=== PATIENT | female | born 2000 | race Caucasian/White ===

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

== ENCOUNTER 2021-03-17 16:30 | Outpatient (RCR) | payer OTHER, MEDICAID, SELFPAY ==
--- NOTE | 2020-11-03 11:58 | HP.OTREVAL ---
Dr. Wilian Marshall MD, It has been my pleasure to treat TOMI HOLLEY over the last 18 visits for Parsonage-Turners Syndrome. Please see the progress note below for an update on the occupational therapy plan of care! Subjective: pt states she continues to have difficulty with fine motor tasks such as grooming hair, earrings, manipulation of fasteners. pt states she is accommodating with eating but continues to have difficulty. pt states she has noticed more strength in her UB but her lack of motion limits her at this time. 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 left graphics software engineer 35#. pt demo with a increase in bilateral shoulder flex to WNL. left biceps/triceps ROM is WNL MMT 4/5. right biceps 130* pt does still compensate with some adduction but with increased time pt can flex right elbow ROM 130*. pt will demo with increase wrist extension and tenodesis with grasp of med. and large objects. pt unable to grasp small objects or perform in hand manipulation. pt has has a trace of thumb extension and adduction but no thumb abduction limiting pts FMS for ADLs and IADLs as grooming, dressing and meal prep. pt would benefit from continued skilled OT services 2-3x week for 12 weeks to gain increase in FMS and strength. Plan Frequency: 2-3x /Week Duration: 3 Months Plan: cont POC will use FES to see if we can elict digit flex. cont with thumb extension. and will work on full composite fist for increase ind with fine motor skills Goals - Goals Patient Goals: Regain Mobility, Regain Strength, Improve Fine Motor Skills, Use Hand/Wrist/Arm Normally Again, Be More Independent in ADLS Goal:: pt will demo a increase in bilateral graphics software engineer strength to 45# or greater to increase pts ind. with ADLs and IADLs by d/c. pt will demo a increase in lateral and tripod pinch to 8# or greater to increase pts ind. with grooming tasks by d/c. Goal:: pt will demo the ability to form bilateral composite sit to hold coins ind. for money manipulation by dc. pt will demo the ability to extend bilateral thumb to increase pts in with grasp of large objects by d/c. pt will demo the ability to manipulate 10 coins without dropping, complete 10 coin finger to palm translation and palm to finger translation ind. Goal:: pt will demo pinch strength to increase ind. with manipulating fasteners, zippers, buttons etc by d/c Anticipated Interventions Anticipated Interventions: A/AAROM/PROM, Strengthening, Sensory Retraining, Joint Protection/Energy Conservation, Ergonomic Education, Fine Motor Coord/Tobi, ADL Training, Education re Diagnosis Please do not hesitate to contact me at [phone] by phone or if you have questions or concerns regarding this new plan of care! Sincerely, Susana Ivory, OTR/L, CHT
--- NOTE | 2020-11-12 10:33 | HP.PTREVAL ---
Dr. Wilian Marshall MD, It has been my pleasure to treat TOMI HOLLEY over the last 93 visits for [place] Syndrome. Please see the progress note below for an update on the physical therapy plan of care! Subjective: Kind of better. Can finally bend R arm a little bit. Did a cart wheel the other day without falling on her face. Playing some gentle baseball and volleybal but unpredictable with throwing and hitting. Brushing teeth and getting dressed using L arm more, she is L handed, incorporates R arm with washing hair. Petting dogs with r UE. To neurologist December 25. No pain, sleeping well. 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 Doing alot with fingers at home whcih are the main delay. Can drive now also. Many improvements. Objective/Function: Full aROM B shoulders and scap an neck. R shoulder slightly weaker and slower. L elbow with full ROM and R elbow with full PROM and active flexion to 110 degrees, full extension and still low tone. Wrist movement and hand are taken care of in OT but are lagging behind proximal arm. strength L shoulder flexion 4, er 4, IR 4, bi4, triceps 4. R shoulder flexion 4-, abd 4-, er 4-, IR 4, biceps 3- to 3, tricep 3+. Excellent improvement on strength in R UE adn becoming more functional for patient with driving, working and head stands. Her goal is to get into criminal justice and needsmore strength to do this for ful function of both proximal UE. Appropriate to continue PT per POC with fair prognosis Plan Plan: 2x week x 4 weeks. continue B bi, tri, shoulder strength and functional progression, focus WB, R biceps and triceps. OT is continuing to work on distal UE. Work toward I gym program and patient to join after the next month. 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 Goal 4:: Move R biceps against gravity Goal Time Frame: 6-8 Weeks Goal Progress: Goal Met Goal 5:: 16 or less quick dash Goal Time Frame: 4-6 Weeks Goal 6:: I approp gym ex to continue progress and willingness to be compliant Goal Time Frame: 4-6 Weeks Goal Progress: NEW GOAL Anticipated Interventions Patient/Client Instruction: Educate patient on: Condition, Plan of Care For the Purpose of:: To improve muscle performance and motor function Therapeutic Exercise to Include: Strength training For the Purpose of:: To improve muscle performance and motor function, To improve ability of physical actions for home/community/work/leisure Please do not hesitate to contact me at [phone] by phone or if you have questions or concerns regarding this new plan of care! Sincerely, Beto Anderson, DPT, OCS, CSCS
--- NOTE | 2021-01-07 10:10 | HP.OTREVAL ---
Dr. Wilian Marshall MD, It has been my pleasure to treat TOMI HOLLEY over the last 12 visits for [place] Syndrome. Please see the progress note below for an update on the occupational therapy plan of care! Subjective: pt arrives to therapy- states left UE ROM has returned to her POLF- just struggling with strength and. right UE biceps has finally returned and some digit extension- still limited with thumb mobility limiting a functional grasp Objective/Function: left UE demonstrating with full ROM of shoulder, elbow/ forearm and digits- opposition ind. to base of LF. right UE shoulder ROM. right biceps 135 left 140. right forearm supination 50*. left forearm supination 90*. right wrist 45/60. left WNL. right thumb no abduction. right hand no opposition. right customer field representative strength 40#. left customer field representative strength 45#. right lateral pinch unable. left lateral pinch 2#. right tripod pinch unable. left tripod pinch 4#. pt has made gains with gross motor control of BUE- but continue to be limited with fine motor control and limited pinch strength for activities of daily living- ie unable to turn a carreno to start her car or unlock her door, open jar lids, unbutton or button, can not tie shoes laces or pants- pt does not have ability to write or performing grooming or participate in sports. Plan Frequency: 1-2x /Week Duration: 2 Months Plan: pt demonstrated need to continue skilled OT services 2x week for 8 weeks to continue to gain fine motor control, bilateral hand and pinch strength. Goals - Goals Patient Goals: Regain Mobility, Regain Strength, Improve Fine Motor Skills, Use Hand/Wrist/Arm Normally Again, Be More Independent in ADLS Goal:: pt will demo a increase in bilateral customer field representative strength to 45# or greater to increase pts ind. with ADLs and IADLs by d/c. pt will demo a increase in lateral and tripod pinch to 8# or greater to increase pts ind. with grooming tasks by d/c. Goal:: pt will demo the ability to form bilateral composite sit to hold coins ind. for money manipulation by dc pt unable to manipulate coins. pt will demo the ability to extend bilateral thumb to increase pts in with grasp of large objects by d/c. pt will demo the ability to manipulate 10 coins without dropping, complete 10 coin finger to palm translation and palm to finger translation ind. Goal:: pt will demo pinch strength to 8# both lateral and tripod to increase ind. with manipulating fasteners, zippers, buttons etc by d/c. right continues to be limited at no ability- left lateral pinch is at 2# and tripod is at 4#. Anticipated Interventions Anticipated Interventions: A/AAROM/PROM, Strengthening, Sensory Retraining, Joint Protection/Energy Conservation, Ergonomic Education, Fine Motor Coord/Tobi, ADL Training, Education re Diagnosis Please do not hesitate to contact me at [phone] by phone or if you have questions or concerns regarding this new plan of care! Sincerely, Susana Ivory, OTR/L, CHT
--- NOTE | 2021-06-10 11:43 | HP.OTDCNRP_ITS ---
TOMI HOLLEY was seen in my office for initial evaluation on . The following Plan of Care was established for this patient: Initial Frequency: 1-2x /Week Initial Duration: 2 Months Plan: Cont POC Anticipated Interventions: A/AAROM/PROM, Strengthening, Sensory Retraining, J oint Protection/Energy Conservation, Ergonomic Education, Fine Motor Coord/Tobi, ADL Training, Education re Diagnosis This patient was last seen in our office 03/17/21. Pertinent comments regarding their Occupational therapy will appear below: pt was last seen in OT on 03/17/21- pt was making good gains with her recovery- no further apts are scheduled and due to time lapse in services pt d/c. At this point I will be discontinuing this patient from occupational therapy. I would be happy to see this patient again in the future if found appropriate by the physician. Thank you! Susana Ivory, OTR/L, CHT
== END 2021-03-17 19:00 | disposition home or self-care (01) ==
LOC: OT 16:30
PROVIDERS: PCP Pediatrics; Referring Provider Pediatrics; Visit Provider Pediatrics
DX: G54.5 Neuralgic amyotrophy (principal)
CPT/HCPCS: 97110; 97164; 97168; 97530

== ENCOUNTER 2025-05-13 19:30 | Outpatient (CLI) | payer MEDICAID, SELFPAY ==
[2025-05-13 19:48] VITALS: BMI 24.4
[2025-05-13 19:53] VITALS: BP 122/69; PULSE 95; PULSE 98; RESP 14; TEMP 36.4; O2SAT 97
--- NOTE | 2025-05-13 22:05 | OB.TRI.NOTE ---
HPI - General General Date of Service: 05/13/25 HPI Narrative TOMI HOLLEY, is a 24 F who presents with cramping after intercourse, Maternal Data Information CRYSTAL Calculator Estimated Delivery Date Method Current WG Current Estimate 06/27/25 Manual 33w 4d PFSH PFSH Home Medications ?Medication ?Instructions ?Recorded ?Last Taken ?Type vit no.95-ferrous 1 tab PO DAILY 05/13/25 Unknown History fumarate 28 mg-folic acid 800 mcg tablet () Allergy/AdvReac Type Severity Reaction Status Date / Time No Known Allergies Allergy Verified 05/13/25 20:23 Social History (System 05/06/20 @ 12:18 by Babs Chacon) Smoking Status: Never smoker NST FHR Rate Baby A Baseline: 130 Variability:: Moderate Accelerations:: 15 x 15 Decelerations:: Variable Uterine Activity:: quiet Assessment & Plan (1) Threatened premature labor: QUALIFIERS: Trimester: third trimester Qualified Code(s): O47.03 - False labor before 37 completed weeks of gestation, third trimester PLAN: Plan Reactive NST
== END 2025-05-13 20:26 | disposition home or self-care (01) ==
LOC: WPOUT 19:45 → WP 19:45
PROVIDERS: Visit Provider Obstetrics & Gynecology
DX: O47.03 False labor before 37 completed weeks of gestation, third trimester (principal); Z3A.33 33 weeks gestation of pregnancy
CPT/HCPCS: 59025; 59050; 99221; G0378

== ENCOUNTER 2025-05-21 14:30 | Outpatient (CLI) | payer MEDICAID, SELFPAY ==
[2025-05-21 14:45] VITALS: BP 101/51; PULSE 116; RESP 16; TEMP 36.8; O2SAT 97
--- OUTSIDE RECORDS SUMMARY | 2025-05-21 14:46 | XMS RPT_ITS | CCD ---
Author Organization [facility] Care Team Providers Care Database Management Specialist Name Role Phone JORJE CABRERA Unavailable Unavailable REFERRED, SELF Unavailable Unavailable ELAN HENRY Unavailable Unavailable No, Physician Primary Care Provider Unavailabl e No, Physician Primary Care Provider Unavailabl e EYAL RAMIREZ Admitting Unavailable NO, PHYSICIAN Primary Care Unavailable EYAL RAMIREZ Attending Unavailable NO, PHYSICIAN Primary Care Unavailable NO, PHYSICIAN Primary Care Unavailable EYAL RAMIREZ Consulting Unavailable COMPA VANESSA Admitting Unavailable SHANE CANTU Attending UnavailLata Santamaria MD Primary Care Provi monika Lata Mcnulty MD Primary Care Provi monika Lata Mcnulty MD Primary Care Provi monika Lata Mcnulty MD Primary Care Provider Lata Mcnulty MD Primary Care Provider [place]log[place] CERTIFIED RECREATIONAL THERAPIST.Maritza ALY Unavailable Dr. Dario Dwyer DO Emergency Provider Dr. Deandre Mcnulty MD Primary Care Provider [place] CERTIFIED RECREATIONAL THERAPIST.Nuvia ALY Unavailable LATA MCNULTY Primary Care Unava ilable EVI TREVIZO Attending UnavailDeandre Santamaria Primary Care Unavailable Dario Dwyer Attending Unavailable DASIA TAYLOR Attending Unavailable KENIA DE JESUS Referring Unavailable HAURY, MARÍA Referring Unavailable DE JESUSKENIA Attending Unavailable HAURY, MARÍA Referring Unavailable HAURY, MARÍA Referring Unavailable HAURY, MARÍA Attending Unavailable SELF Referring Unavailable LATA MCNULTY Primary Care Unavailab MARÍA Kitchen Referring Unavailable NAHOMY GUTIERREZ Attending Unavailable MARÍA FREEMAN Referring Unavailable MARÍA FREEMAN Attending Unavailable KENIA DE JESUS Referring Unavailable KENIA DE JESUS Referring Unavailable LATA MCNULTY Primary Care Unava GINI Isaac Attending UnavailLATA Cintron Primary Care Unava TRUDY Mike Attending Unavailable Allergies Allergy Classification Reported Allergen(s) Allergy Type Date of Onset Reaction(s) Facility (13 sources) Ondansetron; Translations: [ONDANSETRON] Drug Allergy 12-05-2024 [facility] Medications Current Medications Medication Drug Class(es) Dates Sig (Normalized) Sig (Original) aspirin 81 mg delayed release oral tablet (8 sources) Platelet Aggregation Inhibitor, Nonsteroidal Anti-inflammatory Drug Start: 12-05-2024 take 1 tablet by mouth once daily aspirin, enteric coated (ECOTRIN LOW STRENGTH) 81 mg EC tablet Indications: Encounter for supervision of high risk in first trimester, antepartum (HCC) , 10 weeks gestation of (HCC) Take 1 tablet by mouth once daily. 90 tablet 3 12/05/2024 Active Docusate (1 source) docusate sodium (COLACE PO) Take by mouth as needed. Active doxycycline monohydrate 100 mg oral capsule (3 sources) Tetracycline-class Drug Start: 02-02-2023 End: 02-09-2023 take 1 capsule by mouth twice daily doxycycline monohydrate (MONODOX) 100 mg capsule Take 1 capsule by mouth twice daily for 7 days. 14 capsule 0 02/02/2023 02/09/2023 Active Comment on above: Take 1 capsule by [facility] twice daily for 7 days. doxylamine succinate 10 mg / pyridoxine hydrochloride 10 mg delayed release oral tablet (1 source) Start: 10-28-2024 Doxylamine-Pyrido xine (Vit B6) (Diclegis) 10-10 mg tablet,delayed release (DR/EC) Active 1 {tbl} PO DAILY October 28, 2024 12:00am fluconazole 150 mg oral tablet (5 sources) Azole Antifungal Start: 05-18-2024 End: 05-18-2024 fluconazole (DIFLUCAN) 150 mg tablet Take 1 tablet by mouth one time only for 1 dose. Repeat in 3 days as needed. 2 tablet 05/18/2024 05/18/2024 Active Start: 03-08-2023 End: 03-09-2023 take 1 tablet by mouth once fluconazole (DIFLUCAN) 150 mg tablet Take 1 tablet by mouth one time only for 1 dose. 1 tablet 0 03/09/2023 03/09/2023 Active Start: 02-03-2023 End: 02-04-2023 take 1 tablet by mouth once daily fluconazole (DIFLUCAN) 150 mg tablet Take 1 tablet by mouth once daily for 1 day. 1 tablet 0 02/03/2023 02/04/2023 Active Comment on above: Take 1 tablet by regina th once daily for 1 day. Take 1 tablet by regina th one time only for 1 dose. Repeat in 3 days as needed. Take 1 tablet by regina th one time only for 1 dose. gabapentin 100 mg oral capsule (20 sources) Anti-epileptic Agent Start: 10-28-2024 take 1 capsule by mouth every eight hours as needed for pain Gabapentin 100 mg capsule Active 100 mg PO Q8H as needed for pain October 28, 2024 12:00am Start: 03-17-2022 End: 11-18-2022 take 1 capsule by mouth three times daily as needed for pain gabapentin (NEURONTIN) 100 MG capsule Take 1 (one) capsule (100 mg total) by mouth 3 (three) times a day as needed (pain) . 90 capsule 5 11/18/2022 Active Start: 03-30-2020 End: 05-20-2022 take 0.5 tablet by mouth twice daily gabapentin (NEURONTIN) 600 MG tablet Take 0.5 (one-half) tablet (300 mg total) by mouth 2 (two) times a day . 45 tablet 3 06/24/2020 05/20/2022 Discontinued (Patient's Request) Start: 02-21-2020 End: 03-22-2020 take 0.5 tablet by mouth twice daily, then take 1 tablet by mouth twice daily gabapentin (NEURONTIN) 600 MG tablet Take 0.5 (one-half) tablet (300 mg total) by mouth 2 (two) times a day Take 1 tablet by mouth 2 times daily patient reported . 30 tablet 0 02/21/2020 03/22/2020 Active Start: 02-20-2020 End: 12-05-2024 take 1 capsule by mouth twice daily gabapentin (NEURONTIN) 300 mg capsule Indications: Parsonage-Kirby syndrome Take 1 capsule by mouth twice daily for 90 days. 02/20/2020 12/05/2024 Discontinued Start: 11-27-2019 take 1 tablet by regina twice daily gabapentin (NEURONTIN) 600 MG tablet Take 300 mg by mouth 3 (three) times a day Take 1 tablet by mouth 2 times daily patient reported . 0 11/27/2019 Active Start: 11-27-2019 take 1 tablet by regina th three times daily gabapentin (NEURONTIN) 600 MG tablet Take 600 mg by mouth 3 (three) times a day Take 1 tablet by mouth 3 times daily . 0 11/27/2019 Active Comment on above: Take 1 capsule by mo [facility] twice daily for 90 days. indomethacin 50 mg oral capsule (2 sources) Nonsteroidal Anti-inflammatory Drug Start: 11-02-19 End: 11-11-19 take 1 capsule by mouth three times daily at mealtime indomethacin (INDOCIN) 50 MG capsule Take 1 (one) capsule (50 mg total) by mouth 3 (three) times a day with meals for 9 days . 27 capsule 0 11/02/2019 11/11/2019 Active Start: 11-01-2019 End: 11-02-2019 indomethacin (INDOCIN) capsu le 50 mg metroNIDAZOLE 500 mg oral tablet (4 sources) Nitroimidazole Antimicrobial Start: 05-18-2024 End: 05-25-2024 take 1 tablet by mouth twice daily metroNIDAZOLE (FLAGYL) 500 mg tablet Take 1 tablet by mouth two times a day for 7 days. 14 tablet 05/18/2024 05/25/2024 Active Start: 02-03-2023 End: 02-10-2023 take 1 tablet by mouth twice daily metroNIDAZOLE (FLAGYL) 500 mg tablet Take 1 tablet by mouth twice daily for 7 days. 14 tablet 0 02/03/2023 02/10/2023 Active Comment on above: Take 1 tablet by regina twice daily for 7 days. predniSONE 10 mg oral tablet (15 sources) Start: 12-03-2019 End: 01-02-2020 take 0.5 tablet by mouth once daily at breakfast predniSONE (DELTASONE) 10 MG tablet Indications: Parsonage-Kirby syndrome , Brachial plexitis Take 0.5 (one-half) tablet (5 mg total) by mouth daily with breakfast . 15 tablet 0 12/03/2019 01/02/2020 Active Start: 11-18-2019 End: 12-05-2024 predniSONE (DELTASONE) 10 mg tablet Start 6 tabs by mouth once daily on days #1-5; Then DECREASE daily dose by 1 tab every 3 days until off. . 11/18/2019 12/05/2024 Discontinued Start: 11-01-2019 predniSONE (DE LTASONE) 10 MG tablet Indications: Parsonage- Kirby syndrome , Brachial plexitis 60 mg x 1 day, 50 mg x 1 day, 40 mg x 1 day, 30 mg x 1 day, 20 mg x 1 day, 10 mg x 1 day and stop . 21 tablet 0 11/01/2019 Active Comment on above: Start 6 tabs by mout h once daily on days #1-5; Then DECREASE daily dose by 1 tab every 3 days until off. . vit 75/iron/folic/om3 (DAILY ORAL) (8 sources) vit 75/iron/folic/om3 (DAILY ORAL) Take by mouth. Active Completed/Discontinued Medications Medication Drug Class(es) Dates Sig (Normalized) Sig (Original) acetaminophen 325 mg oral tablet (20 sources) Start: 10-31-2019 End: 11-02-2019 take 1 tablet by mouth every four hours as needed 650 mg, Oral, Every 4 hours PRN, mild pain, fever 100.4 F or greater, headaches, Starting [facility] 10/31/19 at 1807 End: 12-05-2024 take 1 tablet by mouth every six hours as needed acetaminophen (TYLENOL EXTRA STRENGTH) 500 mg tablet Take 500 mg by mouth every 6 hours as needed. takes 1.5 tabs every 6 hrs 12/05/2024 Discontinued End: 05-20-2022 take 1 tablet by mouth three times daily acetaminophen (TYLENOL) 500 MG tablet Take 500 mg by mouth 3 (three) times a day . 0 05/20/2022 Discontinued (Patient's Request) Comment on above: Take 500 mg by mouth every 6 hours as needed. takes 1.5 tabs every 6 hrs acetaminophen 325 mg / HYDROcodone bitartrate 5 mg oral tablet (1 source) Opioid Agonist Start: End: take 1 tablet by mouth every four hours as needed 1 tablet, Oral, Every 4 hours PRN, moderate to severe pain, Starting [facility] 10/31/19 at 1807 albuterol 0.833 mg/ml / ipratropium bromide 0.167 mg/ml inhalant solution (1 source) Anticholinergic, beta2-Adrenergic Agonist Start: End: take 3 mL by inhalation every two hours as needed 3 mL, Inhalation, Every 2 hour PRN (RT), wheezing, shortness of breath, Starting [facility] 10/31/19 at 1807 amitriptyline hydrochloride 10 mg oral tablet (20 sources) Tricyclic Antidepressant Start: End: take 1 tablet by mouth once daily at bedtime amitriptyline (ELAVIL) 10 mg tablet Indications: Parsonage-Kirby syndrome Take 1 tablet by mouth daily at bedtime. 30 tablet 02/20/2020 12/05/2024 Discontinued Start: 11-27-2019 End: 12-27-2019 take 1 tablet by mouth once daily at bedtime amitriptyline (ELAVIL) 10 MG tablet Take 10 mg by mouth every night at bedtime . 0 11/27/2019 12/27/2019 Active Comment on above: Take 1 tablet by regina daily at bedtime. brompheniramine maleate 0.4 mg/ml / dextromethorphan hydrobromide 2 mg/ml / pseudoephedrine hydrochloride 6 mg/ml oral solution (7 sources) alpha-Adrenergic Agonist, Uncompetitive Y-tmxlyc-A-aspartate Receptor Antagonist, Sigma-1 Agonist Start: End: take 10 mL by mouth every six hours as needed Brompheniramine-Pseu doeph-DM (BROMFED DM) 2-30-10 mg/5 mL syrup Take 10 mL by mouth four times a day as needed. 200 mL 03/07/2023 12/05/2024 Discontinued Comment on above: Take 10 mL by mouth four times a day as needed. cefTRIAXone 500 mg injection (2 sources) Cephalosporin Antibacterial Start: End: cefTRIAXone 500 mg intramuscular injection (ROCEPHIN) Start: 02-04-2023 End: 02-04-2023 inject 500 mg by intramuscular injection once cefTRIAXone (ROCEPHIN) 500 mg intramuscular injection Indications: Gonorrhea Inject 500 mg intramuscularly one time only for 1 dose. 1 Each 0 02/04/2023 02/04/2023 Discontinued Comment on above: Inject 500 mg intram uscularly one time only for 1 dose. methylPREDNISolone sod suc(PF) (SOLU-medrol) 250 mg in sodium chloride 0.9 % (NS) 50 mL IVPB (1 source) Start : 10-31 End: 10-31 methylPREDNISolone sod suc(PF) (SOLU-medrol) 250 mg in sodium chloride 0.9 % (NS) 50 mL IVPB naloxone (NARCAN) injection 0.1 mg (1 source) Start : 10-30 End: 11-01 naloxone (NARCAN) injection 0.1 mg omeprazole 40 mg delayed release oral capsule (12 sources) Proton Pump Inhibitor Start : 11-18 End: 05-20 take 1 capsule by mouth once daily omeprazole (PRILOSEC) 40 MG capsule Take 40 mg by mouth daily . 0 11/19/2019 05/20/2022 Discontinued (Patient's Request) ondansetron (ZOFRAN-ODT) disintegrating tablet 4 mg (1 source) Start : 10-30 End: 11-01 take 1 tablet by mouth every six hours as needed ondansetron (ZOFRAN-ODT) disintegrating tablet 4 mg pregabalin 25 mg oral capsule (2 sources) Start : 05-20 End: 11-18 take 1 capsule by mouth twice daily pregabalin (LYRICA) 25 MG capsule Indications: Brachial plexitis , Parsonage-Kirby syndrome Take 1 (one) capsule (25 mg total) by mouth 2 (two) times a day (Days supply per fill: 30) . 60 capsule 3 05/20/2022 11/18/2022 Discontinued (Alternate therapy) 1000 ml sodium chloride 9 mg/ml injection (1 source) Start : 10-30 End: 11-01 take 100 mL intravenous route every hour 100 mL/hr, Intravenous, Continuous, Starting [facility] 10/31/19 at 1810 sodium chloride (PF) (NS) 0.9 % contrast line flush 10 mL (1 source) Start : 10-30 End: 11-01 sodium chloride (PF) (NS) 0.9 % contrast line flush 10 mL Problems Active Problems Problem Classification Problem Date Documented Date Episodic/Chronic Administrative/social admission (1 source) Special examination status; Translations: [Encounter for examination for participation in sport] 12-20-2018 Episodic Anxiety disorders (1 source) Anxiety disorder, unspecified; Translations: [Anxiety during (HCC)] Onset: 01-13-2025 Chronic Genitourinary symptoms and ill-defined conditions (1 source) Dysuria; Translations: [Dysuria] 05-17-2024 Episodic Immunizations and screening for infectious disease (6 sources) Patient encounter status; Translations: [Encounter for screening for infections with a predominantly sexual mode of transmission] Onset: 12-05-2024 02-02-2023 Episodic Other complications of (15 sources) High risk ; Translations: [Supervision of high risk , unspecified, first trimester] Onset: 12-05-2024 12-05-2024 Episodic Other complications of (11 sources) Other mental disorders complicating , unspecified trimester; Translations: [Mental disorders of mother, antepartum condition or complication] Onset: 12-05-2024 12-05-2024 Episodic Other complications of (9 sources) Diseases of the digestive system complicating , first trimester; Translations: [Other current conditions classifiable elsewhere of mother, antepartum condition or complication] Onset: 12-05-2024 12-05-2024 Episodic Other complications of (9 sources) Vomiting of , unspecified; Translations: [Unspecified vomiting of , unspecified as to episode of care or not applicable] Onset: 12-05-2024 12-05-2024 Episodic Other complications of (8 sources) ultrasound scan abnormal; Translations: [Abnormal ultrasonic finding on screening of mother] Onset: 12-30-2024 12-30-2024 Episodic Other complications of (5 sources) RhD negative; Translations: [Other specified related conditions, first trimester] Onset: 12-20-2024 12-20-2024 Episodic Other complications of (1 source) Supervision of high risk , unspecified, first trimester; Translations: [Encounter for supervision of high risk in first trimester, antepartum (HCC)] Onset: 01-13-2025 Episodic Other complications of (1 source) Abnormal ultrasonic finding on screening of mother; Translations: [Abnormal ultrasound] Onset: 01-13-2025 Episodic Other congenital anomalies (12 sources) Cleft palate; Translations: [Cleft palate, unspecified] Onset: 12-05-2024 12-05-2024 Chronic Other congenital anomalies (1 source) Cleft palate, unspecified; Translations: [Cleft palate (HCC)] Onset: 12-05-2024 Chronic Other female genital disorders (2 sources) Vaginal discharge; Translations: [Other specified noninflammatory disorders of vagina] 03-07-2023 Episodic Other injuries and conditions due to external causes (1 source) Injury of brachial plexus; Translations: [Brachial plexus injury, initial encounter] Episodic Other lower respiratory disease (1 source) Cough; Translations: [Acute cough] 03-07-2023 Episodic Other nervous system disorders (20 sources) Neuralgic amyotrophy; 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 11-01-2019 Chronic Other nervous system disorders (4 sources) Neuralgic amyotrophy; 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-2025 Chronic Other nervous system disorders (10 sources) Brachial neuritis; Translations: [Brachial plexus disorders] Onset: 12-03-2019 Chronic Other nervous system disorders (1 source) Bilateral carpal tunnel syndrome; Translations: [Carpal tunnel syndrome, bilateral] Other screening for suspected conditions (not mental disorders or infectious disease) (3 sources) ultrasound scan abnormal; Translations: [Abnormal findings on diagnostic imaging of other specified body structures] Onset: 12-19-2024 12-31-2024 Chronic Other screening for suspected conditions (not mental disorders or infectious disease) (2 sources) Cancer cervix screening status; Translations: [Encounter for screening for malignant neoplasm of cervix] Onset: 12-05-2024 12-05-2024 Episodic Other skin disorders (1 source) Finding of lesion; Translations: [Localized swelling, mass and lump, unspecified] 03-07-2023 Episodic Other upper respiratory infections (2 sources) Acute upper respiratory infection; Translations: [Acute upper respiratory infection, unspecified] 03-07-2023 Episodic Residual codes; unclassified (3 sources) Gestation period, 10 weeks; Translations: [10 weeks gestation of ] 12-05-2024 Episodic Residual codes; unclassified (10 sources) Nicotine-filled electronic cigarette user; Translations: [Tobacco use] Onset: 12-05-2024 12-05-2024 Episodic Residual codes; unclassified (9 sources) History of headache; Translations: [Personal history of other specified conditions] Onset: 12-05-2024 12-05-2024 Episodic Residual codes; unclassified (9 sources) Family history of sickle cell anemia; Translations: [Family history of diseases of the blood and blood-forming organs and certain disorders involving the immune mechanism] Onset: 12-05-2024 12-05-2024 Episodic Residual codes; unclassified (6 sources) Gestation period, 12 weeks; Translations: [12 weeks gestation of ] 12-19-2024 Episodic Residual codes; unclassified (5 sources) Carrier of cystic fibrosis gene mutation; Translations: [Cystic fibrosis carrier] Onset: 01-01-2025 01-01-2025 Episodic Residual codes; unclassified (1 source) Gestation period, 16 weeks; Translations: [16 weeks gestation of ] 01-13-2025 Episodic Residual codes; unclassified (1 source) 20 weeks gestation of ; Translations: [20 weeks gestation of (HCC)] Onset: 02-07-2025 Episodic Residual codes; unclassified (1 source) Cystic fibrosis carrier; Translations: [Cystic fibrosis carrier] Onset: 01-01-2025 Episodic Residual codes; unclassified (1 source) Tobacco use; Translations: [Engages in nicotine containing substance vaping] Onset: 12-05-2024 Episodic Residual codes; unclassified (1 source) 16 weeks gestation of ; Translations: [16 weeks gestation of (HCC)] Onset: 01-13-2025 Episodic Residual codes; unclassified (1 source) 12 weeks gestation of ; Translations: [12 weeks gestation of (HCC)] Onset: 12-27-2024 Episodic Residual codes; unclassified (1 source) 10 weeks gestation of ; Translations: [10 weeks gestation of (HCC)] Onset: 12-19-2024 Episodic Sexually transmitted infections (not HIV or hepatitis) (1 source) Gonorrhea; Translations: [Gonococcal infection, unspecified] 02-04-2023 Episodic Unclassified (8 sources) [facility] - COMMON Onset: 12-05-2024 12-05-2024 Unclassified (8 sources) Education - [place] Onset: 12-05-2024 12-05-2024 Unclassified (1 source) Other specified diseases and conditions complicating ; Translations: [Other specified diseases and conditions complicating ] Onset: 02-05-2025 Past or Other Problems Problem Classification Problem Date Documented Da te Episodic/Chronic Malaise and fatigue (19 sources) Asthenia; Translations: [Weakness] Onset: 10-31-2019 10-31-2019 Episodic Spondylosis; intervertebral disc disorders; other back problems (15 sources) Brachial neuritis; Translations: [Backache] Onset: 12-03-2019 12-03-2019 Episodic Urinary tract infections (2 sources) Cystitis, unspecified with hematuria; Translations: [Cystitis, unspecified with hematuria] Onset: 09-02-2024 Episodic Results Test Name Value Interpretation Reference Range Facility [facility] ---- SIA HOLLEY ([id number]) 2 F Date Time Provider Department 02/10/25 NURSE RADIOLOGIST CHIEF OF BREAST IMAGING [facility] [facility] During your visit today, we recorded the following information about you: Dayana Chow RN 02/10/2025 11:12 AM Signed 2nd risk assessment form submitted 02/10/25 Dayana Chow RN Allergies As of Date: 02/10/2025 Noted Allergy Reaction ZOFRAN (ONDANSETRON) 12/05/2024 4 - Hives Date Reviewed: 02/07/2025 Reviewed by: Nahomy Gutierrez MD - Fully Assessed Reason for Visit: PRAF [4193] Prescriptions as of 02/10/2025 - docusate sodium (COLACE PO) Take by mouth as needed. - aspirin, enteric coated (ECOTRIN LOW STRENGTH) 81 mg EC tablet Take 1 tablet by mouth once daily. - vit 75/iron/folic/om3 (DAILY ORAL) Take by mouth. 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] Encounter for supervision of high risk pregnanc*12/05/2024 Cleft palate (HCC) [Q35.9] 12/05/2024 Anxiety during (HCC) [O99.340, F41.9] 12/05/2024 Engages in nicotine containing substance vaping*12/05/2024 Constipation during in first trimeste*12/05/2024 Nausea and vomiting during (HCC) [O21*12/05/2024 History of headache [Z87.898] 12/05/2024 Family history of sickle cell anemia (Hgb SS) i*12/05/2024 Rh negative status in martin in fi*12/20/2024 Abnormal ultrasound [O28.3] 12/30/2024 02/07/2025 Cystic fibrosis carrier [Z14.1] 01/01/2025 Encounter Status:Closed by DAYANA CHOW on 02/10/25 Normal [facility] Examination level ultrasound on 01-14-2025 Indication Early anatomic survey, 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 Maternal cleft palate Impression REMOTE READ The patient is referred for an early anatomic survey because of identified risk factors. - Single, live, intrauterine . - biometry is consistent with the established gestational age. - No malformations were visualized on an early anatomic assessment, although some anatomical structures were suboptimally seen as detailed below. The nasal bone is visualized. - The amniotic fluid volume is normal amount. - The placenta is anterior, fundal. - Not all structural malformations can be detected by ultrasound examination. Recommendations - A detailed exam at 20 weeks for increased risk. - Additional follow up as clinically indicated. Maternal Assessment Height 168 cm Height (ft) 5 ft Height (in) 6 in Physical Exam Initial weight (lb) 105 lb Initial BMI 16.95 kg/m Method Transabdominal ultrasound examination Martin . Number of fetuses: 1 Dating LMP on: 09/20/2024 GA by LMP 16 w + 3 d CRYSTAL by LMP: 06/27/2025 GA by prior assessment 16 w + 3 d CRYSTAL by prior assessment: 06/27/2025 Ultrasound examination on: 01/13/2025 GA by U/S based upon: AC, BPD, Femur, HC GA by U/S 16 w + 4 d CRYSTAL by U/S: 06/26/2025 Assigned: based on stated CRYSTAL, selected on 12/19/2024 Assigned GA 16 w + 3 d Assigned CRYSTAL: 06/27/2025 General Evaluation Cardiac activity present. FHR 155 bpm. movements: present. Presentation: breech Placenta: Placental site: anterior, fundal Umbilical cord: Cord vessels: 3 vessel cord. Insertion site: normal insertion Amniotic fluid: Amount of AF: normal amount Biometry Standard BPD 34.4 mm 16w 4d 57% Hadlock OFD 45.0 mm 15w 5d 36% Nicolaides HC 127.2 mm 16w 1d 40% Lisa Cerebellum tr 16.4 mm 16w 5d 49% Hill Nuchal fold 1.3 mm AC 110.5 mm 16w 6d 67% Hadlock Femur 21.9 mm 16w 4d 60% Lisa Humerus 21.8 mm 16w 4d 64% Lisa EFW 163 g 16w 3d 54% Hadlock EFW (lb) 0 lb EFW (oz) 6 oz EFW by: Hadlock (HC-AC-FL) Extended Acquisition Lead 4.5 mm CM 4.3 mm 60% Nicolaides Head / Face / Neck Nasal bone: present Extremities / Bony Struc FL / HC 0.17 67% Hadlock Other Structures FHR 155 bpm Anatomy Cranium: normal Lateral ventricles: normal Choroid plexus: normal Midline falx: normal Cerebellum: normal Cisterna magna: normal Lips: normal Profile: normal Face Nasal bone: present Maxilla: normal Mandible: normal 4-chamber view: suboptimally visualized RVOT view: normal LVOT view: normal 3-vessel view: suboptimally visualized [id number] view: normal Heart / Thorax Diaphragm: normal Cord insertion: normal Stomach: normal Kidneys: normal Bladder: normal Cervical spine: normal Thoracic spine: normal Lumbar spine: normal Sacral spine: normal Arms: normal Legs: normal Rt upper arm: normal Rt forearm: normal Rt hand: normal Lt upper arm: normal Lt forearm: normal Lt hand: normal Rt upper leg: normal Rt lower leg: normal Rt foot: normal Lt upper leg: normal Lt lower leg: normal Lt foot: normal sex: male sex: normal Wants to know sex: yes Maternal Structures Uterus / Cervix Uterus: Visualized Approach: Transabdominal Cervical length 35.0 mm Ovaries / Tubes / Adnexa Rt ovary: Visualized Lt ovary: Visualized Performed By: Sia Silva RDMS Read By: Cassandra Garcia M.D. MATERNAL MEDICINE [facility] Examination level ultrasound on 01-13-2025 Radiology Study observation (narrative) [facility] Jorge 01-01-2025 BATSHEVA Telephone (OBGYWM) ---- SIA HOLLEY ([id number]) 2 F Date Time Provider Department 01/01/25 MARÍA FREEMAN During your visit today, we recorded the following information about you: Tavon Hernandez RN 01/01/2025 8:47 AM Signed Left message for patient to return phone call. -- Please notify patient: Carrier screening is + for cystic fibrosis. Next steps would be to test FOB. If they would like him tested, would need name, date of , and permission to access his chart. María Freeman APRN.Marleen Garcia RN 01/01/2025 12:26 PM Signed Pt called back-states they decline to have FOB tested at this time. Advised Pt that if they change their mind to call office. AUTUMN Betts Jennifer, RN 01/01/2025 12:49 PM Signed Patient called back to ask if blood work is the only way to check because FOB can not handle needles. Advised that yes, it's blood work. Nahomy Lang RN Allergies As of Date: 01/01/2025 Noted Allergy Reaction ZOFRAN (ONDANSETRON) 12/05/2024 4 - Hives Date Reviewed: 12/19/2024 Reviewed by: Gavi Victor MA - Fully Assessed Reason for Visit: Results [95] Prescriptions as of 01/07/2025 - aspirin, enteric coated (ECOTRIN LOW STRENGTH) 81 mg EC tablet Take 1 tablet by mouth once daily. - vit 75/iron/folic/om3 (DAILY ORAL) Take by mouth. 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] 12/05/2024 Anxiety during (HCC) [O99.340, F41.9] 12/05/2024 Engages in nicotine containing substance vaping*12/05/2024 Constipation during in first trimeste*12/05/2024 Nausea and vomiting during (HCC) [O21*12/05/2024 History of headache [Z87.898] 12/05/2024 Family history of sickle cell anemia (Hgb SS) i*12/05/2024 Rh negative status in martin in fi*12/20/2024 Abnormal ultrasound [O28.3] 12/30/2024 Cystic fibrosis carrier [Z14.1] 01/01/2025 Encounter Status:Closed by TAVON HERNANDEZ on 01/07/25 Normal [facility] Chr 21 trisomy Cytogenetics Ql (Bld/Tiss)on 12-26-2024 Cell-free DNA./Cell-free DNA.total Dosage of chromosome-specific cfDNA (cfDNA) [Molar fraction] 13% [facility] Chr 13+18+21+X+Y aneuploidy Dosage of chromosome-specific cfDNA Ql (cfDNA) Negative [facility] Chr 21 trisomy Dosage of chromosome-specific cfDNA Ql (cfDNA) Negative [facility] Chr X and Y aneuploidy risk Sequencing Ql (cfDNA) [Interp] Not detected [facility] Citation Ant (Reference lab test) Comment [facility] Comment on above: 1. doron Nolan. Celeste Med. 2012;14(3):296-305. 2. Gabino ARTHUR et al. Prenat Diag. 2013;33(6):591-597. 3. Tung Corrales et al. Clin Chem. 2015 Apr;61(4):608-616. 4. Boris HAGAN et al. Celeste Med. 2011;13(11):913-920. 5. ACOG/SMFM Practice Bulletin No. 226, Feb 2020. Gestational age Estimated from conception date Martin [facility] GESTATIONALAGE>=9W Yes [facility] comment Ant (Report) Comment [facility] Comment on above: The MaterniT(R) 21 P MALIK laboratory-developed test (LDT) analyzes circulating cell-free DNA from a maternal blood sample. This test is used for screening purposes and not diagnostic. Clinical correlation is recommended. Validation data on twin pregnancies is limited and the ability of this test to detect aneuploidy in higher multiple gestations has not yet been validated. director mobile name Nom (Provider) Comment [facility] Comment on above: This specimen showed an expected representation of chromosome 21, 18 and 13 material. Clinical correlation is suggested. Nilo Griffith MD , PhD, Director, [facility] Limitations of the Test Comment [facility] Comment on above: While the results of these tests are highly reliable, discordant results, including inaccurate sex prediction, may occur due to placental, maternal, or mosaicism or neoplasm; vanishing twin; prior maternal organ transplant; or other causes. These tests are screening tests and not diagnostic; they do not replace the accuracy and precision of diagnosis with CVS or amniocentesis. A patient with a positive test result should be referred for genetic counseling and offered invasive diagnosis for confirmation of test results.[5] The results of this testing, including the benefits and limitations, should be discussed with a qualified healthcare provider. management decisions, including termination of the , should not be based on the results of these tests alone. The healthcare provider is responsible for the use of this information in the management of their patient. Sex chromosomal aneuploidies are not reportable for known multiple gestations. A negative result does not ensure an unaffected nor does it exclude the possibility of other chromosomal abnormalities or defects which are not a part of these tests. An uninformative result may be reported, the causes of which may include, but are not limited to, insufficient sequencing coverage, noise or artifacts in the region, amplification or sequencing bias, or insufficient fraction. These tests are not intended to identify pregnancies at risk for neural tube defects or ventral wall defects. Testing for whole chromosome abnormalities (including sex chromosomes) and for subchromosomal abnormalities could lead to the potential discovery of both and maternal genomic abnormalities that could have major, minor, or no, clinical significance. Evaluating the significance of a positive or a non-reportable result may involve both invasive testing and additional studies on the mother. Such investigations may lead to a diagnosis of maternal chromosomal or subchromosomal abnormalities, which on occasion may be associated with benign or malignant maternal neoplasms. These tests may not accurately identify triploidy, balanced rearrangements, or the precise location of subchromosomal duplications or deletions; these may be detected by diagnosis with CVS or amniocentesis. The ability to report results may be impacted by maternal BMI, maternal weight, maternal systemic lupus erythematosus (SLE) and/or by certain pharmaceutical agents such as low molecular weight heparin (for example: Lovenox(R), Xaparin(R), Clexane(R) and Fragmin(R)). Monosomy X risk Dosage of chromosome-specific cfDNA Ql (Plasma cell-free+WBC DNA) [Interp] Not detected [facility] NEGATIVE PREDICTIVE VALUE Note [facility] Comment on above: The Negative Predict jeremy Value (NPV) for trisomy 21, 18, and 13 is greater than 99%. The NPV for SCA and ESS cannot be calculated as SCA and ESS are only reported when an abnormality is detected. PERFORMANCE CHARACTERISTICS Note [facility] Comment on above: ! Sex ! Accuracy: 99.4% ! ! ! ! Region (associated syndrome) ! Est. Sens# ! Est. Spec ! ! ! ! Trisomy 21 (Down Syndrome) ! 99.1% ! 99.9% ! ! ! ! Trisomy 18 (Odom Syndrome) ! >99.9% ! 99.6% ! ! ! ! Trisomy 13 ([place] Syndrome) ! 91.7% ! 99.7% ! ! ! ! Sex Chromosome Aneuploidies## ! 96.2% ! 99.7% ! ! ! * As reported in ISCA database nstd37 [https://www.ncbi.nlm.nih.gov/dbvar/studies/nstd37/ ] # Estimated Sensitivity. Sensitivity estimated across the observed size distribution of each syndrome [per ISCA database nstd37] and across the range of fractions observed in routine clinical NIPT. Actual sensitivity can also be influenced by other factors such as the size of the event, total sequence counts, amplification bias, or sequence bias. ## Martin gestation only. Positive Predictive Value N/A [facility] Reference Lab Test Method Comment [facility] Comment on above: Circulating cell-crow e DNA was purified from the plasma component of maternal blood. The extracted DNA was then converted into a genomic DNA library for aneuploidy analysis of chromosomes 21, 18, and 13 via next generation sequencing.[1] Optional findings based on the test order include sex chromosome aneuploidy (SCA)[2], and enhanced sequencing series (ESS)[3], which will only be reported on as an additional finding when an abnormality is detected. SCA testing includes information on X and Y representation, while ESS testing includes deletions in selected regions (22q, 15q, 11q, 8q, 5p, 4p, 1p) and trisomy of chromosomes 16 and 22. Service comment (Unsp spec) [Interp] Comment [facility] Comment on above: [employer] is a subsidiary of [employer], using the brand [employer]. This test was developed and its performance characteristics determined by [employer]. It has not been cleared or approved by the Food and Drug Administration. This laboratory is certified under the Clinical Laboratory Improvement Amendments (CLIA) as qualified to perform high complexity clinical laboratory testing and accredited by the [employer] (CAP). If there is future clinical need for adding MaterniT GENOME testing, this specimen will be available until term. [facility] samples will not be retained beyond 60 days. [facility] patients will have to send a new sample for re-sequencing ([facility] Test Code: [id number]). Sex Dosage of chromosome-specific cfDNA Nom (cfDNA) Comment [facility] Comment on above: Consistent with Male Test performance information Ant (Unsp spec) Comment [facility] Comment on above: The performance sheyla acteristics of the MaterniT(R) 21 PLUS laboratory-developed test (LDT) have been determined in a clinical validation study with women at increased risk for chromosomal aneuploidy.[1-4] Trisomy 13 risk Dosage of chromosome-specific cfDNA Ql (cfDNA) [Interp] Negative [facility] Trisomy 18 risk Dosage of chromosome-specific cfDNA Ql (Plasma cell-free+WBC DNA) [Interp] Negative [facility] Performed at: - [facility] [address], [place] [id number] Life Enrichment Manager: Nilo Bishop, Phone: [phone] [facility] CBC W Auto Differential pane l (Bld)on 12-19-2024 Basophils (Bld) [#/Vol] 0.03 10*3/uL Normal <0.11 [facility] Comment on above: Order Comment: Speci men Type: BLOOD SPECIMEN Ordering Facility: [facility] Address: [address] [place] [address] Performed By: #### T SPN #### [facility] CLIA [id number] [address] [place] [address] [place] Basophils/100 WBC (Bld) 0.4 % Normal [facility] Comment on above: Order Comment: Speci men Type: BLOOD SPECIMEN Ordering Facility: [facility] Address: [address] [place] [address] Performed By: #### T SPN #### [facility] CLIA [id number] [address] [place] [address] [place] Differential cell count method Nom (Bld) Auto Normal [facility] Comment on above: Order Comment: Speci men Type: BLOOD SPECIMEN Ordering Facility: [facility] Address: [address] [place] [address] Performed By: #### T SPN #### [facility] CLIA [id number] [address] [place] [address] [place] Eosinophils (Bld) [#/Vol] 0.07 10*3/uL Normal <0.46 [facility] Comment on above: Order Comment: Speci men Type: BLOOD SPECIMEN Ordering Facility: [facility] Address: [address] [place] [address] Performed By: #### T SPN #### [facility] CLIA [id number] [address] [place] [address] [place] Eosinophils/100 WBC (Bld) 1.0 % Normal [facility] Comment on above: Order Comment: Speci men Type: BLOOD SPECIMEN Ordering Facility: [facility] Address: [address] [place] [address] Performed By: #### T SPN #### [facility] CLIA [id number] [address] [place] [address] [place] Erythrocyte distribution width (RBC) [Ratio] 13.0 % Normal 11.5-15.0 [facility] Comment on above: Order Comment: Speci men Type: BLOOD SPECIMEN Ordering Facility: [facility] Address: [address] [place] [address] Performed By: #### T SPN #### [facility] CLIA [id number] [address] [place] [address] [place] Hematocrit (Bld) [Volume fraction] 33.1 % Low 36.0-46.0 [facility] Comment on above: Order Comment: Speci men Type: BLOOD SPECIMEN Ordering Facility: [facility] Address: [address] [place] [address] Performed By: #### T SPN #### [facility] CLIA [id number] [address] [place] [address] [place] Hemoglobin (Bld) [Mass/Vol] 11.9 g/dL Normal 11.5-15.5 [facility] Comment on above: Order Comment: Speci men Type: BLOOD SPECIMEN Ordering Facility: [facility] Address: [address] [place] [address] Performed By: #### T SPN #### [facility] CLIA [id number] [address] [place] [address] [place] Immature granulocytes (Bld) [#/Vol] 0.05 10*3/uL Normal <0.10 [facility] Comment on above: Order Comment: Speci men Type: BLOOD SPECIMEN Ordering Facility: [facility] Address: [address] [place] [address] Performed By: #### T SPN #### [facility] CLIA [id number] [address] [place] [address] [place] Immature granulocytes/100 WBC (Bld) 0.7 % Normal [facility] Comment on above: Order Comment: Speci men Type: BLOOD SPECIMEN Ordering Facility: [facility] Address: [address] [place] [address] Performed By: #### T SPN #### [facility] CLIA [id number] [address] [place] [address] [place] Lymphocytes (Bld) [#/Vol] 1.47 10*3/uL Normal 1.00-4.00 [facility] Comment on above: Order Comment: Speci men Type: BLOOD SPECIMEN Ordering Facility: [facility] Address: [address] [place] [address] Performed By: #### T SPN #### [facility] CLIA [id number] [address] [place] [address] [place] Lymphocytes/100 WBC (Bld) 20.1 % Normal [facility] Comment on above: Order Comment: Speci men Type: BLOOD SPECIMEN Ordering Facility: [facility] Address: [address] [place] [address] Performed By: #### T SPN #### [facility] CLIA [id number] [address] [place] [address] [place] MCH (RBC) [Entitic mass] 31.5 pg Normal 26.0-34.0 [facility] Comment on above: Order Comment: Speci men Type: BLOOD SPECIMEN Ordering Facility: [facility] Address: [address] [place] [address] Performed By: #### T SPN #### [facility] CLIA [id number] [address] [place] [address] [place] MCHC (RBC) [Mass/Vol] 36.0 g/dL Normal 30.5-36.0 [facility] Comment on above: Order Comment: Speci men Type: BLOOD SPECIMEN Ordering Facility: [facility] Address: [address] [place] [address] Performed By: #### T SPN #### [facility] CLIA [id number] [address] [place] [address] [place] MCV (RBC) [Entitic vol] 87.6 fL Normal 80.0-100.0 [facility] Comment on above: Order Comment: Speci men Type: BLOOD SPECIMEN Ordering Facility: [facility] Address: [address] [place] [address] Performed By: #### T SPN #### [facility] CLIA [id number] [address] [place] [address] [place] Monocytes (Bld) [#/Vol] 0.48 10*3/uL Normal <0.87 [facility] Comment on above: Order Comment: Speci men Type: BLOOD SPECIMEN Ordering Facility: [facility] Address: [address] [place] [address] Performed By: #### T SPN #### [facility] CLIA [id number] [address] [place] [address] [place] Monocytes/100 WBC (Bld) 6.5 % Normal [facility] Comment on above: Order Comment: Speci men Type: BLOOD SPECIMEN Ordering Facility: [facility] Address: [address] [place] [address] Performed By: #### T SPN #### [facility] CLIA [id number] [address] [place] [address] [place] Neutrophils (Bld) [#/Vol] 5.23 10*3/uL Normal 1.45-7.50 [facility] Comment on above: Order Comment: Speci men Type: BLOOD SPECIMEN Ordering Facility: [facility] Address: [address] [place] [address] Performed By: #### T SPN #### [facility] CLIA [id number] [address] [place] [address] [place] Neutrophils/100 WBC (Bld) 71.3 % Normal [facility] Comment on above: Order Comment: Speci men Type: BLOOD SPECIMEN Ordering Facility: [facility] Address: [address] [place] [address] Performed By: #### T SPN #### [facility] CLIA [id number] [address] [place] [address] [place] Nucleated RBC (Bld) [#/Vol] 10*3/uL Normal <0.01 [facility] Comment on above: Order Comment: Speci men Type: BLOOD SPECIMEN Ordering Facility: [facility] Address: [address] [place] [address] Performed By: #### T SPN #### [facility] CLIA [id number] [address] [place] [address] [place] Nucleated RBC/100 WBC (Bld) [Ratio] 0.0 /100 WBC Normal [facility] Comment on above: Order Comment: Speci men Type: BLOOD SPECIMEN Ordering Facility: [facility] Address: [address] [place] [address] Performed By: #### T SPN #### [facility] CLIA [id number] [address] [place] [address] [place] Platelet mean volume (Bld) [Entitic vol] 10.6 fL Normal 9.0-12.7 [facility] Comment on above: Order Comment: Speci men Type: BLOOD SPECIMEN Ordering Facility: [facility] Address: [address] [place] [address] Performed By: #### T SPN #### [facility] CLIA [id number] [address] [place] [address] [place] Platelets (Bld) [#/Vol] 175 10*3/uL Normal 150-400 [facility] Comment on above: Order Comment: Speci men Type: BLOOD SPECIMEN Ordering Facility: [facility] Address: [address] [place] [address] Performed By: #### T SPN #### [facility] CLIA [id number] [address] [place] [address] [place] RBC (Bld) [#/Vol] 3.78 10*6/uL Low 3.90-5.20 [facility] Comment on above: Order Comment: Speci men Type: BLOOD SPECIMEN Ordering Facility: [facility] Address: [address] [place] [address] Performed By: #### T SPN #### [facility] CLIA [id number] [address] [place] [address] [place] WBC (Bld) [#/Vol] 7.33 10*3/uL Normal 3.70-11.00 [facility] Comment on above: Order Comment: Speci men Type: BLOOD SPECIMEN Ordering Facility: [facility] Address: [address] [place] [address] Performed By: #### T SPN #### [facility] CLIA [id number] [address] [place] [address] OF [facility] Examination level ultrasound on 12-19-2024 Indication First trimester anatomic survey Impression The patient is referred for a first trimester anatomy scan including nuchal translucency measurement as clinically indicated. - Single, live, intrauterine . - [place] rump length measurement is consistent with the established gestational age. - A qualitative screen of the nuchal translucency and other anatomic structures was unremarkable on an incomplete first trimester anatomic assessment. The nasal bone is difficult to visualize. - Not all structural malformations can be detected by ultrasound examination. Maternal Structures: Right Ovary: Size 48 mm x 23 mm x 24 mm Recommendations Recommend NIPT and early anatomic survey around 16 weeks Maternal Assessment Height 168 cm Height (ft) 5 ft Height (in) 6 in Physical Exam Initial weight (lb) 105 lb Initial BMI 16.95 kg/m Maternal assessment other: 1 Para 0 REMOTE READ Method Transabdominal ultrasound examination Martin . Number of fetuses: 1 Dating LMP on: 09/20/2024 GA by LMP 12 w + 6 d CRYSTAL by LMP: 06/27/2025 GA by prior assessment 12 w + 6 d CRYSTAL by prior assessment: 06/27/2025 Ultrasound examination on: 12/19/2024 GA by U/S based upon: CRL GA by U/S 13 w + 1 d CRYSTAL by U/S: 06/25/2025 Assigned: based on stated CRYSTAL, selected on 12/19/2024 Assigned GA 12 w + 6 d Assigned CRYSTAL: 06/27/2025 General Evaluation Cardiac activity present Placenta: posterior Cord vessels: 3 vessel cord Amniotic fluid: normal amount Biometry Standard FHR 156 bpm CRL 68.3 mm 13w 1d 60% [place] First Trimester Anatomy Calvarium: normal Falx cerebri: normal Choroid plexus: normal Profile: normal Nasal bone: suboptimal Retronasal triangle: normal Maxilla: normal Mandible: normal Nuchal translucency: Unremarkable Situs: normal Cardiac position: normal Cardiac axis: normal 4-chamber view: suboptimal 4-chamber view with color: suboptimal 9-[id number] view: suboptimal Abdominal cord insertion: normal Stomach: normal Kidneys: normal Bladder: normal Color doppler of perivesical umbilical arteries: normal Vertebral alignment: normal Arms: normal Hands: normal Legs: normal Feet: normal Maternal Structures Uterus / Cervix Uterus: Visualized Uterus length 153 mm Uterus width 104 mm Uterus height 92 mm Uterus Vol 766.1 cm Ovaries / Tubes / Adnexa Rt ovary: Visualized Rt ovary D1 48 mm Rt ovary D2 23 mm Rt ovary D3 24 mm Rt ovary Vol 13.3 cm Lt ovary: Not visualized Performed By: Maida Julian RDMS, RVT Read By: Rosa Phan M.D. MATERNAL MEDICINE [facility] Radiology Study observation (narrative) [facility] HBV surface Ag Ser Qlon 11-21 HBV surface Ag Ql (S) Negative Normal Negative [facility] Comment on above: Order Comment: Speci men Type: BLOOD SPECIMEN Ordering Facility: [facility] Address: [address] [place] [address] Performed By: #### T SPN #### [facility] CLIA [id number] [address] [place] [address] [place] HCV Ab Ser Qlon 12-19-2024 HCV Ab Ql (S) Negative Normal Negative [facility] Comment on above: Order Comment: Speci men Type: BLOOD SPECIMENOrdering Facility: [facility] Address: [address] [place] [address] Result Comment: The result suggests no evidence of infection with Hepatitis C virus. Should recent infection be suspected, repeat testing may be considered 4-6 weeks after this draw. Performed By: #### 1 [id number] ####[facility] LAB[facility]IA [id number] [place] [address] [place] HGB ELECTROPHORESIS FOR EVAL (LAB ORDER)on 12-19-2024 Hemoglobin A (Bld) [Mass fraction] 97.4 % Normal 96.2-98.0 [facility] Comment on above: Order Comment: Speci men Type: BLOOD SPECIMENOrdering Facility: [facility] Address: [address] [place] [address] Performed By: #### L [id number], HGBELEV ####[facility] LABCLIA [id number] [place] [address] [place] Hemoglobin A2 (Bld) [Mass fraction] 2.6 % Normal 2.0-3.1 [facility] Comment on above: Order Comment: Speci men Type: BLOOD SPECIMENOrdering Facility: [facility] Address: [address] [place] [address] Performed By: #### L [id number], HGBELEV ####[facility] [facility] LABCLIA [id number] [place] [address] [place] Hemoglobin Unsp Elph (Bld) [Mass fraction] No abnormal hemoglobin identified. Normal No abnormal hemoglobin identified. [facility] Comment on above: Order Comment: Speci men Type: BLOOD SPECIMENOrdering Facility: [facility] Address: [address] [place] [address] Performed By: #### L [id number], HGBELEV ####[place] LABCLIA [id number] [place] [id number] [place] HGB EVALUATION CASCADE INTER Donald 12-19-2024 Hemoglobin pattern (Bld) [Interp] Reviewed by Serjio Green MD Normal [facility] Comment on above: Order Comment: Speci men Type: BLOOD SPECIMEN [facility] Facility[facility] Address: [address] [place] [address] Performed By: #### T SPN #### [facility] CLIA [id number] [address] [place] [address] [place] INTERPRETATION (HGB EVAL) Normal [facility] Comment on above: Order Comment: Speci men Type: BLOOD SPECIMEN [facility] Address: [address] [place] [address] Result Comment: Hemo globins were analyzed by capillary electrophoresis and CBC red cell parameters were reviewed. No abnormal hemoglobin is identified. There is a normal hemoglobin capillary electrophoresis pattern. Performed By: #### T SPN #### [facility] CLIA [id number] [address] [place] [address] [place] HIV 1+2 Ab IA Qlon 5 HIV 1 and 2 Ab IA.rapid Nom (S/P/Bld) Normal [facility] Comment on above: Order Comment: Speci men Type: BLOOD SPECIMEN [facility] Address: [address] [place] [address] Result Comment: Test not indicated. Performed By: #### T SPN #### [facility] CLIA [id number] [address] [place] [address] [place] HIV 1+2 Ab+HIV1 p24 Ag IA Ql Non-Reactive Normal Nonreactive [facility] Comment on above: Order Comment: Speci men Type: BLOOD SPECIMEN [facility]ing Facility: [facility] Address: [address] [place] [address] Performed By: #### T SPN #### [facility] CLIA [id number] [address] [place] [address] [place] HIV immunoassay testing algorithm interpretation (S/P/Bld) [Interp] Normal [facility] Comment on above: Order Comment: Speci men Type: BLOOD SPECIMEN [facility] Address: [address] [place] [address] Result Comment: No e vidence of HIV-1 or HIV-2 infection. Should recent infection be suspected, repeat testing may be considered 2-3 weeks after this draw. [place] Rev. Code 3701.243(E): This information has been disclosed to you from confidential records protected from disclosure by state law. You shall make no further disclosure of this information without the specific, written, and informed release of the individual to whom it pertains or as otherwise permitted by state law. A general authorization for the release of medical or other information is not sufficient for the purpose of the release of HIV test results or diagnoses. Performed By: #### T SPN #### CC [facility] BLOOD BANK CLIA [id number] [address] [place] [address] [place] HbA1c (Bld)on 12-19-2024 Average glucose Estimated from glycated hemoglobin (Bld) [Mass/Vol] 88 mg/dL Normal [facility] Comment on above: Order Comment: Speci men Type: BLOOD SPECIMENOrdering Facility: [facility] Address: [address] [place] [address] Result Comment: eAG: (Estimated average glucose) is a calculated value from HgbA1c and is plastic products sales representative of the average blood glucose level in the last 2-3 month period. Performed By: #### 5 5454-3 ####[place] LABCLIA [id number] [place] [address] [place] HbA1c (Bld) [Mass fraction] 4.7 % Normal 4.3-5.6 [facility] Comment on above: Order Comment: Speci men Type: BLOOD SPECIMENOrdering Facility: [facility] Address: [address] [place] [address] Result Comment: Amer ican Diabetes Association guidelines indicate that patients with HgbA1c in the range 5.7-6.4% are at increased risk for development of diabetes, and intervention by lifestyle modification may be beneficial. HgbA1c greater or equal to 6.5% is considered diagnostic of diabetes. Performed By: #### 5 5454-3 ####[facility] LABCLIA [id number] [facility] [place] [address] [place] [id number] PLUSon 12-19-2024 Cell-free DNA./Cell-free DNA.total Dosage of chromosome-specific cfDNA (cfDNA) [Molar fraction] 13% Normal [facility] Comment on above: Order Comment: Speci men Type: BLOOD SPECIMENOrdering Facility: [facility] Address: [address] [place] [address] Performed By: #### M AT21 ####[facility] LABCLIA [id number] [place] [address] Chr 13+18+21+X+Y aneuploidy Dosage of chromosome-specific cfDNA Ql (cfDNA) Negative Normal [facility] Comment on above: Order Comment: Speci men Type: BLOOD SPECIMENOrdering Facility: [facility] Address: [address] [place] [address] Performed By: #### M AT21 ####[facility] LABCLIA [id number] [place] [address] Chr 21 trisomy Dosage of chromosome-specific cfDNA Ql (cfDNA) Negative Normal [facility] Comment on above: Order Comment: Speci men Type: BLOOD SPECIMENOrdering Facility: [facility] Address: [address] [place] [address] Performed By: #### M AT21 ####[facility] LABCLIA [id number] [place] [address] Chr X and Y aneuploidy risk Sequencing Ql (cfDNA) [Interp] Not detected Normal [facility] Comment on above: Order Comment: Speci men Type: BLOOD SPECIMENOrdering Facility: [facility] Address: [address] [place] [address] Result Comment: Not Detected Not Detected Performed By: #### M AT21 ####[facility] LABCLIA [id number] [place] [address] Citation Ant (Reference lab test) Comment Normal [facility] Comment on above: Order Comment: Speci men Type: BLOOD SPECIMENOrdering Facility: [facility] Address: [address] [place] [address] Result Comment: 1. P elvie HAGAN, et al. Celeste Med. 2012;14(3):296-305. 2. Gabino ARTHUR et al. Prenat Diag. 2013;33(6):591-597. 3. Tung Corrales, et al. Clin Chem. 2015 Apr;61(4):608-616. 4. Boris HAGAN, et al. Celeste Med. 2011;13(11):913-920. 5. ACOG/SMFM Practice Bulletin No. 226, Feb 2020. Performed By: #### M AT21 ####[facility] LABCLIA [id number] [place] [address] Gestational age Estimated from conception date Martin Normal [facility] Comment on above: Order Comment: Speci men Type: BLOOD SPECIMENOrdering Facility: [facility] Address: [address] [place] [address] Performed By: #### M AT21 ####[facility] LABCLIA [id number] [place] [address] GESTATIONALAGE AGE > OR = 9W Yes Normal [facility] Comment on above: Order Comment: Abbie montgomery Type: BLOOD SPECIMENOrdering Facility: [facility] Address: [address] [place] [address] Performed By: #### M AT21 ####[facility] LABCLIA [id number] [place] [address] Laboratory comment Ant (Report) Comment Normal [facility] Comment on above: Order Comment: Speci ulises Type: BLOOD SPECIMENOrdering Facility: [facility] Address: [address] [place] [address] Result Comment: The MaterniT(R) 21 PLUS laboratory-developed test (LDT) analyzes circulating cell-free DNA from a maternal blood sample. This test is used for screening purposes and not diagnostic. Clinical correlation is recommended. Validation data on twin pregnancies is limited and the ability of this test to detect aneuploidy in higher multiple gestations has not yet been validated. Performed By: #### M AT21 ####[facility] LABCLIA [id number] [place] [address] director mobile name Nom (Provider) Comment Normal [facility] Comment on above: Order Comment: Speci men Type: BLOOD SPECIMENOrdering Facility: [facility] Address: [address] [place] [address] Result Comment: This specimen showed an expected representation of chromosome 21, 18 and 13 material. Clinical correlation is suggested. Comment Nilo Griffith MD, PhD, Director, [facility] Performed By: #### M AT21 ####[facility] LABCLIA [id number] [place] [address] LIMITATIONS OF THE TEST Comment Normal [facility] Comment on above: Order Comment: Speci men Type: BLOOD SPECIMENOrdering Facility: [facility] Address: [address] [place] [address] Result Comment: Whadam e the results of these tests are highly reliable, discordant results, including inaccurate sex prediction, may occur due to placental, maternal, or mosaicism or neoplasm; vanishing twin; prior maternal organ transplant; or other causes. These tests are screening tests and not diagnostic; they do not replace the accuracy and precision of diagnosis with CVS or amniocentesis. A patient with a positive test result should be referred for genetic counseling and offered invasive diagnosis for confirmation of test results.[5] The results of this testing, including the benefits and limitations, should be discussed with a qualified healthcare provider. management decisions, including termination of the , should not be based on the results of these tests alone. The healthcare provider is responsible for the use of this information in the management of their patient. Sex chromosomal aneuploidies are not reportable for known multiple gestations. A negative result does not ensure an unaffected nor does it exclude the possibility of other chromosomal abnormalities or defects which are not a part of these tests. An uninformative result may be reported, the causes of which may include, but are not limited to, insufficient sequencing coverage, noise or artifacts in the region, amplification or sequencing bias, or insufficient fraction. These tests are not intended to identify pregnancies at risk for neural tube defects or ventral wall defects. Testing for whole chromosome abnormalities (including sex chromosomes) and for subchromosomal abnormalities could lead to the potential discovery of both and maternal genomic abnormalities that could have major, minor, or no, clinical significance. Evaluating the significance of a positive or a non-reportable result may involve both invasive testing and additional studies on the mother. Such investigations may lead to a diagnosis of maternal chromosomal or subchromosomal abnormalities, which on occasion may be associated with benign or malignant maternal neoplasms. These tests may not accurately identify triploidy, balanced rearrangements, or the precise location of subchromosomal duplications or deletions; these may be detected by diagnosis with CVS or amniocentesis. The ability to report results may be impacted by maternal BMI, maternal weight, maternal systemic lupus erythematosus (SLE) and/or by certain pharmaceutical agents such as low molecular weight heparin (for example: Lovenox(R), Xaparin(R), Clexane(R) and Fragmin(R)). Performed By: #### M AT21 ####Standard TreasuryIA [id number] [place] [address] Monosomy X risk Dosage of chromosome-specific cfDNA Ql (Plasma cell-free+WBC DNA) [Interp] Not detected Normal [facility] Comment on above: Order Comment: Speci men Type: BLOOD SPECIMENOrdering Facility: [facility] Address: [address] [place] [address] Performed By: #### M AT21 ####[facility] LABCLIA [id number] [place] [address] NEGATIVE PREDICTIVE VALUE Note Normal [facility] Comment on above: Order Comment: Speci men Type: BLOOD SPECIMENOrdering Facility: [facility] Address: [address] [place] [address] Result Comment: The Negative Predictive Value (NPV) for trisomy 21, 18, and 13 is greater than 99%. The NPV for SCA and ESS cannot be calculated as SCA and ESS are only reported when an abnormality is detected. Performed By: #### M AT21 ####[facility] LABCLIA [id number] [place] [address] PERFORMANCE CHARACTERISTICS Note Normal [facility] Comment on above: Order Comment: Speci men Type: BLOOD SPECIMENOrdering Facility: [facility] Address: [address], [place] [address] Result Comment: ! Sex ! Accuracy: 99.4% ! ! ! ! Region (associated syndrome) ! Est. Sens# ! Est. Spec ! ! ! ! Trisomy 21 (Down Syndrome) ! 99.1% ! 99.9% ! ! ! ! Trisomy 18 (Odom Syndrome) ! >99.9% ! 99.6% ! ! ! ! Trisomy 13 (Patau Syndrome) ! 91.7% ! 99.7% ! ! ! ! Sex Chromosome Aneuploidies## ! 96.2% ! 99.7% ! ! ! * As reported in ISCA database nstd37 [https://www.ncbi.nlm.nih.gov/dbvar/studies/nstd37/ ] # Estimated Sensitivity. Sensitivity estimated across the observed size distribution of each syndrome [per ISCA database nstd37] and across the range of fractions observed in routine clinical NIPT. Actual sensitivity can also be influenced by other factors such as the size of the event, total sequence counts, amplification bias, or sequence bias. ## Martin gestation only. Performed By: #### M AT21 ####Standard TreasuryIA [id number] [place] [address] POSITIVE PREDICTIVE VALUE N/A Normal [facility] Comment on above: Order Comment: Speci men Type: BLOOD SPECIMENOrdering Facility: [facility] Address: [address] [place] [address] Performed By: #### M AT21 ####[facility] LABCLIA [id number] [place] [address] Reference Lab Test Method Comment Normal [facility] Comment on above: Order Comment: Abbie montgomery Type: BLOOD SPECIMENOrdering Facility: [facility] Address: [address] [place] [address] Result Comment: Circ ulating cell-free DNA was purified from the plasma component of maternal blood. The extracted DNA was then converted into a genomic DNA library for aneuploidy analysis of chromosomes 21, 18, and 13 via next generation sequencing.[1] Optional findings based on the test order include sex chromosome aneuploidy (SCA)[2], and enhanced sequencing series (ESS)[3], which will only be reported on as an additional finding when an abnormality is detected. SCA testing includes information on X and Y representation, while ESS testing includes deletions in selected regions (22q, 15q, 11q, 8q, 5p, 4p, 1p) and trisomy of chromosomes 16 and 22. Performed By: #### M AT21 ####[facility] LABglobalscholar.comIA [id number] [place] [address] Service comment (Unsp spec) [Interp] Comment Normal [facility] Comment on above: Order Comment: Speci men Type: BLOOD SPECIMENOrdering Facility: [facility] Address: [address] [place] [address] Result Comment: [employer] is a subsidiary of [employer], using the brand [employer]. This test was developed and its performance characteristics determined by [employer]. It has not been cleared or approved by the Food and Drug Administration. This laboratory is certified under the Clinical Laboratory Improvement Amendments (CLIA) as qualified to perform high complexity clinical laboratory testing and accredited by the [employer] (CAP). If there is future clinical need for adding MaterniT GENOME testing, this specimen will be available until term. [facility] samples will not be retained beyond 60 days. [facility] patients will have to send a new sample for re-sequencing ([facility] Test Code: [id number]). Performed By: #### M AT21 ####Standard TreasuryIA [id number] [place] [address] Sex Dosage of chromosome-specific cfDNA Nom (cfDNA) Comment Normal [facility] Comment on above: Order Comment: Speci men Type: BLOOD SPECIMENOrdering Facility: [facility] Address: [address] [place] [address] Result Comment: Cons istent with Male Performed By: #### M AT21 ####[facility] LABCLIA [id number] [place] [address] Test performance information Ant (Unsp spec) Comment Normal [facility] Comment on above: Order Comment: Speci men Type: BLOOD SPECIMENOrdering Facility: [facility] Address: [address] [place] [address] Result Comment: The performance characteristics of the MaterniT(R) 21 PLUS laboratory-developed test (LDT) have been determined in a clinical validation study with women at increased risk for chromosomal aneuploidy.[1-4] Performed By: #### M AT21 ####[facility] LABCLIA [id number] [place] [address] Trisomy 13 risk Dosage of chromosome-specific cfDNA Ql (cfDNA) [Interp] Negative Normal [facility] Comment on above: Order Comment: Speci men Type: BLOOD SPECIMENOrdering Facility: [facility] Address: [address] [place] [address] Performed By: #### M AT21 ####[facility] LABCLIA [id number] [place] [address] Trisomy 18 risk Dosage of chromosome-specific cfDNA Ql (Plasma cell-free+WBC DNA) [Interp] Negative Normal [facility] Comment on above: Order Comment: Speci men Type: BLOOD SPECIMENOrdering Facility: [facility] Address: [address] [place] [address] Performed By: #### M AT21 ####[facility] LABCLIA [id number] [place] [address] RBC PARAMETERS FOR HB IDon 0 12-19-2024 Erythrocyte distribution width (RBC) [Ratio] 12.9 % Normal 11.5-15.0 [facility] Comment on above: Order Comment: Speci men Type: BLOOD SPECIMENOrdering Facility: [facility] Address: [address] [place] [address] Performed By: #### L [id number] ####[facility] LABCLIA [id number] [place] [address] [place] Hematocrit (Bld) [Volume fraction] 35.0 % Low 36.0-46.0 [facility] Comment on above: Order Comment: Speci men Type: BLOOD SPECIMENOrdering Facility: [facility] Address: [address] [place] [address] Performed By: #### L [id number] ####[facility] LABCLIA [id number] [place] [address] [place] Hemoglobin (Bld) [Mass/Vol] 12.3 g/dL Normal 11.5-15.5 [facility] Comment on above: Order Comment: Speci men Type: BLOOD SPECIMENOrdering Facility: [facility] Address: [address] [place] [address] Performed By: #### L [id number] ####[facility] LABIA [id number] [address] [place] MCH (RBC) [Entitic mass] 31.4 pg Normal 26.0-34.0 [facility] Comment on above: Order Comment: Speci men Type: BLOOD SPECIMENOrdering Facility: [facility] Address: [address] [place] [address] Performed By: #### L [id number] ####[facility] LABIA [id number] [place] [address] [place] MCHC (RBC) [Mass/Vol] 35.1 g/dL Normal 30.5-36.0 [facility] Comment on above: Order Comment: Speci men Type: BLOOD SPECIMENOrdering Facility: [facility] Address: [address] [place] [address] Performed By: #### L [id number] ####[facility] LABIA [id number] [place] [address] [place] MCV (RBC) [Entitic vol] 89.3 fL Normal 80.0-100.0 [facility] Comment on above: Order Comment: Speci men Type: BLOOD SPECIMENOrdering Facility: [facility] Address: [address] [place] [address] Performed By: #### L [id number] ####[facility] LABIA [id number] [place] [address] [place] RBC (Bld) [#/Vol] 3.92 10*6/uL Normal 3.90-5.20 [facility] Comment on above: Order Comment: Speci men Type: BLOOD SPECIMENOrdering Facility: [facility] Address: [address] [place] [address] Performed By: #### L [id number] ####[facility] LABIA [id number] [place] [address] [place] RUBELLA IGG ANTIBODYon 12-19 RUBELLA IGG AB, QUAL Positive Normal Positive [facility] Comment on above: Order Comment: Abbie montgomery Type: BLOOD SPECIMEN [facility] Address: [address] [place] [address] Result Comment: The result suggests recent or past exposure to Rubella virus or history of Rubella vaccination. Positive result may also be seen due to presence of passively-transferred antibodies. Please correlate with patient's history. Performed By: #### T SPN #### [facility]IN BLOOD BANK CLIA [id number] [address] [place] [address] [place] Reagin and Treponema pallidu m IgG and IgM [Interp]on 12-19-2024 T. pallidum IgG+IgM IA Ql (S) Non-Reactive Normal Nonreactive [facility] Comment on above: Order Comment: Speci ulises Type: BLOOD SPECIMEN [facility] Address: [address] [place] [address] Performed By: #### T SPN #### [facility]LO[facility] B[facility] CLIA [id number] [address] [place] [address] [place] Reagin+T pallidum IgG+IgM Se rPl-Impon 12-19-2024 Reagin and Treponema pallidum IgG and IgM [Interp] Cannot exclude recent Treponemal infection if specimen collected within 7-10 days after appearance of suspect lesions or 2-3 weeks after an exposure. Clinical correlation is required. Normal [facility] Comment on above: Order Comment: Marleeni ulises Type: BLOOD SPECIMEN [facility] Address: [address] [place] [address] Performed By: #### T SPN #### [facility] CLIA [id number] [address] [place] [address] [place] TYPE + SCREEN PRENATALon ABO O Normal [facility] Comment on above: Order Comment: Speci men Type: BLOOD SPECIMEN [facility] Address: [address] [place] [address] Performed By: #### T SPN #### [facility] CLIA [id number] [address] [place] [address] OF [place]QU[place] Rh Nom (Bld) Negative Normal [facility] Comment on above: Order Comment: Speci men Type: BLOOD SPECIMEN [facility] Address: [address] [place] [address] Performed By: #### T SPN #### [facility] CLIA [id number] [address] [place] [address] OF [place] TYPE AND SCREEN EXPIRATION 12/22/2024 23:59 Normal [facility] Comment on above: Order Comment: Speci men Type: BLOOD SPECIMEN [facility] Address: [address] [place] [address] Performed By: #### T SPN #### [facility] CLIA [id number] [address] [place] [address] OF [place]QU[place] CNPNon 12-06-2024 CNPN Telephone ([id number]) ---- SIA HOLLEY ([id number]) 2 F Date Time Provider Department 12/06/24 NAHOMY BURRELL [id number] During your visit today, we recorded the following information about you: Nahomy Burrell RN 12/06/2024 10:40 AM Signed 1st risk assessment form submitted 12/06/2024. Nahomy Burrell RN Allergies As of Date: 12/06/2024 Noted Allergy Reaction ZOFRAN (ONDANSETRON) 12/05/2024 4 - Hives Date Reviewed: 12/05/2024 Reviewed by: María Freeman APRN.RETIREMENT PLAN COUNSELOR - Fully Assessed Reason for Visit: [employer] - Other [3602] Cmt: PRAF Prescriptions as of 12/06/2024 - aspirin, enteric coated (ECOTRIN LOW STRENGTH) 81 mg EC tablet Take 1 tablet by mouth once daily. - vit 75/iron/folic/om3 (DAILY ORAL) Take by mouth. 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] 12/05/2024 Anxiety during (HCC) [O99.340, F41.9] 12/05/2024 Engages in nicotine containing substance vaping*12/05/2024 Constipation during in first trimeste*12/05/2024 Nausea and vomiting during (HCC) [O21*12/05/2024 History of headache [Z87.898] 12/05/2024 Family history of sickle cell anemia (Hgb SS) i*12/05/2024 Encounter Status:Closed by NAHOMY BURRELL on 12/06/24 Normal [facility] Bacteria Ur Culton Bacteria identified Cx Nom (U) CULTURE, URINE: No growth (<1,000 CFU/ml) Normal [facility] Comment on above: Performed By: #### T SPN #### [facility] CLIA [id number] [address] [place], [place] [address] [place] [address] [place] C. trachomatis+N. gonorrhoea e DNA KEMI+probe Ql (Unsp spec)on 12-05-2024 C. trachomatis rRNA KEMI+probe Ql (Unsp spec) Not detected Normal Not detected [facility] Comment on above: Order Comment: Speci men Type: SWABOrdering Facility: [facility] Address: [address] [place] [address] Performed By: #### T RVAMP, 17290-1 ####[facility] LABCLIA [id number] [facility] [id number] [address] [place] N. gonorrhoeae rRNA KEMI+probe Ql (Unsp spec) Not detected Normal Not detected [facility] Comment on above: Order Comment: Speci men Type: SWABOrdering Facility: [facility] Address: [address] [place] [address] Performed By: #### T RVAMP, 77013-5 ####[facility] LABCLIA [id number] [address] [place] PAP TESTon 12-05-2024 ADEQUACY Normal [facility] Comment on above: Order Comment: Speci men Type: FLUID SPECIMEN [facility] Address: [address] [place] [address] Result Comment: Sati sfactory for interpretation. Transformation zone present Performed By: #### L [id number] #### [facility] CLIA [id number] [address] [place] [address], [address] [place] [address] LAB CLIA [id number] [address] [place] [address] [place] CASE REPORT Normal [facility] Comment on above: Order Comment: Speci men Type: FLUID SPECIMEN [facility] Address: [address] [place] [address] Result Comment: Gyne cologic Cytology Report Case: [id number] Authorizing Provider: María Freeman APRN.RETIREMENT PLAN COUNSELOR Collected: 12/05/2024 02:54 PM Ordering Location: OB/Gynecology Received: 12/05/2024 04:37 PM First Screen: Carol, Lisa, CT, ASCP Specimen: Pap Test, ThinPrep, Cervix Performed By: #### L [id number] #### [facility] CLIA [id number] [address] [place] [address] 3, [address] [place] [address] [place] [facility] CLIA [id number] [address] [place] [address] [place] CLINICAL HISTORY, CYTOLOGY, GORE SEAMER Routine Exam Normal [facility] Comment on above: Order Comment: Speci men Type: FLUID SPECIMEN [facility] Address: [address] [place] [address] Result Comment: Preg nant (Indicate Weeks) Performed By: #### L [id number] #### [facility] CLIA [id number] [address] [place] [address] 3, [address] [place] [address] [place] [facility] CLIA [id number] [address] [place], [place] [address] [place] CYTOLOGY PAP OTHER INTERPRETATION Predominance of coccobacilli consistent with shift in vaginal raymond. Normal [facility] Comment on above: Order Comment: Speci men Type: FLUID SPECIMEN [facility] Address: [address] [place] [address] Performed By: #### L [id number] #### [facility] CLIA [id number] [address] [place] [address] 3, [address] [place] [address] [place] [facility] CLIA [id number] [address] [place], [place] [address] [place] FINAL PERFORMING LAB Normal [facility] Comment on above: Order Comment: Speci men Type: FLUID SPECIMEN [facility] Address: [address] [place] [address] Result Comment: Tech nical component, director of flight operations screening performed at: [facility], [address] [place] [address], [facility] [place] 3, 4th Floor, [place] [address] CLIA: [id number] Diagnostic interpretation performed at: [facility], [address] [place] [address], [address], [address]th Floor, [place] [id number] CLIA# [id number] Set Up Person: Wilfrid Kebede MD Performed By: #### L [id number] #### [facility] CLIA [id number] [address] [place] [address] 3, [address] [place] [id number] [place] [facility] CLIA [id number] [address] [place] [address] [place] INTERPRETATION, CYTOLOGY, GORE SEAMER Normal [facility] Comment on above: Order Comment: Speci men Type: FLUID SPECIMEN [facility] Address: [address] [place] [address] Result Comment: Nega tive for intraepithelial lesion or malignancy. at 1041 EDT Performed By: #### L [id number] #### [facility] CLIA [id number] [address] [place] [address], [address] [place] [address] [place] [facility] CLIA [id number] [address] [place], [place] [address] [place] LMP 09/20/2024 Normal [facility] Comment on above: Order Comment: Speci men Type: FLUID SPECIMEN [facility] Address: [address] [place] [address] Performed By: #### L [id number] #### [facility] CLIA [id number] [address] [place] [address], [address] [place] [address] [place] [facility] CLIA [id number] [address] [place] [address] [place] PAP DISCLAIMER COMMENT The Pap Smear is a screening test for cervical cancer. False negative results occur with all screening tests, emphasizing the need for rescreening at recommended intervals, and clinical correlation. Normal [facility] Comment on above: Order Comment: Speci men Type: FLUID SPECIMEN [facility] Address: [address] [place] [address] Performed By: #### L [id number] #### [facility] CLIA [id number] [address] [place] [address], [address] [place], [place] [address] [place] [facility] CLIA [id number] [address] [place] [address] [place] PAP ELECTRONIC SCALE SUBASSEMBLER COMMENT This specimen has been analyzed by the FDA-approved Sophia Search System, which uses digital imaging and an enhanced artificial intelligence image analysis algorithm to identify ulloa of interest on the microscopic slide, to assist the professor of languages and pathologist in evaluating cells on ThinPrep Pap tests. Following analysis, ulloa of interest on the microscopic slide selected by the algorithm are reviewed by a professor of languages. If a sample requires hierarchical review, the pathologist will review the same ulloa of interest selected by the algorithm prior to final interpretation. Normal [facility] Comment on above: Order Comment: Speci men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 By: Dario Dwyer on 10-28-2024 Urobilinogen Ql (U) Normal mg/dl Normal [facility] White blood cell (WBC) count Ordered By: Dario Dwyer on 10-28-2024 WBC (Bld) [#/Vol] 7.0 10*3/uL 4.4-11.0 [facility] White blood cell countOrdere d By: Dario Dwyer on 10-28-2024 White blood cell count 0-5 SEEN /hpf 0-5 [facility] hCG Titer Quant., Serumon HCG QUANT. 7196 mIU/mL High <9 non-preg [facility] Comment on above: Result Comment: Gest ational Age 0.2-1 Week: 5-50 mIU/mL 1-2 Weeks: 50-500 mIU/mL 2-3 Weeks: 100-5000 mIU/mL 3-4 Weeks: 500-10,000 mIU/mL 4-5 Weeks:1000-50,000 mIU/mL 5-6 Weeks: 10,000-100,000 mIU/mL 6-8 Weeks: 15,000-200,000 mIU/mL 2-3 Months:10,000-100,000 mIU/mL Performed By: #### L 700.8000 #### [facility] [address] [place], [place], [address] ED Prov Noteon 09-02-2024 ED Prov Note ED PROVIDER NOTE [facility] EMERGENCY [facility] NAME: Sia Holley AGE: 24 y.o. : 2000 VISIT DATE: 09/02/2024 CSN: [id number] PCP: Ltaa Mcnulty MD Chief Complaint Patient presents with Urinary Tract Infection Patient presents for dysuria she has had symptoms approximately a day no fevers flank pain nausea emesis. Past Medical History: Diagnosis Date Psychiatric disorder ANXIETY Past Surgical History: Procedure Laterality Date CLEFT PALATE REPAIR History reviewed. No pertinent family history. Social History [1] Previous Medications Medication Sig gabapentin (NEURONTIN) 100 MG capsule Take 1 (one) capsule (100 mg total) by mouth 3 (three) times a day as needed (pain) . Allergies[2] Review of Systems All other systems reviewed and are negative. Patient Vitals for the past 24 hrs: BP Temp Pulse Resp SpO2 Weight 09/02/24 2224 122/85 98.4 degrees F (36.9 degrees C) 90 16 98 % 47.6 kg (105 lb) Physical Exam Vitals and nursing note reviewed. Constitutional: Appearance: Normal appearance. HENT: Head: Normocephalic and atraumatic. Right Ear: External ear normal. Left Ear: External ear normal. Nose: Nose normal. Mouth/Throat: Mouth: Mucous membranes are moist. Pharynx: Oropharynx is clear. Eyes: Extraocular Movements: Extraocular movements intact. Conjunctiva/sclera: Conjunctivae normal. Pupils: Pupils are equal, round, and reactive to light. Cardiovascular: Rate and Rhythm: Normal rate and regular rhythm. Musculoskeletal: General: Normal range of motion. Cervical back: Normal range of motion and neck supple. Pulmonary: Effort: Pulmonary effort is normal. Breath sounds: Normal breath sounds. Abdominal: General: Abdomen is flat. Bowel sounds are normal. Palpations: Abdomen is soft. Neurological: General: No focal deficit present. Mental Status: She is alert and oriented to person, place, and time. Mental status is at baseline. Psychiatric: Mood and Affect: Mood normal. Thought Content: Thought content normal. Laboratory & Radiographic Imaging (if done): Results for orders placed or performed during the hospital encounter of 09/02/24 POC Urinalysis Dipstick, Auto Result Value Ref Range Spec Grav, UA 1.010 1.005 - 1.025 pH, UA 5.0 5.0 - 7.0 Protein, UA >=300 (A) Negative mg/dL Glucose, UA 250 (A) Negative mg/dL Ketones, UA 15 (A) Negative mg/dL Bilirubin, UA Moderate (A) Negative Urobilinogen, UA >=8.0 (A) <2.0 mg/dL Blood, UA Moderate (A) Negative Nitrite, UA Positive (A) Negative Leukocyte Esterase, UA Large (A) Negative No orders to display Procedures Medical Decision Making Patient presents with dysuria likely secondary to UTI she otherwise well-appearing, no acute distress. No flank pain fevers nausea or emesis suspect systemic symptoms of urolithiasis, she did have some blood likely secondary to hemorrhagic cystitis, will place on antibiotics and follow-up closely with PCP The patient has been informed that they may have pre-hypertension or hypertension based on a blood pressure reading in the Emergency Department. I recommend that the patient call the primary care provider listed on their discharge instructions or a physician of their choice as soon as possible to arrange follow-up in the next 4 weeks for further evaluation of possible pre-hypertension or hypertension. . Clinical Impression: No diagnosis found. ED Disposition None Follow-up Information Follow-up information has not been specified. Contact information for after-discharge care Follow-up information has not been specified. [1] Social History Socioeconomic History Marital status: Single Tobacco Use Smoking status: Never Smokeless tobacco: Never Vaping Use Vaping status: Never Used Substance and Sexual Activity Alcohol use: Never Drug use: Never [2] No Known Allergies Evi Trevizo MD 09/02/24 2245 AUTHENTICATED BY EVI TREVIZO, ON 09/02/2024 22:44:35 Normal [facility] POC URINALYSIS DIPSTICK,AUTO - RALSon 09-02-2024 POC BILIRUBIN, URINE Moderate Abnormal Negative [facility] POC BLOOD, URINE Moderate Abnormal Negative [facility] POC GLUCOSE, URINE 250 mg/dL Abnormal Negative [facility] POC KETONES, URINE 15 mg/dL Abnormal Negative [facility] POC LEUKOCYTE ESTERASE, URINE Large Abnormal Negative [facility] POC NITRITE, URINE Positive Abnormal Negative [facility] POC PH, URINE 5.0 Normal 5.0-7.0 [facility] POC PROTEIN, URINE >=300 Abnormal Negative [facility] POC SPECIFIC GRAVITY 1.010 Normal 1.005-1.025 [facility] POC UROBILINOGEN >=8.0 Abnormal < 2.0 [facility] CNPNon 05-18-2024 [facility] Telephone ([facility]) ---- DMITRY SIA HOLLEY ([id number]) 2 F Date Time Provider Department 05/18/24 MAYA JOHNSON [facility] During your visit today, we recorded the following information about you: Maya Johnson, YOAV 05/18/2024 8:05 AM Signed Please let patient know she tested positive for yeast and BV. I have sent 2 medications to her pharmacy for this-[facility]. Do not drink alcohol while taking metronidazole. Avoid sexual intercourse until medications are complete and symptoms improved. Gonorrhea, chlamydia and trichomonas testing were all negative. Demetris Casillas RN 05/18/2024 11:39 AM Signed Called pt and notified of all test results, of 2 prescriptions sent to pharmacy and of providers instructions. Pt verbalizes understanding. Allergies As of Date: 05/18/2024 (No Known Allergies) Date Reviewed: 05/17/2024 Reviewed by: Lisa Pena MA - Fully Assessed Reason for Visit: Results [95] Order(s):fluconazol e (DIFLUCAN) 150 mg tabletTake 1 tablet by mouth one time only for 1 dose. Repeat in 3 days as needed.Disp: 2 tabletRfl: 0 metroNIDAZOLE (FLAGYL) 500 mg tabletTake 1 tablet by mouth two times a day for 7 days.Disp: 14 tabletRfl: 0 Prescriptions as of 05/18/2024 - fluconazole (DIFLUCAN) 150 mg tablet Take 1 tablet by mouth one time only for 1 dose. Repeat in 3 days as needed. - metroNIDAZOLE (FLAGYL) 500 mg tablet Take 1 tablet by mouth two times a day for 7 days. - Brompheniramine-Pse udoeph-DM (BROMFED DM) 2-30-10 mg/5 mL syrup Take 10 mL by mouth four times a day as needed. - amitriptyline (ELAVIL) 10 mg tablet Take 1 tablet by mouth daily at bedtime. - gabapentin (NEURONTIN) 300 mg capsule Take 1 capsule by mouth twice daily for 90 days. - acetaminophen (TYLENOL EXTRA STRENGTH) 500 mg tablet Take 500 mg by mouth every 6 hours as needed. takes 1.5 tabs every 6 hrs - predniSONE (DELTASONE) 10 mg tablet Start 6 tabs by mouth once daily on days #1-5; Then DECREASE daily dose by 1 tab every 3 days until off. . 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 Repeat in 3 days as needed. METRONIDAZOLE 500 MG TABLET 14 t* 0 05/18/2024 05/25/2024 Route: ORAL Sig: Take 1 tablet by mouth two times a day for 7 days. Encounter Status:Closed by DEMETRIS CASILLAS on 05/18/24 [facility] Telephone ([facility]) ---- SIA HOLLEY ([id number]) 2 F Date Time Provider Department 05/18/24 MAYA JOHNSON [facility] During your visit today, we recorded the following information about you: Maya Johnson PA 05/18/2024 1:25 PM Signed Please let patient know urine culture is negative for UTI. Take antibiotics for yeast and BV as prescribed Yari Salamanca LPN 05/19/2024 4:04 PM Signed Patient given results and verbalized understanding of instructions given. Yari Salamanca LPN Allergies As of Date: 05/18/2024 (No Known Allergies) Date Reviewed: 05/17/2024 Reviewed by: Lisa Pena MA - Fully Assessed Reason for Visit: Results [95] Prescriptions as of 05/19/2024 - metroNIDAZOLE (FLAGYL) 500 mg tablet Take 1 tablet by mouth two times a day for 7 days. - Brompheniramine-Pse udoeph-DM (BROMFED DM) 2-30-10 mg/5 mL syrup Take 10 mL by mouth four times a day as needed. - amitriptyline (ELAVIL) 10 mg tablet Take 1 tablet by mouth daily at bedtime. - gabapentin (NEURONTIN) 300 mg capsule Take 1 capsule by mouth twice daily for 90 days. - acetaminophen (TYLENOL EXTRA STRENGTH) 500 mg tablet Take 500 mg by mouth every 6 hours as needed. takes 1.5 tabs every 6 hrs - predniSONE (DELTASONE) 10 mg tablet Start 6 tabs by mouth once daily on days #1-5; Then DECREASE daily dose by 1 tab every 3 days until off. . 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] Encounter Status:Closed by YARI SALAMANCA on 05/19/24 Normal [facility] BACTERIAL VAGINOSIS NAATon 1 07-18-2023 Lactobacillus crispatus+gasseri+esquivel ii + Gardnerella vaginalis + Atopobium vaginae rRNA KEMI+probe Ql (Vag fld) Detected Abnormal Not detected [facility] Comment on above: Order Comment: Speci men Type: SWABOrdering Facility: [facility] Address: [address] [place] [address] Performed By: #### 3 6902-5, BVAMP ####[facility] LABCLIA [id number] [place] [address] [place] Bacteria Ur Culton 4 Bacteria identified Cx Nom (U) ORGANISM ID: 1 10,000 -<50,000 CFU/ml Mixed microbiota No further workup. Mixed microbiota can be due to???urine???contam ination with skin bacteria at time of collection or presence of a long-term urinary catheter. If a new culture is needed, please consider re-education of the patient on proper midstream co llection technique or straight catheterization for???urine???colle ction. Normal [facility] Comment on above: Performed By: #### T SPN #### CC [facility] BLOOD BANK [facility] [id number] [address] [place] [address] [place] C. trachomatis+N. gonorrhoea e DNA KEMI+probe Ql (Unsp spec)on 05-17-2024 C. trachomatis rRNA KEMI+probe Ql (Unsp spec) Not detected Normal Not detected [facility] Comment on above: Order Comment: Speci men Type: SWABOrdering Facility: [facility] Address: [address] [place] [address] Performed By: #### 3 6902-5, BVAMP ####[facility] LABIA [id number] [place] [address] [place] N. gonorrhoeae rRNA KEMI+probe Ql (Unsp spec) Not detected Normal Not detected [facility] Comment on above: Order Comment: Speci men Type: SWABOrdering Facility: [facility] Address: [address] [place] [address] Performed By: #### 3 6902-5, BVAMP ####[facility] LABIA [id number] [place] [address] [place] MISAEL/TRICHOMONAS NAATon 1 07-18-2023 C. glabrata RNA KEMI+probe Ql (Vag fld) Not detected Normal Not detected [facility] Comment on above: Order Comment: Speci men Type: SWABOrdering Facility: [facility] Address: [address] [place] [address] Performed By: #### C VTV ####[facility] LABIA [id number] [place] [address] [place] Misael sp DNA KEMI+probe Ql (Vag fld) Detected Abnormal Not detected [facility] Comment on above: Order Comment: Speci men Type: SWABOrdering Facility: [facility] Address: [address] [place] [address] Result Comment: The Misael species group target includes C. albicans, C. tropicalis, C. parapsilosis, and C. dubliniensis. Performed By: #### C VTV ####[facility] LABIA [id number] [place] T. vaginalis DNA KEMI+probe Ql (Unsp spec) Not detected Normal Not detected [facility] Comment on above: Order Comment: Speci men Type: SWABOrdering Facility: [facility] Address: [address] [place] [address] Performed By: #### C VTV ####[facility] LABCLIA [id number] [place] [address] [place] CNCOon 05-17-2024 CNCO Letter Text Normal [facility] CNOVon 05-17-2024 CNOV Office Visit (UCWSTR) ---- SIA HOLLEY ([id number]) 2 F Date Time Provider Department 05/17/24 2:00 PM MAYA [facility]OH[facility]ON [facility] During your visit today, we recorded the following information about you: Temperature Pulse Respiration Blood pressure 98.4 degrees 97/minute 20/minute 118/68 Weight 49.2 kg Maya Johnson PA 05/17/2024 2:29 PM Signed This note was created using [employer]. Subjective Siavalery Holley is a 23 year old female. HPI 23-year-old female presents for vaginal discharge for a few days. Patient states she had white vaginal discharge a few days ago. She states it was itching at that time as well. She took an Azo yeast pill and it seems slightly better. Patient states last night she had intercourse and she has had vaginal burning since. She states that she is still having a little bit of white vaginal discharge. She has vaginal burning and burning with urination. She denies any pelvic pain, back pain, hematuria, vomiting or fevers. She has intercourse with her boyfriend, no known exposure to STD. Denies any concern for . LMP was about 2-3 weeks ago. 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 MEDICATIONS gabapentin (NEURONTIN) 300 mg capsule Take 1 capsule by mouth twice daily for 90 days. Brompheniramine-Pse udoeph-DM (BROMFED DM) 2-30-10 mg/5 mL syrup Take 10 mL by mouth four times a day as needed. (Patient not taking: Reported on 05/17/2024) amitriptyline (ELAVIL) 10 mg tablet Take 1 tablet by mouth daily at bedtime. (Patient not taking: Reported on 02/02/2023) acetaminophen (TYLENOL EXTRA STRENGTH) 500 mg tablet Take 500 mg by mouth every 6 hours as needed. takes 1.5 tabs every 6 hrs (Patient not taking: Reported on 03/07/2023) predniSONE (DELTASONE) 10 mg tablet Start 6 tabs by mouth once daily on days #1-5; Then DECREASE daily dose by 1 tab every 3 days until off. . (Patient not taking: Reported on 02/02/2023) FAMILY HISTORY Problem Relation Age of Onset None Mother None Father Heart disease Maternal Grandfather Hypertension Maternal Grandfather Diabetes Paternal Grandfather Dementia Paternal Grandfather Breast Cancer Maternal Aunt Social History Tobacco Use Smoking status: Never Smokeless tobacco: Never Tobacco comments: pt has vaped in the past Vaping Use Vaping status: Former Substance Use Topics Alcohol use: Never Drug use: Never Review of Systems Constitutional: Negative for chills and fever. HENT: Negative for congestion, ear pain and sore throat. Respiratory: Negative for cough and shortness of breath. Cardiovascular: Negative for chest pain. Gastrointestinal: Negative for abdominal pain, diarrhea and vomiting. Genitourinary: Positive for dysuria, vaginal discharge and vaginal pain (burning). Negative for hematuria. Objective BP 118/68 Pulse 97 Temp 36.9 ?C (98.4 ?F) Resp 20 Wt 49.2 kg (108 lb 7.5 oz) SpO2 98% Physical Exam Vitals and nursing note reviewed. Exam conducted with a yard operator present. Constitutional: General: She is not in acute distress. Appearance: Normal appearance. She is not toxic-appearing. HENT: Nose: Nose normal. Mouth/Throat: Mouth: Mucous membranes are moist. Eyes: Conjunctiva/sclera: Conjunctivae normal. Cardiovascular: Rate and Rhythm: Normal rate and regular rhythm. Pulmonary: Effort: Pulmonary effort is normal. Breath sounds: Normal breath sounds. Abdominal: General: Abdomen is flat. Palpations: Abdomen is soft. Tenderness: There is no abdominal tenderness. There is no right CVA tenderness, left CVA tenderness, guarding or rebound. Genitourinary: Labia: Right: No rash. Left: No rash. Vagina: Vaginal discharge present. Cervix: Discharge and erythema present. No cervical motion tenderness. Comments: Mild cervical erythema noted. White vaginal discharge and white discharge from cervix. No CMT. Patient has external vaginal erythema noted as well. No rash or lesions present. Skin: General: Skin is warm and dry. Neurological: Mental Status: She is alert. Assessment and Plan ASSESSMENT/PLAN: 1. Vaginal discharge - ICD9: 623.5, ICD10: N89.8 (primary diagnosis) - UA DIP, URINE (POC) - URINE CULTURE - GONORRHEA/CHLAMYDIA NAAT - MISAEL/TRICHOMONAS NAAT - BACTERIAL VAGINOSIS NAAT -Please treat based on results. No concern for . 2. Dysuria - ICD9: 788.1, ICD10: R30.0 acute - UA positive for bravo esterase and proteinuria - Send urine for culture - Patient education for prevention given - UA DIP, URINE (POC) - URINE CULTURE -No treatment for UTI given. Diagnosis and treatment plan were discussed and qu (more content not included)... Normal [facility] UA DIP, URINE (POC)on 2023 BILIRUBIN UA (POCT) Small Abnormal Negative [facility] CLARITY UA (POCT) Cloudy [facility] COLOR UA (POCT) Dark yellow [facility] GLUCOSE UA (POCT) Negative Negative mg/dL [facility] Hemoglobin Ql (U) Negative Negative [facility] Interpretation and review of laboratory results Abnormal [facility] KETONE UA (POCT) Negative Negative mg/dL [facility] LEUKOCYTES UA (POCT) Trace Abnormal Negative [facility] NITRITE UA (POCT) Negative [facility] PH UA (POCT) 6.0 4.5 - 8.0 [facility] Protein Ql (U) 100 mg/dL Abnormal Negative [facility] SPECIFIC GRAVITY UA (POCT) 1.025 1.005 - 1.030 [facility] UROBILINOGEN UA (POCT) 0.2 Normal E.U./d L [facility] Location:[address], [place], [place], [id number] [place] [address] POINT OF CARE [facility] STREP A MOLECULAR (POC)on Procedural Control Valid [facility] Strep A (POCT) Negative Negative [facility] UA DIP, URINE (POC)on 2022 BILIRUBIN UA (POCT) Negative Negative [facility] CLARITY UA (POCT) Clear [facility] COLOR UA (POCT) Yellow [facility] GLUCOSE UA (POCT) Negative Negative mg/dL [facility] Hemoglobin Ql (U) Negative Negative [facility] KETONE UA (POCT) Negative Negative mg/dL [facility] LEUKOCYTES UA (POCT) Trace Abnormal Negative [facility] NITRITE UA (POCT) Negative Negative [facility] PH UA (POCT) 7.0 4.5 - 8.0 [facility] Protein Ql (U) Negative Negative mg/dL [facility] SPECIFIC GRAVITY UA (POCT) 1.015 1.005 - 1.030 [facility] UROBILINOGEN UA (POCT) 0.2 E.U./dL Normal E.U./ dL [facility] XR CHEST 2V FRONTAL/LATon [facility] XR Chest PA and Lateralon IMPRESSION: No acute radiographic abnormality. Women'S Studies Professor: PSCB Transcribe Date/Time: Mar 07 2023 4:42P Dictated by : MEETA DAWSON DO This examination was interpreted and the report reviewed and electronically signed by: MEETA DAWSON DO on Mar 07 2023 4:44PM [facility] DIVISION OF RADIOLOGY * * *Final Report* * * DATE OF EXAM: Mar 07 2023 4:40PM WOX [id number] - XR CHEST 2V FRONTAL/LAT / PROCEDURE REASON: Acute cough * * * * Physician Interpretation * * * * EXAMINATION: CHEST RADIOGRAPH (2 VIEW FRONTAL & LATERAL) PATIENT/TECHNOLOGIS T PROVIDED HISTORY: Cough and shortness of breath x 2 days CLINICAL HISTORY: 22 years old Female with Acute cough MQ: XC2_6 EXAM DATE/TIME: 03/07/2023 4:40 PM COMPARISON: No relevant prior studies available. RESULT: Lines, tubes, and devices: None. Lungs and pleura: No consolidation. No pleural effusion or pneumothorax. Calcified granuloma LEFT lower lobe and calcified LEFT hilar nodes sequela of remote granulomatous disease. Cardiomediastinal silhouette: Normal heart size. Bones and soft tissues: Unremarkable. DIVISION OF RADIOLOGY Provider, [facility] [place] - 03/07/2023 * * *Final Report* * * DATE OF EXAM: Mar 07 2023 4:40PM WOX 5291 - XR CHEST 2V FRONTAL/LAT / PROCEDURE REASON: Acute cough * * * * Physician Interpretation * * * * EXAMINATION: CHEST RADIOGRAPH (2 VIEW FRONTAL & LATERAL) PATIENT/TECHNOLOGIS T PROVIDED HISTORY: Cough and shortness of breath x 2 days CLINICAL HISTORY: 22 years old Female with Acute cough MQ: XC2_6 EXAM DATE/TIME: 03/07/2023 4:40 PM COMPARISON: No relevant prior studies available. RESULT: Lines, tubes, and devices: None. Lungs and pleura: No consolidation. No pleural effusion or pneumothorax. Calcified granuloma LEFT lower lobe and calcified LEFT hilar nodes sequela of remote granulomatous disease. Cardiomediastinal silhouette: Normal heart size. Bones and soft tissues: Unremarkable. IMPRESSION IMPRESSION: No acute radiographic abnormality. Women'S Studies Professor: PSCB Transcribe Date/Time: Mar 07 2023 4:42P Dictated by : MEETA DAWSON DO This examination was interpreted and the report reviewed and electronically signed by: MEETA DAWSON DO on Mar 07 2023 4:44PM EST [facility] Radiology Study observation (narrative) Camila Ewing XR Chest PA and LateralOrder ed By: Ccf Provider on 03-07-2023 [facility] OT D/C of Non Returning Pton 06-10-2021 OT D/C of Non Returning Pt [facility] Occupational [facility] [address] [place] [address] / REHABILITATION SERVICES DISCHARGE SUMMARY MR#: [id number] Acct: [id number] Name: SIA HOLLEY Rep #: [id number] : 2000 20 From: Susana GRULLON/ILIANA Pham Referring Dr.: Dr. Wilian Marshall MD Status: REG RCR Eval Date: Discharge Date: SIA HOLLEY was seen in my office for initial evaluation on . The following Plan of Care was established for this patient: Initial Frequency: 1-2x /Week Initial Duration: 2 Months Plan: Cont POC Anticipated Interventions: A/AAROM/PROM, Strengthening, Sensory Retraining, Joint Protection/Energy Conservation, Ergonomic Education, Fine Motor Coord/Tobi, ADL Training, Education re Diagnosis This patient was last seen in our office 03/17/21. Pertinent comments regarding their Occupational therapy will appear below: pt was last seen in OT on 03/17/21- pt was making good gains with her recovery- no further apts are scheduled and due to time lapse in services pt d/c. At this point I will be discontinuing this patient from occupational therapy. I would be happy to see this patient again in the future if found appropriate by the physician. Thank you! ALTHEA Riley CHT 06/10/21 1143 CC: Dr. Wilian Marshall MD MK Signed Normal [facility] Re-Evalution OTon 01-07-2021 Re-Evalution OT [facility] [address] [place] [address] / REEVALUATION / MEDICARE RECERTIFICATION OCCUPATIONAL THERAPY MR#: [id number] Acct: [id number] Name: SIA HOLLEY Rep #: [id number] : 2000 20 From: Susana [place] CHT Referring Dr.: Dr. Wilian Marshall MD Status: REG RCR Insurance: [facility] [id number] Eval Date: [facility] Dr. Wilian Marshall MD, It has been my pleasure to treat SIA HOLLEY over the last 12 visits for Parsonage- Turners Syndrome. Please see the progress note below for an update on the occupational therapy plan of care! Subjective: pt arrives to therapy- states left UE ROM has returned to her POLF- just struggling with strength and. right UE biceps has finally returned and some digit extension- still limited with thumb mobility limiting a functional grasp Objective/Function: left UE demonstrating with full ROM of shoulder, elbow/ forearm and digits- opposition ind. to base of LF. right UE shoulder ROM. right biceps 135 left 140. right forearm supination 50*. left forearm supination 90*. right wrist 45/60. left WNL. right thumb no abduction. right hand no opposition. right costume maker strength 40#. left costume maker strength 45#. right lateral pinch unable. left lateral pinch 2#. right tripod pinch unable. left tripod pinch 4#. pt has made gains with gross motor control of BUE- but continue to be limited with fine motor control and limited pinch strength for activities of daily living- ie unable to turn a carreno to start her car or unlock her door, open jar lids, unbutton or button, can not tie shoes laces or pants- pt does not have ability to write or performing grooming or participate in sports. Plan Frequency: 1-2x /Week Duration: 2 Months Plan: pt demonstrated need to continue skilled OT services 2x week for 8 weeks to continue to gain fine motor control, bilateral hand and pinch strength. Goals - Goals Patient Goals: Regain Mobility, Regain Strength, Improve Fine Motor Skills, Use Hand/Wrist/Arm Normally Again, Be More Independent in ADLS Goal:: pt will demo a increase in bilateral costume maker strength to 45# or greater to increase pts ind. with ADLs and IADLs by d/c. pt will demo a increase in lateral and tripod pinch to 8# or greater to increase pts ind. with grooming tasks by d/c. Goal:: pt will demo the ability to form bilateral composite sit to hold coins ind. for money manipulation by dc pt unable to manipulate coins. pt will demo the ability to extend bilateral thumb to increase pts in with grasp of large objects by d/c. pt will demo the ability to manipulate 10 coins without dropping, complete 10 coin finger to palm translation and palm to finger translation ind. Goal:: pt will demo pinch strength to 8# both lateral and tripod to increase ind. with manipulating fasteners, zippers, buttons etc by d/c. right continues to be limited at no ability- left lateral pinch is at 2# and tripod is at 4#. Anticipated Interventions Anticipated Interventions: A/AAROM/PROM, Strengthening, Sensory Retraining, Joint Protection/Energy Conservation, Ergonomic Education, Fine Motor Coord/Tobi, ADL Training, Education re Diagnosis Please do not hesitate to contact me at [phone] by phone or if you have questions or concerns regarding this new plan of care! Sincerely, Susana Ivory, OTR/L, CHT 01/07/21 1011 CC: Dr. Wilian Marshall MD MK Signed For Medicare only, by signing this I certify the plan of care. _ Physicians Signature Date Normal [facility] Re-Evaluation - PT (1)on Re-Evaluation - PT (1) [facility] [address] [place] [address]. [address] [place] [address] / REEVALUATION / MEDICARE RECERTIFICATION PHYSICAL THERAPY MR#: [id number] Acct: [id number] Name: SIA HOLLEY Rep #: [id number] : 2000 20 From: Beto Anderson DPT, OCS, CSCS Referring Dr.: Dr. Wilian Marshall MD Status:REG RCR Insurance: [facility] [id number] [facility] [address]. 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 Please see the progress note below for an update on the physical therapy plan of care! Subjective: Kind of better. Can finally bend R arm a little bit. Did a cart wheel the other day without falling on her face. Playing some gentle baseball and volleybal but unpredictable with throwing and hitting. Brushing teeth and getting dressed using L arm more, she is L handed, incorporates R arm with washing hair. Petting dogs with r UE. To neurologist December 25. No pain, sleeping well. 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 Doing alot with fingers at home whcih are the main delay. Can drive now also. Many improvements. Objective/Function: Full aROM B shoulders and scap an neck. R shoulder slightly weaker and slower. L elbow with full ROM and R elbow with full PROM and active flexion to 110 degrees, full extension and still low tone. Wrist movement and hand are taken care of in OT but are lagging behind proximal arm. strength L shoulder flexion 4, er 4, IR 4, bi4, triceps 4. R shoulder flexion 4-, abd 4-, er 4-, IR 4, biceps 3- to 3, tricep 3+. Excellent improvement on strength in R UE adn becoming more functional for patient with driving, working and head stands. Her goal is to get into criminal justice and needsmore strength to do this for ful function of both proximal UE. Appropriate to continue PT per POC with fair prognosis Plan Plan: 2x week x 4 weeks. continue B bi, tri, shoulder strength and functional progression, focus WB, R biceps and triceps. OT is continuing to work on distal UE. Work toward I gym program and patient to join after the next month. 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 Goal 4:: Move R biceps against gravity Goal Time Frame: 6-8 Weeks Goal Progress: Goal Met Goal 5:: 16 or less quick dash Goal Time Frame: 4-6 Weeks Goal 6:: I approp gym ex to continue progress and willingness to be compliant Goal Time Frame: 4-6 Weeks Goal Progress: NEW GOAL Anticipated Interventions Patient/Client Instruction: Educate patient on: Condition, Plan of Care For the Purpose of:: To improve muscle performance and motor function Therapeutic Exercise to Include: Strength training For the Purpose of:: To improve muscle performance and motor function, To improve ability of physical actions for home/community/work /leisure Please do not hesitate to contact me at [phone] by phone or if you have questions or concerns regarding this new plan of care! Sincerely, STEPH RiddleT, OCS, CSCS 11/12/20 1033 CC: Dr. Wilian Marshall MD EBG Signed For Medicare only, by signing this I certify the plan of care. _ Physicians Signature Date Normal [facility] Re-Evalution OTon 11-03-2020 Re-Evalution OT [facility] [address] [place] [address] / REEVALUATION / MEDICARE RECERTIFICATION OCCUPATIONAL THERAPY MR#: [id number] Acct: [id number] Name: SIA HOLLEY Rep #: [id number] : 2000 20 From: Susana GRULLON/Ankit, CHT Referring Dr.: Dr. Wilian Marshall MD Status: REG RCR Insurance: [facility] [id number] Eval Date: [facility] Dr. Wilian Marshall MD, It has been my pleasure to treat SIA HOLLEY over the last 18 visits for Parsonage- Turners Syndrome. Please see the progress note below for an update on the occupational therapy plan of care! Subjective: pt states she continues to have difficulty with fine motor tasks such as grooming hair, earrings, manipulation of fasteners. pt states she is accommodating with eating but continues to have difficulty. pt states she has noticed more strength in her UB but her lack of motion limits her at this time. Objective/Function: right costume maker 35#. left costume maker 35#. pt demo with a increase in bilateral shoulder flex to WNL. left biceps/triceps ROM is WNL MMT 4/5. right biceps 130* pt does still compensate with some adduction but with increased time pt can flex right elbow ROM 130*. pt will demo with increase wrist extension and tenodesis with grasp of med. and large objects. pt unable to grasp small objects or perform in hand manipulation. pt has has a trace of thumb extension and adduction but no thumb abduction limiting pts FMS for ADLs and IADLs as grooming, dressing and meal prep. pt would benefit from continued skilled OT services 2-3x week for 12 weeks to gain increase in FMS and strength. Plan Frequency: 2-3x /Week Duration: 3 Months Plan: cont POC will use FES to see if we can elict digit flex. cont with thumb extension. and will work on full composite fist for increase ind with fine motor skills Goals - Goals Patient Goals: Regain Mobility, Regain Strength, Improve Fine Motor Skills, Use Hand/Wrist/Arm Normally Again, Be More Independent in ADLS Goal:: pt will demo a increase in bilateral costume maker strength to 45# or greater to increase pts ind. with ADLs and IADLs by d/c. pt will demo a increase in lateral and tripod pinch to 8# or greater to increase pts ind. with grooming tasks by d/c. Goal:: pt will demo the ability to form bilateral composite sit to hold coins ind. for money manipulation by dc. pt will demo the ability to extend bilateral thumb to increase pts in with grasp of large objects by d/c. pt will demo the ability to manipulate 10 coins without dropping, complete 10 coin finger to palm translation and palm to finger translation ind. Goal:: pt will demo pinch strength to increase ind. with manipulating fasteners, zippers, buttons etc by d/c Anticipated Interventions Anticipated Interventions: A/AAROM/PROM, Strengthening, Sensory Retraining, Joint Protection/Energy Conservation, Ergonomic Education, Fine Motor Coord/Tobi, ADL Training, Education re Diagnosis Please do not hesitate to contact me at [phone] by phone or if you have questions or concerns regarding this new plan of care! Sincerely, Susana Ivory, OTR/L, CHT 11/03/20 1159 CC: Dr. Wilian Marshall MD MK Signed For Medicare only, by signing this I certify the plan of care. _ Physicians Signature Date Normal [facility] Re-Evaluation - PT (1)on Re-Evaluation - PT (1) [facility] [address] [place] [address] / REEVALUATION / MEDICARE RECERTIFICATION PHYSICAL THERAPY MR#: [id number] Acct: [id number] Name: SIA HOLLEY Rep #: [id number] : 2000 20 From: Beto Anderson DPT, OCS, CSCS Referring : Status:REG RCR Insurance: [facility] [id number] [facility] EYAL RAMIREZ, It has been my pleasure to treat SIA HOLLEY over the last 71 visits for Parsonage Truner syndrome. Please see the progress note below for an update on the physical therapy plan of care! Subjective: Going the right way. 24# lifting is happening now. Still unable to fish due to poor hand movement and bicep still weak. sleep is fine. No pain. 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 Overall improvement is SLOW but happening. Grandma as seen huge improvements in last monthwspecially in PT. Back to Neuro in December. Objective/Function: Pt has Good AROM L UE and strength at 4- flex and abd, 3+ elbow flexion 4- tricep extension. AROM sup and pro 3/5 and diminished hand function and strength but can squeeze, cannot elevate thumb. R UE AROM shoulder WFL adn strength 3, tricep 3/5 and can resist gravity gently. R elbow bicep 2 as she cannot move it against gravity but can move it gravity eliminated. Hand and wrist function poor on R. Good PROM throughout UE. Scap aROM is full and posture is improved including sitting without UE support adn WB on R UE lean without hyperextension elbow. Overall improving SLOWLY but measurably. appropriate to continue PT for strength and function and fair prognosis for continued slow improvement. Plan Plan: 2x/week for 4-6 week for cotninued postural and UE strength. Please give Digital [employer] rehab brochure next session and work driving motor control into her therapy. Goals Goal 1:: Maintain improving function and full PROM UE and AROM shoulders painfree at rest. Goal Time Frame: 6-8 Weeks Goal Progress: Goal Met,a pprop Goal 2:: 4/5 strength shoulders in all uniplanar directions and 3/5 elbow extension strength Goal Time Frame: 4-6 Weeks Goal Progress: Progressing, approp. Goal 3:: Sit without EU support 5 minutes with good postrue Goal Time Frame: 6-8 Weeks Goal Progress: Goal Met Goal 4:: Sit and function with R UE WB without hyperextending R elbow. 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 with confidence adn function Goal Time Frame: 6-8 Weeks Goal Progress: NEW GOAL Goal 6:: Move R bicep against gravity Goal Time Frame: 6-8 Weeks Goal Progress: NEW GOAL Anticipated Interventions Patient/Client Instruction: Educate patient on: Condition For the Purpose of:: To increase tolerance to activity/condition/ position Therapeutic Exercise to Include: Strength training, Passive ROM, Active ROM For the Purpose of:: To increase ROM, To improve muscle performance and motor function, To increase tolerance to activity/condition/ position Please do not hesitate to contact me at [phone] by phone or if you have questions or concerns regarding this new plan of care! Sincerely, Beto Anderson, DPT, OCS, CSCS 08/11/20 1035 CC: Dr. Wilian aMrshall MD; EYAL RAMIREZ EBG Signed For Medicare only, by signing this I certify the plan of care. _ Physicians Signature Date Normal [facility] Re-Evalution OTon 08-11-2020 Re-Evalution OT [facility] Occupational Therapy [facility] [address] [place] [address] / REEVALUATION / MEDICARE RECERTIFICATION OCCUPATIONAL THERAPY MR#: [id number] Acct: [id number] Name: SIA HOLLEY Rep #: [id number] : 2000 20 From: Susana GRULLON/Ankit, CHT Referring : Status: REG R Insurance: [facility] [id number] Eval Date: [facility] EYAL RAMIREZ, It has been my pleasure to treat SIA HOLLEY over the last 15 visits for . Please see the progress note below for an update on the occupational therapy plan of care! Subjective: pt arrives has PT following- states work is going OK. no new movement- states she has had her right arm was asleep and itchy- Objective/Function: pt demo with increase left shoulder ROM to WNL- weak MMT of shoulder at 4-/5 and with tricpes/biceps- pt left forearm sup/pron limited with 3/5 poor wrist extensors but more consistan motion - noted initiation of left digit ext but still no thumb ext at this time. Right UE shoulder ROM is WNL- pt mmt with right is weak 3+/5 no right biceps noted pt has compensation of horizonatal shoulder adduction- pts elbow demo with a hyper extension with reach and right drop wrist. no thumb ext or digit ext at this time- pt demo need to cont. with skilled OT services to increase strneght, ensure pt is weaing Benik braces to limit extensor tendon lag while nerves are healing. pt is making gains with left UE and would cont. to benefit from skilled OT services to cont with strengthening to both UE and PROM to bilateral digits to prevent joint contractures. Plan Frequency: 2-3x /Week Duration: 2 Months Plan: will change pt to 60 min to work on UB and FMS Anticipated Interventions Please do not hesitate to contact me at [phone] by phone or if you have questions or concerns regarding this new plan of care! Sincerely, YADI Riley/L, CHT 08/11/20 1040 CC: Dr. Wilian Marshall MD; EYAL RAMIREZ MK Signed For Medicare only, by signing this I certify the plan of care. _ Physicians Signature Date Normal [facility] Re-Evalution OTon 08-03-2020 Re-Evalution OT [facility] Occupational Therapy [facility] [address] [place] [address] / REEVALUATION / MEDICARE RECERTIFICATION OCCUPATIONAL THERAPY MR#: [id number] Acct: [id number] Name: SIA HOLLEY Rep #: [id number] : 2000 20 From: Susana GRULLON/L, CHT Referring : OUT OF TOWN DOCTOR Status: REG R CR Insurance: [facility] [id number] Eval Date: [facility] EYAL RAMIREZ, It has been my pleasure to treat SIA HOLLEY over the last 12 visits for . Please see the progress note below for an update on the occupational therapy plan of care! Subjective: pt arrives to session prior to PT. states she feels she has made new gains with her mobility in the last two weeks- Objective/Function: pt demo with increase left shoulder ROM to WNL- weak MMT of shoulder at 4-/5 and with tricpes/biceps- pt left forearm sup/pron limited with 3/5 poor wrist extensors but more consistan motion - noted initiation of left digit ext but still no thumb ext at this time. Right UE shoulder ROM is WNL- pt mmt with right is weak 3+/5 no right biceps noted pt has compensation of horizonatal shoulder adduction- pts elbow demo with a hyper extension with reach and right drop wrist. no thumb ext or digit ext at this time- pt demo need to cont. with skilled OT services to increase strneght, ensure pt is weaing Benik braces to limit extensor tendon lag while nerves are healing. pt is making gains with left UE and would cont. to benefit from skilled OT services to cont with strengthening to both UE and PROM to bilateral digits to prevent joint contractures. Plan Plan: reeval next session Anticipated Interventions Please do not hesitate to contact me at [phone] by phone or if you have questions or concerns regarding this new plan of care! Sincerely, Susana Ivory, OTR/L, CHT 08/05/20 0825 CC: Dr. Wilian Marshall MD; EYAL RAMIREZ MK Signed For Medicare only, by signing this I certify the plan of care. _ Physicians Signature Date Normal [facility] ANGIOTENSIN CONVERTING ENZYM E, BLOODon 11-02-2019 Angiotension Converting Enzyme 27 U/L 16 - [facility] Comment on above: Test Performed by: [facility] [place] [address] Life Enrichment Manager: Stephen Tay M.D. Ph.D.; CLIA# [id number] RHEUMATOID FACTORon 11-02-19 Interpretation and review of laboratory results Normal [facility] Rheumatoid factor Qn [IU]/mL [facility] Basic Metabolic Panelon 10-20 Anion gap [Moles/Vol] 10 mmol/L 10 - 20 mmol/L [facility] Calcium [Mass/Vol] 8.7 mg/dL 8.4 - 10. 2 mg/dL [facility] Chloride [Moles/Vol] 110 mmol/L High 98 - 10 8 mmol/L [facility] Creatinine [Mass/Vol] 0.70 mg/dL 0.50 - 1.00 [facility] GFR/1.73 sq M predicted among non-blacks MDRD (S/P/Bld) [Vol rate/Area] The eGFR should be used for monitoring renal function only and not for medication dosing. [facility] GFR/1.73 sq M.predicted CKD-EPI (S/P/Bld) [Vol rate/Area] 127 >=60 mL/min/1.73 m2 [facility] Glucose [Mass/Vol] 80 mg/dL 65 - 99 mg/dL [facility] HCO3 [Moles/Vol] 24 mmol/L 21 - 32 mmol/L [facility] Interpretation and review of laboratory results Abnormal [facility] Potassium [Moles/Vol] 3.9 mmol/L 3.5 - 5.1 mmol/L [facility] Sodium [Moles/Vol] 140 mmol/L 135 - 145 mmol/L [facility] Urea nitrogen [Mass/Vol] 15 mg/dL 8 - 25 mg/d L [facility] Urea nitrogen/Creatinine [Mass ratio] 21.4 mg/mg High [facility] CBC WITH AUTO DIFFERENTIALon 11-01-2019 Basophils (Bld) [#/Vol] 0.03 10*3/uL [facility] Basophils/100 WBC (Bld) 0.5 % [facility] Eosinophils (Bld) [#/Vol] 0.12 10*3/uL [facility] Eosinophils/100 WBC (Bld) 1.8 % [facility] Erythrocyte distribution width (RBC) [Entitic vol] 12.9 % 11.6 - 14.8 % [facility] Hematocrit (Bld) [Volume fraction] 33.1 % Low 36 - 46 % [facility] Hemoglobin (Bld) [Mass/Vol] 11.1 g/dL Low 12 - 16 g/dL [facility] Immature granulocytes (Bld) [#/Vol] 0.03 10*3/uL [facility] Immature granulocytes/100 WBC (Bld) 0.50 % [facility] Comment on above: The IG parameter is the percentage of metamyelocytes, myelocytes and promyelocytes. An immature granulocyte count (IG) of 1% or more suggests the possibility of infection, an IG count of 3% is very likely related to an infection. Interpretation and review of laboratory results Abnormal [facility] Lymphocytes (Bld) [#/Vol] 2.47 10*3/uL [facility] Lymphocytes/100 WBC (Bld) 37.6 % [facility] MCH (RBC) [Entitic mass] 30.2 pg 25 - 35 pg [facility] MCHC (RBC) [Mass/Vol] 33.5 g/dL 31 - 37 g/dL [facility] MCV (RBC) [Entitic vol] 89.9 fL 78 - 102 fL [facility] Monocytes (Bld) [#/Vol] 0.53 10*3/uL [facility] Monocytes/100 WBC (Bld) 8.1 % [facility] Neut[facility] (Bld[facility] [#/Vol] 3.39 10*3/uL [facility] Neutrophils/100 WBC (Bld) 51.5 % [facility] Nucleated RBC (Bld) [#/Vol] 0.00 10*3/uL [facility] Nucleated RBC/100 WBC (Bld) [Ratio] 0.0 % [facility] Platelet mean volume (Bld) [Entitic vol] 11.4 fL 9.4 - 12.4 fL [facility] Platelets (Bld) [#/Vol] 197 10*3/uL [facility] RBC (Bld) [#/Vol] 3.68 10*6/uL Low [facility] WBC (Bld) [#/Vol] 6.57 10*3/uL [facility] CPKon 11-01-2019 CK [Catalytic activity/Vol] 32 U/L Low 40 - 170 U/L [facility] Interpretation and review of laboratory results Abnormal [facility] CRP, Inflammationon 11-01-19 20 CRP [Mass/Vol] mg/L <=10.0 mg/L [facility] HEPATITIS PANEL, ACUTEon HAV IgM Ql (S) Negative Negative [facility] HBV core IgM Ql (S) Negative Negative [facility] HBV surface Ag Ql (S) Negative Negative [facility] HCV Ab Ql (S) Negative Negative [facility] Interpretation and review of laboratory results Normal [facility] Test performed using [employer] JASON immunoassay system [facility] Hepatic Function Panelon Albumin [Mass/Vol] 4.0 g/dL 3.2 - 4.5 g/dL [facility] ALP [Catalytic activity/Vol] 78 U/L 40 - 140 U/L [facility] ALT [Catalytic activity/Vol] 17 U/L 14 - 65 U/L [facility] AST [Catalytic activity/Vol] 11 U/L 0 - 45 U/L [facility] Bilirubin [Mass/Vol] 0.6 mg/dL 0 - 1.3 mg/dL [facility] Bilirubin.conjugated [Mass/Vol] 0.1 mg/dL 0 - 0.4 mg/dL [facility] Protein [Mass/Vol] 7.2 g/dL 6 - 8 g/dL [facility] LYME DISEASE ANTIBODY, BLOOD on 11-01-2019 B. burgdorferi Ab Ql (S) Negative Negative [facility] Interpretation and review of laboratory results Normal [facility] Assay performed using [employer] CLIA methodology. [facility] Magnesiumon 11-01-2019 Interpretation and review of laboratory results Normal [facility] Magnesium [Mass/Vol] 2.0 mg/dL 1.6 - 2 .4 mg/dL [facility] Otheron 11-01-2019 Interpretation and review of laboratory results Normal [facility] - 11/01/2019 7:56 AM EDT EXAMINATION: MR BRACHIAL PLEXUS RIGHT WITH AND WITHOUT CONTRAST; MR BRACHIAL PLEXUS LEFT WITH AND WITHOUT CONTRAST HISTORY: ORDERING SYSTEM PROVIDED HISTORY: Bilateral arm weakness and paresthesia per request of Dr.M RAMIREZ, TECHNOLOGIST PROVIDED HISTORY: Injury/Trauma Reason for exam: patient fell couple weeks ago, finger numbess, pain in bilateral shoulder blades, arm weakness, Encounter Type: Initial Mechanism of injury: . ORDERING SYSTEM PROVIDED DIAGNOSIS CODES: S14.3XXA Brachial plexus injury, initial encounter COMPARISON: MRI cervical spine 10/31/2019. TECHNIQUE: Multiplanar, multisequence MRI of the right brachial plexus and left brachial plexus was performed with and without IV contrast utilizing 10 mL of Dotarem. This included large vjsfh-sr-rhog coronal T1, coronal STIR, with small ihtcr-ki-epyu sagittal imaging on both sides including T1 and T2, and axial T2 imaging with postcontrast large hvjzg-xs-vwvf coronal T1 and small ffami-yn-rmrn sagittal T1 imaging. CONTRAST: GADOTERATE MEGLUMINE 0.5 MMOL/ML (376.9 MG/ML) INTRAVENOUS SOLUTION - 10 mL, FINDINGS: There is symmetric appearance of the bilateral brachial plexus. No asymmetric enhancement or mass is identified. Subtle convex right curvature of the cervical spine. As seen, there is no abnormal T2 hyperintense signal or suspicious spinal cord enhancement identified. There is asymmetric edema in the left supraspinatus and infraspinatus muscles. No fatty atrophy of the rotator cuff is seen. No mass lesion in the suprascapular notch region. Right rotator cuff muscles appear preserved. IMPRESSION: 1. Normal MR appearance of the bilateral brachial plexus. No asymmetric mass or suspicious enhancement identified. 2. No abnormal spinal cord enhancement is identified. 3. Of note, there is asymmetric edema in the left supraspinatus and infraspinatus muscles. Differential includes delayed onset muscle soreness, low-grade muscle strains, or early denervation change. EMG could be considered for further characterization. MPH/kls Workstation ID: [id number] [facility] EXAMINATION: MR BRACHIAL PLEXUS RIGHT WITH AND WITHOUT CONTRAST; MR BRACHIAL PLEXUS LEFT WITH AND WITHOUT CONTRAST HISTORY: ORDERING SYSTEM PROVIDED HISTORY: Bilateral arm weakness and paresthesia per request of Dr.M RAMIREZ, TECHNOLOGIST PROVIDED HISTORY: Injury/Trauma Reason for exam: patient fell couple weeks ago, finger numbess, pain in bilateral shoulder blades, arm weakness, Encounter Type: Initial Mechanism of injury: . ORDERING SYSTEM PROVIDED DIAGNOSIS CODES: S14.3XXA Brachial plexus injury, initial encounter COMPARISON: MRI cervical spine 10/31/2019. TECHNIQUE: Multiplanar, multisequence MRI of the right brachial plexus and left brachial plexus was performed with and without IV contrast utilizing 10 mL of Dotarem. This included large xtsly-we-mkmr coronal T1, coronal STIR, with small tkalh-gk-ekmm sagittal imaging on both sides including T1 and T2, and axial T2 imaging with postcontrast large hougb-hi-pmqg coronal T1 and small rqmiu-av-vkuu sagittal T1 imaging. CONTRAST: GADOTERATE MEGLUMINE 0.5 MMOL/ML (376.9 MG/ML) INTRAVENOUS SOLUTION - 10 mL, FINDINGS: There is symmetric appearance of the bilateral brachial plexus. No asymmetric enhancement or mass is identified. Subtle convex right curvature of the cervical spine. As seen, there is no abnormal T2 hyperintense signal or suspicious spinal cord enhancement identified. There is asymmetric edema in the left supraspinatus and infraspinatus muscles. No fatty atrophy of the rotator cuff is seen. No mass lesion in the suprascapular notch region. Right rotator cuff muscles appear preserved. [facility] 1. Normal MR appearance of the bilateral brachial plexus. No asymmetric mass or suspicious enhancement identified. 2. No abnormal spinal cord enhancement is identified. 3. Of note, there is asymmetric edema in the left supraspinatus and infraspinatus muscles. Differential includes delayed onset muscle soreness, low-grade muscle strains, or early denervation change. EMG could be considered for further characterization. MPH/kls Workstation ID: [id number] [facility] RPRon 11-01-2019 Interpretation and review of laboratory results Normal [facility] Reagin Ab RPR Ql (S) Non-Reactive Non-Reactive [facility] TSH with Reflex Free T4on TSH Qn 1.18 m[IU]/L [facility] Vitamin B12on 11-01-2019 Cobalamin (Vitamin B12) [Mass/Vol] 538 pg/mL 193 - 986 pg/mL [facility] Interpretation and review of laboratory results Normal [facility] CBC WITH AUTO DIFFERENTIALon 10-31-2019 Basophils (Bld) [#/Vol] 0.03 10*3/uL [facility] Basophils/100 WBC (Bld) 0.5 % [facility] Eosinophils (Bld) [#/Vol] 0.09 10*3/uL [facility] Eosinophils/100 WBC (Bld) 1.5 % [facility] Erythrocyte distribution width (RBC) [Entitic vol] 12.7 % 11.6 - 14.8 % [facility] Hematocrit (Bld) [Volume fraction] 34.6 % Low 36 - 46 % [facility] Hemoglobin (Bld) [Mass/Vol] 11.8 g/dL Low 12 - 16 g/dL [facility] Immature granulocytes (Bld) [#/Vol] 0.01 10*3/uL [facility] Immature granulocytes/100 WBC (Bld) 0.20 % [facility] Comment on above: The IG parameter is the percentage of metamyelocytes, myelocytes and promyelocytes. An immature granulocyte count (IG) of 1% or more suggests the possibility of infection, an IG count of 3% is very likely related to an infection. Interpretation and review of laboratory results Abnormal [facility] Lymphocytes (Bld) [#/Vol] 1.89 10*3/uL [facility] Lymphocytes/100 WBC (Bld) 30.7 % [facility] MCH (RBC) [Entitic mass] 29.2 pg 25 - 35 pg [facility] MCHC (RBC) [Mass/Vol] 34.1 g/dL 31 - 37 g/dL [facility] MCV (RBC) [Entitic vol] 85.6 fL 78 - 102 fL [facility] Monocytes (Bld) [#/Vol] 0.45 10*3/uL [facility] Monocytes/100 WBC (Bld) 7.3 % [facility] Neutrophils (Bld) [#/Vol] 3.69 10*3/uL [facility] Neutrophils/100 WBC (Bld) 59.8 % [facility] Nucleated RBC (Bld) [#/Vol] 0.00 10*3/uL [facility] Nucleated RBC/100 WBC (Bld) [Ratio] 0.0 % [facility] Platelet mean volume (Bld) [Entitic vol] 11.1 fL 9.4 - 12.4 fL [facility] Platelets (Bld) [#/Vol] 232 10*3/uL [facility] RBC (Bld) [#/Vol] 4.04 10*6/uL Low [facility] ealt WBC (Bld) [#/Vol] 6.16 10*3/uL [facility] eah COVID-19, Molecularon 2019 Interpretation and review of laboratory results Normal [facility] SARS-CoV-2 Not Detected Not Detected [facility] Comment on above: This test was perfor med under the FDA's Emergency Use Authorization (EUA). Testing was performed using the [place] ID NOW COVID-19 assay on the ID NOW platform. This test has not been approved for use in asymptomatic patients and its performance in this patient population has not been evaluated. Negative results do not rule out the presence of SARS-CoV-2/COVID-19. Fact sheets for the EUA can be found at the following links: For Healthcare Providers: https://www.fda.gov/media/115013/download For Patients: https://www.fda.gov/media/465154/download CRP, Inflammationon 10-31-19 20 CRP [Mass/Vol] mg/L <=10.0 mg/L [facility] WITHOUT CO NTRASTon 10-31-2019 CT CERVICAL SPINE WITHOUT CONTRAST EXAMINATION: CT CERVICAL SPINE WITHOUT CONTRAST HISTORY: ORDERING SYSTEM PROVIDED HISTORY: Neck pain status post a fall a month ago, TECHNOLOGIST PROVIDED HISTORY: Injury/Trauma Reason for exam: pt fell off a 2 foot ladder 2 weeks ago, PT STATES FOR THE LAST WEEK HER FINGERS HAVE BEEN NUMB AND SHE CAN NOT STRAIGHTEN OUT HER ARMS Encounter Type: Initial Mechanism of injury: fall ORDERING SYSTEM PROVIDED DIAGNOSIS CODES: COMPARISON: None. TECHNIQUE: CT cervical spine without IV contrast. Coronal and sagittal reformations were performed. Dose reduction techniques were achieved by using automated exposure control and/or adjustment of mA and/or kV according to patient size and/or use of iterative reconstruction technique. FINDINGS: There is mild reversal of cervical spine curvature which is likely related to patient positioning. The alignment is normal. No subluxation. The odontoid process is intact. Posterior elements are intact. No acute cervical spine fracture. No degenerative changes. No spinal stenosis. No paraspinal soft tissue swelling. IMPRESSION: Normal CT of the cervical spine. No fracture or subluxation. DMShoprocket/JellyCloude Workstation ID: [id number] Dictated by: AIXA HOLLINS on MonOct 31, 2019 3:28:33 PM EDT Transcribed by: TORRES CAMACHO on MonOct 31, 2019 3:42:51 PM EDT Finalized by: AIXA HOLLINS on MonOct 31, 2019 4:32:04 PM EDT Normal [facility] Comment on above: Order Comment: Injur y/Trauma or Illness?:Injury/Trauma How long have you had these symptoms (acute/chronic)?:Acute Reason for exam?:pt fell off a 2 foot ladder 2 weeks ago, PT STATES FOR THE LAST WEEK HER FINGERS HAVE BEEN NUMB AND SHE CAN NOT STRAIGHTEN OUT HER ARMS Type of Exam?:Initial Mechanism of injury?:fall Normal CT of the cervical spine. No fracture or subluxation. DMG/tde Workstation ID: [id number] [facility] EXAMINATION: CT CERVICAL SPINE WITHOUT CONTRAST HISTORY: ORDERING SYSTEM PROVIDED HISTORY: Neck pain status post a fall a month ago, TECHNOLOGIST PROVIDED HISTORY: Injury/Trauma Reason for exam: pt fell off a 2 foot ladder 2 weeks ago, PT STATES FOR THE LAST WEEK HER FINGERS HAVE BEEN NUMB AND SHE CAN NOT STRAIGHTEN OUT HER ARMS Encounter Type: Initial Mechanism of injury: fall ORDERING SYSTEM PROVIDED DIAGNOSIS CODES: COMPARISON: None. TECHNIQUE: CT cervical spine without IV contrast. Coronal and sagittal reformations were performed. Dose reduction techniques were achieved by using automated exposure control and/or adjustment of mA and/or kV according to patient size and/or use of iterative reconstruction technique. FINDINGS: There is mild reversal of cervical spine curvature which is likely related to patient positioning. The alignment is normal. No subluxation. The odontoid process is intact. Posterior elements are intact. No acute cervical spine fracture. No degenerative changes. No spinal stenosis. No paraspinal soft tissue swelling. [facility] Interface, Rad In Piyush Fernández - 10/31/2019 4:34 PM EDT EXAMINATION: CT CERVICAL SPINE WITHOUT CONTRAST HISTORY: ORDERING SYSTEM PROVIDED HISTORY: Neck pain status post a fall a month ago, TECHNOLOGIST PROVIDED HISTORY: Injury/Trauma Reason for exam: pt fell off a 2 foot ladder 2 weeks ago, PT STATES FOR THE LAST WEEK HER FINGERS HAVE BEEN NUMB AND SHE CAN NOT STRAIGHTEN OUT HER ARMS Encounter Type: Initial Mechanism of injury: fall ORDERING SYSTEM PROVIDED DIAGNOSIS CODES: COMPARISON: None. TECHNIQUE: CT cervical spine without IV contrast. Coronal and sagittal reformations were performed. Dose reduction techniques were achieved by using automated exposure control and/or adjustment of mA and/or kV according to patient size and/or use of iterative reconstruction technique. FINDINGS: There is mild reversal of cervical spine curvature which is likely related to patient positioning. The alignment is normal. No subluxation. The odontoid process is intact. Posterior elements are intact. No acute cervical spine fracture. No degenerative changes. No spinal stenosis. No paraspinal soft tissue swelling. IMPRESSION: Normal CT of the cervical spine. No fracture or subluxation. DMShoprocket/tde Workstation ID: [id number] [facility] CT HEAD OR BRAIN WITHOUT CON TRASTon 10-31-[address] of the head. No acute intracranial findings. No hemorrhage or mass. DMG/nhung Workstation ID: [id number] [facility] EXAMINATION: CT HEAD OR BRAIN WITHOUT CONTRAST HISTORY: ORDERING SYSTEM PROVIDED HISTORY: worsening weakness after fall, TECHNOLOGIST PROVIDED HISTORY: Injury/Trauma Reason for exam: pt fell off a 2 foot ladder 2 weeks ago, PT STATES FOR THE LAST WEEK HER FINGERS HAVE BEEN NUMB AND SHE CAN NOT STRAIGHTEN OUT HER ARMS Encounter Type: Initial Mechanism of injury: fall ORDERING SYSTEM PROVIDED DIAGNOSIS CODES: COMPARISON: None. TECHNIQUE: CT examination of the head without IV contrast. Dose reduction techniques were achieved by using automated exposure control and/or adjustment of mA and/or kV according to patient size and/or use of iterative reconstruction technique. FINDINGS: Paranasal sinuses are clear. Mastoid air cells are clear. Skull base is intact. No skull lesions. Nasopharynx is normal. Meter/Relay Technician spaces are normal. Orbital contents are normal. Ventricles are normal in size. No hydrocephalus. No mass effect. No shift of midline. No extraaxial fluid collections. No acute hemorrhage. No masses. Jordan matter and white matter differentiation is intact. [facility] Interface, Rad In Piyush Fernándezq - 10/31/2019 4:34 PM EDT EXAMINATION: CT HEAD OR BRAIN WITHOUT CONTRAST HISTORY: ORDERING SYSTEM PROVIDED HISTORY: worsening weakness after fall, TECHNOLOGIST PROVIDED HISTORY: Injury/Trauma Reason for exam: pt fell off a 2 foot ladder 2 weeks ago, PT STATES FOR THE LAST WEEK HER FINGERS HAVE BEEN NUMB AND SHE CAN NOT STRAIGHTEN OUT HER ARMS Encounter Type: Initial Mechanism of injury: fall ORDERING SYSTEM PROVIDED DIAGNOSIS CODES: COMPARISON: None. TECHNIQUE: CT examination of the head without IV contrast. Dose reduction techniques were achieved by using automated exposure control and/or adjustment of mA and/or kV according to patient size and/or use of iterative reconstruction technique. FINDINGS: Paranasal sinuses are clear. Mastoid air cells are clear. Skull base is intact. No skull lesions. Nasopharynx is normal. Meter/Relay Technician spaces are normal. Orbital contents are normal. Ventricles are normal in size. No hydrocephalus. No mass effect. No shift of midline. No extraaxial fluid collections. No acute hemorrhage. No masses. Jordan matter and white matter differentiation is intact. IMPRESSION: Normal CT of the head. No acute intracranial findings. No hemorrhage or mass. DMG/nhung Workstation ID: [id number] [facility] CT HEAD OR BRAIN WITHOUT CONTRAST EXAMINATION: CT HEAD OR BRAIN WITHOUT CONTRAST HISTORY: ORDERING SYSTEM PROVIDED HISTORY: worsening weakness after fall, TECHNOLOGIST PROVIDED HISTORY: Injury/Trauma Reason for exam: pt fell off a 2 foot ladder 2 weeks ago, PT STATES FOR THE LAST WEEK HER FINGERS HAVE BEEN NUMB AND SHE CAN NOT STRAIGHTEN OUT HER ARMS Encounter Type: Initial Mechanism of injury: fall ORDERING SYSTEM PROVIDED DIAGNOSIS CODES: COMPARISON: None. TECHNIQUE: CT examination of the head without IV contrast. Dose reduction techniques were achieved by using automated exposure control and/or adjustment of mA and/or kV according to patient size and/or use of iterative reconstruction technique. FINDINGS: Paranasal sinuses are clear. Mastoid air cells are clear. Skull base is intact. No skull lesions. Nasopharynx is normal. Meter/Relay Technician spaces are normal. Orbital contents are normal. Ventricles are normal in size. No hydrocephalus. No mass effect. No shift of midline. No extraaxial fluid collections. No acute hemorrhage. No masses. Jordan matter and white matter differentiation is intact. IMPRESSION: Normal CT of the head. No acute intracranial findings. No hemorrhage or mass. CHERYLE/nhung Workstation ID: [id number] Dictated by: AIXA HOLLINS on MonOct 31, 2019 3:26:52 PM EDT Transcribed by: MARITZA SCHULZ on MonOct 31, 2019 3:40:42 PM EDT Finalized by: AIXA HOLLINS on MonOct 31, 2019 4:32:09 PM EDT [facility] Comment on above: Order Comment: Injur y/Trauma or Illness?:Injury/Trauma How long have you had these symptoms (acute/chronic)?:Acute Reason for exam?:pt fell off a 2 foot ladder 2 weeks ago, PT STATES FOR THE LAST WEEK HER FINGERS HAVE BEEN NUMB AND SHE CAN NOT STRAIGHTEN OUT HER ARMS Type of Exam?:Initial Mechanism of injury?:fall Comprehensive Metabolic Pane humera 10-31-2019 Albumin [Mass/Vol] 4.3 g/dL 3.2 - 4.5 g/dL [facility] ALP [Catalytic activity/Vol] 83 U/L 40 - 140 U/L [facility] ALT [Catalytic activity/Vol] 18 U/L 14 - 65 U/L [facility] Anion gap [Moles/Vol] 11 mmol/L 10 - 20 mmol/L [facility] AST [Catalytic activity/Vol] 13 U/L 0 - 45 U/L [facility] Bilirubin [Mass/Vol] 0.6 mg/dL 0 - 1.3 mg/dL [facility] Calcium [Mass/Vol] 9.1 mg/dL 8.4 - 10. 2 mg/dL [facility] Chloride [Moles/Vol] 109 mmol/L High 98 - 10 8 mmol/L [facility] Creatinine [Mass/Vol] 0.64 mg/dL 0.50 - 1.00 [facility] GFR/1.73 sq M predicted among non-blacks MDRD (S/P/Bld) [Vol rate/Area] The eGFR should be used for monitoring renal function only and not for medication dosing. [facility] GFR/1.73 sq M.predicted CKD-EPI (S/P/Bld) [Vol rate/Area] 131 >=60 mL/min/1.73 m2 [facility] Glucose [Mass/Vol] 86 mg/dL 65 - 99 mg/dL [facility] HCO3 [Moles/Vol] 24 mmol/L 21 - 32 mmol/L [facility] Interpretation and review of laboratory results Abnormal [facility] Potassium [Moles/Vol] 4.1 mmol/L 3.5 - 5.1 mmol/L [facility] Protein [Mass/Vol] 7.4 g/dL 6 - 8 g/dL [facility] Sodium [Moles/Vol] 140 mmol/L 135 - 145 mmol/L [facility] Urea nitrogen [Mass/Vol] 14 mg/dL 8 - 25 mg/d L [facility] Urea nitrogen/Creatinine [Mass ratio] 21.9 mg/mg High [facility] HCG (QUALITATIVE)on 10-31-19 20 Beta HCG ( test) Ql Negative Negative [facility] Negative: The result is less than or equal to 5 mIU/mL of HCG. [facility] MR BRACHIAL PLEXUS LEFT WITH AND WITHOUT CONTRASTon 10-31-2019 MR BRACHIAL PLEXUS LEFT WITH AND WITHOUT CONTRAST EXAMINATION: MR BRACHIAL PLEXUS RIGHT WITH AND WITHOUT CONTRAST; MR BRACHIAL PLEXUS LEFT WITH AND WITHOUT CONTRAST HISTORY: ORDERING SYSTEM PROVIDED HISTORY: Bilateral arm weakness and paresthesia per request of Dr.M RAMIREZ, TECHNOLOGIST PROVIDED HISTORY: Injury/Trauma Reason for exam: patient fell couple weeks ago, finger numbess, pain in bilateral shoulder blades, arm weakness, Encounter Type: Initial Mechanism of injury: . ORDERING SYSTEM PROVIDED DIAGNOSIS CODES: S14.3XXA Brachial plexus injury, initial encounter COMPARISON: MRI cervical spine 10/31/2019. TECHNIQUE: Multiplanar, multisequence MRI of the right brachial plexus and left brachial plexus was performed with and without IV contrast utilizing 10 mL of Dotarem. This included large cwoua-zu-dtbh coronal T1, coronal STIR, with small qvmbj-da-aktc sagittal imaging on both sides including T1 and T2, and axial T2 imaging with postcontrast large penvo-rw-zvqq coronal T1 and small qycmk-gu-kclk sagittal T1 imaging. CONTRAST: GADOTERATE MEGLUMINE 0.5 MMOL/ML (376.9 MG/ML) INTRAVENOUS SOLUTION - 10 mL, FINDINGS: There is symmetric appearance of the bilateral brachial plexus. No asymmetric enhancement or mass is identified. Subtle convex right curvature of the cervical spine. As seen, there is no abnormal T2 hyperintense signal or suspicious spinal cord enhancement identified. There is asymmetric edema in the left supraspinatus and infraspinatus muscles. No fatty atrophy of the rotator cuff is seen. No mass lesion in the suprascapular notch region. Right rotator cuff muscles appear preserved. IMPRESSION: 1. Normal MR appearance of the bilateral brachial plexus. No asymmetric mass or suspicious enhancement identified. 2. No abnormal spinal cord enhancement is identified. 3. Of note, there is asymmetric edema in the left supraspinatus and infraspinatus muscles. Differential includes delayed onset muscle soreness, low-grade muscle strains, or early denervation change. EMG could be considered for further characterization. MPH/kls Workstation ID: [id number] Dictated by: RAKAN WOOTEN on MonNov 01, 2019 7:09:15 AM EDT Transcribed by: YU TSE on MonNov 01, 2019 7:15:37 AM EDT Finalized by: RAKAN WOOTEN on MonNov 01, 2019 7:32:24 AM EDT [facility] Comment on above: Order Comment: Injur y/Trauma or Illness?:Illness/Other How long have you had these symptoms (acute/chronic)?:Acute Reason for exam?:patient fell couple weeks ago, finger numbess, pain in bilateral shoulder blades, arm weakness, Type of Exam?:Initial Additional signs and symptoms?:. MR BRACHIAL PLEXUS RIGHT WIT H AND WITHOUT CONTRASTon 10-31-2019 MR BRACHIAL PLEXUS RIGHT WITH AND WITHOUT CONTRAST EXAMINATION: MR BRACHIAL PLEXUS RIGHT WITH AND WITHOUT CONTRAST; MR BRACHIAL PLEXUS LEFT WITH AND WITHOUT CONTRAST HISTORY: ORDERING SYSTEM PROVIDED HISTORY: Bilateral arm weakness and paresthesia per request of Dr.M RAMIREZ, TECHNOLOGIST PROVIDED HISTORY: Injury/Trauma Reason for exam: patient fell couple weeks ago, finger numbess, pain in bilateral shoulder blades, arm weakness, Encounter Type: Initial Mechanism of injury: . ORDERING SYSTEM PROVIDED DIAGNOSIS CODES: S14.3XXA Brachial plexus injury, initial encounter COMPARISON: MRI cervical spine 10/31/2019. TECHNIQUE: Multiplanar, multisequence MRI of the right brachial plexus and left brachial plexus was performed with and without IV contrast utilizing 10 mL of Dotarem. This included large veetx-nu-xvsu coronal T1, coronal STIR, with small echgw-dt-zyln sagittal imaging on both sides including T1 and T2, and axial T2 imaging with postcontrast large pitfu-da-thrz coronal T1 and small rdeyo-vy-jheg sagittal T1 imaging. CONTRAST: GADOTERATE MEGLUMINE 0.5 MMOL/ML (376.9 MG/ML) INTRAVENOUS SOLUTION - 10 mL, FINDINGS: There is symmetric appearance of the bilateral brachial plexus. No asymmetric enhancement or mass is identified. Subtle convex right curvature of the cervical spine. As seen, there is no abnormal T2 hyperintense signal or suspicious spinal cord enhancement identified. There is asymmetric edema in the left supraspinatus and infraspinatus muscles. No fatty atrophy of the rotator cuff is seen. No mass lesion in the suprascapular notch region. Right rotator cuff muscles appear preserved. IMPRESSION: 1. Normal MR appearance of the bilateral brachial plexus. No asymmetric mass or suspicious enhancement identified. 2. No abnormal spinal cord enhancement is identified. 3. Of note, there is asymmetric edema in the left supraspinatus and infraspinatus muscles. Differential includes delayed onset muscle soreness, low-grade muscle strains, or early denervation change. EMG could be considered for further characterization. MPH/kls Workstation ID: [id number] Dictated by: RAKAN WOOTEN on MonNov 01, 2019 7:09:15 AM EDT Transcribed by: UY TSE on MonNov 01, 2019 7:15:37 AM EDT Finalized by: RAKAN WOOTEN on MonNov 01, 2019 7:32:24 AM EDT [facility] Comment on above: Order Comment: Injur y/Trauma or Illness?:Injury/Trauma How long have you had these symptoms (acute/chronic)?:Chronic Reason for exam?:patient fell couple weeks ago, finger numbess, pain in bilateral shoulder blades, arm weakness, Type of Exam?:Initial Mechanism of injury?:. MR CERVICAL SPINE WITHOUT CO NTRASTon 10-31-2019 EXAMINATION: MR CERVICAL SPINE WITHOUT CONTRAST HISTORY: ORDERING SYSTEM PROVIDED HISTORY: Aggressive bilateral arm weakness, TECHNOLOGIST PROVIDED HISTORY: Injury/Trauma Reason for exam: patient fell couple weeks ago, finger numbess, pain in bilateral shoulder blades, arm weakness, Encounter Type: Initial Mechanism of injury: left shoulder blade hurts worse than right, arm soreness ORDERING SYSTEM PROVIDED DIAGNOSIS CODES: S14.3XXA Brachial plexus injury, initial encounter COMPARISON: CT cervical spine 10/31/2019. TECHNIQUE: Multiplanar, multisequence MRI images of the cervical spine were obtained without contrast including the following: Sagittal T2, sagittal T1, sagittal STIR, axial T2 space and axial 2D medic images of the cervical spine. CONTRAST: GADOTERATE MEGLUMINE 0.5 MMOL/ML (376.9 MG/ML) INTRAVENOUS SOLUTION - 10 mL, FINDINGS: The cervical vertebral body heights are normal. There is subtle reversal of the normal cervical lordosis at C4-5. There is no significant spondylolisthesis. The cervical spine bone marrow signal intensity is normal, without suspicious marrow-replacing lesion or acute fracture. The cervical spinal cord signal intensity appears normal. Subtle T2 hyperintensity at the level of the dens centrally within the cord is likely due to mild prominence of the central canal of the cervical spinal cord. The individual intervertebral disc space levels are as follows: C2-3: There is no significant posterior disc abnormality, spinal canal, or neuroforaminal stenosis. C3-4: There is no significant posterior disc abnormality, spinal canal, or neuroforaminal stenosis. C4-5: There is no significant posterior disc abnormality, spinal canal, or neuroforaminal stenosis. C5-6: There is right uncovertebral joint hypertrophy. There is mild right and no significant left neural foraminal stenosis. There is no significant spinal canal stenosis. C6-7: There is no significant posterior disc abnormality, spinal canal, or neuroforaminal stenosis. C7-T1: There is no significant posterior disc abnormality, spinal canal, or neuroforaminal stenosis. The partially visualized neck soft tissues are unremarkable. [facility], Rad In [facility] - 10/31/2019 10:55 PM EDT EXAMINATION: MR CERVICAL SPINE WITHOUT CONTRAST HISTORY: ORDERING SYSTEM PROVIDED HISTORY: Aggressive bilateral arm weakness, TECHNOLOGIST PROVIDED HISTORY: Injury/Trauma Reason for exam: patient fell couple weeks ago, finger numbess, pain in bilateral shoulder blades, arm weakness, Encounter Type: Initial Mechanism of injury: left shoulder blade hurts worse than right, arm soreness ORDERING SYSTEM PROVIDED DIAGNOSIS CODES: S14.3XXA Brachial plexus injury, initial encounter COMPARISON: CT cervical spine 10/31/2019. TECHNIQUE: Multiplanar, multisequence MRI images of the cervical spine were obtained without contrast including the following: Sagittal T2, sagittal T1, sagittal STIR, axial T2 space and axial 2D medic images of the cervical spine. CONTRAST: GADOTERATE MEGLUMINE 0.5 MMOL/ML (376.9 MG/ML) INTRAVENOUS SOLUTION - 10 mL, FINDINGS: The cervical vertebral body heights are normal. There is subtle reversal of the normal cervical lordosis at C4-5. There is no significant spondylolisthesis. The cervical spine bone marrow signal intensity is normal, without suspicious marrow-replacing lesion or acute fracture. The cervical spinal cord signal intensity appears normal. Subtle T2 hyperintensity at the level of the dens centrally within the cord is likely due to mild prominence of the central canal of the cervical spinal cord. The individual intervertebral disc space levels are as follows: C2-3: There is no significant posterior disc abnormality, spinal canal, or neuroforaminal stenosis. C3-4: There is no significant posterior disc abnormality, spinal canal, or neuroforaminal stenosis. C4-5: There is no significant posterior disc abnormality, spinal canal, or neuroforaminal stenosis. C5-6: There is right uncovertebral joint hypertrophy. There is mild right and no significant left neural foraminal stenosis. There is no significant spinal canal stenosis. C6-7: There is no significant posterior disc abnormality, spinal canal, or neuroforaminal stenosis. C7-T1: There is no significant posterior disc abnormality, spinal canal, or neuroforaminal stenosis. The partially visualized neck soft tissues are unremarkable. IMPRESSION: 1. At C5-6 there is right uncovertebral joint hypertrophy with mild right neural foraminal stenosis with otherwise no significant spinal canal or neural foraminal stenosis in the cervical spine. [employer] Workstation ID: [id number] [facility] 1. At C5-6 there is right uncovertebral joint hypertrophy with mild right neural foraminal stenosis with otherwise no significant spinal canal or neural foraminal stenosis in the cervical spine. [employer] Workstation ID: [id number] [facility] MR CERVICAL SPINE WITHOUT CONTRAST EXAMINATION: MR CERVICAL SPINE WITHOUT CONTRAST HISTORY: ORDERING SYSTEM PROVIDED HISTORY: Aggressive bilateral arm weakness, TECHNOLOGIST PROVIDED HISTORY: Injury/Trauma Reason for exam: patient fell couple weeks ago, finger numbess, pain in bilateral shoulder blades, arm weakness, Encounter Type: Initial Mechanism of injury: left shoulder blade hurts worse than right, arm soreness ORDERING SYSTEM PROVIDED DIAGNOSIS CODES: S14.3XXA Brachial plexus injury, initial encounter COMPARISON: CT cervical spine 10/31/2019. TECHNIQUE: Multiplanar, multisequence MRI images of the cervical spine were obtained without contrast including the following: Sagittal T2, sagittal T1, sagittal STIR, axial T2 space and axial 2D medic images of the cervical spine. CONTRAST: GADOTERATE MEGLUMINE 0.5 MMOL/ML (376.9 MG/ML) INTRAVENOUS SOLUTION - 10 mL, FINDINGS: The cervical vertebral body heights are normal. There is subtle reversal of the normal cervical lordosis at C4-5. There is no significant spondylolisthesis. The cervical spine bone marrow signal intensity is normal, without suspicious marrow-replacing lesion or acute fracture. The cervical spinal cord signal intensity appears normal. Subtle T2 hyperintensity at the level of the dens centrally within the cord is likely due to mild prominence of the central canal of the cervical spinal cord. The individual intervertebral disc space levels are as follows: C2-3: There is no significant posterior disc abnormality, spinal canal, or neuroforaminal stenosis. C3-4: There is no significant posterior disc abnormality, spinal canal, or neuroforaminal stenosis. C4-5: There is no significant posterior disc abnormality, spinal canal, or neuroforaminal stenosis. C5-6: There is right uncovertebral joint hypertrophy. There is mild right and no significant left neural foraminal stenosis. There is no significant spinal canal stenosis. C6-7: There is no significant posterior disc abnormality, spinal canal, or neuroforaminal stenosis. C7-T1: There is no significant posterior disc abnormality, spinal canal, or neuroforaminal stenosis. The partially visualized neck soft tissues are unremarkable. IMPRESSION: 1. At C5-6 there is right uncovertebral joint hypertrophy with mild right neural foraminal stenosis with otherwise no significant spinal canal or neural foraminal stenosis in the cervical spine. CORDELIA/s Workstation ID: [id number] Dictated by: CARLOS HERNÁNDEZ on MonOct 31, 2019 8:53:54 PM EDT Transcribed by: MICAELA RODRÍGUEZ IN [employer] on MonOct 31, 2019 8:58:46 PM EDT Finalized by: CARLOS HERNÁNDEZ on MonOct 31, 2019 10:53:14 PM EDT [facility] Comment on above: Order Comment: Injur y/Trauma or Illness?:Injury/Trauma How long have you had these symptoms (acute/chronic)?:Chronic Reason for exam?:patient fell couple weeks ago, finger numbess, pain in bilateral shoulder blades, arm weakness, Type of Exam?:Initial Mechanism of injury?:left shoulder blade hurts worse than right, arm soreness Otheron 10-31-2019 Interpretation and review of laboratory results Normal [facility] Sedimentation Rateon 020 ESR (Bld) [Velocity] 8 mm/h [facility] Interpretation and review of laboratory results Normal [facility] URINALYSISon 10-31-2019 Bacteria Auto Ql (U) Rare Abnormal None Seen /hpf [facility] Bilirubin Ql (U) Negative Negative [facility] th Clarity Refractometry automated (U) Hazy Abnormal Clear [facility] Color (U) Yellow Colorless, Yellow [facility] Epithelial cells.squamous Auto (Urine sed) [#/Area] 14 High [facility] Glucose Auto test strip (U) [Mass/Vol] Negative Negative mg/dL [facility] Hemoglobin Auto test strip Ql (U) Negative Negative [facility] Interpretation and review of laboratory results Abnormal [facility] Ketones (U) [Mass/Vol] Negative Negative mg/d L [facility] Leukocyte esterase Auto test strip Ql (U) Small Abnormal Negative [facility] Mucus Auto (Urine sed) [#/Area] Few Abnormal None Seen, Rare /lpf [facility] Nitrite Auto test strip Ql (U) Negative Negative [facility] pH (U) 5.0 [pH] [facility] Protein (U) [Mass/Vol] Negative Negative mg/d L [facility] RBC Auto (Urine sed) [#/Area] 1 [facility] Specific gravity (U) [Rel density] 1.024 [facility] Urobilinogen (U) [Mass/Vol] <2.0 <2.0 mg/dL [facility] WBC Auto (Urine sed) [#/Area] 4 [facility] Microscopic examination is performed on all urinalysis samples and only positive findings are reported. The test for blood on the chemical analytic portion of urinalysis may also be positive due to hemoglobinuria and myoglobinuria and if red blood cells are present they are quantified by microscopic examination. 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 female. Her chiefcomplaint(s) include: Breast Pain (right breast pain and swelling)Assessment 1. Breast painPlanMadelyn was seen today for breast pain.Diagnoses and all orders for this visit:Breast pain- US Breast; FutureParent to call and schedule US at [facility]. Discussed possibility of pain being fromchanges in fibrous breast tissues. Recommended limiting caffeine and chinesefood. Can apply warm compress and take ibuprofen as directed for pain.SubjectiveHPI Comments: Sharp pain to breasts bilaterally a few times a day. Regularmenses. Started menses at age 14. Last had menses 2 weeks ago. Pain notassociated with menses. No nipple discharge. Patient reports feeling hard allover. 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 No family hx of breast pain.She is accompanied by her mother.Breast PainThe onset has been acute. (A few weeks. Worse within the last week). Thesesymptoms occur on bilateral breasts (right breasts hurts worse than the left).Characterized by: breast pain and increased size. The course is unchanging.The patient's symptoms include: breast pain and changes in size. The patient isnoted to be negative for back pain, fever and swollen glands.She is negative for the following pertinent medical history abscesses, breastmass, breast cancer and skin infection.There have been no previous treatments. Patient displays fair compliance withtreatment.[facility] Review of SystemsObjectiveVit als: 10/04/17 1015Temp: 36.4 C (97.6 F)TempSrc: TemporalWeight: 54.8 kgThere is no height or weight on file to calculate BMI.Physical ExamConstitutional: She appears well. No distress.HENT:Head: Atraumatic.Cardiova scular: Normal rate and regular rhythm.No murmur heard.Pulmonary/[address] st: Breath sounds normal. There is normal air entry. No stridor. Norespiratory distress. Air movement is not decreased. She has no wheezes. She hasno rhonchi. She has no rales. Exhibits tenderness. Exhibits no deformity and noretraction. Right breast exhibits no mass. Left breast exhibits no mass. Breastsare symmetrical. There is no breast swelling. There is no breast bleeding.No lumps felt to breasts bilaterally. Fibrous tissue felt to breastsbilaterally. No nipple discharge. Tenderness to entire breasts bilaterally.Neurolo gical: She is alert. Normal [facility] Vital Signs Date Time Vital Sign Value Performing Clinician Facility 03-21-2025 13:15-0400 Diastolic blood pressure 62 mm[Hg] Trudy Jaquez MD Work Phone: [facility] 03-21-2025 13:15-0400 Heart rate 95 /min Trudy Jaquez MD Work Phone: [facility] 03-21-2025 13:15-0400 SaO2% (BldA) [Mass fraction] 98 % Trudy Jaquez MD Work Phone: [facility] 03-21-2025 13:15-0400 Systolic blood pressure 100 mm[Hg] Trudy Jaquez MD Work Phone: [facility] 01-31-2025 11:15-0400 Diastolic blood pressure 70 mm[Hg] Gini Saenz RETIREMENT PLAN COUNSELOR Work Phone: [facility] 01-31-2025 11:15-0400 Heart rate 86 /min Gini Saenz RETIREMENT PLAN COUNSELOR Work Phone: [facility] 01-31-2025 11:15-0400 SaO2% (BldA) [Mass fraction] 98 % Gini Saenz RETIREMENT PLAN COUNSELOR Work Phone: [facility] 01-31-2025 11:15-0400 Systolic blood pressure 109 mm[Hg] Gini Saenz RETIREMENT PLAN COUNSELOR Work Phone: [facility] 01-13-2025 14:23-0400 Body mass index (BMI) [Ratio] 19.52 kg/m2 María Freeman APRN.RETIREMENT PLAN COUNSELOR Work Phone: [facility] 01-13-2025 14:23-0400 Body weight 54.43 kg María Freeman CERTIFIED RECREATIONAL THERAPIST.RETIREMENT PLAN COUNSELOR Work Phone: [facility] 01-13-2025 14:23-0400 Diastolic blood pressure 60 mm[Hg] María Haury CERTIFIED RECREATIONAL THERAPIST.RETIREMENT PLAN COUNSELOR Work Phone: [facility] 01-13-2025 14:23-0400 Systolic blood pressure 110 mm[Hg] María Haury CERTIFIED RECREATIONAL THERAPIST.RETIREMENT PLAN COUNSELOR Work Phone: [facility] 12-19-2024 13:25-0400 Body mass index (BMI) [Ratio] 19.13 kg/m2 Kenia De Jesus CERTIFIED RECREATIONAL THERAPIST.CNM Work Phone: [facility] 12-19-2024 13:25-0400 Body weight 53.34 kg Kenia De Jesus CERTIFIED RECREATIONAL THERAPIST.CNM Work Phone: [facility] 12-19-2024 13:25-0400 Diastolic blood pressure 62 mm[Hg] Kenia De Jesus CERTIFIED RECREATIONAL THERAPIST.CNM Work Phone: [facility] 12-19-2024 13:25-0400 Systolic blood pressure 100 mm[Hg] Kenia De Jesus CERTIFIED RECREATIONAL THERAPIST.CNM Work Phone: [facility] 12-05-2024 14:14-0400 Body height 167 cm María Hajosé miguel CERTIFIED RECREATIONAL THERAPIST.RETIREMENT PLAN COUNSELOR Work Phone: [facility] 12-05-2024 14:14-0400 Body mass index (BMI) [Ratio] 18.22 kg/m2 María Haury CERTIFIED RECREATIONAL THERAPIST.RETIREMENT PLAN COUNSELOR Work Phone: [facility] 12-05-2024 14:14-0400 Body weight 50.8 kg María Haury CERTIFIED RECREATIONAL THERAPIST.RETIREMENT PLAN COUNSELOR Work Phone: [facility] 12-05-2024 14:14-0400 Diastolic blood pressure 62 mm[Hg] María Haury CERTIFIED RECREATIONAL THERAPIST.RETIREMENT PLAN COUNSELOR Work Phone: [facility] 12-05-2024 14:14-0400 Systolic blood pressure 116 mm[Hg] María Haury CERTIFIED RECREATIONAL THERAPIST.RETIREMENT PLAN COUNSELOR Work Phone: [facility] 10-28-2024 17:55-0400 Body temperature 97.8 [degF] Dr. Dario Dwyer DO Work Phone: [facility] 10-28-2024 17:55-0400 Diastolic blood pressure 75 mm[Hg] Dr. Dario Dwyer DO Work Phone: [facility] 10-28-2024 17:55-0400 Heart rate 67 /min Dr. Dario Dwyer DO Work Phone: [facility] 10-28-2024 17:55-0400 Respiratory rate 14 /min Dr. Dario Dwyer DO Work Phone: [facility] 10-28-2024 17:55-0400 SaO2% (BldA) [Mass fraction] 100 % Dr. Dario Dwyer DO Work Phone: [facility] 10-28-2024 17:55-0400 Systolic blood pressure 118 mm[Hg] Dr. Dario Dwyer DO Work Phone: [facility] 10-28-2024 13:05-0400 Body height 162.[address] Dario Dwyer DO Work Phone: [facility] 10-28-2024 13:05-0400 Body mass index (BMI) [Ratio] 19.1 kg/m2 Dr. Dario Dwyer DO Work Phone: [facility] 10-28-2024 13:05-0400 Body weight 50.[address] Dario Dwyer DO Work Phone: [facility] 05-17-2024 14:13-0500 Body temperature 98.4 [degF] Krislyn Aberegg PA Work Phone: [facility] 05-17-2024 14:13-0500 Body weight 49.2 kg Krislyn Aberegg PA Work Phone: [facility] 05-17-2024 14:13-0500 Diastolic blood pressure 68 mm[Hg] Krislyn Aberegg PA Work Phone: [facility] 05-17-2024 14:13-0500 Heart rate 97 /min Krislyn Aberegg PA Work Phone: [facility] 05-17-2024 14:13-0500 Respiratory rate 20 /min Krislyn Aberegg PA Work Phone: [facility] 05-17-2024 14:13-0500 SaO2% (BldA) [Mass fraction] 98 % Krislyn Aberegg PA Work Phone: [facility] 05-17-2024 14:13-0500 Systolic blood pressure 118 mm[Hg] Maya Caballeroeregg PA Work Phone: [facility] 03-07-2023 15:30-0400 Body temperature 98.1 [degF] Vielka Athy PA-C Work Phone: [facility] 03-07-2023 15:30-0400 Body weight 49.9 kg Vielka Athy PA-C Work Phone: [facility] 03-07-2023 15:30-0400 Diastolic blood pressure 78 mm[Hg] Vielka Athy PA-C Work Phone: [facility] 03-07-2023 15:30-0400 Heart rate 120 /min Vielka Athy PA-C Work Phone: [facility] 03-07-2023 15:30-0400 Respiratory rate 18 /min Vielka Athy PA-C Work Phone: [facility] 03-07-2023 15:30-0400 SaO2% (BldA) [Mass fraction] 95 % Vielka Athy PA-C Work Phone: [facility] 03-07-2023 15:30-0400 Systolic blood pressure 122 mm[Hg] Vielka Athy PA-C Work Phone: [facility] 02-02-2023 19:26-0400 Body temperature 98.49 [degF] Kenia Almanza CERTIFIED RECREATIONAL THERAPIST.RETIREMENT PLAN COUNSELOR Work Phone: [facility] 02-02-2023 19:26-0400 Body weight 48.9 kg Kenia Almanza CERTIFIED RECREATIONAL THERAPIST.RETIREMENT PLAN COUNSELOR Work Phone: [facility] 02-02-2023 19:26-0400 Diastolic blood pressure 60 mm[Hg] Kenia Almanza CERTIFIED RECREATIONAL THERAPIST.RETIREMENT PLAN COUNSELOR Work Phone: [facility] 02-02-2023 19:26-0400 Heart rate 86 /min Kenia Almanza CERTIFIED RECREATIONAL THERAPIST.RETIREMENT PLAN COUNSELOR Work Phone: [facility] 02-02-2023 19:26-0400 Respiratory rate 16 /min Kenia Almanza CERTIFIED RECREATIONAL THERAPIST.RETIREMENT PLAN COUNSELOR Work Phone: [facility] 02-02-2023 19:26-0400 SaO2% (BldA) [Mass fraction] 98 % Kenia Almanza CERTIFIED RECREATIONAL THERAPIST.RETIREMENT PLAN COUNSELOR Work Phone: [facility] 02-02-2023 19:26-0400 Systolic blood pressure 102 mm[Hg] Kenia Almanza CERTIFIED RECREATIONAL THERAPIST.RETIREMENT PLAN COUNSELOR Work Phone: [facility] 11-18-2022 09:01-0400 Diastolic blood pressure 76 mm[Hg] Wilfrid Bonilla MD Work Phone: [facility] 11-18-2022 09:01-0400 Heart rate 83 /min Wilfrid Bonilla MD Work Phone: [facility] 11-18-2022 09:01-0400 Respiratory rate 16 /min Wilfrid Bonilla MD Work Phone: [facility] 11-18-2022 09:01-0400 SaO2% (BldA) [Mass fraction] 99 % Wilfrid Bonilla MD Work Phone: [facility] 11-18-2022 09:01-0400 Systolic blood pressure 111 mm[Hg] Wilfrid Bonilla MD Work Phone: [facility] 05-20-2022 07:48-0500 Body height 162.6 cm Wilfrid Bonilla MD Work Phone: [facility] 05-20-2022 07:48-0500 Body mass index (BMI) [Ratio] 17.34 kg/m2 Wilfrid Bonilla MD Work Phone: [facility] 05-20-2022 07:48-0500 Body weight 45.81 kg Wilfrid Bonilla MD Work Phone: [facility] 05-20-2022 07:48-0500 Diastolic blood pressure 73 mm[Hg] Wilfrid Bonilla MD Work Phone: [facility] 05-20-2022 07:48-0500 Heart rate 82 /min Wilfrid Bonilla MD Work Phone: [facility] 05-20-2022 07:48-0500 Respiratory rate 16 /min Wilfrid Bonilla MD Work Phone: [facility] 05-20-2022 07:48-0500 SaO2% (BldA) [Mass fraction] 98 % Wilfrid Bonilla MD Work Phone: [facility] 05-20-2022 07:48-0500 Systolic blood pressure 108 mm[Hg] Wilfrid Bonilla MD Work Phone: [facility] 10-27-2021 15:18-0400 Body height 162.6 cm Eyal Ramirez MD Work Phone: [facility] 10-27-2021 15:18-0400 Body mass index (BMI) [Ratio] 17.51 kg/m2 Eyal Ramirez MD Work Phone: [facility] 10-27-2021 15:18-0400 Body weight 46.27 kg Eyal Ramirez MD Work Phone: [facility] 10-27-2021 15:18-0400 Diastolic blood pressure 69 mm[Hg] Eyal Ramirez MD Work Phone: [facility] 10-27-2021 15:18-0400 Heart rate 89 /min Eyal Ramirez MD Work Phone: [facility] 10-27-2021 15:18-0400 Respiratory rate 16 /min Eyal Ramirez MD Work Phone: [facility] 10-27-2021 15:18-0400 SaO2% (BldA) [Mass fraction] 99 % Eyal Ramirez MD Work Phone: [facility] 10-27-2021 15:18-0400 Systolic blood pressure 108 mm[Hg] Eyal Ramirez MD Work Phone: [facility] 12-25-2020 09:01-0400 Body height 162.6 cm Eyal Ramirez MD Work Phone: [facility] 12-25-2020 09:01-0400 Body mass index (BMI) [Ratio] 18.02 kg/m2 Eyal Ramirez MD Work Phone: [facility] 12-25-2020 09:01-0400 Body weight 47.63 kg Eyal Ramirez MD Work Phone: [facility] 12-25-2020 09:01-0400 Diastolic blood pressure 69 mm[Hg] Eyal Ramirez MD Work Phone: [facility] 12-25-2020 09:01-0400 Heart rate 81 /min Eyal Ramirez MD Work Phone: [facility] 12-25-2020 09:01-0400 Respiratory rate 16 /min Eyal Ramirez MD Work Phone: [facility] 12-25-2020 09:01-0400 SaO2% (BldA) [Mass fraction] 100 % Eyal Ramirez MD Work Phone: [facility] 12-25-2020 09:01-0400 Systolic blood pressure 103 mm[Hg] Eyal Ramirez MD Work Phone: [facility] 05-27-2020 10:09-0500 BMI (Body Mass Index) 17.81 kg/m2 Eyal Ramirez [facility] 05-27-2020 10:09-0500 Body weight 48.53 kg Eyal Ramirez [facility] 05-27-2020 10:09-0500 BP Diastolic 58 mm[Hg] Eyal Ramirez [facility] 05-27-2020 10:09-0500 BP Systolic 88 mm[Hg] Eyal Ramirez [facility] 05-27-2020 10:09-0500 Height 165.1 cm Eyal Ramirez [facility] 05-27-2020 10:09-0500 Pulse (Heart Rate) 81 /min Eyal Ramirez [facility] 05-27-2020 10:09-0500 Pulse Oximetry 99 % Eyal Ramirez [facility] 05-27-2020 10:09-0500 Respiratory Rate 16 /min Eyal Ramirez [facility] 02-03-2020 15:15-0400 BP Diastolic 61 mm[Hg] Eyal Ramirez [facility] 02-03-2020 15:15-0400 BP Systolic 94 mm[Hg] Eyal Ramirez [facility] 02-03-2020 15:15-0400 Pulse (Heart Rate) 86 /min Eyal Ramirez [facility] 02-03-2020 15:15-0400 Pulse Oximetry 98 % Eyal Ramirez [facility] 02-03-2020 15:15-0400 Respiratory Rate 16 /min Eyal Ramirez [facility] 12-03-2019 13:46-0400 BMI (Body Mass Index) 18.37 kg/m2 Eyal Ramirez [facility] 12-03-2019 13:46-0400 Body weight 48.53 kg Eyal Ramirez [facility] 12-03-2019 13:46-0400 BP Diastolic 65 mm[Hg] Eyal Munir [facility] 12-03-2019 13:46-0400 BP Systolic 95 mm[Hg] Eyal Ramirez [facility] 12-03-2019 13:46-0400 Height 162.6 cm Eyalkam Ramirez [facility] 12-03-2019 13:46-0400 Pulse (Heart Rate) 97 /min Eyal Ramirez [facility] 12-03-2019 13:46-0400 Pulse Oximetry 98 % Eyal Ramirez [facility] 12-03-2019 13:46-0400 Respiratory Rate 16 /min Eyal Munir [facility] 11-02-2019 11:00-0400 Respiratory Rate 14 /[facility] 06:57-0400 Body Temperature 97.39 [degF] Gualberto Revill [facility] 11-02-2019 06:57-0400 BP Diastolic 74 mm[Hg] Gualberto Revill [facility] 11-02-2019 06:57-0400 BP Systolic 127 mm[Hg] Gualberto Revill [facility] 11-02-2019 06:57-0400 Pulse (Heart Rate) 81 /min Gualberto Revill [facility] 11-02-2019 06:57-0400 Pulse Oximetry 95 % Gualberto Revill [facility] 10-31-2019 13:24-0400 BMI (Body Mass Index) 19.74 kg/m2 Gualberto Revill [facility] 10-31-2019 13:24-0400 Body weight 52.16 kg Gualberto Revill [facility] 10-31-2019 13:24-0400 Height 162.6 cm [facility] Encounters Encounter Date Encounter Type Care Provider Facility Start: 03-21-2025 End: 03-21-[address] [facility] Start: 03-21-2025 End: 03-21-2025 Office outpatient visit 40 minutes Trudy Jaquez MD Work Phone: [facility] Comment on above: Parsonage-Kirby syn drome (Primary Dx) Start: 02-07-2025 End: 02-07-2025 ambulatory MARÍAVICKI PEARCEJOSÉ MIGUEL Facility:[facility] Start: 01-31-2025 End: 01-31-2025 ambulatory [facility] Ambulatory Start: 01-31-2025 End: 01-31-2025 Office outpatient visit 25 minutes Gini Saenz CNP Work Phone: [facility] Comment on above: Parsonage-Kirby syn drome (Primary Dx) Start: 01-13-2025 End: 01-13-2025 ambulatory MARÍA CASSIDYURY Facility:[facility] Start: 01-13-2025 End: 01-13-2025 Patient encounter procedure María Freeman APRN.CNP Work Phone: OB/Gynecology Comment on above: Encounter for superv ision of high risk in first trimester, antepartum (HCC) (Primary Dx); 16 weeks gestation of (HCC); Abnormal ultrasound; Parsonage-Kirby syndrome; Cleft palate (HCC); Cystic fibrosis carrier; Engages in nicotine containing substance vaping; Anxiety during (HCC) Cleft palate (HCC) ( Primary Dx); Encounter for supervision of high risk in first trimester, antepartum (HCC); 12 weeks gestation of (HCC); Abnormal ultrasound; Parsonage-Kirby syndrome Start: 01-01-2025 End: 01-07-2025 Telephone encounter María Freeman APRN.CNP Work Phone: OB/Gynecology Comment on above: Results Start: 12-27-2024 End: 12-27-2024 Telemedicine consultation with patient Dasia Taylor [facility] Work Phone: [facility] Start: 12-27-2024 End: 12-27-2024 ambulatory Dasia Taylor [facility] Work Phone: [facility] Comment on above: 12 weeks gestation o f (HCC); Parsonage-Kirby syndrome Start: 12-19-2024 End: 12-19-2024 ambulatory MARÍA FREEMAN Facility:[facility] Start: 12-19-2024 End: 12-19-2024 Patient encounter procedure Kenia De Jesus APRN.CNM Work Phone: OB/Gynecology Comment on above: Encounter for superv ision of high risk in first trimester, antepartum (HCC) (Primary Dx); 12 weeks gestation of (HCC); Abnormal ultrasound; Parsonage-Kiryb syndrome; Cleft palate (HCC) Start: 12-19-2024 End: 12-19-2024 ambulatory MARÍA FREEMAN Facility:[facility] Start: 12-19-2024 End: 12-19-2024 Patient encounter procedure Whi [employer] 1 [employer] [facility] Comment on above: Encounter for josé dean screening for malformation using ultrasound (HCC) (Primary Dx); 12 weeks gestation of (HCC) Start: 12-06-2024 End: 12-06-2024 Telephone encounter Nahomy Burrell RN [facility]aternal [facility] Comment on above: [employer] ([employer]) Start: 12-05-2024 End: 12-05-2024 [facility] MARÍA FREEMAN Facility:[facility] Start: 12-05-2024 End: 12-05-2024 Patient encounter procedure María Freeman APRN.RETIREMENT PLAN COUNSELOR Work Phone: OB/Gynecology Comment on above: Encounter for superv ision of high risk in first trimester, antepartum (HCC) (Primary Dx); 10 weeks gestation of (HCC); Screen for STD (sexually transmitted disease); Screening for cervical cancer; Parsonage-Kirby syndrome; Cleft palate (HCC); Anxiety during (HCC); Engages in nicotine containing substance vaping; Constipation during in first trimester (HCC); Nausea and vomiting during (HCC); History of headache; Family history of sickle cell anemia (Hgb SS) in father Start: 10-28-2024 End: 10-28-2024 Emergency department patient visit Dr. Dario Dwyer DO Work Phone: -Emergency Department Work Phone: Start: 09-02-2024 End: 09-02-2024 Emergency department patient visit LATA MCNULTY [facility] Start: 05-18-2024 End: 05-19-2024 Telephone encounter Maya CASON Work Phone: [facility] Comment on above: Results Start: 05-17-2024 End: 05-17-2024 ambulatory LATA MCNULTY Facility:[facility] Start: 05-17-2024 End: 05-17-2024 Patient encounter procedure Maya CASON Work Phone: [facility] Comment on above: Vaginal discharge (P rimary Dx); Dysuria Start: 03-09-2023 Telephone encounter Naomi Stubbs APRN.RETIREMENT PLAN COUNSELOR Work Phone: [facility] Comment on above: Results Start: 03-08-2023 Telephone encounter Vielka matthews PA-C Work Phone: [facility] Comment on above: Results Start: 03-07-2023 End: 03-07-2023 Subsequent hospital visit by physician [facility] Work Phone: Radiology Comment on above: Acute cough [R05.1] Start: 03-07-2023 End: 03-07-2023 Patient encounter procedure Vielka Du PA-C Work Phone: [facility] Comment on above: Sore throat (Primary Dx); Screening for STD (sexually transmitted disease); Vaginal discharge; Acute URI; Calcified nodule Start: 02-04-2023 Orders Only Fiordaliza Can APRN.RETIREMENT PLAN COUNSELOR Work Phone: [facility] Comment on above: Gonorrhea (Primary D x) Start: 02-03-2023 Telephone encounter Radames Gomez MD Work Phone: [facility] Comment on above: Results (BV+, Candid a+, gonorrhea+) Start: 02-02-2023 End: 02-02-2023 Patient encounter procedure Kenia Almanza CERTIFIED RECREATIONAL THERAPIST.RETIREMENT PLAN COUNSELOR Work Phone: [facility] Comment on above: Encounter for screen ing examination for sexually transmitted disease (Primary Dx); Exposure to chlamydia Start: 11-18-2022 End: 11-18-2022 Office outpatient visit 40 minutes Wilfrid Bonilla MD Work Phone: [facility] Comment on above: Parsonage-Kirby syn drome (Primary Dx); Brachial plexitis Start: 05-20-2022 End: 05-20-2022 Office outpatient visit 40 minutes Wilfrid Bonilla MD Work Phone: [facility] Comment on above: Brachial plexitis (P rimary Dx); Parsonage-Kirby syndrome Start: 10-27-2021 End: 10-27-2021 Office outpatient visit 15 minutes Eyal Ramirez MD Work Phone: [facility] Comment on above: Parsonage-Kirby syn drome (Primary Dx); Brachial plexitis Start: 12-25-2020 End: 12-25-2020 Office outpatient visit 40 minutes Eyal Ramirez MD Work Phone: [facility] Comment on above: Parsonage-Kirby syn drome (Primary Dx); Brachial plexitis Start: 07-23-2020 End: 07-23-2020 Refill Eyal Ramirez Work Phone: [facility] Start: 06-24-2020 End: 06-24-2020 Refill Alee Chavez [facility] Start: 06-22-2020 End: 06-22-2020 Refill Eyal Ramirez Work Phone: [facility] Start: 06-18-2020 End: 06-18-2020 Orders Only Cassandra Resendez [facility] Comment on above: Parsonage-Kirby syn drome (Primary Dx); Hereditary neuralgic amyotrophy Start: 05-27-2020 End: 05-27-2020 Office outpatient visit 40 minutes Eyal Ramirez Work Phone: [facility] Comment on above: Parsonage-Kirby syn drome (Primary Dx); Hereditary neuralgic amyotrophy Start: 03-17-2020 End: 03-21-2020 Patient encounter procedure EYALKAM RAMIREZ [facility] Start: 03-04-2020 End: 03-04-2020 Patient encounter procedure Trudy Arriola Jaquez Work Phone: [facility] Comment on above: Parsonage-Kirby syn drome; Brachial plexitis Start: 02-14-2020 End: 02-14-2020 Documentation procedure Eyal Ramirez Work Phone: [facility] Start: 02-03-2020 End: 02-03-2020 Office outpatient visit 40 minutes Eyal Ramirez Work Phone: [facility] Comment on above: Parsonage-Kirby syn drome (Primary Dx); Brachial plexitis; Hereditary neuralgic amyotrophy Start: 12-03-2019 End: 12-03-2019 Office outpatient visit 40 minutes Eyal Ramirez Work Phone: [facility] Comment on above: Parsonage-Kirby syn drome (Primary Dx); Brachial plexitis Start: 11-14-2019 End: 11-14-2019 Patient encounter procedure Suniltommy Arriola Leonid Work Phone: [facility] Comment on above: Back pain, unspecifi ed back location, unspecified back pain laterality, unspecified chronicity (Primary Dx) Start: 11-12-2019 End: 11-12-2019 Patient encounter procedure Trudy Jaquez Work Phone: [facility] Comment on above: Carpal tunnel syndro me, bilateral (Primary Dx); Parsonage-Kirby syndrome; Brachial plexitis Start: 10-31-2019 End: 11-02-2019 Patient encounter procedure PHYSICIAN [facility] Start: 10-31-2019 End: 11-02-2019 Emergency department patient visit Gualberto Morris Work Phone: [facility] Comment on above: Brachial plexus inju ry, initial encounter (Primary Dx); Parsonage-Kirby syndrome; Brachial plexitis Start: 10-04-2017 End: 10-04-2017 Ambulatory JORJE CABRERA [facility] Procedures Date Procedure Procedure Detail Performing Clinician Start: 01-31-2025 Follow-up visit Follow-up KRISSY MCNULTY Start: 01-13-2025 Us preg uterus after 1st trimest 05/22 gestation Kenia Neal CHARLESCNM Work Phone: Start: 12-19-2024 Antibody screen DASIA SHORT Comment on above: Order Comment: Speci men Type: BLOOD SPECIMEN Ordering Facility: [facility] Address: [address] [place] [address] Performed By: #### T SPN #### [facility] CLIA [id number] [address] [place] [address] [place] [address] [place] Start: 12-19-2024 Us preg uterus after 1st trimest 05/22 gestation María Freeman APRN.RETIREMENT PLAN COUNSELOR Work Phone: Start: 12-05-2024 Us uterus l imited fetuses María Pete RODARTE.RETIREMENT PLAN COUNSELOR Work Phone: Start: 12-05-2024 Microscopic observat ion [Identifier] in Cervix by Cyto stain Gini Saenz RETIREMENT PLAN COUNSELOR Work Phone: Start: 10-28-[address] ic ultrasonography Dr. Dario Dwyer DO Work Phone: Start: 10-28-2024 Urnls dip stick/tabl et reagent auto microscopy Dr. Dario Dwyer DO Work Phone: Start: 10-28-[address] Dario Dwyer DO Work Phone: Start: 05-17-2024 Urnls dip stick/tabl et rgnt auto w/o microscopy Maya CASON Work Phone: Start: 03-07-2023 Radiologic exam ches t 2 views Vielka Du PA-C Work Phone: Start: 03-07-2023 Urnls dip stick/tabl et rgnt auto w/o microscopy Vielka Oliver [employer] Work Phone: Start: 03-07-2023 STREP A MOLECULAR (POC) Vielka Fieldscassie [employer] Work Phone: Start: 11-01-2019 C reactive protein [Mass/volume] in Serum or Plasma Eyal Ramirez Work Phone: Start: 11-01-2019 Cobalamin (Vitamin B 12) [Mass/volume] in Serum or Plasma Eyal Ramirez Work Phone: Start: 11-01-2019 Creatine kinase [Enz ymatic activity/volume] in Serum or Plasma Eyal Ramirez Work Phone: Start: 11-01-2019 Hepatic function 200 0 panel - Serum or Plasma Eyal Ramirez Work Phone: Start: 11-01-2019 Hepatitis panel measurement Eyalkam Ramirez Work Phone: Start: 11-01-2019 Measurement of Borre wesley burgdorferi antibody Eyal Ramirez Work Phone: Start: 11-01-2019 Rapid plasma reagin test Eyal Ramirez Work Phone: Start: 11-01-2019 Rheumatoid factor, quantitative Eyal Ramirez Work Phone: Start: 11-01-2019 Serum angiotensin-converting enzyme measurement Eyal Ramirez Work Phone: Start: 11-01-2019 Thyrotropin [Units/v olume] in Serum or Plasma by Detection limit <= 0.005 mIU/L Eyal Ramirez Work Phone: Start: 11-01-2019 Basic metabolic 2000 panel - Serum or Plasma [email or web address] Work Phone: Start: 11-01-2019 Complete blood count with white cell differential, automated [employer] Work Phone: Start: 11-01-2019 Complete blood count with white cell differential, manual [employer] Work Phone: Start: 11-01-2019 Magnesium [Mass/volu me] in Serum or Plasma [employer] Work Phone: Start: 10-31-2019 End: 10-31-2019 Mri upper extrem other than jt w/o & w/contras Nuvia Bauman Work Phone: Start: 10-31-2019 MRI of cervical spin e without contrast Nuvia Bauman Work Phone: Start: 10-31-2019 COVID-19, MOLECULAR [employer] Smooth Bauman Work Phone: Start: 10-31-2019 Urinalysis Nuvia Bauman Work Phone: Start: 10-31-2019 C reactive protein [Mass/volume] in Serum or Plasma Nuvia Bauman Work Phone: Start: 10-31-2019 Choriogonadotropin.b eta subunit ( test) [Presence] in Serum or Plasma Nuvia Bauman Work Phone: Start: 10-31-2019 Complete blood count with white cell differential, automated Nuvia Bauman Work Phone: Start: 10-31-2019 Complete blood count with white cell differential, manual Nuvia Bauman Work Phone: Start: 10-31-2019 Comprehensive metabo lic 2000 panel - Serum or Plasma Nuvia Bauman Work Phone: Start: 10-31-2019 Erythrocyte sediment ation rate by Westergren method Nuvia Bauman Work Phone: Start: 10-31-2019 CT of head without contrast Nuvia Bauman Work Phone: Start: 10-31-2019 CT cervical spine wi thout contrast Nuvia Bauman Work Phone: Plan of Treatment Date Care Activity Detail Author Start: 07-26-2051 Administration of herpes zoster vaccine Zoster Vaccines (1 of 2) [facility] Start: 12-06-2027 Screening for malignant neoplasm of cervix [facility] Start: 12-05-2025 GC (Gonorrhea) Screening (18-24) GC (Gonorrhea) Screening (18-24) [facility] Start: 12-05-2025 Screening for Chlamydia trachomatis [facility] Start: 05-17-2025 GC (Gonorrhea) Screening (18-24) GC (Gonorrhea) Screening (18-24) [facility] Start: 05-17-2025 Screening for Chlamydia trachomatis Chlamydia Screening (18-) [facility] Start: 05-02-2025 Respiratory Syncytial Virus Immunization: Risk, 60-74 Risk, or 75+ (1 - Risk 1-dose series) Respiratory Syncytial Virus Immunization: Risk, 60-74 Risk, or 75+ (1 - Risk 1-dose series) [facility] Start: 05-02-2025 RSV Vaccine (1 - Risk 1-dose series) RSV Vaccine (1 - Risk 1-dose series) [facility] [facility] Start: 05-02-2025 RSV Vaccines (1 - Risk 1-dose series) RSV Vaccines (1 - Risk 1-dose series) [facility] Start: 03-21-2025 End: 03-21-2025 Patient encounter procedure 03/21/2025 1:00 PM EDT Office Visit [facility] [address] [facility] [facility] Office Building, 2nd [place] [address] Trudy Jaquez MD [address] [place] [id number] [facility] Start: 02-07-2025 End: 02-07-2025 Patient encounter procedure [facility] Comment on above: Anatomy Anatomy/OB Start: 01-20-2025 COVID-19 Vaccine ( season) COVID-19 Vaccine () [facility] Start: 01-20-2025 Influenza vaccination Influenza Vaccine (#1) [facility] Start: 01-13-2025 End: 01-13-2025 Patient encounter procedure Maternal Medicine Comment on above: Early anatomy Early anatomy/OB Start: 01-10-2025 End: 01-10-2025 Patient encounter procedure Maternal Medicine Comment on above: Early anatomy Early anatomy/OB Start: 12-27-2024 End: 12-27-2024 ambulatory 12/27/2024 1:00 PM EDT [facility] [address] [place] [address] Dasia Taylor, [facility] [address] [place] [address] Cleft palate situations and testing for others [facility] Comment on above: Cleft palate situations and testing for others Start: 12-19-2024 End: 12-19-2024 Patient encounter procedure 12/19/2024 1:10 PM EDT Routine Office Visit OB/Gynecology [address] [place], [place] [address] Mary Beth Lundberg MD [address] [place] [address] Nuchal/OB OB/Gynecology Comment on above: Nuchal/OB Start: 12-19-2024 End: 12-19-2024 Patient encounter procedure 12/19/2024 10:30 AM EDT Routine Office Visit Maternal Medicine [address] [place] [address] [facility] Comment on above: [facility]al Start: 12-05-2024 End: 03-06-2025 ANEMIA REFLEX PANEL ANEMIA REFLEX PANEL Lab Routine Encounter for supervision of high risk in first trimester, antepartum (HCC) 10 weeks gestation of (HCC) Expected: 12/05/2024, Expires: 03/06/2025 [facility] Work Phone: Comment on above: Expected: 12/05/2024, Expires: Start: 12-05-2024 End: 03-06-2025 Hemoglobin A1c in Blood HEMOGLOBIN A1C Lab Routine Encounter for supervision of high risk in first trimester, antepartum (HCC) 10 weeks gestation of (HCC) Expected: 12/05/2024, Expires: 03/06/2025 [facility] Comment on above: Expected: 12/05/2024, Expires: Start: 12-05-2024 End: 03-06-2025 HEMOGLOBIN EVALUATION CASCADE HEMOGLOBIN EVALUATION CASCADE Lab Routine Encounter for supervision of high risk in first trimester, antepartum (HCC) 10 weeks gestation of (HCC) Expected: 12/05/2024, Expires: 03/06/2025 [facility] Comment on above: Expected: 12/05/2024, Expires: Start: 12-05-2024 End: 03-06-2025 Hepatitis B virus surface Ag [Presence] in Serum HEPATITIS B SURFACE ANTIGEN Lab Routine Encounter for supervision of high risk in first trimester, antepartum (HCC) 10 weeks gestation of (HCC) Expected: 12/05/2024, Expires: 03/06/2025 [facility] Comment on above: Expected: 12/05/2024, Expires: Start: 12-05-2024 End: 03-06-2025 Hepatitis C virus Ab [Presence] in Serum HEPATITIS C ANTIBODY IA WITH CONFIRMATION Lab Routine Encounter for supervision of high risk in first trimester, antepartum (HCC) 10 weeks gestation of (HCC) Expected: 12/05/2024, Expires: 03/06/2025 [facility] Comment on above: Expected: 12/05/2024, Expires: Start: 12-05-2024 End: 03-06-2025 HIV 1+2 Ab [Presence] in Serum or Plasma by Immunoassay HIV 1/2 COMBO WITH REFLEX TO DIFFERENTIATION Lab Routine Encounter for supervision of high risk in first trimester, antepartum (HCC) 10 weeks gestation of (HCC) Expected: 12/05/2024, Expires: 03/06/2025 [facility] Comment on above: Expected: 12/05/2024, Expires: Start: 12-05-2024 End: 03-06-2025 MYRIAD FORESIGHT CARRIER SCREEN MYRIAD FORESIGHT CARRIER SCREEN Lab Routine Encounter for supervision of high risk in first trimester, antepartum (HCC) 10 weeks gestation of (HCC) Expected: 12/05/2024, Expires: 03/06/2025 [facility] Comment on above: Expected: 12/05/2024, Expires: Start: 12-05-2024 End: 12-05-2025 OBSTETRIC ULTRASOUND WHI OBSTETRIC ULTRASOUND WHI Anc Imaging Routine Encounter for supervision of high risk in first trimester, antepartum (HCC) 10 weeks gestation of (HCC) Expected: 12/05/2024, Expires: 12/05/2025 [facility] Comment on above: Expected: 12/05/2024, Expires: Start: 12-05-2024 End: 03-06-2025 RUBELLA IGG ANTIBODY RUBELLA IGG ANTIBODY Lab Routine Encounter for supervision of high risk in first trimester, antepartum (HCC) 10 weeks gestation of (HCC) Expected: 12/05/2024, Expires: 03/06/2025 [facility] Comment on above: Expected: 12/05/2024, Expires: Start: 12-05-2024 End: 03-06-2025 SYPHILIS TREPONEMAL W/REFLEX SYPHILIS TREPONEMAL W/REFLEX Lab Routine Encounter for supervision of high risk in first trimester, antepartum (HCC) 10 weeks gestation of (HCC) Expected: 12/05/2024, Expires: 03/06/2025 [facility] Comment on above: Expected: 12/05/2024, Expires: Start: 12-05-2024 End: 03-06-2025 TYPE + SCREEN TYPE + SCREEN Blood Bank Routine Encounter for supervision of high risk in first trimester, antepartum (HCC) 10 weeks gestation of (HCC) Expected: 12/05/2024, Expires: 03/06/2025 [facility] Comment on above: Expected: 12/05/2024, Expires: Start: 10-28-2024 [facility] Start: 03-07-2024 Chlamydia Screening (18-24) Chlamydia Screening (18-24) [facility] Start: 03-07-2024 GC (Gonorrhea) Screening (18-24) GC (Gonorrhea) Screening (18-24) [facility] Start: 03-07-2024 Screening for Chlamydia trachomatis Chlamydia Screening (18-24) [facility] Start: 02-03-2024 Chlamydia Screening (18-24) Chlamydia Screening (18-24) [facility] Start: 02-03-2024 GC (Gonorrhea) Screening (18-24) GC (Gonorrhea) Screening (18-24) [facility] Start: 02-01-2024 Tetanus vaccination Tetanus: Every 10yrs [facility] Start: 02-01-2024 Urine microalbumin profile DTaP,Tdap,Td Vaccine (7 - Td or Tdap) [facility] Start: 02-01-2024 Vaccination for diphtheria, pertussis, and tetanus Tetanus/Diphtheria/Pertu ssis (7 - Td or Tdap) [facility] Start: 01-21-2024 Covid-19 Vaccine ( season) Covid-19 Vaccine ( season) [facility] Start: 01-21-2024 Covid-19 Vaccine () Covid-19 Vaccine () [facility] Start: 01-21-2024 Influenza vaccination [facility] Start: 05-19-2023 End: 05-19-2023 Patient encounter procedure 05/19/2023 9:30 AM EST Office Visit [facility] [address] [facility] [facility] Office Building, 2nd [place] [address] Wilfrid Bonilla MD [address] [place] [id number] [facility] Start: 03-07-2023 End: 06-06-2023 Bacteria identified in Urine by Culture [facility] Work Phone: Comment on above: Expected: 03/07/2023, Expires: Start: 01-20-2023 Influenza vaccination [facility] Start: 11-18-2022 End: 11-18-2022 Patient encounter procedure 11/18/2022 Office Visit Neurology Wilfrid Bonilla MD [address] [place] [address] [facility] Start: 2022 Pap Testing Pap Testing [facility] Start: 2022 Screening for malignant neoplasm of cervix Cervical Cancer Screening [facility] Start: 05-22-2022 Depression Assessment Depression Assessment [facility] Start: 01-20-2022 Influenza vaccination [facility] Start: 01-20-2021 Influenza vaccination Sequential Influenza Vaccine (#1) [facility] Start: 05-27-2020 End: 05-27-2020 Office Visit 05/27/2020 Office Visit Neurology Eyal Ramirez MD [address] [facility] [address] [place] [address] [phone] [facility] Start: 03-04-2020 End: 03-04-2020 Procedure visit 03/04/2020 Procedure visit Neurology Trudy Jaquez MD [address] [facility] [address] [place] [address] [phone] [facility] Start: 02-03-2020 End: 02-03-2020 Office Visit 02/03/2020 Office Visit Neurology Eyal Ramirez MD [address] [facility] [address] [place] [address] [phone] [facility] Start: 02-03-2020 End: 02-03-2021 Electromyography EMG: Neurology Routine Parsonage-Kirby syndrome Brachial plexitis Expected: 02/03/2020, Expires: 02/03/2021 [facility] Comment on above: Expected: 02/03/2020, Expires: Start: 01-21-2020 Influenza vaccination given [facility] Start: 01-07-2020 End: 01-07-2020 Office Visit 01/07/2020 Office Visit Neurology Eyal Ramirez MD [address] [facility] [address] [place] [address] [phone] [facility] Start: 11-14-2019 End: 11-14-2019 Procedure visit 11/14/2019 Procedure visit Neurology Trudy Jaquez MD [address] [facility] [place] [address] [phone] [facility] Start: 07-26-2019 Anxiety Screening Anxiety Screening [facility] Start: 07-26-2019 Chlamydia Screening (18-24) Chlamydia Screening (18-24) [facility] Start: 07-26-2019 Depression Screening Depression Screening [facility] Start: 07-26-2019 GC (Gonorrhea) Screening (18-24) GC (Gonorrhea) Screening (18-24) [facility] Start: 07-26-2019 Hepatitis C Screening Hepatitis C Screening [facility] Start: 07-26-2019 Hepatitis C screening Hepatitis C Screening [facility] Start: 07-26-2019 HIV Screening HIV Screening [facility] Start: 07-26-2019 HIV screening HIV Screening [facility] Start: 2017 COVID-19 Vaccine (1 of 2) COVID-19 Vaccine (1 of 2) [facility] Start: 2017 Meningococcal B Vaccine (1 of 2 - Standard) Meningococcal B Vaccine (1 of 2 - Standard) [facility] Start: 2017 Meningococcal B Vaccine: Consider Based On Risk (1 of 2 - Patient Seeks Protection) Meningococcal B Vaccine: Consider Based On Risk (1 of 2 - Patient Seeks Protection) [facility] Start: 2016 HIV screening HIV Screening [facility] Start: 07-26-2015 Peds To Adult Transition Annual Assessment Peds To Adult Transition Annual Assessment [facility] Start: 2013 Adolescent depression screening assessment Depression Screening (PHQ9) [facility] Start: 2013 COVID-19 Vaccine (1) COVID-19 Vaccine (1) [facility] Start: 2013 Depression screening using PHQ-9 (Patient Health Questionnaire 9) score [facility] Start: 2013 Peds To Adult Transition Initial Discussion Peds To Adult Transition Initial Discussion [facility] Start: 2006 COVID-19 Vaccine (#1) COVID-19 Vaccine (#1) [facility] Start: 2004 History and physical examination, annual for health maintenance Wellness Visit [facility] Start: 01-25-2002 COVID-19 Vaccine (#1) COVID-19 Vaccine (#1) [facility] Start: 2001 Screening for Chlamydia trachomatis Chlamydia Screening [facility] Start: 2001 Screening for malignant neoplasm of cervix Pap Smear [facility] Bacteria identified in Urine by Culture URINE CULTURE Microbiology Routine Vaginal discharge Dysuria Ordered: 05/17/2024 [facility] Work Phone: Comment on above: Ordered: 05/17/2024 Bacteria identified in Urine by Culture BACTERIAL CULTURE, URINE Microbiology Routine Encounter for supervision of high risk in first trimester, antepartum (HCC) 10 weeks gestation of (HCC) 12/05/2024 2:54 PM EDT [facility] BACTERIAL VAGINOSIS NAAT BACTERI AL VAGINOSIS NAAT Lab Routine Encounter for screening examination for sexually transmitted disease 02/02/2023 7:35 PM EDT [facility] Work Phone: BACTERIAL VAGINOSIS NAAT BACTERI AL VAGINOSIS NAAT Lab Routine Screening for STD (sexually transmitted disease) Vaginal discharge 03/07/2023 4:49 PM EDT [facility] Work Phone: BACTERIAL VAGINOSIS NAAT BACTERI AL VAGINOSIS NAAT Lab Routine Vaginal discharge Ordered: 05/17/2024 [facility] Comment on above: Ordered: 05/17/2024 MISAEL/TRICHOMONAS NAAT MISAEL /TRICHOMONAS NAAT Lab Routine Encounter for screening examination for sexually transmitted disease 02/02/2023 7:35 PM EDT [facility] Work Phone: MISAEL/TRICHOMONAS NAAT MISAEL /TRICHOMONAS NAAT Lab Routine Screening for STD (sexually transmitted disease) Vaginal discharge 03/07/2023 4:49 PM T [facility] Work Phone: MISAEL/TRICHOMONAS NAAT MISAEL /TRICHOMONAS NAAT Lab Routine Vaginal discharge Ordered: 05/17/2024 [facility] Comment on above: Ordered: 05/17/2024 Celiac disease screen Celiac Ser ology [place] Panel Lab Routine 11/01/2019 12:57 PM EDT [facility] Chlamydia trachomatis+Neisseria gonorrhoeae DNA [Presence] in Unspecified specimen by KEMI with probe detection GONORRHEA/CHLAMYDIA NAAT Lab Routine Encounter for screening examination for sexually transmitted disease 02/02/2023 7:35 PM T [facility] Work Phone: Chlamydia trachomatis+Neisseria gonorrhoeae DNA [Presence] in Unspecified specimen by KEMI with probe detection GONORRHEA/CHLAMYDIA NAAT Lab Routine Screening for STD (sexually transmitted disease) Vaginal discharge 03/07/2023 4:49 PM T [facility] Work Phone: Chlamydia trachomatis+Neisseria gonorrhoeae DNA [Presence] in Unspecified specimen by KEMI with probe detection GONORRHEA/CHLAMYDIA NAAT Lab Routine Vaginal discharge Ordered: 05/17/2024 [facility] Comment on above: Ordered: 05/17/2024 Chlamydia trachomatis+Neisseria gonorrhoeae DNA [Presence] in Unspecified specimen by KEMI with probe detection GONORRHEA/CHLAMYDIA NAAT Lab Routine Encounter for supervision of high risk in first trimester, antepartum (HCC) 10 weeks gestation of (HCC) Screen for STD (sexually transmitted disease) 12/05/2024 2:54 PM EDT [facility] Extractable nuclear antigen antibody screening test RICARDO Screen (SSA/B,SM,IT SERVICE DELIVERY MANAGER,SCL70,JO1) Lab Routine 11/01/2019 12:57 PM EDT [facility] Ganglioside Monosial ic Antibody Panel Ganglioside Monosialic Antibody Panel Lab Routine 11/01/2019 12:57 PM EDT [facility] End: 02-02-2021 Miscellaneous Lab Test Miscellaneous Lab Test Lab Routine Parsonage-Kirby syndrome Hereditary neuralgic amyotrophy 1 Occurrences starting 02/03/2020 until 02/02/2021 [facility] Comment on above: 1 Occurrences starting 02/03/2020 until 02/02/2021 Nuclear Ab IF (S) [Titer] CHRISTINE La b Routine 11/01/2019 12:57 PM EDT [facility] End: 12-03-2025 OBSTETRIC ULTRASOUND WHI OBSTETRIC ULTRASOUND WHI Anc Imaging Routine Encounter for supervision of high risk in first trimester, antepartum (HCC) 12 weeks gestation of (HCC) Abnormal ultrasound Parsonage-Kirby syndrome Once per month for 3 Occurrences starting 12/19/2024 until 12/03/2025 [facility] Work Phone: Comment on above: Once per month for 3 Occurrences startin g 12/19/2024 until 12/03/2025 PAP TEST PAP TEST Lab Neyda gomez Encounter for supervision of high risk in first trimester, antepartum (HCC) 10 weeks gestation of (HCC) Screening for cervical cancer 12/05/2024 2:54 PM EDT [facility] Patient Education 1st Trimester [facility] Work Phone: Patient referral [facility] Work Phone: Serum IgG IF anti-neutrophil cytoplasmic antibody measurement Anti-Neutrophilic Cytoplasmic Antibody Lab Routine 11/01/2019 12:57 PM EDT [facility] Serum protein electrophoresis Protein Electrophoresis, Blood Lab Routine 11/01/2019 12:57 PM EDT [facility] Thyroxine Binding Globulin Thyroxine Binding Globulin Lab Routine 11/01/2019 12:58 PM EDT [facility] TRICHOMONAS VAGINALI S NAAT TRICHOMONAS VAGINALIS NAAT Lab Routine Encounter for supervision of high risk in first trimester, antepartum (HCC) 10 weeks gestation of (HCC) Screen for STD (sexually transmitted disease) 12/05/2024 2:54 PM EDT [facility] West Nile Antibodies , IgG and IgM, Blood West Nile Antibodies, IgG and IgM, Blood Lab Routine 11/01/2019 12:57 PM EDT [facility] Immunizations Immunization Date Immunization Notes Care Provider Felicita anand 02-20-2020 influenza, injectabl e, quadrivalent, contains preservative Kenia Almanza CERTIFIED RECREATIONAL THERAPIST.RETIREMENT PLAN COUNSELOR Work Phone: [facility] 02-20-2020 influenza virus vacc ine, unspecified formulation Kenia Almanza CERTIFIED RECREATIONAL THERAPIST.RETIREMENT PLAN COUNSELOR Work Phone: [facility] 04-30-2018 influenza, injectabl e, quadrivalent, contains preservative Kenia Almanza CERTIFIED RECREATIONAL THERAPIST.RETIREMENT PLAN COUNSELOR Work Phone: [facility] 12-05-2014 human papilloma viru s vaccine, bivalent Kenia Almanza CERTIFIED RECREATIONAL THERAPIST.RETIREMENT PLAN COUNSELOR Work Phone: [facility] Work Phone: 12-05-2014 human papilloma viru s vaccine, quadrivalent Kenia Almanza CERTIFIED RECREATIONAL THERAPIST.RETIREMENT PLAN COUNSELOR Work Phone: [facility] 07-21-2014 human papilloma viru s vaccine, quadrivalent Kenia Almanza CERTIFIED RECREATIONAL THERAPIST.RETIREMENT PLAN COUNSELOR Work Phone: [facility] 01-31-2014 human papilloma viru s vaccine, quadrivalent Kenia Almanza CERTIFIED RECREATIONAL THERAPIST.RETIREMENT PLAN COUNSELOR Work Phone: [facility] 01-31-2014 meningococcal polysaccharide (groups A, C, Y and W-135) diphtheria toxoid conjugate vaccine (MCV4P) Kenia Almanza CERTIFIED RECREATIONAL THERAPIST.RETIREMENT PLAN COUNSELOR Work Phone: [facility] Work Phone: 01-31-2014 tetanus toxoid, redu ayse diphtheria toxoid, and acellular pertussis vaccine, adsorbed Kenia Almanza CERTIFIED RECREATIONAL THERAPIST.[facility] Work Phone: [facility] Work Phone: 04-05-2006 diphtheria, tetanus toxoids and acellular pertussis vaccine Kenia Almanza CERTIFIED RECREATIONAL THERAPIST.[facility] Work Phone: [facility] Work Phone: 04-05-2006 diphtheria, tetanus toxoids and acellular pertussis vaccine, unspecified formulation Kenia Almanza CERTIFIED RECREATIONAL THERAPIST.[facility] Work Phone: [facility] 04-05-2006 influenza virus vacc ine, unspecified formulation Kenia Almanza CERTIFIED RECREATIONAL THERAPIST.[facility] Work Phone: [facility] Work Phone: 04-05-2006 measles, mumps and rubella virus vaccine Kenia Almanza CERTIFIED RECREATIONAL THERAPIST.[facility] Work Phone: [facility] Work Phone: 04-05-2006 poliovirus vaccine, inactivated Kenia Almanza CERTIFIED RECREATIONAL THERAPIST.[facility] Work Phone: [facility] Work Phone: 04-05-2006 varicella virus vaccine Andreia ica Almanza CERTIFIED RECREATIONAL THERAPIST.[facility] Work Phone: [facility] Work Phone: 12-11-2002 diphtheria, tetanus toxoids and acellular pertussis vaccine Kenia Almanza CERTIFIED RECREATIONAL THERAPIST.[facility] Work Phone: [facility] Work Phone: 12-11-2002 diphtheria, tetanus toxoids and acellular pertussis vaccine, unspecified formulation Kenia Almanza CERTIFIED RECREATIONAL THERAPIST.[facility] Work Phone: [facility] 12-11-2002 haemophilus influenz ae type b vaccine, HbOC conjugate Kenia Almanza CERTIFIED RECREATIONAL THERAPIST.[facility] Work Phone: [facility] Work Phone: 12-11-2002 haemophilus influenz ae type b vaccine, PRP-T conjugate Kenia Cami CERTIFIED RECREATIONAL THERAPIST.[facility] Work Phone: [facility] 12-11-2002 pneumococcal conjuga te vaccine, 13 valent Kenia Almanza CERTIFIED RECREATIONAL THERAPIST.RETIREMENT PLAN COUNSELOR Work Phone: [facility] 12-11-2002 pneumococcal conjuga te vaccine, 7 valent Kenia Almanza CERTIFIED RECREATIONAL THERAPIST.[facility] Work Phone: [facility] Work Phone: 08-30-2002 measles, mumps and rubella virus vaccine Kenia Almanza CERTIFIED RECREATIONAL THERAPIST.[facility] Work Phone: [facility] Work Phone: 08-30-2002 varicella virus vaccine Andreia ica Almanza CERTIFIED RECREATIONAL THERAPIST.[facility] Work Phone: [facility] Work Phone: 02-18-2002 diphtheria, tetanus toxoids and acellular pertussis vaccine Kenia Cami CERTIFIED RECREATIONAL THERAPIST.[facility] Work Phone: [facility] Work Phone: 02-18-2002 diphtheria, tetanus toxoids and acellular pertussis vaccine, unspecified formulation Keniadavid Almanza CERTIFIED RECREATIONAL THERAPIST.[facility] Work Phone: [facility] 02-18-2002 haemophilus influenz ae type b vaccine, HbOC conjugate Keniadavid Almanza CERTIFIED RECREATIONAL THERAPIST.[facility] Work Phone: [facility] Work Phone: 02-18-2002 haemophilus influenz ae type b vaccine, PRP-T conjugate Kenia Cami CERTIFIED RECREATIONAL THERAPIST.RETIREMENT PLAN COUNSELOR Work Phone: [facility] 02-18-2002 hepatitis B vaccine, pediatric or pediatric/adolescent dosage Kenia Cami CERTIFIED RECREATIONAL THERAPIST.[facility] Work Phone: [facility] Work Phone: 02-18-2002 poliovirus vaccine, inactivated Keniadavid Almanza CERTIFIED RECREATIONAL THERAPIST.[facility] Work Phone: [facility] Work Phone: 2001 diphtheria, tetanus toxoids and acellular pertussis vaccine Kenia Almanza CERTIFIED RECREATIONAL THERAPIST.[facility] Work Phone: [facility] Work Phone: 2001 diphtheria, tetanus toxoids and acellular pertussis vaccine, unspecified formulation Kenia Almanza CERTIFIED RECREATIONAL THERAPIST.[facility] Work Phone: [facility] 2001 haemophilus influenz ae type b vaccine, HbOC conjugate Kenia Almanza CERTIFIED RECREATIONAL THERAPIST.[facility] Work Phone: [facility] Work Phone: 2001 haemophilus influenz ae type b vaccine, PRP-T conjugate Kenia Almanza CERTIFIED RECREATIONAL THERAPIST.[facility] Work Phone: [facility] 2001 pneumococcal conjuga te vaccine, 13 valent Kenia Almanza CERTIFIED RECREATIONAL THERAPIST.[facility] Work Phone: [facility] 2001 pneumococcal conjuga te vaccine, 7 valent Kenia Almanza CERTIFIED RECREATIONAL THERAPIST.[facility] Work Phone: [facility] Work Phone: 2001 poliovirus vaccine, inactivated Kenia Almanza CERTIFIED RECREATIONAL THERAPIST.[facility] Work Phone: [facility] Work Phone: 2001 diphtheria, tetanus toxoids and acellular pertussis vaccine Kenia Almanza CERTIFIED RECREATIONAL THERAPIST.[facility] Work Phone: [facility] Work Phone: 2001 diphtheria, tetanus toxoids and acellular pertussis vaccine, unspecified formulation Kenia Almanza CERTIFIED RECREATIONAL THERAPIST.RETIREMENT PLAN COUNSELOR Work Phone: [facility] 2001 haemophilus influenz ae type b conjugate and Hepatitis B vaccine Kenia Almanza CERTIFIED RECREATIONAL THERAPIST.[facility] Work Phone: [facility] Work Phone: 2001 pneumococcal conjuga te vaccine, 13 valent Kenia Almanza CERTIFIED RECREATIONAL THERAPIST.[facility] Work Phone: [facility] 2001 pneumococcal conjuga te vaccine, 7 valent Kenia Almanza CERTIFIED RECREATIONAL THERAPIST.RETIREMENT PLAN COUNSELOR Work Phone: [facility] Work Phone: 2001 poliovirus vaccine, inactivated Keniadavid Almanza CERTIFIED RECREATIONAL THERAPIST.RETIREMENT PLAN COUNSELOR Work Phone: [facility] Work Phone: 2001 hepatitis B vaccine, pediatric or pediatric/adolescent dosage Kenia Almanza CERTIFIED RECREATIONAL THERAPIST.RETIREMENT PLAN COUNSELOR Work Phone: [facility] Work Phone: Payers Date Payer Category Payer Medicaid (Managed Care) [facility] [id number] 2024 Self-pay [address] [facility] HMO/DAVIS CE PLUS/PAT/PAT PLUS [id number] 2019-Present [id number] 2019 Unknown [id number] [address] [facility] HMO/DAVIS CE PLUS/PAT/PAT PLUS [id number] 2019-Present [phone] [address] [place] [address] [id number] 2019 Medicaid xxxxxxxxx [id number] 2019 Medicaid [facility] MANAGED [facility] MEDICAID COMMUNITY PLAN [id number] 2019-Present [id number] 2019 Medicaid [id number] 2019 Private Health Insurance [id number] 2019 Medicaid [id number] 2018 Private Health Insurance [facility] CHOICE PLUS [id number] 2018-Present [phone] [address] [place] [address] HMO [id number] 2001 Unknown [id number] 2001 Unknown [id number] 2001 Unknown [id number] 2001 Unknown [id number] 2001 Unknown [id number] Unknown [id number] Social History Date Type Detail Facility Start: 10-31-2019 End: 11-18-2022 Tobacco smoking status NHIS Never smoker [facility] Start: 10-31-2019 End: 01-31-2025 Alcohol intake Lifetime non-drinker (finding) [facility] Start: 10-31-2019 End: 05-27-2020 History SDOH Alcohol Frequency 1 [facility] Start: 2001 Sex Assigned At Not on file [facility] Start: 10-17-2021 End: 05-17-2022 Exposure to SARS-CoV-2 (event) Not sure [facility] Start: 02-03-2020 End: 11-18-2022 Tobacco use and exposure Never used [facility] Start: 10-31-2019 End: 01-31-2025 Cigarette pack-years [facility] Start: 05-27-2020 End: 01-31-2025 Alcohol Use Disorder Identification Test - Consumption [AUDIT-C] [facility] How often to you hav e a drink containing alcohol? Never [facility] Start: 04-22-2012 Average Number of Drinks Not on file [facility] Start: 02-02-2023 Tobacco Comment pt has vaped in the past [facility] Start: 10-28-2024 Tobacco smoking status NHIS Smokes tobacco daily (finding) [facility] Start: 2000 Sex Assigned At Female [facility] Start: 10-04-2024 [facility] Goals Date Patient Goal Desired Activity /State Personal health goal Functional Status Date Assessment Result Facility 07-22-2014 Are you deaf, or do you have serious difficulty hearing No 07/22/2014 2:48 PM Cassandra Kate MA No [facility] 07-22-2014 Are you blind, or do you have serious difficulty seeing, even when wearing glasses No 07/22/2014 2:48 PM Cassandra Kate MA No [facility] 07-22-2014 Do you have serious difficulty walking or climbing stairs No 07/22/2014 2:48 PM Cassandra Kate MA No [facility] 07-22-2014 Do you have difficul ty dressing or bathing No 07/22/2014 2:48 PM Cassandra Kate MA No [facility] Mental Status Date Assessment Result Facility 07-22-2014 Because of a physica l, mental, or emotional condition, do you have serious difficulty concentrating, remembering, or making decisions No 07/22/2014 2:48 PM Cassandra Kate MA No [facility] Clinical Notes 12-25-2020 to 03-21-2025 Patient InstructionsTanTrudy MD - 03/21/2025 1:00 PM EDTAssessment & Plan Note - Gini Saenz CNP - 02/21/2025 8:52 AM Gini Perdue CNP - 01/31/2025 11:22 AM EDT Note Date & Type Note Facility 03-21-2025 Instructions Trudy Jaquez MD - 03/21/2025 1:44 PM EDT Continue vitamins. Closely monitor for any relapse. Avoid gabapentin and acetaminophen if possible. Will see her for follow-up visit as needed. documented in this encounter [facility] 03-21-2025 History of Present illness Narrative Neurology Inpatient Notes [facility] [place] [phone] (phone)/[phone] (fax) Patient: Sia Holley Date of : 2000 Primary Care Provider: Lata Mcnulty MD Assessment/Plan: Patient with history of bilateral idiopathic brachial plexopathy again October 2019 awake after straddle injury/vaginal laceration. She mention to family members had brachial plexopathy during their labor. There has been report of brachial plexopathy flare up triggered by childbirth or immediately after. Unclear if natural vaginal delivery or section made any difference causing flareups. Gabapentin has been discontinued when she found out she was . Closely monitor for any relapse of brachial plexopathy. Continue muscle strengthening exercises. Continue vitamins. Folic acid 1 mg daily. I will see her for follow-up visit as needed. Labs/Imaging/Ancillary test: Syphilis was nonreactive. Hepatitis B was negative. Hepatitis C was negative. HIV was nonreactive. Hemoglobin A1c is 4.7. Brachial plexus MRI 03/01/2020: 1. Normal MR appearance of the bilateral brachial plexus. No asymmetric mass or suspicious enhancement identified. 2. No abnormal spinal cord enhancement is identified. 3. Of note, there is asymmetric edema in the left supraspinatus and infraspinatus muscles. Differential includes delayed onset muscle soreness, low-grade muscle strains, or early denervation change. Cervical MRI October 31, 2019: 1. At C5-6 there is right uncovertebral joint hypertrophy with mild right neural foraminal stenosis with otherwise no significant spinal canal or neural foraminal stenosis in the cervical spine. Impression: History of bilateral idiopathic brachial plexopathy History of cleft palate repair Anxiety disorder Suggestion: Continue vitamins. Closely monitor for any relapse. Avoid gabapentin and acetaminophen if possible. Will see her for follow-up visit as needed. I have personally reviewed/visualized the patient's images, as documented above. I have personally reviewed the patient's labs, procedure and ancillary testing as listed above. Impression, plan and suggestions was discussed with the patient/family/caregivers. Questions and concerns were discussed and addressed. This note was created in part using a speech-recognition software. Timed code: 47 minutes I personally spent the above time on this encounter today which includes time preparation to see the patient (reviewing previous history, notes, exam, test, procedure, and medications); Obtaining history from the patient/family/caregivers; performing face to face evaluation and examination; ordering medications, tests, or procedures; referring and communicating with other healthcare professionals; update, counseling and education of the patient/family/caregiver; independently interpreting results (Tests, labs, imaging) and communicating results to the patient/family/caregiver; coordination of care; documenting clinical information in the electronic and other health records. Subjective (CC/HPI): Patient is a 24-year-old female who came for neurological evaluation. 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 Patient developed bilateral upper extremity pain and weakness a week after saddle injury back in October 2019. She needed to have the stitches for vaginal laceration. Symptoms accompanied by tingling and paresthesias. Patient was diagnosed to have bilateral brachial plexopathy. Rheumatoid factor, CHRISTINE, RICARDO and inflammatory markers were negative. She was given high-dose IV steroid therapy with slow taper. She underwent pain management and has been on gabapentin and amitriptyline. Her symptoms eventually improve over time with residual muscle atrophy but no functional limitations. Her amitriptyline was discontinued and she intermittently takes gabapentin which was discontinued when she found out she was . SEPT9 gene mutation was negative. Currently she is second trimester . She stopped gabapentin when she found out she was . She has not used Tylenol and currently takes vitamins. She denies any recurrent attacks of brachial plexitis. Past medical history include: Anxiety Social history: No alcohol or tobacco. Family history: Positive for cleft palate ROS: All systems reviewed and negative except pertinent positives and negatives documented in the HPI and below. Objective: BP 100/62 Pulse 95 LMP 08/21/2024 SpO2 98% Patient awake and alert. Patient is oriented. Attention and comprehension were intact. Behavior is appropriate. Follows simple commands. Speech is fluent and spontaneous. Language is intact. Pupils are 4 mm equally reactive to light. No ptosis, nystagmus, or gaze deviation. Extraocular muscles intact. Face is symmetrical. Hearing is grossly intact. Gross strength is intact with normal muscle tone and bulk. No muscle fasciculations. Sensory is intact to primary modalities. No tremors or abnormal movements. documented in this encounter [facility] 03-21-2025 Note Neurology Inpatient Notes [facility] [place] [phone] (phone)/[phone] (fax) Patient: Sia Holley Date of : 2000 Primary Care Provider: Lata Mcnulty MD Assessment/Plan: Patient with history of bilateral idiopathic brachial plexopathy again October 2019 awake after straddle injury/vaginal laceration. She mention to family members had brachial plexopathy during their labor. There has been report of brachial plexopathy flare up triggered by childbirth or immediately after. Unclear if natural vaginal delivery or section made any difference causing flareups. Gabapentin has been discontinued when she found out she was . Closely monitor for any relapse of brachial plexopathy. Continue muscle strengthening exercises. Continue vitamins. Folic acid 1 mg daily. I will see her for follow-up visit as needed. Labs/Imaging/Ancillary test: Syphilis was nonreactive. Hepatitis B was negative. Hepatitis C was negative. HIV was nonreactive. Hemoglobin A1c is 4.7. Brachial plexus MRI 03/01/2020: 1. Normal MR appearance of the bilateral brachial plexus. No asymmetric mass or suspicious enhancement identified. 2. No abnormal spinal cord enhancement is identified. 3. Of note, there is asymmetric edema in the left supraspinatus and infraspinatus muscles. Differential includes delayed onset muscle soreness, low-grade muscle strains, or early denervation change. Cervical MRI October 31, 2019: 1. At C5-6 there is right uncovertebral joint hypertrophy with mild right neural foraminal stenosis with otherwise no significant spinal canal or neural foraminal stenosis in the cervical spine. Impression: History of bilateral idiopathic brachial plexopathy History of cleft palate repair Anxiety disorder Suggestion: Continue vitamins. Closely monitor for any relapse. Avoid gabapentin and acetaminophen if possible. Will see her for follow-up visit as needed. I have personally reviewed/visualized the patient's images, as documented above. I have personally reviewed the patient's labs, procedure and ancillary testing as listed above. Impression, plan and suggestions was discussed with the patient/family/caregivers. Questions and concerns were discussed and addressed. This note was created in part using a speech-recognition software. Timed code: 47 minutes I personally spent the above time on this encounter today which includes time preparation to see the patient (reviewing previous history, notes, exam, test, procedure, and medications); Obtaining history from the patient/family/caregivers; performing face to face evaluation and examination; ordering medications, tests, or procedures; referring and communicating with other healthcare professionals; update, counseling and education of the patient/family/caregiver; independently interpreting results (Tests, labs, imaging) and communicating results to the patient/family/caregiver; coordination of care; documenting clinical information in the electronic and other health records. Subjective (CC/HPI): Patient is a 24-year-old female who came for neurological evaluation. 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 Patient developed bilateral upper extremity pain and weakness a week after saddle injury back in October 2019. She needed to have the stitches for vaginal laceration. Symptoms accompanied by tingling and paresthesias. Patient was diagnosed to have bilateral brachial plexopathy. Rheumatoid factor, CHRISTINE, RICARDO and inflammatory markers were negative. She was given high-dose IV steroid therapy with slow taper. She underwent pain management and has been on gabapentin and amitriptyline. Her symptoms eventually improve over time with residual muscle atrophy but no functional limitations. Her amitriptyline was discontinued and she intermittently takes gabapentin which was discontinued when she found out she was . SEPT9 gene mutation was negative. Currently she is second trimester . She stopped gabapentin when she found out she was . She has not used Tylenol and currently takes vitamins. She denies any recurrent attacks of brachial plexitis. Past medical history include: Anxiety Social history: No alcohol or tobacco. Family history: Positive for cleft palate ROS: All systems reviewed and negative except pertinent positives and negatives documented in the HPI and below. Objective: BP 100/62 Pulse 95 LMP 08/21/2024 SpO2 98% Patient awake and alert. Patient is oriented. Attention and comprehension were intact. Behavior is appropriate. Follows simple commands. Speech is fluent and spontaneous. Language is intact. Pupils are 4 mm equally reactive to light. No ptosis, nystagmus, or gaze deviation. Extraocular muscles in (more content not included)... [facility] 02-21-2025 Evaluation + Plan note Associated Problem(s): Parsonage-Kirby syndrome During she can use Tylenol as needed. When not she can use gabapentin as needed. Discussed questions regarding and delivery with collaborating physician, Dr. Hernandez. Childbirth can create a stressor for symptom flare up. There have not been a lot of studies to show whether delivery via natural vs is more stressful. It may be in her best interest to pursue a route if there is concern for increased stress with natural delivery that could result in symptom flare up. [facility] 02-21-2025 Miscellaneous Notes Associated Problem(s): Parsonage-Kirby syndrome During she can use Tylenol as needed. When not she can use gabapentin as needed. Discussed questions regarding and delivery with collaborating physician, Dr. Hernandez. Childbirth can create a stressor for symptom flare up. There have not been a lot of studies to show whether delivery via natural vs is more stressful. It may be in her best interest to pursue a route if there is concern for increased stress with natural delivery that could result in symptom flare up. documented in this encounter [facility] 01-31-2025 Note Patient ID: Sia Holley is a 24 y.o. female. Assessment/Plan: Problem List Diagnosed Parsonage-Kirby syndrome - Primary During she can use Tylenol as needed. When not she can use gabapentin as needed. Discussed questions regarding and delivery with collaborating physician, Dr. Hernandez. Childbirth can create a stressor for symptom flare up. There have not been a lot of studies to show whether delivery via natural vs is more stressful. It may be in her best interest to pursue a route if there is concern for increased stress with natural delivery that could result in symptom flare up. Follow-up plan will be with one of our physicians prior to her delivery in June. We will call to schedule. Time statement: A total of 35 minutes were spent on this encounter, which includes the time reviewing the patient's diagnostic tests, seeing the patient, speaking with nursing staff, and documenting in the record. Gini Saenz, MSN, RETIREMENT PLAN COUNSELOR [facility] Neurology Subjective HPI Sia Holley is a 24 year old female here for follow-up on her Parsonage-Kirby syndrome. She previously followed up with Dr. Bonilla and prior to that Dr. Ramirez before his departure from [facility]. She comes to her appointment today with significant other and ambulates to the exam room without assistive device. She is currently 19 weeks and wanted to discuss deliver plans and if planned section would be the safest option for her. Due date is 06/27/2025. She follows with PATIENT ADMITTING REPRESENTATIVE in [place]. She is also asking about options if she has another flare up and if she can take the gabapentin. She normally only needs to take the gabapentin during the winter time because the cold is a common trigger for her pain. She denies any fall or injuries. No worsening or new symptoms since her last follow-up with our office 11/18/[address] Bonilla. Update from her previous office visit with Dr. Bonilla 11/18/2022: She reported symptoms were stable at that time. They attempted to switch to Lyrica but it did not really help and caused symptoms so she was changed back to gabapentin PRN. For history purposes I have copy and pasted portions of her initial HPI when she saw Dr. Ramirez 10/27/2021: To recap she was initially seen on 10/31/2019 in the inpatient consult service with bilateral upper extremity weakness that progressed over a week after sustaining a fall from a stool in saddle position (she had sustained a laceration in her vaginal during that fall). Since the fall, she had pain over her shoulders along the deltoid and upper arm, gradually progressing weakness of proximal upper limbs, with extension into the hands associated with tingling paresthesias. By the time she was seen in the neurology consult service she had flaccid paresis of both hands. The exam pattern localized mostly to C5-C8 roots and I had raised the concern for bilateral brachial plexopathy. No features of neuropathies, mononeuritis multiplex, cervical cord abnormalities, or autoimmunesyndrome such as GBS were noted at the time. Autoimmune and inflammatory markers were all negative. We treated her with high-dose IV steroids (methylprednisolone) followed by a prolonged oral taper as outpatient. She underwent intense inpatient and outpatient physical therapy as well. Outpatient nerve conduction study in October 2019 showed only axonal pattern of both sensory and motor fibers in median nerve territory with ulnar and radial studies showing normal responses. Needle EMG showed right APB fibrillations and positive sharp waves with absent MUAPs. Follow-up EMG in February 2020 interestingly showed reinnervation features of both limbs, left better than right. EMG also showed decreased insertional activities with fibrillation and positive sharp waves. Subsequent family history obtained from patient's grandmother suggests that patient's maternal grandfather had a similar illness after surgery and was thought to have painful right upper extremity weakness that lasted several months. 2 of paternal grandfathers sisters also had a similar illness which was episodic. One of their sons and 3 of their grandchildren had episodic painful plexopathy like weakness of upper extremities that happened in their 30s. Another family member had a similar episode during childbirth as well. 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 This entity called hereditary neuralgic amyotrophy (hereditary brachial plexus neuropathy-HBPN was tested and she did not have any mutations of note. None of the family members were evaluated or tested. At her last follow-up with me in December 2020 things have been improving steadily. She continued physical therapy at home twice a week and has been pushing herself pearce (more content not included)... [facility] 01-31-2025 History of Present illness Narrative Patient ID: Sia Holley is a 24 y.o. female. Assessment/Plan: Problem List Diagnosed Parsonage-Kirby syndrome - Primary During she can use Tylenol as needed. When not she can use gabapentin as needed. Discussed questions regarding and delivery with collaborating physician, Dr. Hernandez. Childbirth can create a stressor for symptom flare up. There have not been a lot of studies to show whether delivery via natural vs is more stressful. It may be in her best interest to pursue a route if there is concern for increased stress with natural delivery that could result in symptom flare up. Follow-up plan will be with one of our physicians prior to her delivery in June. We will call to schedule. Time statement: A total of 35 minutes were spent on this encounter, which includes the time reviewing the patient's diagnostic tests, seeing the patient, speaking with nursing staff, and documenting in the record. Gini Saenz, MSN, RETIREMENT PLAN COUNSELOR [facility] Neurology Subjective HPI Sia Holley is a 24 year old female here for follow-up on her Parsonage-Kirby syndrome. She previously followed up with Dr. Bonilla and prior to that Dr. Ramirez before his departure from [facility]. She comes to her appointment today with significant other and ambulates to the exam room without assistive device. She is currently 19 weeks and wanted to discuss deliver plans and if planned section would be the safest option for her. Due date is 06/27/2025. She follows with PATIENT ADMITTING REPRESENTATIVE in [place]. She is also asking about options if she has another flare up and if she can take the gabapentin. She normally only needs to take the gabapentin during the winter time because the cold is a common trigger for her pain. She denies any fall or injuries. No worsening or new symptoms since her last follow-up with our office 11/18/[address] Bonilla. Update from her previous office visit with Dr. Bonilla 11/18/2022: She reported symptoms were stable at that time. They attempted to switch to Lyrica but it did not really help and caused symptoms so she was changed back to gabapentin PRN. For history purposes I have copy and pasted portions of her initial HPI when she saw Dr. Ramirez 10/27/2021: To recap she was initially seen on 10/31/2019 in the inpatient consult service with bilateral upper extremity weakness that progressed over a week after sustaining a fall from a stool in saddle position (she had sustained a laceration in her vaginal during that fall). Since the fall, she had pain over her shoulders along the deltoid and upper arm, gradually progressing weakness of proximal upper limbs, with extension into the hands associated with tingling paresthesias. By the time she was seen in the neurology consult service she had flaccid paresis of both hands. The exam pattern localized mostly to C5-C8 roots and I had raised the concern for bilateral brachial plexopathy. No features of neuropathies, mononeuritis multiplex, cervical cord abnormalities, or autoimmune syndrome such as GBS were noted at the time. Autoimmune and inflammatory markers were all negative. We treated her with high-dose IV steroids (methylprednisolone) followed by a prolonged oral taper as outpatient. She underwent intense inpatient and outpatient physical therapy as well. Outpatient nerve conduction study in October 2019 showed only axonal pattern of both sensory and motor fibers in median nerve territory with ulnar and radial studies showing normal responses. Needle EMG showed right APB fibrillations and positive sharp waves with absent MUAPs. Follow-up EMG in February 2020 interestingly showed reinnervation features of both limbs, left better than right. EMG also showed decreased insertional activities with fibrillation and positive sharp waves. Subsequent family history obtained from patient's grandmother suggests that patient's maternal grandfather had a similar illness after surgery and was thought to have painful right upper extremity weakness that lasted several months. 2 of paternal grandfathers sisters also had a similar illness which was episodic. One of their sons and 3 of their grandchildren had episodic painful plexopathy like weakness of upper extremities that happened in their 30s. Another family member had a similar episode during childbirth as well. 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 This entity called hereditary neuralgic amyotrophy (hereditary brachial plexus neuropathy-HBPN was tested and she did not have any mutations of note. None of the family members were evaluated or tested. At her last follow-up with me in December 2020 things have been improving steadily. She continued physical therapy at home twice a week and has been pushing herself hard to get better. Gabapentin has been weaned down. Amitriptyline has been helping her with nighttime symptoms of paresthesias and dysesthesias. She was advised to follow-up in a year. Update: 10/27/2021 -Doing remarkably well with her hand costume maker and upper limb strength now. Right appears to be still weaker than the left (she is truly left-handed, but is acquired ambidextrous). 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 -Feels that the work is also pushing her to do better with her upper limb weakness Exam today shows improvement in muscle mass in the deltoids bilaterally, and triceps bilaterally as well. Right biceps is still mildly atrophied compared to the left side. Forearm muscles seems to be more defined now, and wrist movements show good wrist flexion and extension although right side is still weaker than the left side with wrist flexion. Handgrip is still weaker on the right side, abduction of the thumbs weaker on the right side as well. DTRs: 0 bilaterally in the upper extremities. Sensory exam: Patchy diminished cold sensation and touch sensation throughout the C5-C8 distribution. However this is much improved from her last exam a year ago. Review of patients current medication list along with allergies, past medical history, surgical history, family history, and social history was reviewed and updated as appropriate. Review of Systems Objective BP 109/70 Pulse 86 LMP 08/21/2024 SpO2 98% Neurological Exam Mental Status Awake, alert and oriented to person, place and time. Oriented to person, place, time and situation. Oriented to person, place, and time. Speech is normal. Language is fluent with no aphasia. Cranial Nerves CN II: Visual acuity is normal. Visual ulloa full to confrontation. CN III, IV, : Extraocular movements intact bilaterally. Normal lids and orbits bilaterally. Pupils equal round and reactive to light bilaterally. CN V: Facial sensation is normal. CN VII: Full and symmetric facial movement. CN VIII: Hearing is normal. CN IX, X: Palate elevates symmetrically. Normal gag reflex. CN XI: Shoulder shrug strength is normal. CN XII: Tongue midline without atrophy or fasciculations. Motor Strength is 5/5 in all four extremities except as noted. Weakness with thumb on right hand and with arm extension 4+/5. LUE 5/5 and BLE 5/5. Sensory Sensation is intact to light touch, pinprick, vibration and proprioception in all four extremities. Reflexes Right Left Biceps 0 1+ Triceps 2+ 2+ Patellar 2+ 2+ Gait Normal casual, toe, heel and tandem gait. Normal gait. Steady gait. Ambulates without assistive device. . Physical Exam Vitals and nursing note reviewed. Constitutional: Appearance: She is well-developed. Comments: Patient is very pleasant and cooperative for exam. She is well groomed and dressed appropriate for season. HENT: Head: Normocephalic and atraumatic. Eyes: General: Lids are normal. Extraocular Movements: Extraocular movements intact. Pupils: Pupils are equal, round, and reactive to light. Cardiovascular: Rate and Rhythm: Normal rate and regular rhythm. Heart sounds: No murmur heard. Pulmonary: Effort: Pulmonary effort is normal. No respiratory distress. Breath sounds: Normal breath sounds. No wheezing. Abdominal: General: Bowel sounds are normal. There is no distension. Palpations: Abdomen is soft. Musculoskeletal: General: Normal range of motion. Cervical back: Normal range of motion and neck supple. Skin: General: Skin is warm and dry. Findings: No rash. Neurological: Mental Status: She is oriented to person, place, and time. Coordination: Ulkyoj-Hnhq-Qsoodk Test normal. Gait: Gait is intact. Deep Tendon Reflexes: Reflex Scores: Tricep reflexes are 2+ on the right side and 2+ on the left side. Bicep reflexes are 0 on the right side and 1+ on the left side. Patellar reflexes are 2+ on the right side and 2+ on the left side. Psychiatric: Speech: Speech normal. Behavior: Behavior normal. Thought Content: Thought content normal. Judgment: Judgment normal. documented in this encounter [facility] 01-13-2025 Progress note Formatting of t his note might be different from the original. EH - S: Sia is a 24 year old female who presents at 16w3d for a routine visit. Denies headache, visual changes, chest pain, shortness of breath, vaginal bleeding, leakage of fluid, or dysuria. Feeling well, no complaints. O: See flow sheet Gen: No apparent distress Abd: Gravid, nontender ASSESSMENT/PLAN: 1. Encounter for supervision of high risk in first trimester, antepartum (HCC) - ICD9: V23.9, ICD10: O09.91 (primary diagnosis) - Continue PNV, undecided on LDA 2. 16 weeks gestation of (HCC) - ICD9: V22.2, ICD10: Z3A.16 - Early anatomy today, report pending - Full anatomy next visit 3. 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 Cleft palate (HCC) - ICD9: 749.00, ICD10: Q35.9 - Patient and mother both with cleft palate - Had genetics consult 12/27 6. Cystic fibrosis carrier - ICD9: V83.81, ICD10: Z14.1 - Declined carrier screening for FOB - Had genetics consult 12/27 7. Engages in nicotine containing substance vaping - ICD9: 305.1, ICD10: Z72.0 - Trying to decrease 8. Anxiety during (HCC) - ICD9: 648.43, 300.00, ICD10: O99.340, F41.9 - Reports mood stable PTL precautions reviewed. RTO in 4 weeks or sooner as needed. María Freeman APRN.RETIREMENT PLAN COUNSELOR [facility] 01-13-2025 Miscellaneous Notes EH - S: Sia is a 24 year old female who presents at 16w3d for a routine visit. Denies headache, visual changes, chest pain, shortness of breath, vaginal bleeding, leakage of fluid, or dysuria. Feeling well, no complaints. O: See flow sheet Gen: No apparent distress Abd: Gravid, nontender ASSESSMENT/PLAN: 1. Encounter for supervision of high risk in first trimester, antepartum (HCC) - ICD9: V23.9, ICD10: O09.91 (primary diagnosis) - Continue PNV, undecided on LDA 2. 16 weeks gestation of (HCC) - ICD9: V22.2, ICD10: Z3A.16 - Early anatomy today, report pending - Full anatomy next visit 3. 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 Cleft palate (HCC) - ICD9: 749.00, ICD10: Q35.9 - Patient and mother both with cleft palate - Had genetics consult 12/27 6. Cystic fibrosis carrier - ICD9: V83.81, ICD10: Z14.1 - Declined carrier screening for FOB - Had genetics consult 12/27 7. Engages in nicotine containing substance vaping - ICD9: 305.1, ICD10: Z72.0 - Trying to decrease 8. Anxiety during (HCC) - ICD9: 648.43, 300.00, ICD10: O99.340, F41.9 - Reports mood stable PTL precautions reviewed. RTO in 4 weeks or sooner as needed. María Freeman APRN.RETIREMENT PLAN COUNSELOR documented in this encounter [facility] 01-13-2025 Instructions Shala Portillo MA - 01/13/2025 2:20 PM EDT SEQUENTIAL SCREENINGS The [facility] offers sequential screenings for women who are interested in screenings for chromosomal abnormalities and certain defects during a . The sequential screen combines ultrasound and blood tests to determine the risk of chromosomal abnormalities, including Down's Syndrome (Trisomy 21) and Trisomy 18, as well as open neural tube defects including spina bifida. Ultrasound examination is performed between 11 weeks and 13 weeks gestational age. Blood tests are drawn after the ultrasound and again later in the between 15 and 21 weeks gestational age. Please let your physician know if you are interested in this testing. It will require an appointment with our upstream biomanufacturing technician. This is not an ultrasound performed by a physician in our office during a routine visit. SIGNS AND SYMPTOMS OF LABOR 1. Contractions every 10 minutes or more often 2. Clear, pink, or brownish fluid (water) leaking from vagina 3. Feeling that baby is pushing down, pressure 4. Low, dull backache 5. Cramps that feel like a period 6. Cramps with or without diarrhea If you notice any of the above symptoms, contact our office at [phone] and ask to speak with a nurse. After hours, you can call doctors registry at [phone] OR call [facility] at [phone] and ask to have the doctor regulatory submissions specialist paged. If you consider this an emergency, dial [phone]- or go to your nearest emergency department. NEED HELP? Are you dealing with a violent or abusive relationship? Are you a victim of rape or sexual assult? Call [facility] ([place]) 24 hour Crisis Hotline: 529.120.8320 or 387-806-6211. MANUAL Your Guide to a Healthy manual is now on-line. Visit [email or web address] ncyGuide to download your free copy documented in this encounter [facility] 01-01-2025 Telephone encounter Note Patient called back to ask if blood work is the only way to check because FOB can not handle needles. Advised that yes, it's blood work. Nahomy Lang, RN [facility] 01-01-2025 Miscellaneous Notes Patient called back to ask if blood work is the only way to check because FOB can not handle needles. Advised that yes, it's blood work. Nahomy Lang RN Pt called back-states they decline to have FOB tested at this time. Advised Pt that if they change their mind to call office. Marleen Moore, AUTUMN Left message for patient to return phone call. Please notify patient: Carrier screening is + for cystic fibrosis. Next steps would be to test FOB. If they would like him tested, would need name, date of , and permission to access his chart. María Freeman APRN.RETIREMENT PLAN COUNSELOR documented in this encounter [facility] 01-01-2025 Telephone encounter Note Pt called back-states they decline to have FOB tested at this time. Advised Pt that if they change their mind to call office. Marleen Moore RN [facility] 01-01-2025 Telephone encounter Note Left message for patient to return phone call. Please notify patient: Carrier screening is + for cystic fibrosis. Next steps would be to test FOB. If they would like him tested, would need name, date of , and permission to access his chart. María Freeman APRN.RETIREMENT PLAN COUNSELOR [facility] 12-30-2024 Progress note Formatting of t his note might be different from the original. MARCIN-S: Sia Holley is a 24 year old female who presents at with 12w6d with CRYSTAL:06/27/2025, by Last Menstrual Period for a routine visit. Denies headache, visual changes, chest pain, shortness of breath, vaginal bleeding, leakage of fluid, or dysuria. Feeling well, no complaints. O: See flow sheet Gen: No apparent distress Abd:nontender ASSESSMENT/PLAN: 1. Encounter for supervision of high risk in first trimester, antepartum -Continue PNV -Start ASA 2. 12 weeks gestation of -PN labs today 3. Abnormal ultrasound - Possible cleft palate seen on US today. Referral to medical genetics and also follow up US at 16 wk. NIPT today. - [id number] PLUS - CONSULT TO MEDICAL GENETICS - - OBSTETRIC ULTRASOUND WHI -Offered to speak with MFM but declines at this time. Will call office if she desires further conversation. 4. Parsonage-Kirby syndrome - CONSULT TO MEDICAL GENETICS - 5. Cleft palate (HCC) - ICD9: 749.00, ICD10: Q35.9 -Mother and patient with history of cleft palate. PTL precautions reviewed and when to call RTO in 4 weeks Kenia De Jesus APRN.CNM [facility] 12-30-2024 Miscellaneous Notes MARCIN-S: Sia Holley is a 24 year old female who presents at with 12w6d with CRYSTAL:06/27/2025, by Last Menstrual Period for a routine visit. Denies headache, visual changes, chest pain, shortness of breath, vaginal bleeding, leakage of fluid, or dysuria. Feeling well, no complaints. O: See flow sheet Gen: No apparent distress Abd:nontender ASSESSMENT/PLAN: 1. Encounter for supervision of high risk in first trimester, antepartum -Continue PNV -Start ASA 2. 12 weeks gestation of -PN labs today 3. Abnormal ultrasound - Possible cleft palate seen on US today. Referral to medical genetics and also follow up US at 16 wk. NIPT today. - [id number] PLUS - CONSULT TO MEDICAL GENETICS - - OBSTETRIC ULTRASOUND WHI -Offered to speak with MFM but declines at this time. Will call office if she desires further conversation. 4. Parsonage-Kirby syndrome - CONSULT TO MEDICAL GENETICS - 5. Cleft palate (HCC) - ICD9: 749.00, ICD10: Q35.9 -Mother and patient with history of cleft palate. PTL precautions reviewed and when to call RTO in 4 weeks Kenia De Jesus APRN.CNM documented in this encounter [facility] 12-27-2024 History of Present illness Narrative Images from the original note were not included. REPRODUCTIVE GENETIC COUNSELING INITIAL VISIT Sia Holley : 2000 Above identifiers confirmed by Dasia Taylor MS, [facility] Consultation requested by: Kenia De Jesus APRN.CNM Date of clinic visit: December 27, 2024 Pet Adoption Counselor offered/present: No - Beninese per EMR Sia Holley is a 24 year old female referred by Kenia De Jesus APRN.CNM for genetic counseling to discuss her history of cleft palate and Parsonage-Kirby syndrome. She was accompanied to the visit today by her partner, Mr. Singh Fernandez. Ms. Dmitry Holley is seen via a virtual Distance Health visit today via [employer] platform per patient choice. The visit is conducted synchronously in real-time. The patient and her partner are in attendance. I have communicated my name and active licensure. The patient's identity and physical location were verified at the time of this visit. Either the patient or their legal plastic products sales representative has been informed of the risks and benefits of -- and alternatives to -- treatment through a remote evaluation and consents to proceed with the evaluation remotely. PRESENTING PROBLEM: Ms. Sia Holley is a 24 year old female whose personal history is significant for cleft palate and Parsonage-Kirby syndrome, for which she presents to genetics to discuss further. REPRODUCTIVE HISTORY: Currently : Yes / 14w0d (by LMP) LMP: 09/20/2024 CRYSTAL: 06/27/2025 Uncertain of plans for delivery history: 1. Current Infertility as a couple: No. Infertility with other partners: Not Applicable. Patient's infertility work-up: Not Applicable. Partner's infertility work-up: Not Applicable. Infertility therapies: Not Applicable. Parental Screens: KUBOO Fundamental (14 condition) Panel: pending Chromosomal analysis: Patient: No Partner: No Products of conception: Not Applicable exposures: - vitamins or other folate supplementation: Yes - Prescription medicines: No - OTC medicines, herbal medicines, other supplements: Yes, tylenol as needed - Tobacco, alcohol, or illicit drugs: Yes, vapes with nicotine - Maternal infections or fevers: No - Other known/suspected human teratogens: Yes, nicotine Aneuploidy screening: Pending [id number]: drawn 12/19/24 Ultrasounds: - POC scan 12/05/24 at 10w6d gestation by LMP (performed by María Freeman CNP): 10w3d by scan. - 1st trimester anatomy performed 12/19/[address] Rosa Phan; NT and other anatomic structure reported as unremarkable CVS: Not Applicable Amniocentesis: No complications: - Maternal diabetes, hypertension, seizures, other illness: No - Vaginal bleeding, labor, other complications: No - Decreased movement: Not Applicable SIGNIFICANT PAST MEDICAL/SURGICAL HISTORIES: Sia: PAST MEDICAL HISTORY Diagnosis Date Anxiety disorder affecting , antepartum (HCC) anxiety Cleft palate, unspecified (HCC) Parsonage-Kirby syndrome Dr. Ramirez PAST SURGICAL HISTORY Procedure Laterality Date ANES INTRAORAL W/BIOPSY REPAIR CLEFT PALATE Andrewae Rebecca: (age 32 ) ADHD Sickle cell trait FAMILY HISTORY: A 3-generation pedigree was obtained for the patient and her partner and will be scanned into patient's EMR. Of note: - Genetic and/or Inherited Disease: Yes - Ms. 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 No genetic testing records were available at the time of this visit. Ms. Dmitry Holley reported her maternal sister has Parsonage-Kirby syndrome, as does her maternal half brother but he does not have any of the phenotypic features. - Mr. Fernandez is believed to have sickle cell trait. - Common Disorders: None - Defects: Yes - Ms.Wohlford Holley and her mom were both born with cleft palate. - Seizures: Yes - Mr. Fernandez's mother (, late 30s) had a history that included lead poisoning, kidney disease, and seizures. - Mr. Fernandez's maternal half sister has a history of seizures. - Recurrent Loss/Infertility: None - MR/DD/Autism: Yes - Mr. Fernandez's maternal half sister (described above) has a son (age 2) who has a history of autism. - : None - Other: None - Patient's ethnicity: - Partner's ethnicity: /-Palauan - Patient and/or partner did not report -Palauan, , Mediterranean, Ashkenazi Religious and/or [place]ican-Afghan/Cajun ancestries unless noted above. - Patient and partner are not consanguineous Other questions were asked to assess for a family history of [place] syndrome and/or 22q11.2 deletion syndrome. Ms. Dmitry Holley reported no family history of any congenital heart defects, disorders of the immune system, developmental delay, delayed growth/short stature, learning disability, speech therapy services, hearing loss, physical features including low set ears, wide set eyes, pectus deformity, or psychiatric conditions. The remainder of the known family history is negative for infertility, recurrent loss, stillbirth, unexplained , defects, malformation syndromes, chromosomal abnormalities, metabolic disorders, developmental delay, intellectual disability, known or suspected genetic diseases, and consanguinity except as noted above and on the formal pedigree. GENETIC COUNSELING/DISCUSSION: Ms. Sia Holley is a 24 year old female whose personal history is significant for cleft palate and Parsonage-Kirby syndrome, for which she presents to genetics to discuss further. Cleft Palate Ms. Dmitry Holley and I discussed that cleft palate occurs in approximately 1 and 3,000-6,000 births. Cleft palate can be an isolated finding or part of a multiple malformation syndrome. While most cases are isolated, over 300 genetic syndromes have been described with cleft lip and/or cleft palate. It is estimated that chromosomal abnormalities may be found in approximately 4% of isolated cleft lip and palate and up to 63% when associated anomalies are present. While cleft palate can be seen in multiple genetic syndromes, most cases of isolated cleft palate show multifactorial inheritance making recurrence risk counseling difficult. In addition, environmental exposures during such as maternal alcohol and smoking use as well as certain medications have also been associated with increased risk for cleft lip and cleft palate. Ms. Dmitry Holley's mother also has a history of a cleft palate. It is known that having one child with cleft palate can increase the chances of having another baby with cleft palate regardless of severity. Parsonage-Kirby syndrome/Hereditary neuralgic amyotrophy (HNA) The hereditary form of Parsonage-Kirby syndrome, also called hereditary neuralgic amyotrophy (HNA), is an autosomal dominant condition most commonly caused by pathogenic variants in the SEPT9 gene. It is characterized by recurrent episodes of severe shoulder and/or arm pain followed by weakness, muscle wasting, and sensory changes, primarily affecting the brachial plexus nerves. Symptoms often begin in childhood or early adulthood. The episodes may be spontaneous, or they may be triggered by stress such as strenuous exercise, childbirth, surgery, exposure to cold, infections, immunization, or emotional disturbance. While the frequency of the episodes tends to decrease with age, affected individuals are often left with residual problems, such as chronic pain and impaired movement, that accumulate over time. Ms. Dmitry Holley has been under the care of neurology for over 5 years. Individuals with HNA may also have characteristic facial or skeletal features (such as cleft palate), although these are not always present. It is possible that Ms. Dmitry Holley's history of cleft palate is due to hereditary neuralgic amyotrophy, however this cannot be confirmed at this time. No genetic testing records were available at the time of this visit. Ms. Dmitry Holley and I discussed that penetrance is high but variable, and severity can range widely, even within families. Because hereditary neuralgic amyotrophy follows an autosomal dominant inheritance pattern, Ms. Dmitry Holley and I discussed that there is a 50% chance that each of her pregnancies inherit her copy of the SEPT9 gene that has a pathogenic variant. Reviewed that having a pathogenic variant in the SEPT9 gene does NOT guarantee someone will have signs or symptoms of the hereditary neuralgic amyotrophy. Based on Family History: The diagnosis of Autism Spectrum Disorder is primarily based on clinical observation however underlying genetic causes have been identified with increased frequency over the last few years. Research has suggested a familial component to autism and autism has been associated with multiple genetic syndromes. Approximately 30-40% of cases have an underlying genetic cause such as fragile X syndrome. Recommendations are currently in place for children born with autism to have a genetic evaluation with consideration of genetic testing (ALIGNING INSPECTOR, fragile X syndrome). Mr. Fernandez was encouraged to speak with his relatives to determine if any genetic testing for his maternal half sister's son was previously performed. If a specific genetic diagnosis has been made, this can assist with providing recurrence risk information. In the absence of a genetic diagnosis, recurrence risk is difficult to estimate. Shared the benefits of genetic evaluation and the availability of these services at [facility]. If a referral to medical genetics is desired, it can be placed by his lard tub washer. Based on the reported history of seizures in Mr. Fernandez's mother and maternal half sister, we discussed that there can be a genetic etiology for a history of seizures. Reviewed that if Mr. Fernandez's sister has any interest in education or the possibility of genetic testing, that neurogenetics are available at the [facility]. If a specific genetic diagnosis has been made, this can assist with providing recurrence risk information. In the absence of a genetic diagnosis, recurrence risk is difficult to estimate. Shared the benefits of genetic evaluation and the availability of these services at [facility]. Ms. Dmitry Holley and Mr. Fernandez indicated understanding. SUGGESTIONS/PLAN: Discussed Ms. 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 Reviewed that there is a 50% chance that each of Ms. Dmitry Holley's pregnancies inherit the copy of the SEPT9 gene that has a pathogenic variant. Reviewed that having a pathogenic variant in the SEPT9 gene does NOT guarantee someone will have signs or symptoms of the hereditary neuralgic amyotrophy. Ms. Dmitry Holley's carrier screening panel is PENDING at this time. Reviewed Mr. Fernandez's family history of autism spectrum disorder and seizures. Interested parties may pursue further genetic evaluation/testing at their discretion. Referrals to genetics can be placed by an individual's primary care physician or other appropriate provider. Encouraged Ms. Dmitry Holley to contact me with any questions/concerns/etc via [employer] or my provided phone line ([phone]). Thank you for referring Ms. Dmitry Holley. Please do not hesitate to call if you have questions/concerns. MEDICAL REFERENCES: Risa HM, Y?lmaz S, Kanmaz S, ?im?ek E, Nellyan G, Danng l H, G anahi S. A rare cause of brachial plexopathy: hereditary neuralgic amyotrophy. [employer]. 2018Feb 13;54(3):189-191. doi: 10.5152/[employer]Ped[employer]ri[employer]s.[email or web address] . PMID: [id number]; PMCID: [id number]. I spent a total of 69 minutes on the date of the service, which included preparing to see the patient, [id number] patient care, completing clinical documentation, obtaining and/or reviewing separately obtained history, counseling and educating the patient/family/caregiver, ordering tests, communicating with other HCPs (not separately reported), independently interpreting results (not separately reported), communicating results to the patient/family/caregiver, and care coordination (not separately reported). This plan is being carried out under the oversight of Dr. Maritza Melchor. This note will also be sent to the referring provider via the electronic medical record. Dasia Taylor MS, [facility] Licensed, Certified Genetic Counselor EPIC CC: Kenia De Jesus APRN.CNM Referring Provider Dr. Maritza Melchor (pipeliner) documented in this encounter [facility] 12-27-2024 Note HNO ID: [id number] Author: DASIA TAYLOR LGC Service: ? Author Type: Genetic Counselor Type: Progress Notes Filed: 01/15/2025 14:35 Note Text: REPRODUCTIVE GENETIC COUNSELING INITIAL VISIT Sia Holley : 2000 Above identifiers confirmed by Dasia Taylor MS, [facility] Consultation requested by: Kenia De Jesus APRN.CNM Date of clinic visit: December 27, 2024 Pet Adoption Counselor offered/present: No - Beninese per EMR Sia Holley is a 24 year old female referred by Kenia De Jesus APRN.CNM for genetic counseling to discuss her history of cleft palate and Parsonage-Kirby syndrome. She was accompanied to the visit today by her partner, Mr. Singh Fernandez. Ms. Dmitry Holley is seen via a virtual Distance Health visit today via [employer] platform per patient choice. The visit is conducted synchronously in real-time. The patient and her partner are in attendance. I have communicated my name and active licensure. The patient's identity and physical location were verified at the time of this visit. Either the patient or their legal plastic products sales representative has been informed of the risks and benefits of -- and alternatives to -- treatment through a remote evaluation and consents to proceed with the evaluation remotely. PRESENTING PROBLEM: Ms. Sia Holley is a 24 year old female whose personal history is significant for cleft palate and Parsonage-Kirby syndrome, for which she presents to genetics to discuss further. REPRODUCTIVE HISTORY: Currently : Yes / 14w0d (by LMP) LMP: 09/20/2024 CRYSTAL: 06/27/2025 Uncertain of plans for delivery history: 1. Current Infertility as a couple: No. Infertility with other partners: Not Applicable. Patient's infertility work-up: Not Applicable. Partner's infertility work-up: Not Applicable. Infertility therapies: Not Applicable. Parental Screens: KUBOO Fundamental (14 condition) Panel: pending Chromosomal analysis: Patient: No Partner: No Products of conception: Not Applicable exposures: - vitamins or other folate supplementation: Yes - Prescription medicines: No - OTC medicines, herbal medicines, other supplements: Yes, tylenol as needed - Tobacco, alcohol, or illicit drugs: Yes, vapes with nicotine - Maternal infections or fevers: No - Other known/suspected human teratogens: Yes, nicotine Aneuploidy screening: Pending [id number]: drawn 12/19/24 Ultrasounds: - POC scan 12/05/24 at 10w6d gestation by LMP (performed by María Freeman CNP): 10w3d by scan. - 1st trimester anatomy performed 12/19/[address] Rosa Phan; NT and other anatomic structure reported as unremarkable CVS: Not Applicable Amniocentesis: No complications: - Maternal diabetes, hypertension, seizures, other illness: No - Vaginal bleeding, labor, other complications: No - Decreased movement: Not Applicable SIGNIFICANT PAST MEDICAL/SURGICAL HISTORIES: Sia: PAST MEDICAL HISTORY Diagnosis Date Anxiety disorder affecting , antepartum (HCC) anxiety Cleft palate, unspecified (HCC) Parsonage-Kirby syndrome Dr. Ramirez PAST SURGICAL HISTORY Procedure Laterality Date ANES INTRAORAL W/BIOPSY REPAIR CLEFT PALATE Keyontae Legette: (age 32 ) ADHD Sickle cell trait FAMILY HISTORY: A 3-generation pedigree was obtained for the patient and her partner and will be scanned into patient's EMR. Of note: - Genetic and/or Inherited Disease: Yes - Ms. 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 No genetic testing records were available at the time of this visit. Ms. Dmitry Holley reported her maternal sister has Parsonage-Kirby syndrome, as does her maternal half brother but he does not have any of the phenotypic features. - Mr. Fernandez is believed to have sickle cell trait. - Common Disorders: None - Defects: Yes - Ms.Wohlford Holley and her mom were both born with cleft palate. - Seizures: Yes - Mr. Fernandez's mother (, late 30s) had a history that included lead poisoning, kidney disease, and seizures. - Mr. Fernandez's maternal half sister has a history of seizures. - Recurrent Loss/Infertility: None - MR/DD/Autism: Yes - Mr. Fernandez's maternal half sister (described above) has a son (age 2) who has a history of autism. - : None - Other: None - Patient's ethnicity: - Partner's ethnicity: /-Palauan - Patient and/or partner did not report -Palauan, , Mediterranean, Ashkenazi Religious and/or [place] Rican-Afghan/Cajun ancestries unless noted above. - Patient and partner are not consanguineous Other questions were asked to assess for a family history of [place] syndrome and/or 22q11.2 deletion syndrome. Ms. Dmitry Holley reported no (more content not included)... [facility] 12-19-2024 Instructions Gavi Victor MA - 12/19/2024 1:25 PM EDT SEQUENTIAL SCREENINGS The [facility] offers sequential screenings for women who are interested in screenings for chromosomal abnormalities and certain defects during a . The sequential screen combines ultrasound and blood tests to determine the risk of chromosomal abnormalities, including Down's Syndrome (Trisomy 21) and Trisomy 18, as well as open neural tube defects including spina bifida. Ultrasound examination is performed between 11 weeks and 13 weeks gestational age. Blood tests are drawn after the ultrasound and again later in the between 15 and 21 weeks gestational age. Please let your physician know if you are interested in this testing. It will require an appointment with our upstream biomanufacturing technician. This is not an ultrasound performed by a physician in our office during a routine visit. SIGNS AND SYMPTOMS OF LABOR 1. Contractions every 10 minutes or more often 2. Clear, pink, or brownish fluid (water) leaking from vagina 3. Feeling that baby is pushing down, pressure 4. Low, dull backache 5. Cramps that feel like a period 6. Cramps with or without diarrhea If you notice any of the above symptoms, contact our office at [phone] and ask to speak with a nurse. After hours, you can call doctors registry at [phone] OR call [facility] at [phone] and ask to have the doctor regulatory submissions specialist paged. If you consider this an emergency, dial -[phone] or go to your nearest emergency department. NEED HELP? Are you dealing with a violent or abusive relationship? Are you a victim of rape or sexual assult? Call [facility] ([place]) 24 hour Crisis Hotline: 950.832.4661 or 360-287-4884. MANUAL Your Guide to a Healthy manual is now on-line. Visit [email or web address] ncyGuide to download your free copy documented in this encounter [facility] 12-06-2024 Telephone encounter Note 1st risk assessment form submitted 12/06/2024. Nahomy Burrell RN [facility] 12-06-2024 Miscellaneous Notes 1st risk assessment form submitted 12/06/2024. Nahomy Burrell RN documented in this encounter [facility] 12-05-2024 Note HNO ID: [id number] Author: MARÍA FREEMAN APRN.SHEEBA Service: ? Author Type: Nurse Practitioner Type: Progress Notes Filed: 12/05/2024 14:52 Note Text: Svp Innovation Partnerships offered: Patient declines. INITIAL OB ASSESSMENT HPI: Sia is a 24 year old White here to establish Obstetrical Care. Patient's last menstrual period was 09/20/2024. from OB Dating Form. was unplanned but accepted Complaints: Shortness of breath (with activity) OB History Gravida1 Para0 Term0 Preterm0 AB0 Living0 SAB0 IAB0 Ectopic0 Multiple0 Live Births0 Previous history: Prior : never History of 4th degree laceration: NA History of shoulder dystocia: No History of Hypertensive disorders including pre-eclampsia or gestational hypertension: NA History of gestational diabetes: n/a Patient's Risk Screening for delivery: Have you had a prior martin between 20w and 36w6d? No How many pregnancies have you had before? 0 Did you have a previous baby with a GBS Infection? No Please select all that apply for any prior : N/A MEDICAL/PSYCHOSOCIAL HISTORY: History of hemorrhage or bleeding concerns: No Thyroid Disease: No History of chronic hypertension: No History of pre-existing diabetes: No No results found for: ABORHD BMI 18.22 kg/(m2) Last Pap: never done History of abnormal pap: No Prior treatment for cervical dysplasia: none. Last HPV: never done History of STDs: None Partner History of STDs: None Did you have a partner with Herpes? No Tobacco use: No E-Cigarette/Vaping Use: Yes Caffeine use: yes Drug use: No Alcohol use: No Multivitamin with Folic acid: Yes Would refuse blood transfusion if medically necessary: No Social Needs: How often does this describe you? I don't have enough money to pay my bills: Sometimes Within the past 12 months, have you worried that your food would run out before you had money to buy more? Never In the past 12 months, has lack of reliable transportation kept you from going to medical appointments or work, or from getting things needed for daily living? Never In the past 12 months, have you had any concerns about having a place to live, or about the condition or quality of your housing? Never Would you like more information on any of the following (please check all that apply)? Not interested Social History: Do you have any history of depression, anxiety, PTSD, or other mood problems? Yes Do you have a history of abuse or trauma that may impact your experience? No Are you currently employed? Yes Depression/Anxiety Screening: denies symptoms of depression. OB Depression and Anxiety Screening- This Encounter Feeling down, depressed, or hopeless: Not at all Little interest or pleasure in doing things: Several days Feeling nervous, anxious, or on edge Several days Not being able to stop or control worrying Several days Anxiety Pre-Screening Total (If >/= 3 additional questions will be reviewed) 2 Genetic Screening: Partner present: Yes Patient verbalized knowledge of partner family health history: Yes Do you or your partner have any personal or family history of defects not previously discussed: Yes Do you have history of a complicated by anomaly, genetic condition, or demise: No Preeclampsia Risk Screening: Screening for prevention of preeclampsia: High risk factors: Autoimmune disease (e.g. systemic lupus erythematosus, anti-phospholipid antibody syndrome) Moderate risk ractors: Nulliparity OB Risk Screening: Completed, no positive findings documented. Marital Status:Partnering Partner: Name: Dariaontayanna Age: 30 Occupation: Factory Gender: Male PAST MEDICAL HISTORY Diagnosis Date Anxiety disorder affecting , antepartum (HCC) anxiety Cleft palate, unspecified (HCC) Parsonage-Kirby syndrome Dr. Ramirez PAST SURGICAL HISTORY Procedure Laterality Date ANES INTRAORAL W/BIOPSY REPAIR CLEFT PALATE Current Outpatient Medications Medication Sig Dispense Refill vit 75/iron/folic/om3 (DAILY ORAL) Take by mouth. No current facility-administered medications for this visit. Allergies As of Date: 12/05/2024 Allergen Noted Reaction ZOFRAN [ONDANSETRON] 12/05/2024 Hives Fully Assessed 12/05/2024 Does patient have penicillin allergy: No REVIEW OF SYSTEMS: GENERAL: Negative for: Fever or Chills HEENT: Negative for: Impaired Vision, Ringing in Ears, Nosebleeds + hx of headaches NECK: Negative for: Swelling, Pain, Stiffness RESPIRATORY: Negative for: Cough, Shortness of breath, Wheezing GASTROINTESTINAL: Negative for: Heartburn, Diarrhea, Blood in stool +constipation, nausea MUSCULOSKELETAL: Negative for: Muscle or joint pain, stiffness, Joint swelling + chronic back pain NEUROLOGIC/PSYCHIATRIC: Negative for: Weakness, Paralysis, Numbness, Tingling, Tremor, Depressi (more content not included)... [facility] 12-05-2024 History of Present illness Narrative Svp Innovation Partnerships offered: Patient declines. INITIAL OB ASSESSMENT HPI: Sia is a 24 year old White here to establish Obstetrical Care. Patient's last menstrual period was 09/20/2024. from OB Dating Form. was unplanned but accepted Complaints: Shortness of breath (with activity) OB History Gravida1 Para0 Term0 Preterm0 AB0 Living0 SAB0 IAB0 Ectopic0 Multiple0 Live Births0 Previous history: Prior : never History of 4th degree laceration: NA History of shoulder dystocia: No History of Hypertensive disorders including pre-eclampsia or gestational hypertension: NA History of gestational diabetes: n/a Patient's Risk Screening for delivery: Have you had a prior martin between 20w and 36w6d? No How many pregnancies have you had before? 0 Did you have a previous baby with a GBS Infection? No Please select all that apply for any prior : N/A MEDICAL/PSYCHOSOCIAL HISTORY: History of hemorrhage or bleeding concerns: No Thyroid Disease: No History of chronic hypertension: No History of pre-existing diabetes: No No results found for: ABORHD BMI 18.22 kg/(m^2) Last Pap: never done History of abnormal pap: No Prior treatment for cervical dysplasia: none. Last HPV: never done History of STDs: None Partner History of STDs: None Did you have a partner with Herpes? No Tobacco use: No E-Cigarette/Vaping Use: Yes Caffeine use: yes Drug use: No Alcohol use: No Multivitamin with Folic acid: Yes Would refuse blood transfusion if medically necessary: No Social Needs: How often does this describe you? I don't have enough money to pay my bills: Sometimes Within the past 12 months, have you worried that your food would run out before you had money to buy more? Never In the past 12 months, has lack of reliable transportation kept you from going to medical appointments or work, or from getting things needed for daily living? Never In the past 12 months, have you had any concerns about having a place to live, or about the condition or quality of your housing? Never Would you like more information on any of the following (please check all that apply)? Not interested Social History: Do you have any history of depression, anxiety, PTSD, or other mood problems? Yes Do you have a history of abuse or trauma that may impact your experience? No Are you currently employed? Yes Depression/Anxiety Screening: denies symptoms of depression. OB Depression and Anxiety Screening- This Encounter Feeling down, depressed, or hopeless: Not at all Little interest or pleasure in doing things: Several days Feeling nervous, anxious, or on edge Several days Not being able to stop or control worrying Several days Anxiety Pre-Screening Total (If >/= 3 additional questions will be reviewed) 2 Genetic Screening: Partner present: Yes Patient verbalized knowledge of partner family health history: Yes Do you or your partner have any personal or family history of defects not previously discussed: Yes Do you have history of a complicated by anomaly, genetic condition, or demise: No Preeclampsia Risk Screening: Screening for prevention of preeclampsia: High risk factors: Autoimmune disease (e.g. systemic lupus erythematosus, anti-phospholipid antibody syndrome) Moderate risk ractors: Nulliparity OB Risk Screening: Completed, no positive findings documented. 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 Ramirez PAST SURGICAL HISTORY Procedure Laterality Date ANES INTRAORAL W/BIOPSY REPAIR CLEFT PALATE Current Outpatient Medications Medication Sig Dispense Refill vit 75/iron/folic/om3 (DAILY ORAL) Take by mouth. No current facility-administered medications for this visit. Allergies As of Date: 12/05/2024 Allergen Noted Reaction ZOFRAN [ONDANSETRON] 12/05/2024 Hives Fully Assessed 12/05/2024 Does patient have penicillin allergy: No REVIEW OF SYSTEMS: GENERAL: Negative for: Fever or Chills HEENT: Negative for: Impaired Vision, Ringing in Ears, Nosebleeds + hx of headaches NECK: Negative for: Swelling, Pain, Stiffness RESPIRATORY: Negative for: Cough, Shortness of breath, Wheezing GASTROINTESTINAL: Negative for: Heartburn, Diarrhea, Blood in stool +constipation, nausea MUSCULOSKELETAL: Negative for: Muscle or joint pain, stiffness, Joint swelling + chronic back pain NEUROLOGIC/PSYCHIATRIC: Negative for: Weakness, Paralysis, Numbness, Tingling, Tremor, Depression, Memory loss + anxiety SKIN: Negative for: Rash, Itching GENITOURINARY: Negative for: vaginal itching, vaginal discharge, hematuria or dysuria SENSITIVE EXAM: The sensitive examination was discussed with the Patient or Patient's Authorized Cabinet Builder. As applicable, any other physician, advance practice provider, medical student, or other health professional student that will be observing or involved in the sensitive examination for educational or training purposes was discussed with the Patient or Authorized Cabinet Builder. The Patient or Authorized Cabinet Builder has agreed to proceed with the sensitive examination. (Sensitive examination includes inspection and/or palpation of the breasts, pelvis, prostate and anorectal regions). PHYSICAL EXAM: BP 116/62 Ht 5' 5.748 (1.67m) Wt 112 lb (50.8kg) LMP 09/20/2024 BMI 18.22 kg/(m^2). GENERAL: pleasant in no apparent distress DERMATOLOGY: Normal, without lesions, non-icteric, and non-hirsute NECK: Supple, full range of motion, no adenopathy, and thyroid normal CHEST: Normal inspiratory effort BREAST: Declined. ABDOMEN: soft, non-tender, and no masses NEURO: alert and oriented x3,exam grossly non-focal PELVIS: External genitalia normal without lesions. Perineal body intact. No vaginal or cervical lesions. Cervix closed. Uterus 10 week size. No adnexal masses or tenderness. Clinical Pelvimetry: Pelvimetry clinically assessed as adequate Limited OB ultrasound exam: single intrauterine and positive cardiac activity ASSESSMENT: 24 year old at 10w6d wks gestational age PLAN: 1) Patient oriented to practice. Patient given new OB orientation folder. Discussed nutrition, folic acid supplementation, dietary guidelines, exercise, smoking, alcohol, caffeine, and drug use. Discussed gestational weight gain guidelines. Discussed routine OB labs including STD/HIV. Discussed how to access Your guide to a health and the Industrial Engineer. Discussed hemoglobin electrophoresis. Patient: Accepts Reviewed midwifery and head porter baggage services that are available. 2) Screening: Hemoglobin A1C: ordered Baby Aspirin: The patient has been counseled about the potential benefits of low dose aspirin in and our recommendation that this be offered to all patients, regardless of whether they meet the high risk criteria specified above. She Accepts Aneuploidy Screening: Discussed aneuploidy screening, nuchal translucency/first trimester early anatomy ultrasound and NIPT. The risks/benefits and limitations of NIPT/aneuploidy screening were reviewed including the potential for false negative and false positive results. The availability of genetic counseling was reviewed. Information on aneuploidy screening was provided. The patient chooses to proceed with First trimester early anatomy ultrasound (12-13w6d) Myriad Carrier Screening: Discussed myriad carrier screening. We discussed the availability of professional-society guided carrier screening and reviewed the conditions screened and limitations of screening. The availability of genetic counseling was reviewed. Information on carrier screening was provided. The patient Accepts 3) Patient offered option of Virtual Visits. Patient unsure. May consider in future. 4) Current tobacco use: The patient has been counseled about the risks of tobacco use during and cessation has been recommended. Patient plans to quit or decrease smoking without outside assistance. 4 minutes were spent discussing the risks of tobacco use and providing cessation resources. ACTIVE PROBLEM LIST Encounter for Supervision of High Risk in First Trimester, Antepartum ([facility]) - 12/05/2024 Comment: Care Checklist Vaccines: [] Flu vaccine [] declined [] RSV vaccine 32 0/7 - 36 6/7 (Jan - Jun) [] declined [] COVID vaccine [] declined [] TDaP 27-36 [] declined First trimester: [x] Dating US [x] 1st tri labs [x] Pap smear [x] Carrier screening [] declined [] NIPT screening - considering [] declined [x] First trimester anatomy scan [] declined [x] universal ASA ordered (start 12w-16w) [] declined [] M Power Consult [] not indicated [] declined Second trimester: [] Anatomy scan [] Mode of Delivery - [] Feeding - [] Pump ordered [] Diabetes screen [] CBC, RPR [] Behavioral Health Screening Third trimester (28-30 weeks): [] Consent [] Contraception [] System Support Administrator, car seat, safe sleep [] TeamBirth handout Third trimester (36-40 weeks): [] GBS [] Presentation - [] Scheduled [] yes - Hibiclens, pre-op instructions, CBC, T&S ordered [] no [] H&P [] Prefere Cleft Palate ([facility]) - 12/05/2024 Comment: December 05, 2024 Mother and patient both born with cleft palate. Plan for early anatomy at 16 weeks. María Freeman APRN.RETIREMENT PLAN COUNSELOR Anxiety During ([facility]) - 12/05/2024 Comment: December 05, 2024 Reports situational anxiety. Coping well at this time. Mental health resources provided. María Freeman APRN.CNP Engages in Nicotine Containing Substance Vaping - 12/05/2024 Comment: December 05, 2024 Encouraged cessation. Reviewed risks. Written info provided. María Freeman APRN.CNP Constipation During in First Trimester ([facility]) - 12/05/2024 Comment: December 05, 2024 Discussed stool softeners and increased hydration. María Freeman APRN.CNP Nausea and Vomiting During ([facility]) - 12/05/2024 Comment: December 05, 2024 Controlled with eating. María Freeman APRN.CNP History of Headache - 12/05/2024 Family History of Sickle Cell Anemia (Hgb Ss) in Father - 12/05/2024 Comment: December 05, 2024 FOB reports that he has either sickle cell trait or sickle cell anemia. Not sure of details. Nephew does have sickle cell anemia. 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 Has not seen recently. Encouraged to make appointment. María Freeman APRN.CNP Follow up in 2-3 weeks or sooner prn. Plan for NT scan between 12w0d and 13w6d gestation. María Freeman APRN.CNP documented in this encounter [facility] 12-05-2024 Instructions María Freeman APRN.CNP - 12/05/2024 1:54 PM EDT Images from the original note were not included. Please select the following link to access the [facility] Your Guide to a Healthy . www.Ccf.org/healthypregnancyguide Psychotherapy Services at [facility] Call Behavioral Health Access Line at [phone] to schedule Individual psychotherapy In-person or virtual Wait time for first evaluation may be 12 or more weeks. Wait list spots may be available. Due to the high volume of patients this option is recommended if you are looking for short term acute symptom coping strategies. 6-014-9-TPGV7BUYD - [place] Maternal Mental Health Hotline If you are in suicidal crisis, please call or text 8-614-547-TALK ( ) or visit the National Suicide Prevention Lifeline website. mchb.[facility].gov If you are in crisis, call 911 or go to your nearest Emergency Department Here are some links for wonderful Providers here in the community and surrounding areas. Do not hesitate to contact their offices, many are offering virtual visits during this time. Psychotherapy Services outside of [facility] Support International Online Provider Directory https://Catacel/ - can assist in finding providers in your area that might be more extensive then the list below. [facility] [place], [place] [address] [place] [address] [facility] [address] [place] [address] [facility] [address] [place] [address] [facility] [address] [place], [place] [id number] Duke Sam MD [address] [place], [place] [address] [facility] [address] [facility], [address] [place] [address] [facility] [address] [place] [address] [facility] Counseling Services [place] / [place] [phone]/ [phone] Mo[facility] [address] [facility] [address] [facility] [phone] Aves of Counseling and Mediation [place] / Michelle [phone] [facility]al [facility] services [facility] [address] [place] [address]/ [facility] greene [phone] Hallie Barajas, JOSE, CLC [facility] Workshops, telehealth and at home visits. [phone] Humanistic counseling center 20 locations [facility], [place], [place], [place], [place], [place], [facility], [place], [place], [place], [place], [place], [place], [facility], [place], [place] ,[facility], [place], [place],[facility], [facility] [place], [place], [facility], [facility], [place] www.MyPrintCloud.[facility] [phone] Psychotherapy resources outside of [facility] are listed below [facility] Psychotherapy Web: https://www.Casenet/ Support International Online Provider Directory https://Catacel/ [facility] https://Datto/ Partners for Behavioral Health and Wellness Web: https://Legend of the Elf/ Nantero for Effective Living Web: https://Flow Search Corporation.Agile Therapeutics/ LifeStance Web: https://Wildfire [place]/location/s delgado/[place]/ [facility] Web: https://www.Sure Chill.or / [facility] Web: https://Omate.org/ Recovery Resources Mental health and substance abuse help Web: https://www.VGo Communicationss.org & RESOURCES Support International Direct peer support and connection to professional resources Non-Emergency Helpline Phone: / Text: [phone] Web: https://www..net/ Online Provider Directory: https://Catacel/ Online Support Meetings: https://www..net/get-he lp/umt-rjuazt-kedxqha-meetings/ ANNA Baby and Technical Writer Services Web: https://www.Rare Pink/ ilustrum Expert information on medication use during and Text: [phone] Web: https://Invengo Information Technology.org/ NATIONAL REGISTRY FOR PSYCHIATRIC MEDICATIONS Currently studying the safety of antidepressants, ADHD medications and atypical antipsychotics taken during TO PARTICIPATE CALL TOLL-FREE: Web: https://womensmentalhealth.org/re search/pregnancyregistry/ Support Groups: [facility]- Follow on facebook Baby Bistro support group led by [facility] department Resilient Mamas - Support Group [facility].org The POEM support group [phone] Www.poemonline.org Follow on facebook - POEDU ruffin chapter Online support meetings PSI https://www..net/get-he lp/ora-xkkiny-zdfktzc-meetings/ [facility] mommy and me virtual support group 11:30-1pm Support for mothers and new babies and toddlers Waucoma childbirth education: Childbirth @cc.org or call [phone] CRISIS: CRISIS HOTLINE [phone], 911 or go to the nearest . [facility] [phone] / [facility] [phone] https://www.[facility].org Crisis text line text the word HOME to 424[address] [facility] [address] khris [address] [facility] [address] www.KEMP Technologies Mireille Washburn clinical counseling [address] [address] www.Itaro [phone] Holding space psychotherapy Ruthie Sheffieldbill [facility] HORSE RACER-S [address] [facility] www.Clearbridge Accelerator [phone]/ [place] [phone] They all offer virtual. All work with trauma Support groups Online support meetings PSI https://www..net/get-he lp/hdo-wyyyqh-jakxyau-meetings/ Here are the support groups they offer: Support of parents of 1 to 4 years old children POEM ( Outreach and Encouragement for Moms) offers free support for mothers experiencing depression, anxiety, and other mood and anxiety disorders. Masks are recommended but not required. No pre-registration required. Babies in arms welcome. meetings now take place on the and Monday of each month Location: [facility] [address], [place] [address] Room 122 (library room) 7-8:00 p.m. When you enter the zoroastrianism parking lot off of [address], the entrance door closest to our meeting room is on the front of the building toward the right. For those who are more comfortable with a virtual platform, PO offers online support group options several days of the week. To register for an online group or to find out more about PO, website at: https://aohio.org/get-help/[facility] health systemkazl-gmbpwt-wouixi/poem-services/ offer a confidential helpline: private Facebook group is called JUVE Ruffin Chapter Here are the groups they offer: Traumatic childbirth resources: Http://pattch.org/ https://www.GlocaltereseBaynote/ Name Location (s) Phone # (s) Services Website [facility] Psychotherapy [address] [facility] [phone]; [address] [phone] In-Person GROUPS INDIVIDUAL THERAPY MATERNAL-INFANT MENTAL HEALTH MEDICATION MANAGEMENT PLAY AND ART THERAPY TELETHERAPY https://www.Casenet/s ervices/ [facility] [place] RUFFIN? [address] [address] ? [address], [address] [place], [place] [address] ? HERNANDEZ [address] [id number]? Grief Support Groups Individual Grief Counseling Spiritual Care Memorial Events https://jennifer.[facility].org/grief-services [facility] [address] [place], [place] [address]; ; Email: [email or web address] Systems Women's Mental Health; Couples Counseling; Trauma (EMDR); Stress Management; Mood and Anxiety Related Disorders- and much more https://www.School Places.com/ LifeStance Numerous as they have contract providers: access website to find specific providers near you Counseling including CBT and EMDR as well as many more modalities; Medication Management; Telehealth and In-Person https://Wildfire [place]/ [facility] Well[facility] [address] [address], [place] [address]; [phone] Personal, Family and Group Therapy; Psychological Testing and Diagnosis; Medication Management; Life and Career Coaching; Psychoanalysis; Literacy Testing; Yoga and Meditation https://Legend of the Elf/ [facility] [address] [facility] [address], [place] [address] [address] ; [address] [facility], [address] [place] [address]; Office # for both sites: Individual and Couples Counseling https://www.Information Gateway.Agile Therapeutics/ paymentinsurance.html OCD & Anxiety [facility] [address] [facility], [address], [place] [address]; Specialize in Cognitive-Behavioral Therapy (CBT) for the treatment of anxiety disorders across the lifespan. TELEHEALTH ONLY. https://ocdandanxietycentLiaison Technologies/faqs Formerly [facility] [address] [place], [address] [place] [address] [place], [address] [place] [address] [facility] [place], [address] [place] [address] [place], [address], [address] [place], [address] [place] [address] [place], [place], [id number] Transportation Services To minimize patient barriers, [facility] provides transportation services to patients who qualify. If you are unable to get to your appointment at any of our facilities, please let us know. Need help now? Stop by one of our walk-in clinics to establish behavioral health care. Counseling Indvidual, Group, Couples and Family Counseling and EMDR. Medication Management Case Management benefits applications housing assistance Substance abuse treatment Medication assisted treatment https://www.f f thompson hospitalinc.or g/mental-health/ [facility] OFFICE AT [facility] [address] [place] [address] [facility] OFFICE [address] [place] [address] [facility] [address] [place] [address] [facility] OFF[facility] (at [facility]) [address] [place] [address] [facility] EXCHANGE PROGRAM & HIV SCREENING [address] [place] [address] [facility] EXCHANGE PROGRAM [address] [place] [address] Behavioral Health Urgent Care: [facility] Counseling Indvidual and Group Medication Management Case Management benefits applications housing assistance Substance abuse treatment Medication assisted treatment Employment Services/ Job Training https://theBadu Networks.org/ Recovery Resources [address] [place], [place] [address]: P: [phone] [address], [place], [place] [address] P: [phone] Our services include: Addiction Mental Health Treatment Assessment Psychiatry Medical Care Employment Housing Drug and Alcohol Prevention HIV/AIDS Prevention https://www.recres.org/ [facility] [place] [address] [facility] [address] [place] [address] [address] [place], [place] [address] [place] [address] [place] [address] [place] [address] [facility] [address] [place] [address] [place] [address] [place] [place] [address] TMS Therapy/ Counseling Psychocological Testing for ADHD Medication Management In-Person/ Telemedicine https://www.Dakwak.com/radha ents-depression Memory & Psychological services [address], [place] [address] Neuropsychological Testing For ADHD https://www.memoryandpsych.com/ [facility] Main Office [address] [employer] [address] [id number] Providing efjm-el-hzhy and telehealth services. Adult Case Management Community Education and Prevention Employment Outpatient Treatment - Counseling & Psychotherapy Psychiatric Services http://www.[facility].org/ [facility] [place] [address] [place] [address] [place] [facility] [address] [place] [address] Virtual Appointments! Now offering safe and convenient virtual client appointments to anyone in [place]! Individual Therapy Couples/Relationship Therapy Trauma/EMDR Therapy Art Therapy Play Therapy Glass Production Machine Operator Support: Parenting Skills, Parent Child Interaction Therapy, Parent Interaction Therapy Meditation Dietitian/Construction Trades Teacher Services Group Therapy Yoga https://www.SeedInvest/ Patrizia Sanchez [phone] Private Practice: Telehealth Only Specializes in EMDR for Trauma None How SMOKING Affects Your and Your Baby During Smoking during affects you and your baby's health before, during and after your baby is born. The nicotine (the addictive substance in cigarettes), carbon monoxide and numerous other poisons you inhale from a cigarette are carried through your bloodstream and go directly to your baby. Smoking while will: Lower the amount of oxygen available to you and your growing baby Increase your baby's heart rate Increase the chances of miscarriage and stillbirth Increase the risk that your baby is born prematurely and/or born with low weight Increase your baby's risk of developing respiratory problems The more cigarettes you smoke per day, the greater your baby's chances of developing these and other health problems. There is no safe level of smoking for your baby's health. How does secondhand smoke affect me and my baby? Second-hand smoke (also called passive smoke or environmental tobacco smoke) is the combination of smoke from a burning cigarette and smoke exhaled by a smoker. The smoke that lechuga off the end of a cigarette or cigar contains more harmful substances ( tar, carbon monoxide, nicotine and others) than the smoke inhaled by the smoker. If you are regularly exposed to second-hand smoke, you increase your and your baby's risk of developing lung cancer, heart disease, emphysema, allergies, asthma and other health problems. Babies exposed to second-hand smoke may also develop reduced lung capacity and are at higher risk for sudden syndrome (SIDS). What happens if I keep smoking after my baby is born? If you continue to smoke after your baby is born, you increase his or her chance of developing certain illnesses and problems, such as: Frequent colds Bronchitis and pneumonia Asthma Chronic coughs Ear infections High blood pressure Learning and behavior problems later in childhood Why should I quit smoking? Smoking is the leading cause of preventable in the [place] By quitting you can: Prolong your life Lower your risk of heart disease Lower your risk of developing lung, throat, mouth, pancreatic and bladder cancer Lower your risk of developing breathing problems such as chronic obstructive pulmonary disease (COPD), asthma and emphysema Lower your risk of developing allergies Raise your energy level Improve your appearance; your skin will wrinkle less and look better, and your fingers and teeth will not be yellow Improve your sense of smell and taste Feel healthier overall, with improved self-esteem Save a lot of money (the average smoker spends $740 a year for cigarettes!) How can I quit smoking? There is no one way to quit smoking that works for everyone, since each person has different smoking habits. Here are some tips: Hide your matches, lighters, and ashtrays. Take a deep breath and hold it for five to ten seconds whenever you get the urge to smoke. Designate your home a non-smoking area. Ask people who smoke not to smoke around you. Drink less caffeinated beverages; caffeine may stimulate your urge to smoke. Also avoid alcohol, as it also may increase your urge to smoke and can be harmful to your baby. Change your habits connected with smoking. If you smoked while driving or when feeling stressed, try other activities to replace smoking. Keep mints or gum (preferably sugarless) on hand for those times when you get the urge to smoke. Stay active to keep your mind off smoking and help relieve tension: take a walk, exercise, read a book or try a new a hobby. Look for support from others. Join a support group or smoking cessation program, such as the [facility] Smoking Cessation Program. For more information, please call . Do not go places where many people are smoking such as bars or clubs, and smoking sections of restaurants. Should I use a nicotine replacement to help me quit? Nicotine gum and patches release nicotine into the bloodstream of the smoker who is trying to quit. Although these products can reduce withdrawal symptoms and decrease cravings in smokers who are trying to quit, nicotine is quite toxic and potentially harmful to the fetus (as well as to the infant who is ). Therefore, these and any other products containing nicotine are not always ecommended for the woman who is trying to quit smoking. They may be prescribed in indivdual cases. How will I feel when I quit? The benefits of not smoking start within days of quitting. After you quit, you and your baby's heart beat will return to normal, and your baby will be less likely to develop breathing problems. You may have symptoms of withdrawal because your body is used to nicotine, the addictive substance in cigarettes. You may crave cigarettes, be irritable, feel very hungry, cough often, get headaches or have difficulty concentrating. The withdrawal symptoms are only temporary. They are strongest when you first quit but will go away within 10 to 14 days. When withdrawal symptoms occur, stay in control. Think about your reasons for quitting. Remind yourself that these are signs that your body is healing and getting used to being without cigarettes. Remember that withdrawal symptoms are easier to treat than the major diseases that smoking can cause. Even after the withdrawal is over, expect periodic urges to smoke. However, these cravings are generally short-lived and will go away whether you smoke or not. Don't Smoke! If you smoke again (called a relapse) do not lose hope. Seventy-five percent of those who quit relapse. Most smokers quit three times before they are successful. If you relapse, don't give up! Plan ahead and think about what you will do next time you get the urge to smoke. (This information is provided by the [facility] and is not intended to replace the medical advice of your doctor or health care provider. Please consult your health care provider for advice about a specific medical condition. For additional written health information, please call the Cancer Answer Line at [facility] Monday - Monday 8-4:30 for assistance: [phone]. Or visit www.[facility].org/health/) [facility] s Smoking Cessation Program The [facility] Smoking Cessation Program is a comprehensive, multifaceted program that can be tailored to your individual needs. We offer a variety of services designed to help you throughout the process, including office visits, distance health visits (virtual or telephone), and the eCoach program or pharmacy consultations. To schedule, call [phone] Appointments: An office visit: This is a one-on-one approach where you go to an office and meet with the provider to discuss your options for quitting. Distance health visits: This type of visit can be completed via virtual visit or telephone visit. Virtual visits require a smartphone, tablet or computer with access to a webcam, microphone and Internet connection. You will need to sign up for ReserveMyHome prior to your virtual visit. Telephone visits can be completed via audio only if patient does not have access to the above Pharmacotherapy Nicotine replacement therapy (patches, gum, lozenges, inhalers or nasal spray) Bupropion (Wellbutrin) Chantix Integrative and Lifestyle Medicine Services: Acupuncture Holistic Psychotherapy Meditation Yoga And more The eCoach program Expert tips tailored to you Behavioral replacements Recognizing individual triggers On your schedule Pharmacy consultation You can meet with a pharmacist (either online or in person) to discuss smoking cessation medications, including: Nicotine replacement therapy: gum, patches, lozenges, inhalers or nasal spray Bupropion SR Varenicline (Chantix ) The [place] Cancer Society (ACS) has a section devoted to quitting tobacco with information on where to get help, interactive tools, the relationship of tobacco and cancer, how to keep your kids smoke-free, smoke-free communities and the ACS s annual [place] Smokeout. Visit this link for more info: https://www.cancer.org/cancer/ris k-prevention/tobacco/guide-quitti ng-smoking.html The [place] Lung Association has tools, tips, support and fact sheets to help you stop smoking or to help a loved one quit. There s also more information about [place] From Smoking , the program we use in our smoking classes at [facility]. Visit this link for more info: https://www.lung.org/quit-smoking /iutx-nxaowhz-xdbc-smoking The National Cancer [place] s site, Smokefree.gov, has an abundance of free and accurate resources to encourage smokers to stop: Smokefree apps for your smartphone offer individualized guidance once you input your information You can sign up for the SmokeEribis PharmaceuticalseeCrowdasaurusT text messaging program, which sends you daily text messages with encouragement, tips and advice to help making quitting easier Create a personalized Quit Plan by choosing a quit date and answering seven questions Take a quiz on your withdrawal symptoms See how you can prepare to quit 6-574-AKIS-NOW is the national portal to a network of state quitlines. Quitlines offer evidence-based support--like counseling, referrals to local programs, and free medication--to people who want to quit tobacco. MORNING SICKNESS IN by Do Valentine M.D. for [employer] As you may already know, morning sickness can often be more appropriately called evening sickness or tcxgk-iqekqn-zz-the-day sickness. While there are the edvin few, most women (50-90%) experience some degree of nausea, some have vomiting, and a few develop a severe form of vomiting during called hyperemesis gravidarum. What causes the nausea and vomiting of ? We can't explain why some people feel fine and others are green for months. Even the same woman may feel vastly different in each . There is some relationship between nausea and the level of the hormone hCG. In twin pregnancies, and in other situations where the hCG is greater than expected, nausea and vomiting tend to be worse. In a destined for miscarriage, hCG levels tend to be low, and nausea is often less severe. This being said, a lack of nausea doesn't guarantee that the is destined for miscarriage. The fact that nausea and vomiting are often signs of a healthy can offer a silver lining in the dark cloud of miserable nausea. How long will the nausea last? Fortunately, for most women, nausea and vomiting are a first trimester event, peaking at week 9-10 and waning by week 14-16. When you are feeling bad the weeks can go by slowly but most moms do feel tremendously better by the middle of the . Whether morning sickness is a brief experience or lasts through most of the , there are treatments that can make the weeks or months more tolerable. What can you do about it? Diet: See what works for you. Try eating bland dry foods, and avoid fatty or spicy foods. It is okay to eat a less than perfectly balanced diet in the first trimester. Have your liquids separately from dry foods. Try sports drinks, water, clear juices, Refugio-aid, or non-caffeinated tea. Avoid carbonated beverages that fill up your stomach. Try eating lots of little meals. If you tend to feel sick when you first wake up, leave crackers next to the bed for a quick snack before rising. Keeping healthy snacks with you all day to nibble when you feel queasy can sometimes even prevent nausea from starting. vitamins and nausea: Pre-porsche vitamins can sometimes worsen nausea in . While folate is necessary, especially early in the , it comes as a smaller pill that many people find more tolerable than the complete vitamin pill. Ask your practitioner if it is okay to temporarily replace vitamins and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 for UTI given. Diagnosis and treatment plan were discussed and questions were answered to the patient's satisfaction. Pt acknowledged understanding of concepts and follow up plan. Specific signs and symptoms that would indicate the need for higher level of care were discussed in detail warranting prompt ER evaluation. YOAV Unger documented in [facility] encounter[facility]23 Miscellaneous Notes* Telephone Encounter - Alexus Hooker MA - 03/09/2023 9:11 AM EDT Patient notified of results, verbalized understanding of instructions given. Alexus Hooker MA * Telephone Encounter - Naomi Stubbs APRN.SHEEBA - 03/09/2023 7:30 AM EDT Negative for chlamydia, gonorrhea, bacterial vaginosis, trichomonas. Patient is positive for yeast.Please let her know the Diflucan was sent. documented in this encounterMer[facility]10-18-2023 Miscellaneous Notes* Telephone Encounter - Lisa Pena MA - 03/08/2023 12:42 PM EDT Pt was notified of the results. Pt verbalized understanding. Lisa Pena MA * Telephone Encounter - Vielka Du PA-C - 03/08/2023 12:16 PM EDT Call let patient know she tested negative for gonorrhea, chlamydia, trichomonas and bacterial vaginosis. She was positive for a yeast infection. I did send in Diflucan to treat this. Follow-up with women's health with other symptoms. documented in this encounterMer[facility]10-17-2023 History of Present illness Narrative* Vielka Du PA-C - 03/07/2023 5:34 PM EDT This note was created using [employer]. Subjective Sia Holley is a 22 year old female. HPI Patient presents with cough, throat over the past 3 days. She states it does hurt in her chest whenshe coughs. She denies fever. Some nasal congestion. No ear pain. She has been using cough drops [id number]. Patient also complaining of vaginal discharge and itching. She was diagnosed with area a month ago and was treated with Rocephin. She was also treated with doxycycline as she had been exposed to chlamydia. She states she had unprotected intercourse with the same partner 2 weeks ago. She is not sure if he was adequately treated for gonorrhea as he had told her that he thought he hadchlamydia and was treated for that. She did have dysuria for 1 day but that has gone away. No bloodin urine. No abdominal pain or back pain. She has a Nexplanon and does not typically get menstrual cycles. Review of Systems All other systems reviewed and are negative. 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 Jafkfwpoptoakyr-Xxgasoyni-JW (BROMFED DM) 2-30-10 mg/5 mL syrup Take 10 mL by mouth four times a day as needed. 200 mL 0 amitriptyline (ELAVIL) 10 mg tablet Take 1 tablet by mouth daily at bedtime. (Patient not taking: Reported on 02/02/2023) 30 tablet 0 acetaminophen (TYLENOL EXTRA STRENGTH) 500 mg tablet Take 500 mg by mouth every 6 hours as needed. takes 1.5 tabs every 6 hrs (Patient not taking: Reported on 03/07/2023) predniSONE (DELTASONE) 10 mg tablet Start 6 tabs by mouth once daily on days #1- 5; Then DECREASE daily dose by 1 tab every 3 days until off. . (Patient not taking: Reported on 02/02/2023) No current facility-administered medications for this visit. PAST SURGICAL HISTORY Procedure Laterality Date ANES INTRAORAL W/BIOPSY REPAIR CLEFT PALATE FAMILY HISTORY Problem Relation Age of Onset None Mother None Father Heart disease Maternal Grandfather Hypertension Maternal Grandfather Diabetes Paternal Grandfather Dementia Paternal Grandfather Breast Cancer Maternal Aunt Social History Tobacco Use Smoking status: Never Smokeless tobacco: Never Tobacco comments: pt has vaped in the past Vaping Use Vaping Use: Former Substance Use Topics Alcohol use: Never Drug use: Never Objective BP 122/78 Pulse 120 Temp 36.7 C (98.1 F) (Tympanic) Resp 18 Wt 49.9 kg (110 lb) SpO2 95% Physical Exam Vitals reviewed. Constitutional: Appearance: Normal appearance. HENT: Head: Normocephalic and atraumatic. Right Ear: Tympanic membrane, ear canal and external ear normal. Left Ear: Tympanic membrane, ear canal and external ear normal. Nose: Congestion present. Mouth/Throat: Mouth: Mucous membranes are moist. Pharynx: Posterior oropharyngeal erythema present. No oropharyngeal exudate. Cardiovascular: Rate and Rhythm: Normal rate and regular rhythm. Heart sounds: Normal heart sounds. Pulmonary: Effort: Pulmonary effort is normal. Breath sounds: Normal breath sounds. Genitourinary: Comments: Patient has white-yellow discharge in the vaginal canal. No lesions. No vesicles. Musculoskeletal: Cervical back: Neck supple. Skin: General: Skin is warm and dry. Findings: No rash. Neurological: Mental Status: She is alert. Assessment and Plan ASSESSMENT/PLAN: 1. Sore throat - ICD9: 462, ICD10: J02.9 (primary diagnosis) - Group A strep molecular testing negative - STREP A MOLECULAR (POC) 2. Screening for STD (sexually transmitted disease) - ICD9: V74.5, ICD10: Z11.3 We will treat based on results. Discussed safe sex practices and that her partner likely needs tested again if he was not treated for gonorrhea. - GONORRHEA/CHLAMYDIA NAAT - BACTERIAL VAGINOSIS NAAT - MISAEL/TRICHOMONAS NAAT 3. Vaginal discharge - ICD9: 623.5, ICD10: N89.8 - UA DIP, URINE (POC) - URINE CULTURE - GONORRHEA/CHLAMYDIA NAAT - BACTERIAL VAGINOSIS NAAT - MISAEL/TRICHOMONAS NAAT 4. Acute URI - ICD9: 465.9, ICD10: J06.9 - Discussed viral etiology and rationale for treatment. - Symptomatic treatment with prn analgesia - Supportive care with fluids and rest -Chest x-ray shows no pneumonia. There is a calcified granuloma that he did make her aware of. Bromfed sent for cough. She had taken 2 home COVID test that were negative, declined PCR test. - XR CHEST 2V FRONTAL/LAT 5. Calcified nodule - ICD9: 782.2, ICD10: R22.9 Vielka Du PA-C documented in this encounterMer[facility]10-17-2023 History of Present illness Narrative* Holly Conrad RT(R) - 03/07/2023 4:30 PM EDT Radiology Service Progress Note PATIENT NAME: Sia Holley DATE OF SERVICE: March 07, 2023 TIME: 4:33 PM PATIENT IDENTITY VERIFICATION COMPLETED USING TWO (2) IDENTIFIERS: Name and Date of confirmedby patient verbally. FALL SCREENING: Has the patient had 2 falls in the last year or 1 fall with injury or currently using an Ambulatory Assistive Device (Walker, Cane, Wheelchair, Crutches, etc.)? No PATIENT GENDER DATA: Female. status: : No status: NO. PATIENT RELEVANT IMPLANT DATA REVIEWED: Yes RADIOLOGY DEPARTMENT: General X-ray: Exam(s) Completed: Chest X-Ray PERIPHERAL IV DATA: Not applicable SIGNED BY: RT Quinn(R) March 07, 2023 4:33 PM documented in this encounterMer[facility]09-16-2023 Miscellaneous Notes* Telephone Encounter - Lisa Pena MA - 02/04/2023 8:57 AM EDT Pt was notified of the results. Pt verbalized understanding. Lisa Pena MA * Telephone Encounter - Radames Mathew MD - 02/03/2023 3:16 PM EDT Positive for yeast and normal bacterial overgrowth. She was also positive for gonorrhea. Negative for chlamydia. Finish doxycycline prescribed at her visit. Diflucan and metronidazole Rx's sent to the pharmacy. She will need to return to the clinic for an antibiotic injection to treat gonorrhea. documented in this encounterMer[facility]09-14-2023 History of Present illness Narrative* Kenia AlmanzaCAYDEN.RETIREMENT PLAN COUNSELOR - 02/02/2023 7:22 PM EDT This note was created using [employer]. Subjective Sia Holley is a 22 year old female. 22 year old female with PMH Parsonage-Kirby syndrome presents for STI testing. Acute onset earlier this week Endorses she has been experiencing vaginal discharge +burning sensation Denies frequency or urgency Denies hematuria Denies fever or chills Denies abdominal pain. Denies back pain Denies N/V/D A new partner, approximately one week ago tested POSITIVE for chlamydia and she was recently informed LMP-nexplanon, citing irregular The history is provided by the patient. No professor of languages was used. Female Gu Problem This is a new problem. The current episode started 3 to 5 days ago. The onset was sudden. The problem occurs continuously. The problem has been unchanged. The pain is mild. Nothing relieves the symptoms. Nothing aggravates the symptoms. Associated symptoms include dysuria, vaginal discharge and vaginal pain. Pertinent negatives include no chest pain, no anorexia, no chills, no fever, no abdominalpain, no constipation, no diarrhea, no nausea, no vomiting, no frequency, no hematuria, no pelvic pain, no urgency, no vaginal bleeding, no headaches, no sore throat, no back pain, no flank pain, no joint pain, no cough, no shortness of breath, no rash and no dyspareunia. There has been no history of trauma. Urine output has been normal. The last void occurred Less than 6 hours ago. She is currently Sexually active. She has 1 sexual partner. Contraceptive use: nexplanon. She is not . The patient's menstrual history has been irregular. There were no sick contacts. She has received no recent medical care. 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 MEDICATIONS gabapentin (NEURONTIN) 300 mg capsule Take 1 capsule by mouth twice daily for 90 days. acetaminophen (TYLENOL EXTRA STRENGTH) 500 mg tablet Take 500 mg by mouth every 6 hours as needed. takes 1.5 tabs every 6 hrs doxycycline monohydrate (MONODOX) 100 mg capsule Take 1 capsule by mouth twice daily for 7 days. amitriptyline (ELAVIL) 10 mg tablet Take 1 tablet by mouth daily at bedtime. (Patient not taking: Reported on 02/02/2023) predniSONE (DELTASONE) 10 mg tablet Start 6 tabs by mouth once daily on days #1- 5; Then DECREASE daily dose by 1 tab every 3 days until off. . (Patient not taking: Reported on 02/02/2023) FAMILY HISTORY Problem Relation Age of Onset None Mother None Father Heart disease Maternal Grandfather Hypertension Maternal Grandfather Diabetes Paternal Grandfather Dementia Paternal Grandfather Breast Cancer Maternal Aunt Social History Tobacco Use Smoking status: Never Smokeless tobacco: Never Tobacco comments: pt has vaped in the past Vaping Use Vaping Use: Former Substance Use Topics Alcohol use: Never Drug use: Never Review of Systems Constitutional: Negative for chills and fever. HENT: Negative for sore throat. Respiratory: Negative for cough and shortness of breath. Cardiovascular: Negative for chest pain. Gastrointestinal: Negative for abdominal pain, anorexia, constipation, diarrhea, nausea and vomiting. Genitourinary: Positive for dysuria, vaginal discharge and vaginal pain. Negative for dyspareunia, flank pain, frequency, hematuria, pelvic pain, urgency and vaginal bleeding. Musculoskeletal: Negative for back pain and joint pain. Skin: Negative for rash. Neurological: Negative for headaches. Objective BP 102/60 Pulse 86 Temp 36.9 C (98.5 F) Resp 16 Wt 48.9 kg (107 lb 12.8 oz) SpO2 98% Physical Exam Vitals and nursing note reviewed. Exam conducted with a yard operator present. Constitutional: General: She is not in acute distress. Appearance: Normal appearance. She is normal weight. She is not ill-appearing, toxic-appearing or diaphoretic. HENT: Head: Normocephalic and atraumatic. Right Ear: Ear canal and external ear normal. Left Ear: Ear canal and external ear normal. Nose: Nose normal. No congestion or rhinorrhea. Mouth/Throat: Mouth: Mucous membranes are moist. Pharynx: No oropharyngeal exudate or posterior oropharyngeal erythema. Eyes: General: Right eye: No discharge. Left eye: No discharge. Extraocular Movements: Extraocular movements intact. Conjunctiva/sclera: Conjunctivae normal. Pupils: Pupils are equal, round, and reactive to light. Cardiovascular: Rate and Rhythm: Normal rate and regular rhythm. Pulses: Normal pulses. Heart sounds: Normal heart sounds. No murmur heard. No friction rub. Pulmonary: Effort: Pulmonary effort is normal. No respiratory distress. Breath sounds: Normal breath sounds. No stridor. No wheezing, rhonchi or rales. Chest: Chest wall: No tenderness. Abdominal: General: Abdomen is flat. There is no distension. Palpations: Abdomen is soft. There is no mass. Tenderness: There is no abdominal tenderness. There is no right CVA tenderness, left CVA tenderness, guarding or rebound. Hernia: No hernia is present. Genitourinary: Exam position: Lithotomy position. Pubic Area: No rash. Labia: Right: No rash, tenderness or lesion. Left: No rash, tenderness or lesion. Vagina: Vaginal discharge present. Cervix: Erythema present. Musculoskeletal: General: No swelling, tenderness, deformity or signs of injury. Normal range of motion. Cervical back: Normal range of motion and neck supple. No rigidity. Right lower leg: No edema. Left lower leg: No edema. Lymphadenopathy: Cervical: No cervical adenopathy. Skin: General: Skin is warm and dry. Coloration: Skin is not jaundiced or pale. Findings: No bruising, erythema, lesion or rash. Neurological: General: No focal deficit present. Mental Status: She is alert and oriented to person, place, and time. Cranial Nerves: No cranial nerve deficit. Sensory: No sensory deficit. Motor: No weakness. Coordination: Coordination normal. Gait: Gait normal. Psychiatric: Mood and Affect: Mood normal. Behavior: Behavior normal. Thought Content: Thought content normal. Judgment: Judgment normal. Assessment and Plan ASSESSMENT/PLAN: 1. Encounter for screening examination for sexually transmitted disease - ICD9: V74.5, ICD10: Z11.3(primary diagnosis) + exposure to chlamydia +symptomatic RX Doxy 100 mg PO twice a day for 7 days Pelvic completed and following pending - GONORRHEA/CHLAMYDIA NAAT - BACTERIAL VAGINOSIS NAAT - MISAEL/TRICHOMONAS NAAT No sex for 2 weeks All partners need tested and treated Safe sex 2. Exposure to chlamydia - ICD9: V01.6, ICD10: Z20.2 Kenia Almanza APRN.RETIREMENT PLAN COUNSELOR documented in this encounterMer[facility]06-30-2023 Instructions* Patient Instructions* Wilfrid Bonilla MD - 11/18/2022 9:17 AM EDT Catrina, No major changes today! Continue using the gabapentin as needed for the pain. Work on your stretches and exercises on the hand. It was a pleasure taking care of you, and we all wish you the best of health. For concerns regarding medicines, adjusting doses or other questions: Call : [phone] (direct phone line to neurology staff) - leave a message if no one is available. (Note that [phone] is still listed on most of our paperwork and is a general line to the call pool in [place]; the number above is a faster way to get in touch with our staff here in [place]) [employer] - the best way to send messages directly to your doctors, or request Drug Refills. Call [phone] to set up [employer] on your smart phone or computer. Mailing Address: Attn: Dr. Wilfrid Bonilla [address] [place] [id number], [facility] [address] Our documented in this [id number] History of Present illness Narrative* Wilfrid Bonilla MD - 11/18/2022 9:00 AM EDT Neurology Follow Up Note [facility] Date of Service: 11/18/22 Service Type: Follow up, neurology Patient: Sia Holley Date of : 2000 (22 y.o.) Assessment ASSESSMENT: iSa Holley is a 22 y.o. woman who is here for follow up of brachial plexopathy. This is a 22 y.o. 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 Multiple family members including paternal grandfather, and cousins with similar episodes of unexplained episodic brachial weakness also reported. There was concern that the family may carry SEPT9 (chromosome 17) mutation for hereditary neuralgic amyotrophy (hereditary brachial plexus neuropathy-HBPN) but the patient came out negative for this genetic testing. Possibly this represents some similar genetic condition not accounted for on the testing. Even though she had a modest improvement with high-dose steroids back in 2019, she remarkably improved over the last 2 years with intense physical therapy. Exam continues to show mild to moderate weakness of proximal right upper extremity and somewhat dense weakness of handgrip on the right side, particularly in the thumb and index finger. There is now minimal weakness in the left upper extremity. At this point no medical treatment is offered. She has occasional tingling paresthesias/pain, worsein cold weather. She did not like amitriptyline. Gabapentin helps but even at 100mg makes her so drowsy she could only take at night. Lyrica was even less well tolerated so she went back to gabapentin, using PRN on bad days. She feels this is an adequate regimen. As discussed before her presumed familial Parsonage-Kirby syndrome often has a slightly higher recurrence rate especially during times of stressors (childbirth for example). She is made aware of these possibilities in the future. Problems addressed in this visit: 1. Parsonage-Kirby syndrome 2. Brachial plexitis PLAN: Medications: gabapentin 100mg TID PRN (OK to use less) Labs: none Imaging: none Other: none Follow up: With me in 6 months Attestation: Discussed risks, benefits and alternatives regarding treatment options, and diagnoses with Ms. Holley. Answered questions and we discussed plan at length. I independently reviewed past history, previous clinic notes, lab results, allergies, medications and radiology images which are summarized in this note with annotations wherever appropriate. Time statement: A total of 42 minutes were spent on this encounter. This includes the following patient-centered activities: 1. Preparation for patient's visit (reviewing previous chart, current medical records, previous history, exam, test, procedure, and medications) 2. Face to face encounter obtaining history from the patient/family/caregivers; performing evaluation and examination; ordering medications, tests, or procedures; referring and communicating with other healthcare professionals; counseling and education of the patient/family/caregiver; independently interpreting results (tests, labs, procedures, imaging) and communicating and explaining results tothe patient/family/caregiver 3. Coordination of care; preparing and printing discharge instruction and any educational material for the patient and caregivers. Documenting clinical information in the electronic and other health records. Reviewing OARRS as needed. Wilfrid Bonilla MD Staff Neurologist [facility] [address] [id number], [facility] [address] [facility] Fax: [phone] 11/18/22 Subjective Chief Complaint/Reason for Follow Up: brachial plexopathy Informant(s): self History of Present Illness: Sia Holley is a 22 y.o. woman who is here for follow up of brachial plexopathy. Initial HPI/Summary (note: parts may be copied from initial HPI or other notes, for ease of reference): Transfer from Dr. Ramirez. From his last note 10/27/21: To recap she was initially seen on 10/31/2019 in the inpatient consult service with bilateral upper extremity weakness that progressed over a week after sustaining a fall from a stool in saddle position (she had sustained a laceration in her vaginal during that fall). Since the fall, she had pain over her shoulders along the deltoid and upper arm, gradually progressing weakness of proximal upper limbs, with extension into the hands associated with tingling paresthesias. By the time she was seen in the neurology consult service she had flaccid paresis of both hands. The exam pattern localized mostly to C5-C8 roots and I had raised the concern for bilateral brachial plexopathy. No features of n europathies, mononeuritis multiplex, cervical cord abnormalities, or autoimmune syndrome such as GBS were noted at the time. Autoimmune and inflammatory markers were all negative. We treated her with high-dose IV steroids (methylprednisolone) followed by a prolonged oral taper as outpatient. She underwent intense inpatient and outpatient physical therapy as well. Outpatient nerve conduction study in October 2019 showed only axonal pattern of both sensory and motorfibers in median nerve territory with ulnar and radial studies showing normal responses. Needle EMGshowed right APB fibrillations and positive sharp waves with absent MUAPs. Follow-up EMG in February2020 interestingly showed reinnervation features of both limbs, left better than right. EMG also showed decreased insertional activities with fibrillation and positive sharp waves. Subsequent family history obtained from patient's grandmother suggests that patient's maternal grandfather had a similar illness after surgery and was thought to have painful right upper extremity weakness that lasted several months. 2 of paternal grandfathers sisters also had a similar illness which was episodic. One of their sons and 3 of their grandchildren had episodic painful plexopathy likeweakness of upper extremities that happened in their 30s. Another family member had a similar episode during childbirth as well. 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 This entity called hereditary neuralgic amyotrophy (hereditary brachial plexus neuropathy-HBPN was tested and she did not have any mutations of note. None of the familymembers were evaluated or tested. At her last follow-up with me in December 2020 things have been improving steadily. She continued physical therapy at home twice a week and has been pushing herself hard to get better. Gabapentin has been weaned down. Amitriptyline has been helping her with nighttime symptoms of paresthesias and dysesthesias. She was advised to follow-up in a year. Update: 10/27/2021 -Doing remarkably well with her hand costume maker and upper limb strength now. Right appears to be still weaker than the left (she is truly left-handed, but is acquired ambidextrous). 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 -Feels that the work is also pushing her to do better with her upper limb weakness Exam today shows improvement in muscle mass in the deltoids bilaterally, and triceps bilaterally aswell. Right biceps is still mildly atrophied compared to the left side. Forearm muscles seems to bemore defined now, and wrist movements show good wrist flexion and extension although right side is still weaker than the left side with wrist flexion. Handgrip is still weaker on the right side, abduction of the thumbs weaker on the right side as well. DTRs: 0 bilaterally in the upper extremities. Sensory exam: Patchy diminished cold sensation and touch sensation throughout the C5-C8 distribution. However this is much improved from her last exam a year ago. History since last visit: Reports overall stable. The switch to Lyrica did not really help, it made her feel bad so she doesn't use it and just uses gabapentin PRN. Pain is only occasional, not everyday. The left arm works quite well. The right is OK except still some issues with the right and index finger. Review of Systems: All systems reviewed and negative except those documented in the History of Present Illness (HPI). Pertinent positives are documented below: + arm pain + weakness + numbness Medical/Surgical/Social/Family Histories: Reviewed. Changes made where necessary. She has a past medical history of Psychiatric disorder. She has a past surgical history that includes Cleft Palate Repair. She family history is not on file. She reports that she has never smoked. She has never used smokeless tobacco. She reports that she does not drink alcohol and does not use drugs. Allergies: Allergies: Patient has no known allergies. HOME Medications: Current Outpatient Medications Medication Instructions gabapentin (NEURONTIN) 100 mg, Oral, 3 times daily PRN Objective OBJECTIVE: Physical Examination: BP 111/76 (BP Location: Left arm, Patient Position: Sitting, BP Cuff Size: Adult) Pulse 83 Resp16 SpO2 99% GENERAL: General Appearance: In NAD HEENT: Normocephalic. No conjunctival injection. Ears appear normal. No substantial sinus drainage.See below for vision/hearing Neck: Supple, no tenderness, preserved ROM. Respiratory Effort: Normal Extremities: No edema Skin: No rashes visualized MSK: No joint deformities MENTAL STATUS: Alertness, Attention Span & Concentration: Normal Language: Normal Speech: Normal Orientation: Oriented to person, place, time/date, and situation Memory, Recent & Remote: Normal Fund of Knowledge: Normal CRANIAL NERVES: II - Visual Ulloa: Normal II, III: Pupils: PERRL, no RAPD III, IV, : Eye Movements: Normal (EOMI, No ptosis, No nystagmus) V - Facial Sensation: Normal VII: Face Symmetry & Strength: Normal VIII - Hearing: Normal to finger rub b/l IX, X - Palate: Normal, elevates symmetrically XI - Shoulder Shrug: Normal XII - Tongue Protrusion: Normal, symmetric MOTOR: Muscle Strength Right Left 4 Shoulder Abduction (Deltoid) 5 4+ Elbow Flexion (Biceps) 5 4 Elbow Extension (Triceps) 4+ 4+ Wrist Flexion 5 4+ Wrist Extension 5 4 Finger Abduction (Interossei) 5 4+ Finger flexion 5 4+ Finger extension 5 4- Thumb abduction 4+ 4- Thumb flexion 4+ 4+ Hand costume maker 5 Right Left 5 Hip Extension 5 5 Hip Flexion (Iliopsoas) 5 5 Knee Extension (Quads) 5 5 Knee Flexion (Hamstrings) 5 5 Dorsiflexion (Anterior Tibialis) 5 5 Plantar Flexion (Gastrocnemius) 5 There is decreased muscle mass throughout the body due to overall small body habitus, but there is focal atrophy most noted at the right thumb and hand particularly in the posterior compartment. There is mild atrophy of the right biceps and triceps compared to the left, though not impressively so. Tone is normal MOTOR CARRENO: 5 Normal (Normal Power) 4 Mild Weakness (Movement against moderate resistance over a full range of motion) 3 Moderate Weakness (Movement against gravity only over almost full range of motion) 2 Severe Weakness (Movement with gravity eliminated over almost full range of motion) 1 Trace Movement (Contraction visible or palpable without effective movement of the joint) 0 No Movement (No contraction visible or palpable) PAULO Unable to Assess SENSATION: Decreased to LT, PP, and temp in a patchy distribution on the right arm, ranging between C5 and C8 dermatomes in no specific pattern. The left arm and both legs are normal. REFLEXES: Right Reflexes Left 0 Biceps 1+ 0 Triceps 1+ 0 Brachioradialis 1+ 2+ Patellar 2+ 2+ Achilles 2+ Down Plantar Response (Babinski) Down REFLEXES CARRENO: 4+ Sustained Clonus 3+ Brisk 2+ Normal 1+ Diminished 0 Absent PAULO Unable to Assess COORDINATION: Coordination [id number]-[id number]: normal Gardiner Finger taps: normal Coordination Bycq-Lpnz-Cphd: normal Diadochokinesis: normal STANCE AND GAIT: Base/Stance: Normal/ narrow base Gait: Normal with regards to heel strike, stride length, josy, turn, and arm swing Gait Aid Used During Exam: None Gait Assistance Required During Exam: None MOVEMENT DISORDERS EXAMINATION: Tremor - no tremors noted Bradykinesia - None Rigidity - None Dyskinesia/Choreoathetosis - None Dystonia/Myoclonus/Tics - None PRIOR TESTING: EMG 03/04/2020: EMG Summary: The bilateral median motor nerve conduction study showed normal distal latency, reduced amplitude and conduction velocity. Bilateral median sensory nerve conduction study showed absent responses. Bilateral ulnar motor and sensory nerve conduction studies were normal. Bilateral radial motor and sensory nerve conduction study showed absent responses. Needle EMG of the muscles tested showed decrease insertional activity with fibrillations and positive sharp waves on bilateral triceps, biceps, EDC, pronator teres, brachioradialis, EIP, and APB. There is also decreased insertional activity, fibrillations and positive sharp waves seen on the right d eltoid muscle. There are large amplitude, long duration motor unit action potentials with reduced recruitment pattern seen on the left biceps, triceps, brachioradialis, and APB. There are polyphasic motor unit action potentials seen at the left biceps muscle. There are no volitional units seen on the left EDC, EIP, and pronator teres. There are also no volitional units seen on the right deltoid, triceps, biceps, pronator teres, EDC,brachioradialis, EIP, and APB. The rest of the muscle tested showed no abnormal spontaneous activity. Normal motor unit action potentials and recruitment patterns were seen. Impression: This is an abnormal EMG. There is electrodiagnostic evidence suggestive of a bilateral brachial plexopathy with some reinnervation seen on the left upper extremity but not on the right side MRI C-spine 10/31/2019: mild right foraminal stenosis at C5-6 but otherwise normal MRI brachial plexus 10/31/2019: normal brachial plexus bilaterally. documented in this [id number] Instructions* Patient Instructions* Wilfrid Bonilla MD - 05/20/2022 8:20 AM EST We are going to try changing the gabapentin over to pregabalin (Lyrica). This is a similar medication that hopefully may be better tolerated. Try starting with 25mg twice daily; we can go up from there as needed. Watch for drowsiness or dizziness. It was a pleasure taking care of you, and we all wish you the best of health. For concerns regarding medicines, adjusting doses or other questions: Call : [phone] (direct phone line to neurology staff) - leave a message if no one is available. (Note that [phone] is still listed on most of our paperwork and is a general line to the call pool in [place]; the number above is a faster way to get in touch with our staff here in [place]) [facility] - the best way to send messages directly to your doctors, or request Drug Refills. Call [phone] to set up [facility] on your smart phone or computer. Mailing Address: Attn: Dr. Wilfrid Bonilla [facility] [address], [id number], [place] [address] Our documented in this [id number] History of Present illness Narrative* Wilfrid Bonilla MD - 05/20/2022 8:00 AM EST Neurology Follow Up Note [facility] Date of Service: 05/20/22 Service Type: Follow up, neurology Patient: Sia Holley Date of : 2000 (21 y.o.) Assessment ASSESSMENT: Sia Holley is a 21 y.o. woman who is here for follow up of brachial plexopathy. This is a 21 y.o. 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 Multiple family members including paternal grandfather, and cousins with similar episodes of unexplained episodic brachial weakness also reported. There was concern that the family may carry SEPT9 (chromosome 17) mutation for hereditary neuralgic amyotrophy (hereditary brachial plexus neuropathy-HBPN) but the patient came out negative for this genetic testing. Possibly this represents some similar genetic condition not accounted for on the testing. Even though she had a modest improvement with high-dose steroids back in 2019, she remarkably improved over the last 2 years with intense physical therapy. Exam continues to show mild to moderate weakness of proximal right upper extremity and somewhat dense weakness of handgrip on the right side. There is now minimal weakness in the left upper extremity. At this point no medical treatment is offered. She has occasional tingling paresthesias/pain, worsein cold weather. She did not like amitriptyline and takes occasional gabapentin. 100mg of gabapentin helps but it makes her so drowsy she can only take it at night. For symptomatic relief we are going to try low-dose Lyrica instead; this may be somewhat better tolerated, though as we discussed the side effect profile is similar. Low risk in trying; if Lyrica is not any better, she can resume the gabapentin. As discussed before her familial Parsonage-Kirby syndrome often has a slightly higher recurrence rate especially during times of stressors (childbirth for example). She is made aware of these possibilities in the future. Problems addressed in this visit: 1. Brachial plexitis 2. Parsonage-Kirby syndrome PLAN: Medications: try pregabalin 25mg BID for 1 week. If having drowsiness, OK to stop and resume home gabapentin 100mg BID PRN (gabapentin order kept in until we know which agent patient prefers but she will not take them at the same time) Labs: none Imaging: none Other: none Follow up: With me in 6 months Attestation: Discussed risks, benefits and alternatives regarding treatment options, and diagnoses with Ms. Holley. Answered questions and we discussed plan at length. I independently reviewed past history, previous clinic notes, lab results, allergies, medications and radiology images which are summarized in this note with annotations wherever appropriate. Time statement: A total of 41 minutes were spent on this encounter. This includes the following patient-centered activities: 1. Preparation for patient's visit (reviewing previous chart, current medical records, previous history, exam, test, procedure, and medications) 2. Face to face encounter obtaining history from the patient/family/caregivers; performing evaluation and examination; ordering medications, tests, or procedures; referring and communicating with other healthcare professionals; counseling and education of the patient/family/caregiver; independently interpreting results (tests, labs, procedures, imaging) and communicating and explaining results tothe patient/family/caregiver 3. Coordination of care; preparing and printing discharge instruction and any educational material for the patient and caregivers. Documenting clinical information in the electronic and other health records. Reviewing OARRS as needed. Wilfrid Bonilla MD Staff Neurologist [facility] [id number], [facility] [address] Clinic Fax: [phone] 05/20/22 Subjective Chief Complaint/Reason for Follow Up: brachial plexopathy Informant(s): self History of Present Illness: Sia Holley is a 21 y.o. woman who is here for follow up of brachial plexopathy. Initial HPI/Summary (note: parts may be copied from initial HPI or other notes, for ease of reference): Transfer from Dr. Ramirez. From his last note 10/27/21: To recap she was initially seen on 10/31/2019 in the inpatient consult service with bilateral upper extremity weakness that progressed over a week after sustaining a fall from a stool in saddle position (she had sustained a laceration in her vaginal during that fall). Since the fall, she had pain over her shoulders along the deltoid and upper arm, gradually progressing weakness of proximal upper limbs, with extension into the hands associated with tingling paresthesias. By the time she was seen in the neurology consult service she had flaccid paresis of both hands. The exam pattern localized mostly to C5-C8 roots and I had raised the concern for bilateral brachial plexopathy. No features of n europathies, mononeuritis multiplex, cervical cord abnormalities, or autoimmune syndrome such as GBS were noted at the time. Autoimmune and inflammatory markers were all negative. We treated her with high-dose IV steroids (methylprednisolone) followed by a prolonged oral taper as outpatient. She underwent intense inpatient and outpatient physical therapy as well. Outpatient nerve conduction study in October 2019 showed only axonal pattern of both sensory and motorfibers in median nerve territory with ulnar and radial studies showing normal responses. Needle EMGshowed right APB fibrillations and positive sharp waves with absent MUAPs. Follow-up EMG in [id number] interestingly showed reinnervation features of both limbs, left better than right. EMG also showed decreased insertional activities with fibrillation and positive sharp waves. Subsequent family history obtained from patient's grandmother suggests that patient's maternal grandfather had a similar illness after surgery and was thought to have painful right upper extremity weakness that lasted several months. 2 of paternal grandfathers sisters also had a similar illness which was episodic. One of their sons and 3 of their grandchildren had episodic painful plexopathy likeweakness of upper extremities that happened in their 30s. Another family member had a similar episode during childbirth as well. 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 This entity called hereditary neuralgic amyotrophy (hereditary brachial plexus neuropathy-HBPN was tested and she did not have any mutations of note. None of the familymembers were evaluated or tested. At her last follow-up with me in December 2020 things have been improving steadily. She continued physical therapy at home twice a week and has been pushing herself hard to get better. Gabapentin has been weaned down. Amitriptyline has been helping her with nighttime symptoms of paresthesias and dysesthesias. She was advised to follow-up in a year. Update: 10/27/2021 -Doing remarkably well with her hand costume maker and upper limb strength now. Right appears to be still weaker than the left (she is truly left-handed, but is acquired ambidextrous). 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 -Feels that the work is also pushing her to do better with her upper limb weakness Exam today shows improvement in muscle mass in the deltoids bilaterally, and triceps bilaterally aswell. Right biceps is still mildly atrophied compared to the left side. Forearm muscles seems to bemore defined now, and wrist movements show good wrist flexion and extension although right side is still weaker than the left side with wrist flexion. Handgrip is still weaker on the right side, abduction of the thumbs weaker on the right side as well. DTRs: 0 bilaterally in the upper extremities. Sensory exam: Patchy diminished cold sensation and touch sensation throughout the C5-C8 distribution. However this is much improved from her last exam a year ago. History since last visit: Reports overall stable. Still not back to normal, but much improved from what Dr. Ramirez's previous exams were. She notes that she gets some worsening of the pain and weakness on the right arm in coldweather like recently. The pain is worse at night. Gabapentin works really well for pain at 100mg but makes her very drowsy so she can only use it at night. Review of Systems: All systems reviewed and negative except those documented in the History of Present Illness (HPI). Pertinent positives are documented below: + arm pain + weakness + numbness Medical/Surgical/Social/Family Histories: Reviewed. Changes made where necessary. She has a past medical history of Psychiatric disorder. She has a past surgical history that includes Cleft Palate Repair. She family history is not on file. She reports that she has never smoked. She has never used smokeless tobacco. She reports that she does not drink alcohol and does not use drugs. Allergies: Allergies: Patient has no known allergies. HOME Medications: Current Outpatient Medications Medication Instructions gabapentin (NEURONTIN) 100 mg, Oral, 3 times daily pregabalin (LYRICA) 25 mg, Oral, 2 times daily, (Days supply per fill: 30) Objective OBJECTIVE: Physical Examination: BP 108/73 (BP Location: Left arm, Patient Position: Sitting, BP Cuff Size: Adult) Pulse 82 Resp16 Ht 5' 4 Wt 45.8 kg (101 lb) SpO2 98% BMI 17.34 kg/m GENERAL: General Appearance: In NAD HEENT: Normocephalic. No conjunctival injection. Ears appear normal. No substantial sinus drainage.See below for vision/hearing Neck: Supple, no tenderness, preserved ROM. Respiratory Effort: Normal Extremities: No edema Skin: No rashes visualized MSK: No joint deformities MENTAL STATUS: Alertness, Attention Span & Concentration: Normal Language: Normal Speech: Normal Orientation: Oriented to person, place, time/date, and situation Memory, Recent & Remote: Normal Fund of Knowledge: Normal CRANIAL NERVES: II - Visual Ulloa: Normal II, III: Pupils: PERRL, no RAPD III, IV, : Eye Movements: Normal (EOMI, No ptosis, No nystagmus) V - Facial Sensation: Normal VII: Face Symmetry & Strength: Normal VIII - Hearing: Normal to finger rub b/l IX, X - Palate: Normal, elevates symmetrically XI - Shoulder Shrug: Normal XII - Tongue Protrusion: Normal, symmetric MOTOR: Muscle Strength Right Left 4 Shoulder Abduction (Deltoid) 5 4 Elbow Flexion (Biceps) 5 4 Elbow Extension (Triceps) 4+ 4+ Wrist Flexion 5 4+ Wrist Extension 5 4 Finger Abduction (Interossei) 5 4+ Finger flexion 5 4+ Finger extension 5 4- Thumb abduction 4+ 4- Thumb flexion 4+ 4+ Hand costume maker 5 Right Left 5 Hip Extension 5 5 Hip Flexion (Iliopsoas) 5 5 Knee Extension (Quads) 5 5 Knee Flexion (Hamstrings) 5 5 Dorsiflexion (Anterior Tibialis) 5 5 Plantar Flexion (Gastrocnemius) 5 There is decreased muscle mass throughout the body due to overall small body habitus, but there is focal atrophy most noted at the right thumb and hand particularly in the posterior compartment. There is mild atrophy of the right biceps and triceps compared to the left, though not impressively so. Tone is normal MOTOR CARRENO: 5 Normal (Normal Power) 4 Mild Weakness (Movement against moderate resistance over a full range of motion) 3 Moderate Weakness (Movement against gravity only over almost full range of motion) 2 Severe Weakness (Movement with gravity eliminated over almost full range of motion) 1 Trace Movement (Contraction visible or palpable without effective movement of the joint) 0 No Movement (No contraction visible or palpable) PAULO Unable to Assess SENSATION: Decreased to LT, PP, and temp in a patchy distribution on the right arm, ranging between C5 and C8 dermatomes in no specific pattern. The left arm and both legs are normal. REFLEXES: Right Reflexes Left 0 Biceps 1+ 0 Triceps 1+ 0 Brachioradialis 1+ 2+ Patellar 2+ 2+ Achilles 2+ Down Plantar Response (Babinski) Down REFLEXES CARRENO: 4+ Sustained Clonus 3+ Brisk 2+ Normal 1+ Diminished 0 Absent PAULO Unable to Assess COORDINATION: Coordination [id number]: normal Gardiner Finger taps: normal Coordination [id number]: normal Diadochokinesis: normal STANCE AND GAIT: Base/Stance: Normal/ narrow base Gait: Normal with regards to heel strike, stride length, josy, turn, and arm swing Gait Aid Used During Exam: None Gait Assistance Required During Exam: None MOVEMENT DISORDERS EXAMINATION: Tremor - no tremors noted Bradykinesia - None Rigidity - None Dyskinesia/Choreoathetosis - None Dystonia/Myoclonus/Tics - None PRIOR TESTING: EMG 03/04/2020: EMG Summary: The bilateral median motor nerve conduction study showed normal distal latency, reduced amplitude and conduction velocity. Bilateral median sensory nerve conduction study showed absent responses. Bilateral ulnar motor and sensory nerve conduction studies were normal. Bilateral radial motor and sensory nerve conduction study showed absent responses. Needle EMG of the muscles tested showed decrease insertional activity with fibrillations and positive sharp waves on bilateral triceps, biceps, EDC, pronator teres, brachioradialis, EIP, and APB. There is also decreased insertional activity, fibrillations and positive sharp waves seen on the right d eltoid muscle. There are large amplitude, long duration motor unit action potentials with reduced recruitment pattern seen on the left biceps, triceps, brachioradialis, and APB. There are polyphasic motor unit action potentials seen at the left biceps muscle. There are no volitional units seen on the left EDC, EIP, and pronator teres. There are also no volitional units seen on the right deltoid, triceps, biceps, pronator teres, EDC,brachioradialis, EIP, and APB. The rest of the muscle tested showed no abnormal spontaneous activity. Normal motor unit action potentials and recruitment patterns were seen. Impression: This is an abnormal EMG. There is electrodiagnostic evidence suggestive of a bilateral brachial plexopathy with some reinnervation seen on the left upper extremity but not on the right side MRI C-spine 10/31/2019: mild right foraminal stenosis at C5-6 but otherwise normal MRI brachial plexus 10/31/2019: normal brachial plexus bilaterally. documented in this [id number] Instructions* Patient Instructions* Eyal Ramirez MD - 10/27/2021 3:36 PM EDT Diagnosis: Bilateral Brachial Plexitis. So glad the weakness is much better now. VARIGRIP exercise device for finger-exercises (get this on [employer]). Continue workouts for your arm and hand strength. Follow up with Dr. Wilfrid Bonilla April and then annually thereafter or as needed. documented in this [id number] History of Present illness Narrative* Eyal Ramirez MD - 10/27/2021 3:16 PM EDT NEUROLOGY NOTE [facility], [place] [address] [address], [facility] second [place] [facility] [address] Fax: [phone] Service date: 10/27/2021 Admit date: (Not on file) This note was created in part using a speech-recognition software. Sia Holley is a 21 y.o. female with bilateral Parsonage-Kirby syndrome (brachial plexus neuritis) here for follow-up. To recap she was initially seen on 10/31/2019 in the inpatient consult service with bilateral upper extremity weakness that progressed over a week after sustaining a fall from a stool in saddle position (she had sustained a laceration in her vaginal during that fall). Since the fall, she had pain over her shoulders along the deltoid and upper arm, gradually progressing weakness of proximal upper limbs, with extension into the hands associated with tingling paresthesias. By the time she was seen in the neurology consult service she had flaccid paresis of both hands. The exam pattern localized mostly to C5-C8 roots and I had raised the concern for bilateral brachial plexopathy. No features of n europathies, mononeuritis multiplex, cervical cord abnormalities, or autoimmune syndrome such as GBS were noted at the time. Autoimmune and inflammatory markers were all negative. We treated her with high-dose IV steroids (methylprednisolone) followed by a prolonged oral taper as outpatient. She underwent intense inpatient and outpatient physical therapy as well. Outpatient nerve conduction study in October 2019 showed only axonal pattern of both sensory and motorfibers in median nerve territory with ulnar and radial studies showing normal responses. Needle EMGshowed right APB fibrillations and positive sharp waves with absent MUAPs. Follow-up EMG in February2020 interestingly showed reinnervation features of both limbs, left better than right. EMG also showed decreased insertional activities with fibrillation and positive sharp waves. Subsequent family history obtained from patient's grandmother suggests that patient's maternal grandfather had a similar illness after surgery and was thought to have painful right upper extremity weakness that lasted several months. 2 of paternal grandfathers sisters also had a similar illness which was episodic. One of their sons and 3 of their grandchildren had episodic painful plexopathy likeweakness of upper extremities that happened in their 30s. Another family member had a similar episode during childbirth as well. 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 This entity called hereditary neuralgic amyotrophy (hereditary brachial plexus neuropathy-HBPN was tested and she did not have any mutations of note. None of the familymembers were evaluated or tested. At her last follow-up with me in December 2020 things have been improving steadily. She continued physical therapy at home twice a week and has been pushing herself hard to get better. Gabapentin has been weaned down. Amitriptyline has been helping her with nighttime symptoms of paresthesias and dysesthesias. She was advised to follow-up in a year. Update: 10/27/2021 -Doing remarkably well with her hand costume maker and upper limb strength now. Right appears to be still weaker than the left (she is truly left-handed, but is acquired ambidextrous). 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 -Feels that the work is also pushing her to do better with her upper limb weakness Exam today shows improvement in muscle mass in the deltoids bilaterally, and triceps bilaterally aswell. Right biceps is still mildly atrophied compared to the left side. Forearm muscles seems to bemore defined now, and wrist movements show good wrist flexion and extension although right side is still weaker than the left side with wrist flexion. Handgrip is still weaker on the right side, abduction of the thumbs weaker on the right side as well. DTRs: 0 bilaterally in the upper extremities. Sensory exam: Patchy diminished cold sensation and touch sensation throughout the C5-C8 distribution. However this is much improved from her last exam a year ago. 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 Multiple family members including paternal grandfather, and cousins with similar episodes of unexplained episodic brachial weakness also reported. I had suspected that the family may carry SEPT9 (chromosome 17) mutation for hereditary neuralgic amyotrophy (hereditary brachial plexus neuropathy-HBPN) but the patient came out negative for this genetic testing. Even though she had a modest improvement with high-dose steroids back in 2019 when I saw her in theinpatient setting, she remarkably improved over the last 2 years with intense physical therapy. 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 Exam continues to show mild to moderate weakness of proximal right upper extremity and left upper extremity and somewhat dense weakness of handgrip on the right side. She has taken up employment at [employer] which involves quite a bit of lifting and transferring heavy weights, which has also improved her hand strength and general muscle bulk. At this point no medical treatment is offered. She has taken herself off of amitriptyline and gabapentin that I had placed her on previously for dysesthesia in tingling paresthesias. She is mostly asymptomatic from the standpoint as well. As discussed before her familial Parsonage-Kirby syndrome often has a slightly higher recurrence rate especially during times of stressors (childbirth for example). She is made aware of these possibilities in the future. I would recommend that she follow-up with us on an annual basis. I have informed her of my impending departure from [facility]. My office will make the best efforts to transfer her care to Dr[facility]. Diagnoses relevant to this neurology consultation: 1. Parsonage-Kirby syndrome 2. Brachial plexitis Patient Instructions Diagnosis: Bilateral Brachial Plexitis. So glad the weakness is much better now. VARIGRIP exercise device for finger-exercises (get this on [employer]). Continue workouts for your arm and hand strength. Follow up with Dr. Wilfrid Bonilla April and then annually thereafter or as needed. Assessment & plan notes cannot be loaded without a specified hospital service. EYAL RAMIREZ, MSc, MD. Staff Neurologist & Movement Disorder Specialist [facility] (Adj Asst: Professor, [employer] [facility] [employer] Dept of Neurology) [id number], [facility] [address] Clinic Fax: [phone] Attestation: Time Statement (OP Visits): A total of 25 minutes were spent at this encounter, and this includes the time for preparing for the visit, review notes, obtaining history, performing exam, review of previous tests and results, independently interpreting results of tests, ordering medications/tests/procedures, counseling the patient and/family on plan of care, as well as documenting the clinical information in the EHR (which includes this note) documented in this [id number] Instructions* Patient Instructions* Eyal Ramirez MD - 12/25/2020 9:26 AM EDT 1. Improvement in muscle strength and neural activity is really appreciable at this time. The therapies and working out is helping this improvement. There is no sign in your exam to suggest that the disease is still present or progressing into something else. 2. Continue physical therapy, and exercise for the wrists and hand muscles. 3. Continue gabapentin and amitriptyline. Send me prescription refills through [facility]. 4. Follow-up in September 2020. Call in the interim with questions. We can set up additional follow-up inthe interim if there is anything new. documented in this [id number] History of Present illness Narrative* Eyal Ramirez MD - 12/25/2020 9:04 AM EDT NEUROLOGY NOTE [facility], [place] [address] [address], [facility] second floor [facility] [address] Fax: [phone] Service date: 12/25/2020 Admit date: (Not on file) This note was created in part using a speech-recognition software. Sia Holley is a 20 y.o. female who is here for follow-up of bilateral brachial plexopathy. I had seen her initially on 10/31/2019 on inpatient consult service for bilateral upper extremity weakness that progressed over 1 week after sustaining a fall from a stool in a saddle position (she had sustained a laceration in her vaginal which was evaluated and managed in the local ER and was given Keflex for the same at the time). Since the fall she was having pain over the shoulders, along thedeltoid and upper arm which gradually progressed to involve the forearms and extended into the hands associated with tingling paresthesias. With gradual progressive weakness she presented to the ER on 10/31/2019 and was admitted to [facility] inpatient service. Full exam-refer to note from 10/31/2019. Based on the clinical history of gradual onset of shoulder pains, with worsening of [id number] pattern of weakness and an exam pattern showing C5-C8 roots being affected suggested bilateral brachial plexopathy. The commonest etiology for the same is brachial plexitis which is an autoimmune/inflammatory condition that affects both brachial plexus (Parsonage-Kirby syndrome). There were no features of other neuropathies or cervical spine cord involvement at this time.Autoimmune etiologies, rheumatoid factor, CHRISTINE, RICARDO, and inflammatory markers were evaluated and found to be negative at the time. She was subsequently initiated on high-dose IV steroids (methylprednisolone 500 mg split in 2 doses) followed by oral steroid taper over 15 days as outpatient. She was discharged home with home physical therapy which she has been undergoing at [facility]. She had establish care with pain management inthe interim and she was started on gabapentin and amitriptyline. Her grandmother reports that gabape ntin is recommended to be increased to twice daily starting tomorrow and then to 3 times daily after that. She was also advised to start amitriptyline 10 mg and then increase to 20 mg in a few days. Due to continued pain she had contacted our clinic and during my absence and Dr. Jaquez had recommendedextending the dose of steroids to a few more days (on prednisone taper dose at this time). NCS/EMG Summary (11/12/2019): The bilateral median motor nerve conduction study showed normal distallatency, reduced amplitude and borderline right conduction velocity. The right median sensory nerveconduction study showed prolonged distal latency and reduced amplitude. The left median sensory nerve conduction study showed normal latency and reduced amplitude. Needle EMG of right APB shows fibrillations and positive sharp waves in the right APB with absent MUAPs. Other hand muscles showed normal recruitment and APs. Ulnar and radial studies were within normal limits bilaterally. Overall the study suggests bilateral median nerve abnormalities with axonal pattern of pathology both sensory and motor fibers. Family history of similar illness in blood relatives (02/03/2020): More family history was obtained by patient's grandmother on my request. Patient's maternal grandfather had a similar illness after surgery which was thought to be neuropathy (painful right upper extremity weakness) but it lasted several months. 2 of his sisters also had similar illness which was episodic. And 1 of their sons, and 3 of their grandchildren also has a history of episodic painful plexopathy and weakness of upper extremity that happened in their 30s. They were all in one way or the other related to other illnesses or immunosuppressive situations for example childbirth in 1 of the family members. Follow-up EMG in February [address] Jaquez interestingly shows more reinnervation features of the left upper extremity than the right. On that EMG she had no volitional units of the right deltoid triceps, biceps, pronator teres EDC brachioradialis, EIP and APB. EMG had also shown decrease insertionalactivity with fibrillations and positive sharp waves on bilateral triceps, biceps, EDC, pronator teres, brachioradialis, EIP, and APB. There is also decreased insertional activity, fibrillations and positive sharp waves seen on the right deltoid muscle. This is interesting because today her examination was far better on the right side compared to the left side. She seemed to have more volitional large and fine motor activity on the right side compared to the left side. Due to family history of multiple members with upper limb weakness (unexplained, often associated with traumatic events or major stressful events like ), the question of this being hereditary neuralgic amyotrophy (or hereditary brachial plexus neuropathy-HBPN) was raised. I had concerns that she may have mutation in the SEPT9 gene (chromosome 17).This test, performed through [employer], however turned out to be negative for mutations. Updates: 12/25/2020. She is following up with her grandmother. Doing very well with therapy at [facility]. Continuing to use gabapentin only as needed (usually takesit before therapy since it helps her do more at therapy without pain). Amitriptyline helps her withbedtime sensory symptoms and sleep. No new weakness. Overall she feels that strength is improving and she is able to do a lot more. Grandmother also reports that there has not been any new incident in the family similar to this. Given the family history of episodes of weaknesses, she is keeping a close eye on this. Focused neurological exam:Blood pressure 103/69, pulse 81, resp. rate 16, height 5' 4, weight 47.6kg (105 lb), SpO2 100 %. She has gained some weight and looks pleasant and happy. Mild hyponasal speech is as previously noted (pre-existing). No new cranial nerve deficits. Pupils are briskly responsive to light. No afferent defect. No lid lag or lid droop or deficits in extraocular movements noted. Palate elevates in themidline, uvula is central, tongue movements are normal. Head and neck movements are strong. On inspection the upper limbs look normal, no skin changes, no atrophic changes, fasciculations, myokymia or other features of denervation is noted. Muscle bulk appears normal overall except slight hollowing of the first dorsal webspace on the left. She is able to keep her arms up in the air without tiring out now. Handgrip is vastly better compared to her previous exam. Wrist flexion and extension are still slightly weak (4 -/5. Finger taps are well coordinated. Elbow flexion is 4+/5. Elbow extension is 4+/5. Shoulder abduction and adduction are 4/5. Muscle stretch reflexes are still 0 at the biceps, triceps and brachioradialis on the right. On theleft biceps I can get a flicker response with reinforcement maneuvers. But other reflexes on the left upper extremity are 0. Knee jerk is brisk and normal. Ankle jerk is brisk and normal. Sensory: Vibration sense is getting better at the fingertips (able to appreciate 128 Hz for 10 seconds today bilaterally). Small fiber sensations are still patchy but definitely recovering. Remainder of the neurological examination is normal. Assessment and plan: Very happy with how things are going for her. She is continuing physical therapy twice a week and from what I have been told, they are pushing her hard and she is taking it good stride, doing all theworkouts they have suggested. Her examination today is testimony to how much she has improved and gained from all the therapy/workouts. I have encouraged her to continue the same at home. As for medications, she is using the gabapentin very judiciously. Amitriptyline is helping her withsleep as well as nighttime symptoms and I would continue the same as of now. She is responsible enough that she can contact me when she feels comfortable coming off of these medications and I will give her a plan for tapering. Given her family history, I still feel that there might be a hereditary element to all this, and I have requested her grandmother to keep track of any new episodes that happen to other blood relatives of the patient. At this time she is stable enough that I can see her in about 10 months from now. 1. Parsonage-Kirby syndrome 2. Brachial plexitis Patient Instructions 1. Improvement in muscle strength and neural activity is really appreciable at this time. The therapies and working out is helping this improvement. There is no sign in your exam to suggest that the disease is still present or progressing into something else. 2. Continue physical therapy, and exercise for the wrists and hand muscles. 3. Continue gabapentin and amitriptyline. Send me prescription refills through [facility]. 4. Follow-up in September 2020. Call in the interim with questions. We can set up additional follow-up inthe interim if there is anything new. 5. Assessment & plan notes cannot be loaded without a specified hospital service. EYAL RAMIREZ, Melissa, MD. Staff Neurologist & Movement Disorder Specialist [facility] (Adj Asst: Professor, [employer] [facility] [employer] Dept of Neurology) [address] [id number], [facility] [address] [facility] Fax: [phone] Attestation: Time Statement (OP Visits): A total of 40 minutes were spent at this encounter, and this includes the time for preparing for the visit, review notes, obtaining history, performing exam, review of previous tests and results, independently interpreting results of tests, ordering medications/tests/procedures, counseling the patient and/family on plan of care, as well as documenting the clinical information in the EHR (which includes this note) [facility]* Diagnosis Parsonage-Kirby syndrome- Primary Neuralgic amyotrophy Brachial plexitis Brachial plexus lesions documented in this encounter [facility] note* Diagnosis Parsonage-Kirby syndrome- Primary Neuralgic amyotrophy Brachial plexitis Brachial plexus lesions documented in this encounter [facility] note* Diagnosis Brachial plexitis- Primary Brachial plexus lesions Parsonage-Kirby syndrome Neuralgic amyotrophy documented in this encounter [facility] note* Diagnosis Parsonage-Kirby syndrome- Primary Neuralgic amyotrophy Brachial plexitis Brachial plexus lesions documented in this encounter [facility] note* Diagnosis Encounter for screening examination for sexually transmitted disease- Primary Exposure to chlamydia Contact with or exposure to venereal diseases documented in this encounter [facility] note* Diagnosis Gonorrhea- Primary Gonococcal infection (acute) of lower genitourinary tract documented in this encounter [facility] note* Diagnosis Sore throat- Primary Acute pharyngitis Screening for STD (sexually transmitted disease) Screening examination for venereal disease Vaginal discharge Leukorrhea, not specified as infective Acute URI Acute upper respiratory infections of unspecified site Calcified nodule Localized superficial swelling, mass, or lump documented in this encounter [facility] note* Diagnosis Acute cough [facility]* Diagnosis Vaginal discharge- Primary Leukorrhea, not specified as infective Dysuria documented in this [facility] noteNo assessment information availableWMount Carmel [facility] System Work Phone: Evaluation note* Diagnosis Encounter for supervision of high risk in first trimester, antepartum (HCC)- Primary 10 weeks gestation of (HCC) state, incidental Screen for STD (sexually transmitted disease) Screening examination for venereal disease Screening for cervical cancer Screening for malignant neoplasm of the cervix Parsonage-Kirby syndrome Neuralgic amyotrophy Cleft palate (HCC) Cleft palate, unspecified Anxiety during (HCC) Engages in nicotine containing substance vaping Constipation during in first trimester ([facility]) Nausea and vomiting during (HCC) History of headache Personal history of other specified diseases Family history of sickle cell anemia (Hgb SS) in father documented in this encounter [facility]* Diagnosis Encounter for screening for malformation using ultrasound ([facility])- Primary 12 weeks gestation of ([facility]) state, incidental documented in this [facility]* Diagnosis Encounter for supervision of high risk in first trimester, antepartum ([facility])- Primary 12 weeks gestation of ([facility]) state, incidental Abnormal ultrasound Abnormal findings on screening Parsonage-Kirby syndrome Neuralgic amyotrophy Cleft palate (HCC) Cleft palate, unspecified documented in this encounter [facility] note* Diagnosis Encounter for supervision of high risk in first trimester, antepartum ([facility])- Primary 16 weeks gestation of ([facility]) state, incidental Abnormal ultrasound Abnormal findings on screening Parsonage-Kirby syndrome Neuralgic amyotrophy Cleft palate (HCC) Cleft palate, unspecified 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 Engages in nicotine containing substance vaping Anxiety during ([facility]) documented in this encounter [facility]* Diagnosis Cleft palate ([facility])- Primary Cleft palate, unspecified Encounter for supervision of high risk in first trimester, antepartum ([facility]) 12 weeks gestation of ([facility]) state, incidental Abnormal ultrasound Abnormal findings on screening Parsonage-Kirby syndrome Neuralgic amyotrophy documented in this encounter [facility]* Diagnosis 12 weeks gestation of ([facility]) state, incidental Parsonage-Kirby syndrome Neuralgic amyotrophy documented in this encounter [facility]* Diagnosis Brachial plexus injury, initial encounter- Primary Parsonage-Kirby syndrome Neuralgic amyotrophy Brachial plexitis Brachial plexus lesions Weakness Other malaise and fatigue Parsonage-Kirby syndrome Neuralgic amyotrophy Parsonage-Kirby syndrome- Primary Neuralgic amyotrophy documented in this encounter [facility]* Diagnosis Brachial plexus injury, initial encounter- Primary Parsonage-Kirby syndrome Neuralgic amyotrophy Brachial plexitis Brachial plexus lesions Weakness Other malaise and fatigue Parsonage-Kirby syndrome Neuralgic amyotrophy Parsonage-Kirby syndrome- Primary Neuralgic amyotrophy Parsonage-Kirby syndrome- Primary Neuralgic amyotrophy [facility] instructions Additional Instructions Thank you for trusting us with your care today! Your test was positive. Ultrasound showed signs of early . It is typical and only approximately 5 weeks of gestation not to have any other significant findings. There were no signs of a outside the uterus or other emergencies today Please take Diclegis as prescribed. This is what the [employer] recommends as first-line for nausea and vomiting in Please take Tylenol (2 pills, 650 mg), every 6 hours as needed for pain and fever control. Please return to the emergency department if your symptoms change or worsen. Please follow with your primary care physician for further outpatient evaluation and management.[facility] Work Phone: Reason for referral (narrative)No reason for referral information availableWMount Carmel [facility] Work Phone: Summary Purpose Family History No Family History Records Found Relationship Condition Age at Onset Recorded Date/T suraj grandfather Cardiac disease Unknown Advance Directives No Advanced Directives Records FoundDocuments on File Type Date Recorded Patient Cabinet Builder Expl anation Advance Directives and Livin g Will 10/31/2019 2:06 PM Latest Code Status on File Code Status Date Activated Date Inactivated Comments Full Code 10/31/2019 4:59 PM 11/02/2019 7:14 PM Documents on File Type Date Recorded Patient Cabinet Builder Expl anation Advance Directives and Livin g Will 10/31/2019 2:06 PM Latest Code Status on File Code Status Date Activated Date Inactivated Comments Full Code 10/31/2019 4:59 PM 11/02/2019 7:14 PM Latest Code Status on File Code Status Date Activated Date Inactivated Comments Full Code 10/31/2019 4:59 PM 11/02/2019 7:14 PM Advance Directive Response Recorded Date/ Time Do you have a Healthcare Power of Software Systems Analyst? No October 28, 2024 2:47pm Date Activated Date Inactivated Comments 10/31/2019 4:59 PM 11/02/2019 7:14 PM Reason for Referral Status Reason Specialty Diagnoses / Procedures Referred By Contact Referred To Contact Authorized Neurology Diagnoses Parsonage-Kirby syndrome Juliette Cortes CNP [address] [facility] [place] [address] [facility] [place] [address] Status Reason Specialty Diagnoses / Procedures Referred By Contact Referred To Contact Pending Review Neurology Diagnoses Parsonage-Kirby syndrome Brachial plexitis Procedures EMG: Eyal Ramirez MD [address] [place] [address] Status Reason Specialty Diagnoses / Procedures Referred By Contact Referred To Contact Pending Review Specialty Services Required/Patie nt's Best Interest Physical Therapy Diagnoses Parsonage-Kirby syndrome Hereditary neuralgic amyotrophy Eyal Ramirez MD [address] [place] [address] Status Reason Specialty Diagnoses / Procedures Referred By Contact Referred To Contact Authorized Specialty Services Required/Patie nt's Best Interest Occupational Therapy Diagnoses Parsonage-Kirby syndrome Hereditary neuralgic amyotrophy Eyal Ramirez MD [address] [facility] [place] [address] Discharge Instructions * Discharge Instr - AVS First Page* Juliette Cortes CNP - 11/02/2019 2:43 PM EDT - Follow up with neurology next week, neurology clinic will set up outpatient EMG testing Neurology's recommendations: 1. Prednisone taper (outpatient orders placed): 60 mg x 1 day, 50 mg x 1 day, 40 mg x 1 day ... Taper down every day by 10 mg and stop. 2. Indomethacin 50 mg capsules 3 times daily for pain x 9 more days 3. Autoimmune/inflammatory labs: These results will be followed up in the clinic on your follow up 4. EMG/nerve conduction: With Dr. Jaquez next week as an outpatient. Orders will be placed from neurology clinic. 5. Intense outpatient physical therapy/Occupational Therapy [facility] - Nursing to give you number for [facility] outpatient PT/OT department. Call them on Monday to touch base on scheduling * Additional Instructions* Sydney Moss RN - 11/02/2019 Learning About Thoracic Outlet Syndrome (TOS) What is it? Thoracic outlet syndrome (TOS) is a condition in which the nerves or blood vessels are squeezed tightly in a small space behind the collarbone (clavicle). This space is called the thoracic outlet. TOS can cause pain, numbness, or weakness in your shoulder, arm, or hand. What are the types of TOS? There are different types of TOS. Neurogenic (nerve). Nerves are squeezed in the thoracic outlet. This is the most common type. Vascular (blood vessel). Arterial TOS: Arteries, which carry blood from the heart to the body, are squeezed. Venous TOS: Veins, which carry blood from the body back to the heart, are squeezed. What causes it? TOS is caused by a thoracic outlet that's smaller than normal and that squeezes nerves and blood vessels. The smaller outlet may be caused by: Bone structures that aren't normal. There may be an extra rib. Or the shape of the bones may make the thoracic outlet too small. Muscles that are shaped or located so that they make the outlet smaller. Injuries from an accident or a fall. Injuries can also be from repeated movements, such as from swimming or from pitching a baseball. What are the symptoms? Symptoms depend on the type of TOS. Symptoms of nerve TOS may happen when you move your arms to shoulder level or to other positions that put pressure on the nerves. These symptoms include: Pain, numbness, or tingling in the neck, shoulder, arm, or hand. Weakness in the arm or hand. In some cases, headaches and pain in the face and jaw. Symptoms of vascular (blood vessel) TOS include: Sudden swelling and pain in the arm and shoulder. Pain and fatigue in the lower arm or hand when you hold them over your head. Wounds on the hands and fingers that don't heal. Sudden pain, weakness, numbness, or tingling in the hands. Cold, pale fingers. A bluish skin color in the arms and hands. How is it diagnosed? Your doctor will ask if you have trouble using your hands or arms in activities like driving or washing your hair. He or she will also ask about any injuries you've had to your neck or shoulder. You will have a physical exam. This may include moving your arms and holding them in different positions. Your doctor will check for symptoms and changes in your pulse. Your doctor may order a chest X-ray. Other imaging tests, such as an MRI, a CT scan, or an ultrasound, may be done. You may have a test called an electromyogram. It measures the electrical discharges made by the muscles. It can tell the doctor if your symptoms are caused by a nerve problem or by the muscle. Your doctor may also give you a shot to numb your shoulder to see if it makes your symptoms go away. How is it treated? The treatment depends on the type of TOS and what's causing it. If your TOS is caused by squeezed nerves, you will probably have physical therapy first. The aim isto help relieve your symptoms. It may help you improve your posture, stretch the muscles in the area, and move better. It can also help you reduce the repeated movements that caused the TOS or made it worse. Your doctor may suggest that you lose some weight. It may take some pressure off the nerve. If your TOS involves blood vessels, you may have medicine or surgery to remove blood clots. You mayhave a procedure to repair a blood vessel. And you may take blood thinners to help prevent more blood clots. With either type, you may have surgery to relieve the tightness in the thoracic outlet area. Follow-up care is a carreno part of your treatment and safety. Be sure to make and go to all appointments, and call your doctor if you are having problems. It's also a good idea to know your test resultsand keep a list of the medicines you take. Current as of: December 02, 2018 Content Version: 12.3 [id number] [employer]. Care instructions adapted under license by your healthcare professional. If you have questions about a medical condition or this instruction, always ask your healthcare professional. [employer] disclaims any warranty or liability for your use of this information. documented in this encounter History of Present Illness * Eyal Ramirez MD - 11/02/2019 3:10 PM EDT NEUROLOGY NOTE [facility], [place] [address] [address], [facility] second floor [facility] [address] Fax: [phone] Service date: 11/02/2019 Admit date: 10/31/2019 Sia Holley is a 19 y.o. female admitted with 1-week history of gradual onset of bilateral upper extremity weakness beginning as pain in the shoulders, and arm and spreading into the forearms and hands with dense weakness of both upper extremities. Exam on initial consult on 11/01/2019 showed neuromuscular features localizing to C5-C8 nerve roots bilaterally with areflexia and then sensory loss in all modalities. 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 She was started on IV steroids and inflammatory labs were also ordered. Update: 11/02/2019: Clinically there is modest improvement in weakness today in the handgrip as wellas flexion of the left upper extremity. Mild improvement in sensations as well. She is pain-free after IV steroids, and indomethacin. She is able to perform more effortful upper extremity tasks. Dense weakness of thenar muscles (flexion worse than extension), wrist flexion and shoulder abduction per sist. Recommendations Parsonage-Kirby syndrome Assessment & Plan Bilateral upper extremity weakness with bedside exam demonstrating extensive involvement of nerve roots from C5 all the way to C8. Areflexia of both upper extremities, and loss of all sensory modalities in the distal > proximal fashion. 1. Completed 2 doses of IV methylprednisolone 250 mg. 2. Prednisone taper (outpatient orders placed): 60 mg x 1 day, 50 mg x 1 day, 40 mg x 1 day ... Taper down every day by 10 mg and stop. 3. Indomethacin 50 mg capsules 3 times daily for pain x 7 to 10 days. 4. Autoimmune/inflammatory labs: Orders placed in chart. These will be followed up in the clinic. 5. EMG/nerve conduction: With Dr. Jaquez next week as an outpatient. Orders will be placed from neurology clinic. 6. Intense physical therapy/Occupational Therapy -safe to be discharged home. Patient has good social support. 7. Follow-up with me in the clinic after EMG. EYAL RAMIREZ MSc, MD. [email or web address] Staff Neurologist & Movement Disorder Specialist [facility] (Adj Asst: Professor, [facility] [employer] Dept of Neurology) LEANDRO [id number], [facility] [address] [facility] Fax: [phone] Attestation: Time statement (IP Consults): A total of 35 minutes were spent on this encounter either in the patient's room or on the patient's hospital unit and over half of that time was spent on [id number] counseling and/or coordination of care. This note was dictated using [employer], a speech-recognition software. Syntax errors and sound-alike substitutions could be present. In such instances, please use appropriate clinical context to infer the meaning. Please bring such errors to the attention of the author. * Juliette Cortes CNP - 11/02/2019 2:19 PM EDT [facility] Medicine Inpatient Follow-up 11/02/2019 Juliette Cortes CNP [facility] Patient: Sia Holley Date of : 2000 (19 y.o.) PCP: Physician No ASSESSMENT/PLAN: Active Problems: Weakness Parsonage-Kirby syndrome PLAN: 10/31 - Pt continues to c/o neck pain and B/L UE numbness - Neuro consulted- appreciate input - Labs reviewed, unremarkable - CT brain and cervical spine unremarkable - MRI brachial plexus normal other than possible low grade muscle strain to : supraspinatus muscles - Plan per neuro 11/01 - Pt feeling slightly better today, neck pain better, numbness remains to hands R > L strength improved today - Pt seen by neuro, Dr Ramirez recommended: Methylprednisolone x 2 doses IV then transition to prednisone taper, Indomethacin 50 mg capsules 3 times daily for pain x 7 to 10 days, EMG/nerve conduction:With Dr. Jaquez next week as an outpatient, Intense physical therapy/Occupational Therapy - OT recommending 2-3 days a week of OT, PT has not yet seen pt. Patient willing to do outpatient therapy - No fever, VSS - DC once cleared by neuro SUBJECTIVE: Ongoing B/L UE numbness especially to hands R > L, neck pain improved All other systems reviewed and negative other than noted above. OBJECTIVE: Physical Examination: BP 127/74 (BP Location: Right arm, Patient Position: Sitting) Pulse 81 Temp 97.4 F (36.3 C) (Axillary) Resp 14 Ht 5' 4 Wt 52.2 kg (115 lb) LMP 10/09/2019 SpO2 95% BMI 19.74 kg/m General Appearance: Resting comfortably in bed, no distress noted HEENT: Head - Normocephalic, atraumatic. Eyes - TUNDE bilaterally and EOMI. Ears - normal external appearance, hearing intact. Nose - normal, no erythema. Throat - mucous membranes moist, pharynx without lesions. Neck: Supple, trachea midline. Cardiovascular: S1, S2 normal. Respiratory: Lungs clear to auscultation, no wheezes, rales or rhonchi heard. Abdomen: Soft, non-tender, normal bowel sounds, non-distended, no masses or organomegaly appreciated. Neurological: Weakness in upper extremities 4/5 with numbness tingling in her hands Musculoskeletal: No joint tenderness, deformity or swelling. Skin: Normal coloration and turgor. No rashes. Psych: Alert, oriented x 3. Normal mood and affect. CURRENT MEDICATIONS: indomethacin 50 mg Oral TID with meals Results/Medications Reviewed 11/02/19 2:19 PM: Results from last 7 days Lab Units 11/01/19 0351 10/31/19 1542 SODIUM mmol/L 140 140 POTASSIUM mmol/L 3.9 4.1 CHLORIDE mmol/L 110* 109* BUN mg/dL 15 14 CREATININE mg/dL 0.70 0.64 GLUCOSE mg/dL 80 86 CALCIUM mg/dL 8.7 9.1 Results from last 7 days Lab Units 11/01/19 0351 10/31/19 1542 WBC K/mcL 6.57 6.16 HGB g/dL 11.1* 11.8* HCT % 33.1* 34.6* PLT K/mcL 197 232 Results from last 7 days Lab Units 11/01/19 1257 ALK PHOS U/L 78 BILIRUBIN TOTAL mg/dL 0.6 BILIRUBIN DIRECT mg/dL 0.1 TOTAL PROTEIN g/dL 7.2 ALTR U/L 17 AST U/L 11 CULTURES: Reviewed 2:19 PM IMAGING: Reviewed 2:19 PM * Juliette Cortes CNP - 11/01/2019 1:32 PM EDT [facility] Medicine Inpatient Follow-up 11/01/2019 Juliette Cortes CNP [facility] Patient: Sia Holley Date of : 2000 (19 y.o.) PCP: Physician No ASSESSMENT/PLAN: Active Problems: Weakness Parsonage-Kirby syndrome PLAN: 10/31 - Pt continues to c/o neck pain and B/L UE numbness - Neuro consulted- appreciate input - Labs reviewed, unremarkable - CT brain and cervical spine unremarkable - MRI brachial plexus normal other than possible low grade muscle strain to : supraspinatus muscles - Plan per neuro SUBJECTIVE: Ongoing neck pain and B/L LE numbness especially to hands All other systems reviewed and negative other than noted above. OBJECTIVE: Physical Examination: BP (!) 135/96 Pulse 77 Temp 98.2 F (36.8 C) (Oral) Resp 14 Ht 5' 4 Wt 52.2 kg (115 lb) LMP 10/09/2019 SpO2 97% BMI 19.74 kg/m General Appearance: Resting comfortably in bed, no distress noted HEENT: Head - Normocephalic, atraumatic. Eyes - TUNDE bilaterally and EOMI. Ears - normal external appearance, hearing intact. Nose - normal, no erythema. Throat - mucous membranes moist, pharynx without lesions. Neck: Supple, trachea midline. Cardiovascular: S1, S2 normal. Respiratory: Lungs clear to auscultation, no wheezes, rales or rhonchi heard. Abdomen: Soft, non-tender, normal bowel sounds, non-distended, no masses or organomegaly appreciated. Neurological: Weakness in upper extremities 4/5 with numbness tingling in her hands Musculoskeletal: No joint tenderness, deformity or swelling. Skin: Normal coloration and turgor. No rashes. Psych: Alert, oriented x 3. Normal mood and affect. CURRENT MEDICATIONS: indomethacin 50 mg Oral TID with meals methylPREDNISolone sodium succinate 250 mg Intravenous Q12H CHENCHO Results/Medications Reviewed 11/01/19 1:32 PM: Results from last 7 days Lab Units 11/01/19 0351 10/31/19 1542 SODIUM mmol/L 140 140 POTASSIUM mmol/L 3.9 4.1 CHLORIDE mmol/L 110* 109* BUN mg/dL 15 14 CREATININE mg/dL 0.70 0.64 GLUCOSE mg/dL 80 86 CALCIUM mg/dL 8.7 9.1 Results from last 7 days Lab Units 11/01/19 0351 10/31/19 1542 WBC K/mcL 6.57 6.16 HGB g/dL 11.1* 11.8* HCT % 33.1* 34.6* PLT K/mcL 197 232 Results from last 7 days Lab Units 10/31/19 1542 ALK PHOS U/L 83 BILIRUBIN TOTAL mg/dL 0.6 TOTAL PROTEIN g/dL 7.4 ALTR U/L 18 AST U/L 13 CULTURES: Reviewed 1:32 PM IMAGING: Reviewed 1:32 PM documented in this encounter* Trudy Jaquez MD - 11/12/2019 10:39 AM EDT [facility] - Neurology [address] [place] [address] [phone] Nerve Conduction & EMG Report Patient: Julienne Reynaga Sex: Female Date of : 2000 Visit Date: 11/12/2019 08:14 Age: 19 Years Examining MD: Alberto Bird MD, ABPN Referred by: SONYA Cortes Temperature: 32.2 .Current Height: 5 feet 4 inch Referred for: BUE pain, numbnesss, paresthesias and weakness for 2 months.Some neck pain. No DM. . Plan: The study is design to evaluate for radiculopathy, plexopathy, entrapment neuropathy, median or ulnar neuropathy. Indication, risk, side effects, and alternatives were explained. Patient agreedto proceed. Patient was instructed to clean the puncture site with soap and water and put some ice pack for bruising. EMG Summary: The bilateral median motor nerve conduction study showed normal distal latency, reduced amplitude and borderline right conduction velocity. The right median sensory nerve conduction study showed prolonged distal latency and reduced amplitude. The left median sensory nerve conduction study showed normal latency and reduced amplitude. The bilateral ulnar motor and sensory nerve conduction studies was normal. The bilateral radial sensory nerve conduction study were normal. Needle EMG of the muscles tested showed no abnormal spontaneous activity except for fibrillations and positive sharp waves on the right APB with absent motor unit action potentials seen in that muscle. Normal motor unit action potentials and recruitment patterns were seen. Impression: There is no acute denervation to suggest an acute bilateral cervical radiculopathy or brachial plexopathy at this time. There is no electrodiagnostic evidence of a bilateral ulnar neuropathy. Incidentally, there are abnormal findings seen on bilateral median nerves suggestive of possible bilateral median nerve entrapment at the wrist with motor axonal damage on the right side and sensory axonal damage on both sides. Trudy Jaquez MD Diplomate, ABPN, NBPAS Clinical Neurophysiology, Neurology, Vascular Neurology and Sleep Medicine [place] [phone] Nota bene: Portions of this chart was created using [employer] voice recognition software. Occasional wrong-word or sound-like substitutions may have occurred due to inherent limitations of the voice recognition software. Please read the chart carefully and recognize, using context, where the substitutions have occurred. Motor NCS Nerve / Sites Muscle Latency Amplitude Distance Velocity ms mV mm m/s R Median - APB Wrist APB 3.65 0.8 7 Elbow APB 8.31 0.6 23 49.3 R Ulnar - ADM Wrist ADM 2.94 8.4 6.5 B.Elbow ADM 6.35 7.9 20 58.5 A.Elbow ADM 8.42 9.2 11 53.3 L Median - APB Wrist APB 3.19 3.8 7 Elbow APB 7.08 4.0 20 51.3 L Ulnar - ADM Wrist ADM 2.25 13.2 6.5 B.Elbow ADM 5.88 13.2 22 60.7 A.Elbow ADM 8.02 12.9 11 51.3 Sensory NCS Nerve / Sites Rec. Site Lat. 2 Amp.1-2 Amp.2-3 Distance Velocity d Lat.2 ms V V mm m/s ms R Median, Ulnar - Transcarpal comparison Median Palm Wrist 5.08 2.6 3.0 8 18 Ulnar Palm Wrist 1.60 5.3 23.8 8 61 3.48 R Radial - Snuff Forearm Snuff 1.96 8.5 28.8 10 62 L Median, Ulnar - Transcarpal comparison Median Palm Wrist 1.96 3.4 22.7 8 52 Ulnar Palm Wrist 1.69 24.4 56.4 8 62 0.27 L Medial antebrachial cutaneous - Forearm Elbow Forearm 2.27 46.7 28.2 12 65 EMG Summary Table Spontaneous Activity Amplitude Duration Recruitment Activation Polyphasia Comment Muscle Ins Act Fib Fasc - - - - - - L. Deltoid Normal 0 0 Normal Normal Normal Normal Normal Normal L. Triceps brachii Normal 0 0 Normal Normal Normal Normal Normal Normal L. Biceps brachii Normal 0 0 Normal Normal Normal Normal Normal Normal L. Pronator teres Normal 0 0 Normal Normal Normal Normal Normal Normal L. Extensor digitorum communis Normal 0 0 Normal Normal Normal Normal Normal Normal L. First dorsal interosseous Normal 0 0 Normal Normal Normal Normal Normal Normal L. Abductor pollicis brevis Normal 0 0 Normal Normal Normal Normal Normal Normal L. Cervical paraspinals Normal 0 0 Normal Normal Normal Normal Normal Normal R. Deltoid Normal 0 0 Normal Normal Normal Normal Normal Normal R. Triceps brachii Normal 0 0 Normal Normal Normal Normal Normal Normal R. Biceps brachii Normal 0 0 Normal Normal Normal Normal Normal Normal R. Pronator teres Normal 0 0 Normal Normal Normal Normal Normal Normal R. Extensor digitorum communis Normal 0 0 Normal Normal Normal Normal Normal Normal R. First dorsal interosseous Normal 0 0 Normal Normal Normal Normal Normal Normal R. Abductor pollicis brevis Normal 2+ 2+ No Motor Units R. Cervical paraspinals Normal 0 0 Normal Normal Normal Normal Normal Normal R. Flexor carpi radialis Normal 0 0 Normal Normal Normal Normal Normal Normal R. Flexor pollicis longus Normal 0 0 Normal Normal Normal Normal Normal Normal documented in this encounter* Trudy Jaquez MD - 11/14/2019 11:29 AM EDT [facility] - Neurology [address] [place] [phone] Nerve Conduction & EMG Report Patient: Julienne Reynaga Sex: Female Date of : 2000 Visit Date: 11/14/2019 10:13 Age: 19 Years Examining MD: Trudy Jaquez MD Referred by: Dr. Ramirez Temperature: 30.2 .Current Height: 5 feet 4 inch Referred for: + LBP. No numbness or weakness. No Ataxia or balance issues. Plan: The study was design to evaluate for entrapment neuropathy, polyneuropathy, radiculopathy, orplexopathy. Procedure indication, risk, complications, side effects and alternatives were explained. Patient agreed to proceed with verbal consent. Patient was instructed to clean the puncture site with soap and water and put some ice pack for bruising. EMG Summary: The right peroneal and tibial motor nerve conduction studies were normal. The right sural and superficial peroneal sensory nerve conduction studies were also normal. The right H reflex was normal. The right medial and lateral plantar sensory nerve conduction studies were normal. Needle EMG of the muscle tested showed no abnormal spontaneous activity. Normal motor unit action potentials and recruitment patterns were seen. Impression: There is NO clear electrodiagnostic evidence of a right lumbosacral radiculopathy, plexopathy, or diffuse sensorimotor polyneuropathy at this time. Trudy Jaquez MD Diplomate, ABPN, NBPAS Clinical Neurophysiology, Neurology, Vascular Neurology and Sleep Medicine [facility] [place] [phone] Nota bene: Portions of this chart was created using [employer] voice recognition software. Occasional wrong-word or sound-like substitutions may have occurred due to inherent limitations of the voice recognition software. Please read the chart carefully and recognize, using context, where the substitutions have occurred. Motor NCS Nerve / Sites Muscle Latency Amplitude Distance Velocity ms mV cm m/s R Deep peroneal (Fibular) - EDB Ankle EDB 4.65 4.0 8.5 Fib Head EDB 10.56 4.1 30 50.7 Knee EDB 12.02 3.9 7 48.0 R Tibial - . Ankle AH 4.08 13.8 8 Knee AH 12.23 13.9 38 46.6 Sensory NCS Nerve / Sites Rec. Site Peak Lat Amp.1 Amp.2 Distance Jack. Lat Diff ms V V cm m/s ms R Sural - . Calf Lat Mall 3.92 15.0 17.2 14 44.5 R Superficial peroneal - . Lat leg Ankle 2.98 5.4 17.4 14 59.5 R Medial plantar, Lateral plantar - Ankle (Medial, lateral sole) Medial plantar Sole Ankle 2.40 11.8 5.1 14 82.0 Lateral plantar Sole Ankle 2.52 8.8 12.4 14 89.6 -0.13 EMG Summary Table Spontaneous Activity Amplitude Duration Recruitment Activation Polyphasia Comment Muscle Ins Act Fib PSW Fasc - - - - - - R. Vastus lateralis Normal 0 0 0 Normal Normal Normal Normal Normal Normal R. Semitendinosus Normal 0 0 0 Normal Normal Normal Normal Normal Normal R. Tibialis anterior Normal 0 0 0 Normal Normal Normal Normal Normal Normal R. Gastrocnemius (Medial head) Normal 0 0 0 Normal Normal Normal Normal Normal Normal R. Abductor hallucis Normal 0 0 0 Normal Normal Normal Normal Normal Normal R. Lumbar paraspinals Normal 0 0 0 Normal Normal Normal Normal Normal Normal documented in this encounter* Eyal Ramirez MD - 02/03/2020 3:34 PM EDT NEUROLOGY NOTE [facility], [place] [address] [address], [facility] second [place] [phone] Fax: [phone] Service date: 02/03/2020 Admit date: (Not on file) Sia Holley is a 19 y.o. female here for follow-up of bilateral brachial plexopathy. She is here with her grandmother. Her last visit with me was on 12/03/2019. I had seen her initially on10/31/2019 on inpatient consult service for bilateral upper extremity weakness that progressed over 1 week after sustaining a fall from a stool in a saddle position (she had sustained a laceration in her vaginal which was evaluated and managed in the local ER and was given Keflex for the same at thetime). Since the fall she was having pain over the shoulders, along the deltoid and upper arm whichgradually progressed to involve the forearms and extended into the hands associated with tingling pa resthesias. With gradual progressive weakness she presented to the ER on 10/31/2019 and was [facility]. Full exam-refer to note from 10/31/2019. Based on the clinical history of gradual onset of shoulder pains, with worsening of ziglfq-[id number] pattern of weakness and an exam pattern showing C5-C8 roots being affected suggested bilateral brachial plexopathy. The commonest etiology for the same is brachial plexitis which is an autoimmune/inflammatory condition that affects both brachial plexus (Parsonage-Kirby syndrome). There were no features of other neuropathies or cervical spine cord involvement at this time.Autoimmune etiologies, rheumatoid factor, CHRISTINE, RICARDO, and inflammatory markers were evaluated and found to be negative at the time. She was subsequently initiated on high-dose IV steroids (methylprednisolone 500 mg split in 2 doses) followed by oral steroid taper over 15 days as outpatient. She was discharged home with home physical therapy which she has been undergoing at [facility]. She had establish care with pain management inthe interim and she was started on gabapentin and amitriptyline. Her grandmother reports that gabape ntin is recommended to be increased to twice daily starting tomorrow and then to 3 times daily after that. She was also advised to start amitriptyline 10 mg and then increase to 20 mg in a few days. Due to continued pain she had contacted our clinic and during my absence and Dr. Jaquez had recommendedextending the dose of steroids to a few more days (on prednisone taper dose at this time). EMG upper limb (11/12/2019): Reduced amplitude of both right and left median nerve motor study. Right median shows borderline decrease in conduction velocity. Right median sensory study shows prolonged distal latency and reduced amplitude. Left median sensory is within normal limits. NCS/EMG Summary (11/12/2019): The bilateral median motor nerve conduction study showed normal distallatency, reduced amplitude and borderline right conduction velocity. The right median sensory nerveconduction study showed prolonged distal latency and reduced amplitude. The left median sensory nerve conduction study showed normal latency and reduced amplitude. Needle EMG of right APB shows fibrillations and positive sharp waves in the right APB with absent MUAPs. Other hand muscles showed normal recruitment and APs. Ulnar and radial studies were within normal limits bilaterally. Overall the study suggests bilateral median nerve abnormalities with axonal pattern of pathology both sensory and motor fibers. Update: 02/03/2020: Subjectively she has been improving quite a bit. Proximal strength of the shoulders and elbows have improved. She is able to raise her arms up and hold up in the air. Bilateral wrist drop is notable. She also has significant difficulty with gripping. However left upper extremity appears to have gained a lot more strength than the right. Weakness of the right side is more prominent below the level of the elbow. Amitriptyline seems to help with her sleep. Gabapentin improves the numbness and tingling that she experiences in the mornings. She continues to get physical therapy at [facility]. On exam today, she is able to supinate better today compared to last exam in November. Pronation is nearly normal. Flexion of the left elbow is remarkably better, and biceps appear to be prominently active on the left side. Right elbow flexion is quite weak (3/5). Shoulder abduction is slightly above the level of the horizontal plane at 180 degrees (improved from last time). Adduction and extension of shoulder appear to be stable as before. Sensory modalities are densely affected in the right upperextremity up to C5. On the left upper extremity this is up to C6 (dense below the elbow). Bicipitalreflexes tricipital reflexes and brachioradialis are still absent. Assessment and plan: Overall I believe that the diagnosis of bilateral brachial plexopathy continues to be the case clinically. Inflammatory and autoimmune etiologies have been negative (extensive labs checked when she was in the hospital). Follow-up EMG nerve conduction study-orders placed today. If there is significant nerve damage in this study, I will consider IVIG empirically. Family history of similar illness in blood relatives: More family history was obtained by patient'sgrandmother on my request. Patient's maternal grandfather had a similar illness after surgery whichwas thought to be neuropathy (painful right upper extremity weakness) but it lasted several months.2 of his sisters also had similar illness which was episodic. And 1 of their sons, and 3 of their grandchildren also has a history of episodic painful plexopathy and weakness of upper extremity that happened in their 30s. They were all in one way or the other related to other illnesses or immunosuppressive situations for example childbirth in 1 of the family members. Given the information regarding family history, hereditary neurologic amyotrophy (HNA or HereditaryBrachial Plexus Neuropathy (HBPN); autosomal dominant SEPT9 gene mutation) can be considered in thefuture. If it is HBPN, ongoing axonal degeneration and areflexia will be expected in the chronic phase and it presents frequently with episodes of brachial plexopathy. HBPN attacks have been shown to be associated with perivascular nerve inflammation characteristic of autoimmunity. Surgery, childbirth, immunization, trauma, and even psychological distress have all been documented to trigger attacks, but a clear trigger is not found in many patients Genetic counseling was provided to the patient and her guardian today. They are interested in genetic testing. Consent from the patient was obtained for [employer] genetics testing. We will get prior authorization from her insurance company regarding this. The utility of genetic testing is that future episodes of similar nature, we anticipated, especially if the patient is going for procedures, etc. (as this condition is known to exacerbate or appear in episodes associated with immunosuppression). There is some evidence to suggest that prophylactic steroids can be tried if attacks like this can be predicted in the future. It also will be helpful for the rest of the family given that this gene has an autosomal dominant inheritance pattern. Additional unnecessary testing and evaluations as well as expenses related to this can be prevented. Recommendations provided in print Patient Instructions 1. Based on your examination and comparison with your previous exam videos from October, I have determined that you have made about 50 to 60% improvement overall in terms of muscle strength. You still have weakness below the level of the wrist and in the small muscles of the hands which you are currently working ON with occupational and physical therapy. 2. Continue occupational and physical therapy. Renewed prescriptions can be made if you need to continue this. 3. EMG nerve conduction study of the upper limbs: We will place the order in today, and schedule you with Dr. Leonid murillo. 4. If the EMG and nerve conduction study comes back abnormal, that is if the nerves show damage, wecan consider immunoglobulin infusion. 5. IVIG (intravenous immunoglobulin): This is an infusion given over a few hours, in 3 days. You need to get this infusion here at our infusion center ([facility]) if we decide to go for thistreatment. We will call you and set this up if we need to do this. 6. IVIG can be repeated 3 or 4 times a year to suppress your immune system from acting on your nerves. 7. Genetic testing: SEPT 9 is a gene associated with a genetic form of Litnlmpvz-Lzgtms-snvi syndrome. We will consider testing for this gene. Please wait our call. We will set up full coverage through your insurance company after prior authorization. Once you get our call you can get your blood drawn at our hospital. 8. Continue gabapentin and amitriptyline. Send me prescription refills through [facility]. 9. Follow-up in May. Will call after EMG testing is done. Assessment & plan notes cannot be loaded without a specified hospital service. EYAL RAMIREZ, MSc, MD. [email or web address] Staff Neurologist & Movement Disorder Specialist [facility] (Adj Asst: Professor, [facility] [facility] [employer] Dept of Neurology) [address] [phone], [facility] [address] Clinic Fax: [phone] Attestation: Time Statement (OP Visits): A total of 40 minutes were spent with the patient where greater than 50% of the visit was spent [id number] counseling and or coordination of care. This note was dictated using [employer], a speech-recognition software. Syntax errors and sound-alike substitutions could be present. In such instances, please use appropriate clinical context to infer the meaning. Please bring such errors to the attention of the author. documented in this encounter* Kimber Avalos - 02/14/2020 10:13 AM EDT 02/14/2020 [facility] gave approval of [id number] for Genetic testing. Good through May 14, 2020. Was told we would get a call back because it still needs to go through a clinical process and if we need to produce clinical information it needs to be done [facility]. All the information on this patient is in manilla folder in front marked [facility]. documented in this encounter* Trudy Jaquez MD - 03/04/2020 10:44 AM EDT [facility] - Neurology [address] [place] [address] [phone] Nerve Conduction & EMG Report Patient: Julienne Reynaga Sex: Female Date of : 2000 Visit Date: 03/04/2020 09:04 Age: 19 Years Examining MD: Trudy Jaquez MD Referred by: Dr. Ramirez Temperature: 32.1 .Current Height: 5 feet 4 inch Referred for: BUE numbness and weakness for 5-6 months. No neck pain. Plan: The study is design to evaluate for radiculopathy, plexopathy, entrapment neuropathy, median or ulnar neuropathy. Indication, risk, side effects, and alternatives were explained. Patient agreedto proceed. Patient was instructed to clean the puncture site with soap and water and put some ice pack for bruising. EMG Summary: The bilateral median motor nerve conduction study showed normal distal latency, reduced amplitude and conduction velocity. Bilateral median sensory nerve conduction study showed absent responses. Bilateral ulnar motor and sensory nerve conduction studies were normal. Bilateral radial motor and sensory nerve conduction study showed absent responses. Needle EMG of the muscles tested showed decrease insertional activity with fibrillations and positive sharp waves on bilateral triceps, biceps, EDC, pronator teres, brachioradialis, EIP, and APB. There is also decreased insertional activity, fibrillations and positive sharp waves seen on the right d eltoid muscle. There are large amplitude, long duration motor unit action potentials with reduced recruitment pattern seen on the left biceps, triceps, brachioradialis, and APB. There are polyphasic motor unit action potentials seen at the left biceps muscle. There are no volitional units seen on the left EDC, EIP, and pronator teres. There are also no volitional units seen on the right deltoid, triceps, biceps, pronator teres, EDC,brachioradialis, EIP, and APB. The rest of the muscle tested showed no abnormal spontaneous activity. Normal motor unit action potentials and recruitment patterns were seen. Impression: This is an abnormal EMG. There is electrodiagnostic evidence suggestive of a bilateral brachial plexopathy with some reinnervation seen on the left upper extremity but not on the right side. Trudy Jaquez MD Diplomate, ABPN, NBPAS Clinical Neurophysiology, Neurology, Vascular Neurology and Sleep Medicine [place] [id number] [phone] Nota bene: Portions of this chart was created using [employer] voice recognition software. Occasional wrong-word or sound-like substitutions may have occurred due to inherent limitations of the voice recognition software. Please read the chart carefully and recognize, using context, where the substitutions have occurred. Motor NCS Nerve / Sites Muscle Latency Amplitude Distance Velocity ms mV cm m/s R Median - APB Wrist APB 3.65 3.2 7 Elbow APB 8.56 2.9 23 46.8 L Median - APB Wrist APB 4.10 0.6 7 Elbow APB 8.81 0.7 22 46.7 R Ulnar - . Wrist ADM 2.58 12.1 6.5 B.Elbow ADM 6.19 13.0 20 55.5 A.Elbow ADM 8.00 12.8 10 55.2 L Ulnar - . Wrist ADM 2.63 11.1 6.5 B.Elbow ADM 6.15 11.7 20 56.8 A.Elbow ADM 8.23 11.8 11 52.8 Motor NCS Nerve / Sites Muscle Latency Amplitude Amp % Duration Segments Lat Diff ms mV % ms ms R Radial - EIP Forearm EIP NR NR NR NR Forearm - EIP Elbow EIP NR NR NR NR Elbow - Forearm NR Spiral Gr EIP NR NR NR NR Spiral Gr - Elbow NR L Radial - EIP Forearm EIP NR NR NR NR Forearm - EIP Elbow EIP NR NR NR NR Elbow - Forearm NR Spiral Gr EIP NR NR NR NR Spiral Gr - Elbow NR Sensory NCS Nerve / Sites Rec. Site Peak Lat Amp.1 Amp.2 Distance Jack. d Lat.2 ms V V cm m/s ms R Radial - . Forearm Snuff NR NR NR 10 NR L Radial - . Forearm Snuff NR NR NR 10 NR R Median, Ulnar - PALMAR Median Palm Wrist NR NR NR 8 NR Ulnar Palm Wrist 1.75 4.2 16.0 8 57.3 NR L Median, Ulnar - PALMAR Median Palm Wrist NR NR NR 8 NR Ulnar Palm Wrist 1.79 6.5 41.7 8 57.3 NR EMG Summary Table Spontaneous Activity Amplitude Duration Recruitment Activation Polyphasia Comment Muscle Nerve Roots Ins Act Fib PSW Fasc - - - - - - L. Deltoid Axillary C5-C6 Normal 0 0 0 Normal Normal Normal Normal Normal Normal L. Triceps brachii Radial C6-C8 Decr 2+ 2+ 0 Increased Increased Mrk Dec L. Biceps brachii Musculocutaneous C5-C6 Decr 2+ 2+ 0 Increased Increased Mrk Dec 1+ L. Pronator teres Median C6-C7 Normal 0 0 0 Normal Normal Normal Normal Normal Normal L. Extensor digitorum communis Radial C7-C8 Decr 2+ 2+ 0 No Motor Units L. First dorsal interosseous Ulnar C8-T1 Normal 0 0 0 Normal Normal Normal Normal Normal Normal L. Abductor pollicis brevis Median C8-T1 Decr 2+ 2+ 0 Increased Increased Mrk Dec L. Cervical paraspinals Spinal C4-C8 Normal 0 0 0 Normal Normal Normal Normal Normal Normal R. Deltoid Axillary C5-C6 Decr 1+ 1+ 0 No Motor Units R. Triceps brachii Radial C6-C8 Decr 2+ 2+ 0 No Motor Units R. Biceps brachii Musculocutaneous C5-C6 Decr 2+ 2+ 0 No Motor Units R. Pronator teres Median C6-C7 Decr 2+ 2+ 0 No Motor Units R. Extensor digitorum communis Radial C7-C8 Decr 2+ 2+ 0 No Motor Units R. First dorsal interosseous Ulnar C8-T1 Normal 0 0 0 Normal Normal Normal Normal Normal Normal R. Abductor pollicis brevis Median C8-T1 Decr 2+ 2+ 0 No Motor Units R. Cervical paraspinals Spinal C4-C8 Normal 0 0 0 Normal Normal Normal Normal Normal Normal R. Flexor carpi ulnaris Ulnar C7-T1 Normal 0 0 0 Normal Normal Normal Normal Normal Normal L. Flexor carpi ulnaris Ulnar C7-T1 Normal 0 0 0 Normal Normal Normal Normal Normal Normal L. Brachioradialis Radial C5-C6 Decr 2+ 2+ 0 Increased Increased Mrk Dec R. Brachioradialis Radial C5-C6 Decr 2+ 2+ 0 No Motor Units R. Extensor indicis proprius Radial C7-C8 Decr 2+ 2+ 0 No Motor Units L. Extensor indicis proprius Radial C7-C8 Decr 2+ 2+ 0 No Motor Units documented in this encounter* Eyal Ramirez MD - 05/27/2020 10:44 AM EST NEUROLOGY NOTE [facility] [place] [address] [facility] [address] Fax: [phone] Service date: 05/27/2020 Admit date: (Not on file) Sia Holley is a 19 y.o. female here for follow-up of bilateral brachial plexopathy. She is here with her mother. Her last visit with me was with her grandmother, and was on 02/03/2020. I had seen her initially on 10/31/2019 on inpatient consult service for bilateral upper extremity weakness that progressed over 1 week after sustaining a fall from a stool in a saddle position (she had sustained a laceration in her vaginal which was evaluated and managed in the local ER and was given Keflex for the same at the time). Since the fall she was having pain over the shoulders, along the deltoid and upper arm which gradually progressed to involve the forearms and extended into the hands associated with tingling paresthesias. With gradual progressive weakness she presented to the ER on 10/31/2019 and was admitted to [facility] inpatient service. Full exam-refer to note from 10/31/2019. Based on the clinical history of gradual onset of shoulder pains, with worsening of lxcffv-[id number] pattern of weakness and an exam pattern showing C5-C8 roots being affected suggested bilateral brachial plexopathy. The commonest etiology for the same is brachial plexitis which is an autoimmune/inflammatory condition that affects both brachial plexus (Parsonage-Kirby syndrome). There were no features of other neuropathies or cervical spine cord involvement at this time.Autoimmune etiologies, rheumatoid factor, CHRISTINE, RICARDO, and inflammatory markers were evaluated and found to be negative at the time. She was subsequently initiated on high-dose IV steroids (methylprednisolone 500 mg split in 2 doses) followed by oral steroid taper over 15 days as outpatient. She was discharged home with home physical therapy which she has been undergoing at [facility]. She had establish care with pain management inthe interim and she was started on gabapentin and amitriptyline. Her grandmother reports that gabape ntin is recommended to be increased to twice daily starting tomorrow and then to 3 times daily after that. She was also advised to start amitriptyline 10 mg and then increase to 20 mg in a few days. Due to continued pain she had contacted our clinic and during my absence and Dr. Jaquez had recommendedextending the dose of steroids to a few more days (on prednisone taper dose at this time). EMG upper limb (11/12/2019): Reduced amplitude of both right and left median nerve motor study. Right median shows borderline decrease in conduction velocity. Right median sensory study shows prolonged distal latency and reduced amplitude. Left median sensory is within normal limits. NCS/EMG Summary (11/12/2019): The bilateral median motor nerve conduction study showed normal distallatency, reduced amplitude and borderline right conduction velocity. The right median sensory nerveconduction study showed prolonged distal latency and reduced amplitude. The left median sensory nerve conduction study showed normal latency and reduced amplitude. Needle EMG of right APB shows fibrillations and positive sharp waves in the right APB with absent MUAPs. Other hand muscles showed normal recruitment and APs. Ulnar and radial studies were within normal limits bilaterally. Overall the study suggests bilateral median nerve abnormalities with axonal pattern of pathology both sensory and motor fibers. Family history of similar illness in blood relatives (02/03/2020): More family history was obtained by patient's grandmother on my request. Patient's maternal grandfather had a similar illness after surgery which was thought to be neuropathy (painful right upper extremity weakness) but it lasted several months. 2 of his sisters also had similar illness which was episodic. And 1 of their sons, and 3 of their grandchildren also has a history of episodic painful plexopathy and weakness of upper extremity that happened in their 30s. They were all in one way or the other related to other illnesses or immunosuppressive situations for example childbirth in 1 of the family members. Update: 02/03/2020: Subjectively she has been improving quite a bit. Proximal strength of the shoulders and elbows have improved. She is able to raise her arms up and hold up in the air. Bilateral wrist drop is notable. She also has significant difficulty with gripping. However left upper extremity appears to have gained a lot more strength than the right. Weakness of the right side is more prominent below the level of the elbow. Amitriptyline seems to help with her sleep. Gabapentin improves the numbness and tingling that she experiences in the mornings. She continues to get physical therapy at [facility]. On exam today, she is able to supinate better today compared to last exam in November. Pronation is nearly normal. Flexion of the left elbow is remarkably better, and biceps appear to be prominently active on the left side. Right elbow flexion is quite weak (3/5). Shoulder abduction is slightly above the level of the horizontal plane at 180 degrees (improved from last time). Adduction and extension of shoulder appear to be stable as before. Sensory modalities are densely affected in the right upperextremity up to C5. On the left upper extremity this is up to C6 (dense below the elbow). Bicipitalreflexes tricipital reflexes and brachioradialis are still absent. Update: 05/27/2020: Disease is not progressing anymore and she has made quite a bit of improvement interms of strength. Left upper extremity however shows significant distal predominant weakness (handmuscles are worse). Right upper extremity is a lot better and she is able to do spontaneous activity with it mostly (reaching up to her face, fine motor manipulation etc.). No fasciculations is noted. Sensations are still diminished (all modalities) up to C5 level; with mild abnormalities of the C4(clavicle). Right bicipital and tricipital reflexes show flicker action. DTRs on the left side are still absent. Assessment and plan: The diagnosis of bilateral brachial plexopathy continues to be the case clinically. Inflammatory and autoimmune etiologies have been negative (extensive labs checked when she was in the hospital). Follow-up EMG in February [address] Jaquez interestingly shows more reinnervation features of the left upper extremity than the right. On that EMG she had no volitional units of the right deltoid triceps, biceps, pronator teres EDC brachioradialis, EIP and APB. EMG had also shown decrease insertionalactivity with fibrillations and positive sharp waves on bilateral triceps, biceps, EDC, pronator teres, brachioradialis, EIP, and APB. There is also decreased insertional activity, fibrillations and positive sharp waves seen on the right deltoid muscle. This is interesting because today her examination was far better on the right side compared to the left side. She seemed to have more volitional large and fine motor activity on the right side compared to the left side. Due to family history of multiple members with upper limb weakness (unexplained, often associated with traumatic events or major stressful events like ), the question of this being hereditary neuralgic amyotrophy (or hereditary brachial plexus neuropathy-HBPN) was raised. I had concerns that she may have mutation in the SEPT9 gene (chromosome 17).This test, performed through [employer], however turned out to be negative for mutations. At this time since she is making good recovery, I would recommend continuing exercise and physical therapy as well as occupational therapy at home. Age is a positive factor in her favor and reinnervation will be faster in younger patients with brachial plexopathy. She is still at a risk of relapse in the future if there are stressful incidents. Recommendations provided in print Patient Instructions 1. Your examination and comparison to your previous examinations suggest that there is improvement overall in terms of nerve regrowth and muscle strength. Sensations might take a little while longer to come back. 2. Continue physical therapy, and exercise for the wrists and hand muscles. 3. Recommend pulleys and weights at home. 4. No need for further EMG or nerve conduction studies at this time. We will consider this least a year from now to see if there is any additional nerve damage beyond what we already found that is going on. 5. Genetic testing: SEPT 9 is a gene associated with a genetic form of Ldzfqmxqi-Ozovjp-wfxx syndrome. We tested this gene through [facility] genetics lab, and found that you do not have any abnormal mutation in this gene to suggest that you carry this disease. However it is to be understood that only 12-55% of patients with disease will turn up positive for this mutation. I still think that this might be heritable disease given that you have multiple members of your family with very similar condition. 6. Continue gabapentin and amitriptyline. Send me prescription refills through [facility]. 7. Follow-up in December. Call in the interim with questions. We can set up additional follow-up in the interim if there is anything new. Assessment & plan notes cannot be loaded without a specified hospital service. EYAL RAMIREZ MSc, . Staff Neurologist & Movement Disorder Specialist [facility] (Adj Asst: Professor, [facility] [employer] Dept of Neurology) [id number], [address] Fax: [phone] Attestation: Time Statement (OP Visits): A total of 40 minutes were spent with the patient where greater than 50% of the visit was spent [id number] counseling and or coordination of care. This note was dictated using [employer], a speech-recognition software. Syntax errors and sound-alike substitutions could be present. In such instances, please use appropriate clinical context to infer the meaning. Please bring such errors to the attention of the author. documented in this encounter* Eyal Ramirez MD - 12/03/2019 2:32 PM EDT NEUROLOGY NOTE [facility] [address] second floor [place] [address] Fax: [phone] Service date: 12/03/2019 Admit date: (Not on file) Sia Holley is a 19 y.o. female here for follow-up of bilateral brachial plexitis. She is here with her grandmother. I had seen her on 10/31/2019 on inpatient consult service for bilateralupper extremity weakness that progressed over 1 week after sustaining a fall from a stool in a saddle position (she had sustained a laceration in her vaginal which was evaluated and managed in the local ER and was given Keflex for the same at the time). Since the fall she was having pain over the shoulders, along the deltoid and upper arm which gradually progressed to involve the forearms and extended into the hands associated with tingling paresthesias. With gradual progressive weakness she pre sented to the ER on 10/31/2019 and was admitted to [facility] inpatient service. On my examination on 10/31/2019 it was demonstrated that she had bilaterally flaccid upper extremityweakness (man in a barrel presentation). In the hands, weakness was predominantly noted with flexion of fingers, adduction and abduction as well as opposition of thumbs, and flexion of the wrist. Extension and dorsiflexion were slightly better compared to flexion. Forearm supination and pronationwere retained at the time, elbow flexion (biceps, extension (triceps) were also weak, and she engaged her brachioradialis mostly for movement around the elbow. Shoulder abduction was achieved only upto 160 degrees. She had complete areflexia and universal loss of sensory modalities of both upper extremities. No fasciculations myokymia or myoclonus were noted at the time.Normal strength and reflexes as well as sensations retained in the lower extremities and elsewhere in the body. Cranial nerves are also normal. Based on the clinical history of gradual onset of shoulder pains, with worsening of bqsfkp-co-wtauqiaj pattern of weakness and an exam pattern showing C5-C8 roots being affected suggested bilateral brachial plexopathy. The commonest etiology for the same is brachial plexitis which is an autoimmune/inflammatory condition that affects both brachial plexus (Parsonage-Kirby syndrome). There were no features of other neuropathies or cervical spine cord involvement at this time.Autoimmune etiologies, rheumatoid factor, CHRISTINE, RICARDO, and inflammatory markers were evaluated and found to be negative at the time. Update: 12/03/2019: I had initiated high-dose IV steroids (methylprednisolone 500 mg split in 2 doses) followed by oral steroid taper over 15 days as outpatient. She was discharged home with home physical therapy which she has been undergoing at [facility]. She had establish care with pain management in the interim and she was started on gabapentin and amitriptyline. Her grandmother reports that gabap entin is recommended to be increased to twice daily starting tomorrow and then to 3 times daily after that. She was also advised to start amitriptyline 10 mg and then increase to 20 mg in a few days.Due to continued pain she had contacted our clinic and during my absence and Dr. Jaquez had recommended extending the dose of steroids to a few more days (on prednisone taper dose at this time). On examination today (12/03/2019): The weakness appears to be stable overall in the left upper extremity with slight worsening in the right upper extremity. Supination is much worse than pronation theright upper extremity. Flexion extension of the elbow is also affected. Shoulder abduction appears to be around 180 degrees today. Shoulder adduction and extension are stable. [place] loss of all sensory modalities continue to be the same on the right upper extremity, but slight patchy improvement in the left upper extremity. Complete areflexia of both upper extremities. Lower extremities are strong. No new areas of numbness or loss of strength noted. Cranial nerves appear to be within normallimits again. No extension of weakness noted by patient either. No significant muscle atrophy, fasciculations, myoclonus or myokymia noted. EMG upper limb (11/12/2019): Reduced amplitude of both right and left median nerve motor study. Right median shows borderline decrease in conduction velocity. Right median sensory study shows prolonged distal latency and reduced amplitude. Left median sensory is within normal limits. NCS/EMG Summary: The bilateral median motor nerve conduction study showed normal distal latency, reduced amplitude and borderline right conduction velocity. The right median sensory nerve conduction study showed prolonged distal latency and reduced amplitude. The left median sensory nerve conduction study showed normal latency and reduced amplitude. Needle EMG of right APB shows fibrillations and positive sharp waves in the right APB with absent MUAPs. Other hand muscles showed normal recruitment and APs. Ulnar and radial studies were within normal limits bilaterally. Overall the study suggests bilateral median nerve abnormalities with axonal pattern of pathology both sensory and motor fibers. Assessment and plan: Overall I believe that the diagnosis of bilateral brachial plexitis continues to be the case clinically. We have already looked for inflammatory/autoimmune etiologies through labs which have all comeback negative. I am told by her grandmother that the patient's second cousin had a history of brachial plexopathy twice in her life once in her childhood and then again after her childbirth in her 30s. The patient's maternal grandfather also may have had some kind of upper extremity weakness with muscle atrophy. At this time I believe that the weakness and clinical features are probably at its prince and we maystart seeing improvement with continued physical therapy and possibly some immunosuppression using low-dose steroids. I will continue prednisone 5 mg once a day for a few more weeks to see if this can help healing. I recommended that she stay at amitriptyline 10 mg per night, and gabapentin 600 mg split into 2 doses and not to go up on this any further for concerns of side effect given her low body weight and age. I will reassess her in January clinically and decide on a follow-up EMG to see if there is significant axonal damage. If so, we might have to consider other immunosuppressant therapies and perhaps send her for a higher tier of testing (autoimmune paraneoplastic antibodies, CSF studies etc.). Given the new information regarding family history, hereditary neurologic amyotrophy (HNA; autosomal dominant SEPT9 gene mutation) can be considered in the future. If it is HNA, ongoing axonal degeneration and areflexia will be expected in the chronic phase and it presents frequently with episodes of brachial plexopathy. Visit diagnosis 1. Parsonage-Kirby syndrome 2. Brachial plexitis Recommendations provided in print Patient Instructions 1. Gabapentin 300 mg : Take at 8-9 AM and 2nd dose at 2-3 PM. Side effects: dizziness or tiredness. 2. Amitriptyline 10 mg: around 10 PM to continue. Side effect: weight gain, dry mouth, constipation. 3. For pain medication adjustments, call my clinic. 4. Prednisone: 5 mg once in the morning (with breakfast): 1 per day for 4 weeks. Further dose can be continued based on response in terms of weakness. 5. Continue PT at [facility]. Fax notes to my clinic. 6. Follow up in January. May consider second EMG if things get worse. EYAL RAMIREZ, MSc, . [email or web address] [email or web address] Staff Neurologist & Movement Disorder Specialist [facility] (Adj Asst: Professor, [employer] Dept of Neurology) [id number], [facility] [address] Clinic Fax: [phone] Attestation: Time Statement (OP Visits): A total of 45 minutes were spent with the patient where greater than 50% of the visit was spent [id number] counseling and or coordination of care. This note was dictated using [employer], a speech-recognition software. Syntax errors and sound-alike substitutions could be present. In such instances, please use appropriate clinical context to infer the meaning. Please bring such errors to the attention of the author. 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 Based on your examination and comparison with your previous exam videos from October, I have determined that you have made about 50 to 60% improvement overall in terms of muscle strength. You still have weakness below the level of the wrist and in the small muscles of the hands which you are currently working ON with occupational and physical therapy. 2. Continue occupational and physical therapy. Renewed prescriptions can be made if you need to continue this. 3. EMG nerve conduction study of the upper limbs: We will place the order in today, and schedule you with Dr. Leonid murillo. 4. If the EMG and nerve conduction study comes back abnormal, that is if the nerves show damage, wecan consider immunoglobulin infusion. 5. IVIG (intravenous immunoglobulin): This is an infusion given over a few hours, in 3 days. You need to get this infusion here at our infusion center ([facility]) if we decide to go for thistreatment. We will call you and set this up if we need to do this. 6. IVIG can be repeated 3 or 4 times a year to suppress your immune system from acting on your nerves. 7. Genetic testing: SEPT 9 is a gene associated with a genetic form of Uwjzuzrsq-Mjfkse-lbqt syndrome. We will consider testing for this gene. Please wait our call. We will set up full coverage through your insurance company after prior authorization. Once you get our call you can get your blood drawn at our hospital. 8. Continue gabapentin and amitriptyline. Send me prescription refills through [facility]. 9. Follow-up in May. Will call after EMG testing is done. documented in this encounter* Patient Instructions* Eyal Ramirez MD - 05/27/2020 10:45 AM EST 1. Your examination and comparison to your previous examinations suggest that there is improvement overall in terms of nerve regrowth and muscle strength. Sensations might take a little while longer to come back. 2. Continue physical therapy, and exercise for the wrists and hand muscles. 3. Recommend pulleys and weights at home. 4. No need for further EMG or nerve conduction studies at this time. We will consider this least a year from now to see if there is any additional nerve damage beyond what we already found that is going on. 5. Genetic testing: SEPT 9 is a gene associated with a genetic form of Trkuhwcxu-Glmpmw-wbjf syndrome. We tested this gene through [facility] genetics lab, and found that you do not have any abnormal mutation in this gene to suggest that you carry this disease. However it is to be understood that only 12-55% of patients with disease will turn up positive for this mutation. I still think that this might be heritable disease given that you have multiple members of your family with very similar condition. 6. Continue gabapentin and amitriptyline. Send me prescription refills through [facility]. 7. Follow-up in December. Call in the interim with questions. We can set up additional follow-up in the interim if there is anything new. documented in this encounter* Patient Instructions* Eyal Ramirez MD - 12/03/2019 2:14 PM EDT 1. Gabapentin 300 mg : Take at 8-9 AM and 2nd dose at 2-3 PM. Side effects: dizziness or tiredness. 2. Amitriptyline 10 mg: around 10 PM to continue. Side effect: weight gain, dry mouth, constipation. 3. For pain medication adjustments, call my clinic. 4. Prednisone: 5 mg once in the morning (with breakfast): 1 per day for 4 weeks. Further dose can be continued based on response in terms of weakness. 5. Continue PT at [facility]. Fax notes to my clinic. 6. Follow up in January. May consider second EMG if things get worse. documented in this encounter Chief Complaint and Reason for Visit Chief Complaint Admit Date ABDOMINAL PAIN October 28, 2024 1:05p m Additional Source Comments INFORMATION SOURCE (unrecogn ized section and content) DATE CREATED AUTHOR 11/08/2017 [facility] DATE CREATED AUTHOR AUTHOR'S ORGANIZ ATION 03/21/2020 [facility] DATE CREATED AUTHOR AUTHOR'S ORGANIZ ATION 06/14/2021 [facility] DATE CREATED AUTHOR AUTHOR'S ORGANIZ ATION 02/03/2025 [facility] DATE CREATED AUTHOR AUTHOR'S ORGANIZ ATION 02/07/2025 [facility] DATE CREATED AUTHOR AUTHOR'S ORGANIZ ATION 02/11/2025 [facility] DATE CREATED AUTHOR AUTHOR'S ORGANIZ ATION 03/23/2025 [facility] Reason for Visit (unrecogniz ed section and content) Reason Comments Numbness Status Reason Specialty Diagnoses / Procedures Referre d By Contact Referred To Contact Diagnoses Brachial plexus injury, initial encounter Weakness Status Reason Specialty Diagnoses / Procedures Referred By Contact Referred To Contact Authorized Neurology Diagnoses Parsonage-Kirby syndrome Brachial plexitis Procedures EMG: Eyal Ramirez MD [address] [address] Status Reason Specialty Diagnoses / Procedures Referre d By Contact Referred To Contact Closed Neurology Diagnoses Parsonage-Kirby syndrome Brachial plexitis Procedures EMG: Eyal Ramirez MD [address] [facility] [address] [place], [place] [id number] Reason Comments Brachial Plexus Grandma states thing s are jero the same she has a little better movement in the left side. Status Reason Specialty Diagnoses / Procedures Referred By Contact Referred To Contact Closed Specialty Services Required/Patient' s Best Interest Neurology Diagnoses Parsonage-Kirby syndrome Brachial plexitis Procedures EMG: Eyal Ramirez MD [address] [facility] [place], [place] [id number] Trudy Jaquez MD [address] [place] [id number] Reason Comments Brachial Plexus Patient says that autumn giraldo has not been having any issues since her last visit. States that everything is the same Reason Onset Date Comments Medication Refill 06/22/2020 Reason Onset Date Comments Medication Refill 06/24/2020 Reason Comments brachial plexus hosp FU She is sleep ing better she is going to pain mgmt and Therapy. She complains of muscle pain in both upper arms. She is having weakness in right arm and grasping with left hand. Difficulties with toiling per grandma. She states walking and balance are fine. Reason Onset Date Comments Medication Refill 07/23/2020 Reason Comments Follow-up Pt states she is sti ll doing PT 2x weekly and feels it is helping. Still taking medications and feels they are helping. Denies any other complaints Reason Comments Follow-up Reason Comments Parsonage-Kirby syndrome Last seen by Connor Ramirez on 10/27. Here for follow-up. Patient is taking gabapentin 100mg hs. She says she will take one capsule during the day if her arms are hurting really bad, but if she takes the medication it will make her tired. She is no longer taking amitriptyline, and is not sure when her last dose was. Reason Comments brachial plexus Patient states that her right arm is super weak. Her thumb get stuck and she has to move it herself. She has on and off tingling and numbness. She states she is rarely in pain. Reason Comments STD chlamydia exposure, burning and discharge Reason Comments Results BV+, Misael+, gonor kam+ Reason Comments Sore Throat ST, cough and also e xposed to STD Reason Comments Results Reason Comments Vaginal Problem Possible yeast infec tion, discharge, itching, burning x 2 days Reason Comments Initial OB Visit Specialty Diagnoses / Procedures Referred By Contac t Referred To Contact Diagnoses new Procedures new Self [place] [phone] Referral ID Status Reason Start Date Expiration Date V isits Requested Visits Authorized [id number] Closed Patient Cleared - Qualified 100% FAS 11/15/2024 02/13/2025 99 99 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 Diagnoses Encounter for supervision of high risk in first trimester, antepartum (HCC) 10 weeks gestation of (HCC) Procedures OBSTETRIC ULTRASOUND WHI US PREG UTERUS AFTER 1ST TRIMEST GESTATION María Freeman, CERTIFIED RECREATIONAL THERAPIST.RETIREMENT PLAN COUNSELOR [address] [place] [address] Phone: tel: fax:[phone] [place] [phone] Referral ID Status Reason Start Date Expiration Date V isits Requested Visits Authorized [id number] Closed Auto-Generate d Referral 12/05/2024 12/05/2025 1 1 Reason Onset Date Comments Care 12/19/2024 Reason Onset Date Comments Care 01/13/2025 Specialty Diagnoses / Procedures Referred By Contac t Referred To Contact [facility] Diagnoses Encounter for supervision of high risk in first trimester, antepartum (HCC) 12 weeks gestation of (HCC) Abnormal ultrasound Parsonage-Kirby syndrome Procedures OBSTETRIC ULTRASOUND WHI US PREG UTERUS AFTER 1ST TRIMEST GESTATION Kenia De Jesus APRN.CNM [address] [place] [address] Phone: tel: fax:[phone] [place] [address] [place] [phone] Referral ID Status Reason Start Date Expiration Date V isits Requested Visits Authorized [id number] Closed Auto-Generate d Referral 12/19/2024 12/19/2025 3 1 Reason Comments Genetics Specialty Diagnoses / Procedures Referred By Angela khan Referred To Contact Diagnoses 12 weeks gestation of (HCC) Abnormal ultrasound Parsonage-Kirby syndrome Procedures MEDICAL GENETICS COUNSELING EACH 30 MINUTES Kenia De Jesus APRN.POLLY [address] [place] [address] Phone: tel: fax: [facility] [place] [address] Referral ID Status Reason Start Date Expiration Date Visits Requested Visits Authorized [id number] Pending Review PCP Requested Referral Auto-Generate d Referral 12/19/2024 12/19/2025 1 1 Reason Comments Follow-up Brachial plexitis,Pa rsonage-Kirby syndrome FU Seen Reason Comments Follow-up FU Brachial plexitis ,Parsonage-Kirby syndrome Compa Vanessa MD - 10/31/2019 7:10 PM EDT H&P Notes (unrecognized sect ion and content) [facility] Medicine Inpatient H&P 10/31/2019 Compa Vanessa MD [facility] Patient: Sia Holley Date of : 2000 (19 y.o.) PCP: Physician No Assessment Sia Holley 19 y.o. female with history of fall 1 month ago with gynecologic issues came for numbness tingling in her hands radiating to her mid arms Active Problems: Weakness Plan: Admit to floor Consult neurologist MRI brachial plexus left and right MRI neck soft tissue Neuro check Pain management SUBJECTIVE: Chief Complaint: Numbness tingling in her hands History of Presenting Illness: Sia Holley is a 19 y.o. female presenting from home with complaint of numbness tingling in her hands radiating to her arms and with neck pain no weakness or numbness in lower extremity denies any medical problem before she has 1 month ago she has fall with gynecologic issues at that time she is not on any medication CT of neck and brain no acute finding they contact our neurologist who recommended to MRI of brachial plexus left and right and also MRI of the neck. Review of Systems: 10 systems reviewed and negative other than noted in HPI History: History reviewed. No pertinent past medical history. Past Surgical History: Procedure Laterality Date CLEFT PALATE REPAIR History reviewed. No pertinent family history. Social History Tobacco Use Smoking Status Never Smoker Smokeless Tobacco Never Used Social History Substance and Sexual Activity Alcohol Use Never Frequency: Never Family and Social History reviewed and non-pertinent to this visit Allergies: Patient has no known allergies. Home Medications: No current outpatient medications on file as of 10/31/2019. OBJECTIVE: Physical Examination: BP (!) 145/94 Pulse 91 Temp 98.3 F (36.8 C) (Oral) Resp 14 Ht 5' 4 Wt 52.2 kg (115 lb) LMP 10/09/2019 SpO2 98% BMI 19.74 kg/m General Appearance: Mild distress. HEENT: Head - Normocephalic, atraumatic. Eyes - TUDNE bilaterally and EOMI. Ears - normal external appearance, hearing intact. Nose - normal, no erythema. Throat - mucous membranes moist, pharynx without lesions. Neck: Supple, trachea midline. Cardiovascular: S1, S2 normal. Respiratory: Lungs clear to auscultation, no wheezes, rales or rhonchi heard. Abdomen: Soft, non-tender, normal bowel sounds, non-distended, no masses or organomegaly appreciated. Neurological: Weakness in upper extremities 4/5 with numbness tingling in her hands Musculoskeletal: No joint tenderness, deformity or swelling. Skin: Normal coloration and turgor. No rashes. Psych: Alert, oriented x 3. Normal mood and affect. Laboratory and Additional Data Reviewed: Results/Medications Reviewed 10/31/19 7:10 PM: Results from last 7 days Lab Units 10/31/19 1542 SODIUM mmol/L 140 POTASSIUM mmol/L 4.1 CHLORIDE mmol/L 109* BUN mg/dL 14 CREATININE mg/dL 0.64 GLUCOSE mg/dL 86 CALCIUM mg/dL 9.1 Results from last 7 days Lab Units 10/31/19 1542 WBC K/mcL 6.16 HGB g/dL 11.8* HCT % 34.6* PLT K/mcL 232 Results from last 7 days Lab Units 10/31/19 1542 ALK PHOS U/L 83 BILIRUBIN TOTAL mg/dL 0.6 TOTAL PROTEIN g/dL 7.4 ALTR U/L 18 AST U/L 13 CULTURES: Reviewed 7:10 PM IMAGING: Reviewed 7:10 PM documented in this encounter Leatha Henry OTR/Ankit - 11/02/2019 12:39 PM Eyal Milton MD - 11/01/2019 9:40 AM EDT Consult Notes (unrecognized section and content) Occupational Therapy OCCUPATIONAL THERAPY EVALUATION NOTE Diagnosis: Parsonage-Kirby Syndrome (autoimmune/inflammatory condition causing bilateral brachioplexipathy nerve roots C5 to C8 causing progressive BUE weakness), s/p saddle fall October 06) Skilled Therapy Needs After Discharge Are Skilled Therapy Services Needed After Discharge: Yes, patient would benefit from out-patient occupational therapy to improve BUE function, prevent BUE musculoskeletal issues, and educate about sensory precautions considering diminished sensation, and educate about functional task adaptations as needed during neurological recovery. Intensity of Skilled Therapy: 2-3 days per week Anticipated Duration of Skilled Therapy: > 30 days Rehab Potential: Excellent Outcomes Measures Prior Function Daily Activity: Raw Score: 22 Prior Function Daily Activity % Impaired: 25.80% functionally impaired AM-PAC Daily Activity: Raw Score: 22 AM-PAC Daily Activity % Impaired: 25.80% functionally impaired Occupational Therapy Assessment The patient's current functional participation deficits are feeding, grooming, UE dressing, LE dressing, bathing, toileting, home management, meal preparation, job duties, functional mobility. This reduced independence will limit their life roles of premorbid level individual, employee, family member, community member. The patient's co morbidities do not affect patient performance in the above activities and roles. The performance deficits are a result of neurological impairment(s) in bilateral, upper extremity including strength, range of motion, dexterity, coordination, sensation, stereognosis. The patient's home setup is a land management forester, family / caregiver support is a land management forester for return to prior level of function. The patient's compliance is a land management forester, awareness of own capacity and performance is a land management forester to return to prior level of function. During the assessment, minimal to moderate modification of task was required and several treatment options were identified in the plan of care. This consultation required expanded review of the medical and therapy history. Activity Tolerance Activity Tolerance: Endurance does not limit participation in activity Therapy Precautions Orthotic Devices: No Weight Bearing Status: WFL Cognition Overall Cognitive Status: Within Functional Limits Arousal/Alertness: Appropriate responses to stimuli Orientation Level: Oriented X4 Safety Judgment: Good awareness of safety precautions Problem Solving: Able to problem solve independently Hearing Status: WFL Social Interaction: WFL, Appropriate, Cooperative ADL/IADL Feeding: Modified independence, can use utensil, cup functionally. Grooming : Modified independence UE Dressing: Min(bra) LE Dressing: Modified independence, right hand uses ulnar grasp. Can sustain grasps to pull on socks, shorts, but diminished sensation. Toileting : Modified independence Bed Mobility Supine to Sit: Independent Sit to Supine: Independent Functional Transfers Sit to Stand: Independent Bed to Chair Transfers: Independent Toilet Transfers: Independent Exercise LUE: left dominant. Shoulder 3-, biceps/triceps 4-, forearm 4-, wrist ext/flex 4-, low functional grasp. Has opposition, palmar grasp, whole hand grasp. Using utensils, cup, toothbrush, comb and pen functionally, but with weak grasp and decreased dexterity. Diminished sensation. Reports she can feel objects, but not really identify the texture or item through touch. RUE: Weaker than LUE. Shoulder 3-, biceps/triceps 3+, forearm, 4-, wrist ext/flex 3+. Poor opposition. Compensates well. Does use right hand readily, but mostly with ulnar grasp and whole hand grasp. Difficulty with palmar grasp. Low dexterity. Uses hands together well for pulling up shorts, pulling on socks. But right hand using ulnar grasp. 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 Was driving until this past week when her arms became progressively weaker. History reviewed. No pertinent past medical history. Past Surgical History: Procedure Laterality Date CLEFT PALATE REPAIR For complete objective data, detailed plan of care and patient education refer to: OT EVALUATION flow sheet, OT TREATMENT flow sheet, patient Plan of Care, Plan of Care progress note, and Patient Education. This note stands as the current Discharge Summary upon patient discharge from the hospital or completion of Occupational Therapy Plan of Care. Associated Order(s): IP CONSULT TO NEUROLOGY Sia Holley is a 19 y.o. female presenting with bilateral upper extremity weakness that progressed over the last 1 week after she sustained a fall from a stool. She fell over the stool a week ago in a saddle position, sustaining a laceration tear in her vagina. This was sutured and she was given Keflex at the time. She started having pain after shoulders, along the deltoid and upper arm for a couple of days which gradually progressed to involve the forearms and extended into the hands and was associated with tingling paresthesias. She became weaker and weaker in her hands to the point where she was not able to hold onto things and hence showed up in the ER on 10/31/2019. On my examination she is pleasant interactive with normal higher mental functions. Flaccidly weak in both upper extremities (dng-dl-k-barrel presentation). Cranial nerves are within normal limits; strength of the head and neck muscles are also normal. Weakness is most striking in flexion of fingers, addduction abduction and opposition of thumbs, as well as wrist flexion. Wrist extension, and dorsiflexion of the hand are slightly better than flexion motion. Forearm supination and pronation are retained, elbow flexion (biceps) and extension (triceps) are weak and she engages the brachioradialis mostly. Abduction of the shoulders can be achieved only up to about 160 degrees. Complete areflexia of the upper extremities. Lower extremity reflexes and strength are within normal limits. No fasciculations, myokymia or myoclonus is noted. Impairment of all modalities of sensation (worse in the hands and just above the elbow). Summary of plan for 11/01/2019: Clinical history of gradual onset of shoulder pains with worsening of [id number] pattern of weakness is notable for brachial plexus injuries. Examination shows all wounds from C5-C8 are affected. C6-C7-C8 seems to be worst affected. The symmetry of the weakness is also striking. 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 Commonest etiology of such a presentation is brachial plexitis which is an autoimmune/inflammatory condition that affects both brachial plexus (Parsonage-Kirby syndrome). There are no features of other neuropathies or cervical spine cord involvement at this time. Due to the autoimmune etiologies, rheumatoid factor, CHRISTINE, RICARDO, and inflammatory markers need to be evaluated for. Parsonage-Kirby syndrome Assessment & Plan Bilateral upper extremity weakness with bedside exam demonstrating extensive involvement of nerve roots from C5 all the way to C8. Areflexia of both upper extremities, and loss of all sensory modalities in the distal > proximal fashion. 1. IV methylprednisolone: 250 mg x 2 doses given 12 hours apart. 2. Prednisone taper (outpatient orders placed): 60 mg x 1 day, 50 mg x 1 day, 40 mg x 1 day ... Taper down every day by 10 mg and stop. 3. Indomethacin 50 mg capsules 3 times daily for pain x 7 to 10 days. 4. Autoimmune/inflammatory labs: Orders placed in chart. These will be followed up in the clinic. 5. EMG/nerve conduction: With Dr. Jaquez next week as an outpatient. Orders will be placed from neurology clinic. 6. Intense physical therapy/Occupational Therapy -rehab team to assess potential for rehab and safety before discharge. Patient's mother was updated in the room over video conferencing. Attestation: I have personally performed a face to face evaluation on this patient on 11/01/2019 I have reviewed and agree with the care plan documented by the RETIREMENT PLAN COUNSELOR. Time statement: A total of 70 minutes were spent on this encounter either in the patient's room or on the patient's hospital unit and over half of that time was spent on [id number] counseling and/or coordination of care. EYAL RAMIREZ MSc, . [email or web address] [email or web address] Staff Neurologist & Movement Disorder Specialist [facility] (Adj Asst: Professor, [facility] [facility] [employer] Dept of Neurology) [address] [id number], [facility] [address] Clinic Fax: [phone] NEUROLOGY NOTE [facility], [place] [address] [address] [facility] [address] Fax: [phone] Service date: 11/01/2019 Admit date: 10/31/2019 Sia Holley is a 19 y.o. female who was admitted for numbness and weakness to her E. She has a history of a fall that occurred on or around 10/07/2019 where she fell off a 2 foot bar stool and cut her labia requiring sutures and a avina catheter was placed for 5 days. She followed up with her PATIENT ADMITTING REPRESENTATIVE who prescribed Keflex 500 mg TID for 7 days for infection prophylaxis. Approximately 1 week after her injury she noticed some pain and cramping in her BUE in the area between her elbow and shoulder. She also had neck pain that she localized to the base of her neck down the mid portion of her upper back between her shoulder blades. This gradually progressed to numbness to her bilateral fingers extending up her forearms bilaterally stopping at the elbow. She has trouble using her hands trying to do tasks such as opening doors. She saw a chiropractor on 10/15, 10/17, and 10/22. Symptoms were present prior to seeing the chiropractor. She states that she found very minimal relief following those appointments but it was short lived. She is not currently prescribed any medication at home and completed her full dose 7 day Keflex treatment. Imaging MRI Cervical Spine 10/31/2019: At C5-6 there is right uncovertebral joint hypertrophy with mild right neural foraminal stenosis with otherwise no significant spinal canal or neural foraminal stenosis in the cervical spine. CT Brain 10/31/2019: No acute intracranial findings. No mass or hemorrhage. MRI Brachial Plexus Left and Right 10/31/2019: Normal MR appearance of the bilateral brachial plexus. No asymmetric mass or suspicious enhancement identified. No abnormal spinal cord enhancement is identified. Of note, there is asymmetric edema in the left supraspinatus and infraspinatus muscles. Differential includes delayed onset muscle soreness, low-grade muscle strains, or early denervation change. EMG could be considered for further characterization. Lab Work Sed Rate: 8 CRP: <2.9 HCG: Negative Magnesium: 2 Assessment Patient is alert and oriented sitting up in bed. PERRLA. While talking with her she has both arms resting in her lab with her hands in a fixed position like she cannot close them to make a fist or extend her fingers. Hand gasp was equal but weakness detected. She can raise her arms and maintain against gravity but states that it causes discomfort in her arms and she has pain in her neck and mid portion of her upper back. She states that no matter how she lays or positions herself her neck and back hurt. I did not detect any head/neck weakness. Temperature sensation (cold used) was decreased to her BUE from her elbow down when compared to her upper arms. Decreased vibratory sensation from elbow when compared to fingers bilaterally. I was not able to illicit reflexes to BUE, brisk reflexes to BLE with strong dorsiflexion and plantarflexion bilaterally. Parsonage-Kirby syndrome Assessment & Plan - at 11/01/2019 12:27 PM Bilateral upper extremity weakness with bedside exam demonstrating extensive involvement of nerve roots from C5 all the way to C8. Areflexia of both upper extremities, and loss of all sensory modalities in the distal > proximal fashion. 7. IV methylprednisolone: 250 mg x 2 doses given 12 hours apart. 8. Prednisone taper (outpatient orders placed): 60 mg x 1 day, 50 mg x 1 day, 40 mg x 1 day ... Taper down every day by 10 mg and stop. 9. Indomethacin 50 mg capsules 3 times daily for pain x 7 to 10 days. 10. Autoimmune/inflammatory labs: Orders placed in chart. These will be followed up in the clinic. 11. EMG/nerve conduction: With Dr. Jaquez next week as an outpatient. Orders will be placed from neurology clinic. 12. Intense physical therapy/Occupational Therapy -rehab team to assess potential for rehab and safety before discharge. Further assessment and plan pending review with Dr. Munir Saenz, MSN, [facility] Neurology documented in this encounter Hilaria Gracia RN - 10/31/2019 5:04 PM Marychuy Cui RN - 10/31/2019 3:14 PM Marychuy Cui RN - 10/31/2019 3:12 PM Marychuy Cui RN - 10/31/2019 3:05 PM EDT ED Notes (unrecognized secti on and content) Special isolation precautions are in place with signage outside this patient's room. This career and technology education teacher performs hand hygiene and enters the patient room wearing: ? gloves ? an appropriately fitting (N-95, PAPR, Aura) mask ? face shield ? protective gown to provide care. See documentation for the care provided. Lab called to state need redraw for all tubes due to a tube opening and spilling blood over all of the tubes. PT TO CT VIA CART REPORT RECEIVED FROM AUTUMN ROB. CARE ASSUMED AT THIS TIME. [facility] TO COLLECT LAB SAMPLES. ED PROVIDER NOTE [facility] EMERGENCY [facility] NAME: Sia Holley AGE: 19 y.o. : 2000 VISIT DATE: 10/31/2019 CSN: [id number] PCP: Physician No Chief Complaint Patient presents with Numbness This is an 19-year-old female presents to the ER complaining of upper arm weakness. She states back in middle of October 03 or she was in the bathroom standing on a stool and fell. Apparently she lacerated her labia severely enough that she had to be put under conscious sedation for repair and a Avina was placed during that time. States she was on Keflex as preventative. She states since that time she has had progressive weakness and fatigue. She is stating that the weakness and fatigue is in her arms and hands. She not describe it as pain but describes it as paresthesia in her hands. Noted that her handgrips are +3 bilaterally. Noted that she holds her hands partially open as if she cannot fully close her fingers to costume maker her phone. She has difficulty holding her arms out straight. There is no drift with her eyes closed. Cranial nerves appear intact however she does have a weak shoulder shrug. She denies headache, pharyngitis, shortness of breath, chest pain, nausea, vomiting, abdominal pain diarrhea or constipation. There are no rashes. She reports that she had her period approximately 1 month ago. He does not appear to be toxic or in acute distress though she does appear to be in some discomfort. When discussing her discomfort she points to approximately T1 area. She denies tobacco use alcohol use or illicit drug use. History reviewed. No pertinent past medical history. Past Surgical History: Procedure Laterality Date CLEFT PALATE REPAIR History reviewed. No pertinent family history. Social History Socioeconomic History Marital status: Single Spouse name: Not on file Number of children: Not on file Years of education: Not on file Highest education level: Not on file Occupational History Not on file Social Needs Financial resource strain: Not on file Food insecurity Worry: Not on file Inability: Not on file Transportation needs Medical: Not on file Non-medical: Not on file Tobacco Use Smoking status: Never Smoker Smokeless tobacco: Never Used Substance and Sexual Activity Alcohol use: Never Frequency: Never Drug use: Never Sexual activity: Not on file Lifestyle Physical activity Days per week: Not on file Minutes per session: Not on file Stress: Not on file Relationships Social connections Talks on phone: Not on file Gets together: Not on file Attends rastafarian service: Not on file Active member of club or organization: Not on file Attends meetings of clubs or organizations: Not on file Relationship status: Not on file Other Topics Concern Not on file Social History Narrative Not on file No current outpatient medications on file prior to encounter. No Known Allergies Review of Systems Constitutional: Negative. HENT: Negative. Eyes: Negative. Respiratory: Negative. Cardiovascular: Negative. Musculoskeletal: Positive for back pain and neck pain. Skin: Positive for pallor. Neurological: Positive for weakness. Patient Vitals for the past 24 hrs: BP Temp Temp src Pulse Resp SpO2 Height Weight 10/31/19 1541 124/80 71 14 99 % 10/31/19 1324 (!) 144/96 98.6 F (37 C) Oral 95 16 97 % 5' 4 52.2 kg (115 lb) Physical Exam Vitals signs and nursing note reviewed. Constitutional: General: She is not in acute distress. Appearance: Normal appearance. She is well-developed and normal weight. She is ill-appearing. She is not toxic-appearing. HENT: Head: Normocephalic and atraumatic. Right Ear: External ear normal. Left Ear: External ear normal. Nose: Nose normal. Mouth/Throat: Mouth: Mucous membranes are moist. Pharynx: Oropharynx is clear. Eyes: Conjunctiva/sclera: Conjunctivae normal. Pupils: Pupils are equal, round, and reactive to light. Neck: Musculoskeletal: Full passive range of motion without pain and normal range of motion. No neck rigidity or muscular tenderness. Thyroid: No thyroid tenderness. Trachea: Trachea and phonation normal. Cardiovascular: Rate and Rhythm: Normal rate and regular rhythm. Pulses: Normal pulses. Heart sounds: Normal heart sounds. Pulmonary: Effort: Pulmonary effort is normal. Breath sounds: Normal breath sounds. Abdominal: General: Abdomen is flat. Bowel sounds are normal. Palpations: Abdomen is soft. Musculoskeletal: Normal range of motion. General: No signs of injury. Skin: General: Skin is warm and dry. Capillary Refill: Capillary refill takes less than 2 seconds. Neurological: Mental Status: She is alert and oriented to person, place, and time. GCS: GCS eye subscore is 4. GCS verbal subscore is 5. GCS motor subscore is 6. Cranial Nerves: Cranial nerves are intact. Motor: Weakness present. Coordination: Coordination is intact. Gait: Gait is intact. Comments: Cranial nerves are intact however she does have a weakened shoulder shrug Psychiatric: Mood and Affect: Mood normal. Behavior: Behavior normal. Behavior is cooperative. Laboratory & Radiographic Imaging (if done): Results for orders placed or performed during the hospital encounter of 10/31/19 Comprehensive Metabolic Panel Result Value Ref Range Sodium 140 135 - 145 mmol/L Potassium 4.1 3.5 - 5.1 mmol/L Chloride 109 (H) 98 - 108 mmol/L Bicarbonate 24 21 - 32 mmol/L Anion Gap 11 10 - 20 mmol/L Glucose 86 65 - 99 mg/dL BUN 14 8 - 25 mg/dL Creatinine 0.64 0.50 - 1.00 mg/dL eGFR 131 >=60 mL/min/1.73 m2 BUN/Creatinine Ratio 21.9 (H) 10.0 - 20.0 Total Protein 7.4 6.0 - 8.0 g/dL Albumin 4.3 3.2 - 4.5 g/dL Calcium 9.1 8.4 - 10.2 mg/dL Alkaline Phosphatase 83 40 - 140 U/L AST 13 0 - 45 U/L Total Bilirubin 0.6 0.0 - 1.3 mg/dL ALT 18 14 - 65 U/L Urinalysis Result Value Ref Range Color, Urine Yellow Colorless, Yellow Clarity, Urine Hazy (A) Clear Specific Ruffin 1.024 1.005 - 1.025 pH, Urine 5.0 5.0 - 7.0 Protein, Urine Negative Negative mg/dL Glucose, Urine Negative Negative mg/dL Ketones, Urine Negative Negative mg/dL Bilirubin, Urine Negative Negative Urobilinogen, Urine <2.0 <2.0 mg/dL Blood, Urine Negative Negative Nitrite, Urine Negative Negative Leukocyte Esterase, Urine Small (A) Negative WBCs, Urine 4 0 - 5 /hpf RBCs, Urine 1 0 - 3 /hpf Bacteria, Urine Rare (A) None Seen /hpf Squamous Epithelial 14 (H) 0 - 4 /hpf Mucus, Urine Few (A) None Seen, Rare /lpf HCG (QUALITATIVE) Result Value Ref Range Beta-hCG Qual Negative Negative CRP, Inflammation Result Value Ref Range CRP(Inflammation) <2.9 <=10.0 mg/L Sedimentation Rate Result Value Ref Range Sed Rate 8 0 - 20 mm/hr CBC Auto Differential Result Value Ref Range WBC 6.16 4.50 - 11.00 K/mcL RBC 4.04 (L) 4.10 - 5.10 M/mcL Hemoglobin 11.8 (L) 12.0 - 16.0 g/dL Hematocrit 34.6 (L) 36.0 - 46.0 % MCV 85.6 78.0 - 102.0 fL MCH 29.2 25.0 - 35.0 pg MCHC 34.1 31.0 - 37.0 g/dL Platelets 232 150 - 400 K/mcL RDW - CV 12.7 11.6 - 14.8 % MPV 11.1 9.4 - 12.4 fL Neutrophils 59.8 % Lymphocytes 30.7 % Monocytes 7.3 % Eosinophils 1.5 % Basophils 0.5 % IG Percent 0.20 % Neutrophils Abs 3.69 1.70 - 7.00 K/mcL Lymphocytes Abs 1.89 0.90 - 4.00 K/mcL Monocytes Abs 0.45 0.30 - 0.90 K/mcL Eosinophils Abs 0.09 0.00 - 0.50 K/mcL Basophils Abs 0.03 0.00 - 0.30 K/mcL IG Absolute 0.01 0.00 - 0.30 K/mcL Nucleated RBC 0.0 % Nucleated RBC Abs 0.00 0.00 - 0.00 K/mcL CT Head Or Brain Without Contrast Final Result Normal CT of the head. No acute intracranial findings. No hemorrhage or mass. DMG/nhung Workstation ID: [id number] CT Cervical Spine Without Contrast Final Result Normal CT of the cervical spine. No fracture or subluxation. DMG/JellyCloude Workstation ID: [id number] MR Brachial Plexus Left With And Without Contrast (Results Pending) MR Brachial Plexus Right With And Without Contrast (Results Pending) MR Cervical Spine Without Contrast (Results Pending) Procedures MDM Number of Diagnoses or Management Options Diagnosis management comments: This time will order a CBC, CMP, urinalysis, CT of the head and neck, CRP and sed rate. We will reevaluate as results are obtained Amount and/or Complexity of Data Reviewed Clinical lab tests: ordered Tests in the radiology section of CPT : ordered ED Course as of Oct 30 1709 Janette Oct 31, 2019 1542 Nurses reported that they need to recollect patient's Lantus as her labs exploded in the tube system. [DC] 1613 CRP: <2.9 [DC] 1613 Beta-hCG Qual: Negative [DC] [address] Ellington. He would like patient made it to hospitalist service. He is requested we ordered a bilateral MRI of the neck and bilateral MRI of the brachial plexus with dye., Consult him and he will see patient in the morning. [DC] 1646 Patient has been accepted by hospitalist service however they request that I place the MRI orders that were requested by Dr. Ramirez [DC] 1653 Spoke with patient and mother via face time. Explained lab results, CT results and consult with Dr. RAMIREZ. Explained to be admitting patient for MR Anthony and further studies. They are both amenable to this plan [DC] 1657 Added COVID test for the purpose of admission, patient does not have any symptoms. [DC] 1709 Attempted to elicit deep tender flex from bicep but was unable to. May be due to user error [DC] ED Course User Index [DC] Nuvia Bauman CNP The patient has been informed that they may have pre-hypertension or hypertension based on a blood pressure reading in the Emergency Department. I recommend that the patient call the primary care provider listed on their discharge instructions or a physician of their choice as soon as possible to arrange follow-up in the next 4 weeks for further evaluation of possible pre-hypertension or hypertension. . Clinical Impression: 1. Brachial plexus injury, initial encounter ED Disposition ED Disposition Condition Comment Hospitalize Level of Care: Med Surg [17] Admitting Physician: COMPA VANESSA [[id number]] Diagnosis: Weakness [[id number]] Attending Provider or Group: [facility] [[id number]] Reason for inpatient over two midnights: Consult neurologist Follow-up Information Follow-up information has not been specified. Contact information for after-discharge care Follow-up information has not been specified. Nuvia Bauman CNP 10/31/19 1653 Nuvia Bauman CNP 10/31/19 1657 Nuvia Bauman CNP 10/31/19 1710 PT WAS ABLE TO FEEL THIS RN TOUCHING ALL 10 DIGITS OF HER HANDS PT STATES SHE FELL 2 WEEKS AGO OFF OF A 2 FT STOOL; PT STATES SHE CUT HER LABIA AND HAD TO HAVE STITCHES; PT [facility] [place]; PT STATES FOR THE LAST WEEK HER FINGERS HAVE BEEN NUMB AND SHE CAN NOT STRAIGHTEN OUT HER ARMS documented in this encounter Assessment & Plan Note - Eyal Ramirez MD - 11/01/2019 12:23 PM EDTPlan of Care - Domenico Ortez RN - 10/31/2019 6:35 PM EDT Miscellaneous Notes (unrecog nized section and content) Associated Problem(s): Parsonage-Kirby syndrome Bilateral upper extremity weakness with bedside exam demonstrating extensive involvement of nerve roots from C5 all the way to C8. Areflexia of both upper extremities, and loss of all sensory modalities in the distal > proximal fashion. 1. Completed 2 doses of IV methylprednisolone 250 mg. 2. Prednisone taper (outpatient orders placed): 60 mg x 1 day, 50 mg x 1 day, 40 mg x 1 day ... Taper down every day by 10 mg and stop. 3. Indomethacin 50 mg capsules 3 times daily for pain x 7 to 10 days. 4. Autoimmune/inflammatory labs: Orders placed in chart. These will be followed up in the clinic. 5. EMG/nerve conduction: With Dr. Jaquez next week as an outpatient. Orders will be placed from neurology clinic. 6. Intense physical therapy/Occupational Therapy -safe to be discharged home. Patient has good social support. 7. Follow-up with me in the clinic after EMG. Problem: Pain Goal: Manage acute pain Outcome: Partially Met Goal: Manage chronic pain Outcome: Partially Met Goal: Reduced pain sensation Outcome: Partially Met Goal: Achievement of comfort function goal Outcome: Partially Met ED Attestation: I did not see this patient. However, I was personally available for consult in the ED for this patient, if the Advanced Practice Provider (EVELYN) needed any assistance. The EVELYN evaluated the patient independently for a complaint of Numbness, and completed their own examination, documentation, and discharge. documented in this encounter Care Teams (unrecognized sec tion and content) Database Management Specialist Relationship Specialty Start Date End Date Lata Mcnulty MD [address] [place] [id number] PCP - General Family Medicine 12/25/20 Database Management Specialist Relationship Specialty Start Date End Date Lata Mcnulty MD [address] [place] [id number] PCP - General Family Medicine 12/25/20 Database Management Specialist Relationship Specialty Start Date End Date Lata Mcnulty MD [address] [place] [id number] PCP - General Family Medicine 12/25/20 Database Management Specialist Relationship Specialty Start Date End Date Lata Mcnulty MD [address] [place] [address] PCP - General Family Medicine 11/19/19 Database Management Specialist Relationship Specialty Start Date End Date Lata Mcnulty MD [address] [place] [address] PCP - General Family Medicine 11/19/19 Database Management Specialist Relationship Specialty Start Date End Date Lata Mcnulty MD [address] [place] [address] PCP - General Family Medicine 11/19/19 Database Management Specialist Relationship Specialty Start Date End Date Lata Mcnulty MD [address] [place] [address] PCP - General Family Medicine 11/19/19 Database Management Specialist Relationship Specialty Start Date End Date Lata Mcnulty MD [address] [place] [address] PCP - General Family Medicine 11/19/19 Database Management Specialist Relationship Specialty Start Date End Date Lata Mcnulty MD [address] [place] [address] PCP - General Family Medicine 11/19/19 Database Management Specialist Relationship Specialty Start Date End Date Lata Mcnulty MD [address] [place] [address] PCP - General Family Medicine 11/19/19 Maritza Trevino APRN.RETIREMENT PLAN COUNSELOR [address] [facility], [place] [id number] [facility] 04/27/24 Database Management Specialist Relationship Specialty Start Date End Date Lata Mcnulty MD [address] [facility], [place] [id number] PCP - General Family Medicine 11/19/19 PodlogarMaritza APRN.RETIREMENT PLAN COUNSELOR [address] [facility], [place] [address] [facility] 04/27/24 Database Management Specialist Relationship Specialty Start Date End Date Lata Mcnulty MD [address] [facility], [place] [address] PCP - General Family Medicine 11/19/19 PodlogarMaritza APRN.RETIREMENT PLAN COUNSELOR [address] [facility], [place] [address] [facility] 04/27/24 Team Status: Active Member Role Status Dates Dr. Deandre Mcnulty MD Primary Care Provider Acti ve Team Status: Inactive Member Role Status Dates Dr. Dario Dwyer DO Emergency Provider Active Start: October 28, 2024 End: October 28, 2024 Dr. Deandre Mcnulty MD Primary Care Provider Acti ve Start: October 28, 2024 End: October 28, 2024 Database Management Specialist Relationship Specialty Start Date End Date PodlogarMaritza CERTIFIED RECREATIONAL THERAPIST.RETIREMENT PLAN COUNSELOR [address] [facility], [place] [address] [facility] 04/27/24 Nuvia Hernandez APRN.RETIREMENT PLAN COUNSELOR [address] [facility], [place] [address] [facility] 08/12/24 Database Management Specialist Relationship Specialty Start Date End Date Podlogar, Maritza, CERTIFIED RECREATIONAL THERAPIST.RETIREMENT PLAN COUNSELOR [address] [place] [address] [facility] 04/27/24 Nuvia Hernandez, CERTIFIED RECREATIONAL THERAPIST.RETIREMENT PLAN COUNSELOR [address] [place] [address] [facility] 08/12/24 Database Management Specialist Relationship Specialty Start Date End Date Podlogar, Maritza, CERTIFIED RECREATIONAL THERAPIST.RETIREMENT PLAN COUNSELOR [address] [place] [address] [facility] 04/27/24 Nuvia Hernandez, CERTIFIED RECREATIONAL THERAPIST.RETIREMENT PLAN COUNSELOR [address] [place] [address] [facility] 08/12/24 Database Management Specialist Relationship Specialty Start Date End Date Podlogar, Maritza, CERTIFIED RECREATIONAL THERAPIST.RETIREMENT PLAN COUNSELOR [address] [place] [address] [facility] 04/27/24 Nuvia Hernandez, CERTIFIED RECREATIONAL THERAPIST.RETIREMENT PLAN COUNSELOR [address] [place] [address] [facility] 08/12/24 Database Management Specialist Relationship Specialty Start Date End Date Podlogar, Maritza, CERTIFIED RECREATIONAL THERAPIST.RETIREMENT PLAN COUNSELOR [address] [place] [address] [facility] 04/27/24 Nuvia Hernandez, CERTIFIED RECREATIONAL THERAPIST.RETIREMENT PLAN COUNSELOR [address] [place], [place] [phone] [facility] 08/12/24 Database Management Specialist Relationship Specialty Start Date End Date Podlogar, Maritza, CERTIFIED RECREATIONAL THERAPIST.RETIREMENT PLAN COUNSELOR [address] [place] [address] [facility] 04/27/24 Nuvia Hernandez APRN.RETIREMENT PLAN COUNSELOR [address] [place] [phone] [facility] 08/12/24 Database Management Specialist Relationship Specialty Start Date End Date Podlogar, Maritza, CERTIFIED RECREATIONAL THERAPIST.RETIREMENT PLAN COUNSELOR [address] [place], [place] [address] [facility] 04/27/24 Nuvia Hernandez, CERTIFIED RECREATIONAL THERAPIST.RETIREMENT PLAN COUNSELOR [address] [place] [phone] [facility] 08/12/24 Database Management Specialist Relationship Specialty Start Date End Date Lata Mcnulty MD [address] [place] [address] [phone] PCP - General Family Medicine 12/25/20 Database Management Specialist Relationship Specialty Start Date End Date Lata Mcnulty MD [address] [place] [address] [id number] PCP - General Family Medicine 12/25/20 Source Comments (unrecognize d section and content) In the event this informatio n is protected by the Federal Confidentiality of Alcohol and Drug Abuse Patient Records regulations: The Federal rules restrict any use of the information to criminally investigate or prosecute any alcohol or drug abuse patient.[facility] the event this information is protected by the Federal Confidentiality of Alcohol and Drug Abuse Patient Records regulations: The Federal rules restrict any use of the information to criminally investigate or prosecute any alcohol or drug abuse patient.[facility] HospitalIn the event this information is protected by the Federal Confidentiality of Alcohol and Drug Abuse Patient Records regulations: The Federal rules restrict any use of the information to criminally investigate or prosecute any alcohol or drug abuse patient.[facility] HospitalIn the event this information is protected by the Federal Confidentiality of Alcohol and Drug Abuse Patient Records regulations: The Federal rules restrict any use of the information to criminally investigate or prosecute any alcohol or drug abuse patient.[facility] HospitalIn the event this information is protected by the Federal Confidentiality of Alcohol and Drug Abuse Patient Records regulations: The Federal rules restrict any use of the information to criminally investigate or prosecute any alcohol or drug abuse patient.[facility] HospitalIn the event this information is protected by the Federal Confidentiality of Alcohol and Drug Abuse Patient Records regulations: The Federal rules restrict any use of the information to criminally investigate or prosecute any alcohol or drug abuse patient.[facility] HospitalIn the event this information is protected by the Federal Confidentiality of Alcohol and Drug Abuse Patient Records regulations: The Federal rules restrict any use of the information to criminally investigate or prosecute any alcohol or drug abuse patient.[facility] HospitalIn the event this information is protected by the Federal Confidentiality of Alcohol and Drug Abuse Patient Records regulations: The Federal rules restrict any use of the information to criminally investigate or prosecute any alcohol or drug abuse patient.[facility] HospitalIn the event this information is protected by the Federal Confidentiality of Alcohol and Drug Abuse Patient Records regulations: The Federal rules restrict any use of the information to criminally investigate or prosecute any alcohol or drug abuse patient.[facility] HospitalIn the event this information is protected by the Federal Confidentiality of Alcohol and Drug Abuse Patient Records regulations: The Federal rules restrict any use of the information to criminally investigate or prosecute any alcohol or drug abuse patient.[facility] HospitalIn the event this information is protected by the Federal Confidentiality of Alcohol and Drug Abuse Patient Records regulations: The Federal rules restrict any use of the information to criminally investigate or prosecute any alcohol or drug abuse patient.[facility] HospitalIn the event this information is protected by the Federal Confidentiality of Alcohol and Drug Abuse Patient Records regulations: The Federal rules restrict any use of the information to criminally investigate or prosecute any alcohol or drug abuse patient.[facility] HospitalIn the event this information is protected by the Federal Confidentiality of Alcohol and Drug Abuse Patient Records regulations: The Federal rules restrict any use of the information to criminally investigate or prosecute any alcohol or drug abuse patient.[facility] HospitalIn the event this information is protected by the Federal Confidentiality of Alcohol and Drug Abuse Patient Records regulations: The Federal rules restrict any use of the information to criminally investigate or prosecute any alcohol or drug abuse patient.[facility] HospitalIn the event this information is protected by the Federal Confidentiality of Alcohol and Drug Abuse Patient Records regulations: The Federal rules restrict any use of the information to criminally investigate or prosecute any alcohol or drug abuse patient.[facility] HospitalIn the event this information is protected by the Federal Confidentiality of Alcohol and Drug Abuse Patient Records regulations: The Federal rules restrict any use of the information to criminally investigate or prosecute any alcohol or drug abuse patient.[facility] HospitalIn the event this information is protected by the Federal Confidentiality of Alcohol and Drug Abuse Patient Records regulations: The Federal rules restrict any use of the information to criminally investigate or prosecute any alcohol or drug abuse patient.[facility] HospitalIn the event this information is protected by the Federal Confidentiality of Alcohol and Drug Abuse Patient Records regulations: The Federal rules restrict any use of the information to criminally investigate or prosecute any alcohol or drug abuse patient.[facility] Goals (unrecognized section and content) Goals may be documented in a n alternate section FOR RECORDS PERTAINING TO PATIENTS WHO ARE OR HAVE BEEN ENROLLED IN A CHEMICAL DEPENDENCY/SUBSTANCEABUSE PROGRAM, SOME INFORMATION MAY BE OMITTED. This clinical summary was aggregated from multiple sources. Caution should be exercised in using it in the provision of clinical care. This summary normalizes information from multiple sources, and as a consequence, information in this document may materially change the coding, format and clinical context of patient data. In addition, data may be omitted in some cases. CLINICAL DECISIONS SHOULD BE BASED ON THE PRIMARY CLINICAL RECORDS. [facility] [employer] [facility]. provides no warranty or guarantee of the accuracy or completeness of information in this document.
[2025-05-21 14:48] VITALS: BMI 23.6
--- NOTE | 2025-05-21 19:19 | OB.TRI.NOTE ---
HPI - General HPI Narrative TOMI HOLLEY, is a 24 F at 34 weeks gestation who presents with decreased movements. Maternal Data Information CRYST[employer] Calculator Estimated Delivery Date Method Current WG Current Estimate 06/27/25 Manual 34w 5d PFSH PFSH Home Medications ?Medication ?Instructions ?Recorded ?Last Taken ?Type vit no.95-ferrous 1 tab PO DAILY 05/13/25 Unknown History fumarate 28 mg-folic acid 800 mcg tablet () acetaminophen 500 mg tablet 1,000 mg PO Q6H PRN fever 05/21/25 05/21/25 13:50 History (Tylenol Extra Strength) cefdinir 300 mg capsule 300 mg PO BID 05/21/25 05/21/25 11:30 History Allergy/AdvReac Type Severity Reaction Status Date / Time ondansetron (From Zofran) Allergy Intermediate Rash Verified 05/21/25 14:45 Social History (System 05/06/20 @ 12:18 by Babs Chacon) Smoking Status: Never smoker ROS Eyes Eyes: Denies blurry vision Cardiovascular Cardiovascular: Reports none; Denies chest pain at rest, chest pain with activity or dizziness Respiratory/Chest Respiratory/Chest: Denies dyspnea Gastrointestinal Gastrointestinal: Reports none and other; Denies diarrhea or vomiting Genitourinary Genitourinary: Denies dysuria Musculoskeletal Musculoskeletal: Reports none Integumentary Integumentary: Reports none; Denies rash Neurologic Neurologic: Denies dizziness, headache(s) or other visual disturbances Psychiatric Psychiatric: Reports none Physical Exam Const alert and no apparent distress General Appearance: cooperative Orientation / Consciousness: awake Exam Limitations: no limitations HEENT normocephalic Eyes General Eye: normal appearance of both eyes Neck full ROM Chest inspection of chest normal Resp normal respiratory effort and normal air movement Effort and Inspection: symmetric chest movement Auscultation: clear to auscultation bilaterally Cardio regular rate GI soft to palpation, non-tender and non-distended Inspection: and other Back/Spine normal ROM Extremity full ROM, normal capillary refill and no calf tenderness Skin no rashes or lesions noted Neuro oriented x3 and CN's II-XII intact bilaterally Psych mental status grossly normal NST FHR Rate Baby A Baseline: 140 Variability:: Moderate Accelerations:: 15 x 15 Decelerations:: None NST Reactive:: Yes FHR Category:: Category I Uterine Activity:: None Assessment & Plan (1) 34 weeks gestation of : (2) Decreased movement: PLAN: Plan Recent bronchitis diagnosis and started on antibiotics Has felt movements since entry NST reactive D/C home with follow up in office
== END 2025-05-21 18:15 | disposition home or self-care (01) ==
LOC: WPOUT 14:34 → WP 14:34
PROVIDERS: Referring Provider Advanced Practice Midwife; Visit Provider Advanced Practice Midwife
DX: O36.8130 Decreased fetal movements, third trimester, not applicable or unspecified (principal); Z3A.34 34 weeks gestation of pregnancy
CPT/HCPCS: 59025; 59050; 99221; G0378